=== PATIENT | female | born 1975 | race Caucasian/White ===

== ENCOUNTER 2017-08-08 02:30 | Observation (INO) | payer OTHER ==
[2017-08-08 02:38] VITALS: BMI 24.0
[2017-08-08] MEDS ORDERED: ACETAMINOPHEN 1000 MG/100 ML VIAL (NON FORMULARY) IVPB ONE ×2 (03:33→14:08)
[2017-08-08] MEDS ORDERED: ACETAMINOPHEN INJECTION 100 ML IVPB ONE ×2 (03:38→14:33)
[2017-08-08 03:58] LABS: BASO % 0.8 % (0-2.0); EOS % 2.8 % (0-4.5); HEMATOCRIT 39.3 % (32.4-45.2); HEMOGLOBIN 12.9 GM/dL (10.7-15.3); LYMPH % 37.8 % (8-40); MCH 29.6 pg (25.7-33.7); MCHC 32.9 g/dl (32.0-36.0); MEAN PLT VOLUME 7.3 fl (7.5-11.1); MONO % 9.8 % (3.8-10.2); NEUT % 48.8 % (42.8-82.8); PLATELET COUNT 397 K/MM3 (134-434); RBC 4.36 M/mm3 (3.60-5.2); RDW 13.7 % (11.6-15.6); WHITE BLOOD COUNT 10.9 K/mm3 (4.0-10.0)
[2017-08-08 04:14] LABS: INR 0.97 (0.82-1.09)
[2017-08-08 04:17] LABS: ACTIVATED PTT 29.9 SECONDS (26.9-34.4)
--- NOTE | 2017-08-08 04:33 | PDOC ---
History of Present Illness - General Chief Complaint: Pain Stated Complaint: CHEST PAIN Time Seen by Provider: 08/08/17 03:25 History Source: Patient Exam Limitations: No Limitations - History of Present Illness Initial Comments: 08/08/17 04:28 42yo Female patient w/ PmHx: TIA, HTN, Anxiety, Depression presents to ED c/o Chest pain that began 4 days ago. Patient states symptoms worsen, so she was seen at [facility] but walked out because she felt they were not doing anything. LNMP: 04/2014. Patient denies any other the counter medication use. Presenting Symptoms: Chest Pain Timing/Duration: reports: constant. denies: getting worse, changing over time, intermittent, resolved prior to arrival, gone now, other Severity/Quality: reports: moderate, pressure. denies: mild, severe, aching, burning, dull, ingestion, sharp, stabbing, tearing, tightness, other Location: reports: other (Below left breast.) Chest Pain Radiation: reports: no radiation Activities at Onset: reports: none Past History - Travel Traveled outside of the country in the last 30 days: No Close contact w/someone who was outside of country & ill: No - Past Medical History Allergies/Adverse Reactions: Allergies Allergy/AdvReac Type Severity Reaction Status Date / Time iodine Allergy Mild ithcy Verified 08/08/17 13:04 Iodinated Contrast- Oral and Allergy Verified 08/08/17 13:32 IV Dye Home Medications: Ambulatory Orders Gabapentin 100 mg PO TID 09/16/15 Quetiapine Fumarate [Seroquel -] 100 mg PO BID 09/16/15 Alprazolam 2 mg PO TID 08/08/17 Aspirin [ASA -] 81 mg PO DAILY 08/08/17 Hydrochlorothiazide [Hctz -] 12.5 mg PO DAILY 08/08/17 Hydroxyzine Pamoate [Vistaril -] 50 mg PO HS 08/08/17 Simvastatin 20 mg PO DAILY 08/08/17 Nicotine Patch [Nicoderm Patch -] 1 patch TD DAILY #30 patch 08/10/17 CVA: Yes (tia 4 yrs ago) COPD: No HTN: Yes Hypercholesterolemia: Yes Psychiatric Problems: Yes (depression, anxiety) - Surgical History Cardiac Surgery: Yes Cholecystectomy: Yes - Immunization History Immunization Up to Date: Yes - Suicide/Smoking/Psychosocial Hx Smoking History: Current every day smoker Number of Cigarettes Smoked Daily: 10 Information on smoking cessation initiated: No 'Breaking Loose' booklet given: 09/16/15 Hx Alcohol Use: No Drug/Substance Use Hx: No Substance Use Type: None Cardiac Specific PMH - Complaint Specific PMHX Abdominal Aortic Aneurysm: No Angina: No Cardiac Arrhythmia: No Cardiac Stent: No GERD: No Myocardial Infarction: No Pacemaker: No Pulmonary Embolus: No Valvular Heart Disease: No Peripheral Vascular Disease: No Review of Systems - Review of Systems Able to Perform ROS?: Yes Is the patient limited Syriac proficient: No Constitutional: No: Chills, Fever Respiratory: No: Cough, Shortness of Breath, Wheezing Cardiac (ROS): Yes: Chest Pain. No: Palpitations, Syncope, Chest Tightness ABD/GI: No: Constipated, Diarrhea, Nausea, Poor Appetite, Poor Fluid Intake, Vomiting : No: Dysuria, Hematuria Musculoskeletal: No: Back Pain Integumentary: No: Bruising, Erythema, Rash Neurological: No: Seizure, Ataxia, Dizziness All Other Systems: Reviewed and Negative *Physical Exam - Vital Signs Last Vital Signs Temp Pulse Resp BP Pulse Ox 97.7 F 79 18 117/73 100 08/10/17 14:00 08/10/17 14:00 08/10/17 14:00 08/10/17 14:00 08/10/17 06:00 - Physical Exam General Appearance: Yes: Nourished, Appropriately Dressed, Mild Distress. No: Apparent Distress, Moderate Distress, Severe Distress HEENT: positive: EOMI, NILESH, Normal ENT Inspection, Normal Voice, Symmetrical, TMs Normal, Pharynx Normal. negative: Pharyngeal Erythema, Tonsillar Exudate, Tonsillar Erythema, Nasal Congestion, Rhinorrhea, Sinus Tenderness, TM Bulging, TM Dull, TM Erythema Neck: positive: Trachea midline, Supple. negative: Rigid, Stridor, Lymphadenopathy (R), Lymphadenopathy (L) Respiratory/Chest: positive: Chest Tender (Reproducible on palpation), Lungs Clear, Normal Breath Sounds. negative: Respiratory Distress, Accessory Muscle Use, Labored Respiration, Rapid RR, Crackles, Rhonchi, Stridor, Wheezing Cardiovascular: positive: Regular Rhythm, Regular Rate Musculoskeletal: positive: Normal Inspection. negative: CVA Tenderness, Decreased Range of Motion, Vertebral Tenderness Extremity: positive: Normal Capillary Refill, Normal Inspection, Normal Range of Motion. negative: Pedal Edema, Swelling, Calf Tenderness, Erythema, Inflammation Integumentary: positive: Normal Color, Dry, Warm Neurologic: positive: plastic boat buffer II-XII NML intact, Fully Oriented, Alert, Normal Mood/ Affect, Normal Response, Motor Strength 02/05 ED Treatment Course - LABORATORY CBC & Chemistry Diagram: 08/10/17 10:53 08/09/17 07:45 - ADDITIONAL ORDERS Additional order review: 08/08/17 03:50 RBC 4.36 D MCV 90.0 MCHC 32.9 RDW 13.7 MPV 7.3 L Neutrophils % 48.8 D Lymphocytes % 37.8 D Monocytes % 9.8 Eosinophils % 2.8 Basophils % 0.8 - RADIOLOGY Radiology Studies Ordered: Category Date Time Status HEAD CT WITHOUT CONTRAST [CT] Stat CT Scan 08/08/17 03:33 Completed CHEST PA & LAT [RAD] Stat Radiology 08/08/17 03:33 Completed - Medications Given in the ED: ED Medications Discontinued Medications Generic Name Dose Route Start Last Admin Trade Name Campbellq PRN Reason Stop Dose Admin Acetaminophen 1,000 mg 08/08/17 03:33 08/08/17 03:54 Ofirmev Injection - IVPB 08/08/17 03:34 1,000 mg ONCE ONE Administration Acetaminophen 1,000 mg 08/08/17 14:08 08/08/17 14:35 Ofirmev Injection - IVPB 08/08/17 14:09 1,000 mg ONCE ONE Administration Acetaminophen 650 mg 08/08/17 15:49 08/10/17 10:51 Tylenol - PO 650 mg Q6H PRN Administration FEVER OR PAIN Al Hydroxide/Mg Hydroxide 30 ml 08/09/17 03:50 08/09/17 05:42 Mylanta Oral Suspension - PO 08/09/17 03:51 Not Given ONCE ONE Alprazolam 0.25 mg 08/08/17 12:17 08/08/17 12:43 Xanax - PO 08/08/17 12:18 0.25 mg ONCE ONE Administration Alprazolam 2 mg 08/08/17 15:45 08/10/17 13:50 Xanax - PO 2 mg TID ANGI Administration Aspirin 325 mg 08/08/17 12:48 08/08/17 13:42 Ecotrin - PO 08/08/17 12:49 325 mg ONCE ONE Administration Aspirin 81 mg 08/08/17 15:45 08/10/17 10:52 Asa - PO 81 mg DAILY ANGI Administration Atorvastatin Calcium 20 mg 08/08/17 22:00 08/09/17 21:26 Lipitor - PO 20 mg HS ANGI Administration Diphenhydramine HCl 25 mg 08/08/17 11:39 08/08/17 11:54 Benadryl Injection - IVPUSH 08/08/17 11:40 25 mg ONCE ONE Administration Enoxaparin Sodium 40 mg 08/08/17 15:00 08/08/17 15:18 Lovenox - SQ 40 mg DAILY ANGI Administration Gabapentin 100 mg 08/08/17 22:00 08/10/17 13:50 Neurontin - PO 100 mg TID ANGI Administration Hydrochlorothiazide 12.5 mg 08/08/17 15:45 08/08/17 15:59 Hctz - PO 12.5 mg DAILY ANGI Administration Hydrochlorothiazide 12.5 mg 08/10/17 10:00 08/10/17 10:52 Hctz - PO 12.5 mg DAILY ANGI Administration Hydroxyzine Pamoate 50 mg 08/08/17 22:00 08/08/17 22:11 Vistaril - PO 50 mg HS ANGI Administration Hydroxyzine Pamoate 50 mg 08/09/17 22:00 08/09/17 22:04 Vistaril - PO 50 mg HS ANGI Administration Sodium Chloride 1,000 mls @ 1,000 mls/hr 08/08/17 10:20 08/08/17 10:43 Normal Saline - IV 08/08/17 11:19 1,000 mls/hr ASDIR STA Administration Dipyridamole 33 mg/ Dextrose 33 mls @ 495 mls/hr 08/09/17 10:30 08/09/17 14: 00 IVPB 08/09/17 10:33 495 mls/hr ONCE ONE Administration Ketorolac Tromethamine 30 mg 08/08/17 09:54 08/08/17 10:38 Toradol Injection - IVPUSH 08/08/17 09:55 Not Given ONCE ONE Methylprednisolone Sodium Succinate 125 mg 08/08/17 11:39 08/08/17 11:55 Solu-Medrol - IVPUSH 08/08/17 11:40 125 mg ONCE ONE Administration Metoprolol Tartrate 12.5 mg 08/08/17 15:45 08/09/17 15:00 Lopressor - PO 12.5 mg DAILY ANGI Administration Morphine Sulfate 4 mg 08/08/17 10:20 08/08/17 10:43 Morphine Injection - IVPUSH 08/08/17 10:21 4 mg ONCE ONE Administration Nicotine 14 mg 08/09/17 12:00 08/10/17 10:52 Nicoderm Patch - TD 14 mg DAILY ANGI Administration Pantoprazole Sodium 40 mg 08/08/17 15:00 08/08/17 15:18 Protonix - PO 40 mg DAILY ANGI Administration Quetiapine Fumarate 100 mg 08/08/17 22:00 08/10/17 10:53 Seroquel - PO 100 mg BID ANGI Administration *DC/Admit/Observation/Transfer Diagnosis at time of Disposition: Atypical chest pain - Discharge Dispostion Disposition: HOME Condition at time of disposition: Stable Admit: No - Prescriptions - Referrals - Patient Instructions - Post Discharge Activity
[2017-08-08 05:35] LABS: INR 0.97 (0.82-1.09)
[2017-08-08 05:38] LABS: ACTIVATED PTT 32.9 SECONDS (26.9-34.4)
[2017-08-08 05:56] LABS: ALBUMIN 3.4 g/dl (3.4-5.0); ANION GAP 9 (8-16); BILIRUBIN,TOTAL 0.3 mg/dL (0.2-1.0); BLOOD UREA NITROGEN 27 mg/dL (7-18); CALCIUM 7.9 mg/dL (8.5-10.1); CHLORIDE 103 mmol/L (98-107); CO2 25 mmol/L (21-32); CREATININE 1.2 mg/dL (0.55-1.02); GLUCOSE,RANDOM 84 mg/dL (74-106); POTASSIUM 3.3 mmol/L (3.5-5.1); SGOT/AST 9 U/L (15-37); SGPT/ALT 18 U/L (12-78); SODIUM 137 mmol/L (136-145); TOT PROT 6.5 g/dl (6.4-8.2)
[2017-08-08 05:59] LABS: ALK PHOS 59 U/L (45-117)
--- NOTE | 2017-08-08 07:28 | PDOC ---
*Physical Exam - Vital Signs Last Vital Signs Temp Pulse Resp BP Pulse Ox 98 F 74 18 97/65 100 08/08/17 02:32 08/08/17 02:32 08/08/17 02:32 08/08/17 02:32 08/08/17 02:32 - Physical Exam General Appearance: Yes: Nourished, Appropriately Dressed, Moderate Distress ( states that pain is 10/10, clutching chest on hospital bed) Neck: positive: Trachea midline, Normal Thyroid, Supple. negative: Tender, Rigid, Lymphadenopathy (R), Lymphadenopathy (L) Respiratory/Chest: positive: Chest Tender (tender to both light and deep palpation), Lungs Clear, Normal Breath Sounds. negative: Respiratory Distress, Accessory Muscle Use, Rhonchi, Stridor, Wheezing Cardiovascular: positive: Regular Rhythm, Regular Rate, S1, S2 (present). negative: JVD, Murmur Integumentary: positive: Normal Color, Dry, Warm Neurologic: positive: radiologic technician II-XII NML intact, Fully Oriented, Alert, Normal Mood/ Affect, Motor Strength 5/5, Other (anxious). negative: Normal Response ED Treatment Course - LABORATORY CBC & Chemistry Diagram: 08/08/17 03:50 08/08/17 04:40 - ADDITIONAL ORDERS Additional order review: Laboratory Results 08/08/17 08/08/17 08/08/17 04:40 04:40 03:50 PT with INR 11.00 INR 0.97 PTT (Actin FS) 32.9 Sodium 137 Cancelled Potassium 3.3 L Cancelled Chloride 103 Cancelled Carbon Dioxide 25 Cancelled Anion Gap 9 Cancelled BUN 27 H D Cancelled Creatinine 1.2 H D Cancelled Creat Clearance w eGFR 48.80 Cancelled Random Glucose 84 D Cancelled Calcium 7.9 L Cancelled Total Bilirubin 0.3 D Cancelled AST 9 L D Cancelled ALT 18 D Cancelled Alkaline Phosphatase 59 D Cancelled Creatine Kinase 67 Cancelled Troponin I < 0.02 Cancelled Total Protein 6.5 Cancelled Albumin 3.4 D Cancelled 08/08/17 03:50 PT with INR 11.00 INR 0.97 PTT (Actin FS) 29.9 Sodium Potassium Chloride Carbon Dioxide Anion Gap BUN Creatinine Creat Clearance w eGFR Random Glucose Calcium Total Bilirubin AST ALT Alkaline Phosphatase Creatine Kinase Troponin I Total Protein Albumin 08/08/17 03:50 RBC 4.36 D MCV 90.0 MCHC 32.9 RDW 13.7 MPV 7.3 L Neutrophils % 48.8 D Lymphocytes % 37.8 D Monocytes % 9.8 Eosinophils % 2.8 Basophils % 0.8 - Medications Given in the ED: ED Medications Discontinued Medications Generic Name Dose Route Start Last Admin Trade Name Fabiola PRN Reason Stop Dose Admin Acetaminophen 1,000 mg 08/08/17 03:33 08/08/17 03:54 Ofirmev Injection - IVPB 08/08/17 03:34 1,000 mg ONCE ONE Administration Medical Decision Making - Medical Decision Making 08/08/17 09:21 Second troponin is negative. 08/08/17 10:41 Pt. x-rays are negative for fracture of ribs, acute pulmonary pathology. upon re -evaluation, pain is out of proportion to exam. Concerned for aortic aneurysm or dissection. Will order CTA chest and abdomen at this time. BUN/Cr slightly elevated at 23/1.2. Will medicate for pain, and give a liter of fluids prior to scanning. 08/08/17 11:[address] scan. Pt. told tech that she has had itching to contrast dye before. Will pre-medicate with benadryl and solumedrol. 08/08/17 13:35 CTA shows no aneurysm or dissection. Pt. still in severe pain even with medication. Will make obs for further ACS workup. Case discussed with Brionna Paez NP who accepts the pt. 08/08/17 14:51 Repeat EKG: Sinus rhythm, 60bpm, prolonged QT/QTc: 490/490. No axis deviation, no acute ST-T wave changes *DC/Admit/Observation/Transfer Diagnosis at time of Disposition: Atypical chest pain - Discharge Dispostion Condition at time of disposition: Stable Admit: Yes - Referrals - Patient Instructions
[2017-08-08 08:17] LABS: URINE APPEARANCE SLCLOUDY; URINE BILIRUBIN NEGATIVE (NEGATIVE); URINE BLOOD NEGATIVE (NEGATIVE); URINE COLOR YELLOW; URINE GLUCOSE (UA) NEGATIVE (NEGATIVE); URINE KETONE NEGATIVE (NEGATIVE); URINE NITRITE NEGATIVE (NEGATIVE); URINE PROTEIN NEGATIVE (NEGATIVE)
[2017-08-08] MEDS ORDERED: KETOROLAC TROMETHAMINE 30 MG/1 ML VIAL IVPUSH ONE (09:54)
[2017-08-08] MEDS ORDERED: SODIUM CHLORIDE 1,000 ML IV STA (10:20)
[2017-08-08] MEDS ORDERED: morphine CARPU-JECT 4 MG/1 ML DISP.SYRIN IVPUSH ONE (10:20)
[2017-08-08] MEDS ORDERED: morphine SULFATE 4 MG/ML VIAL ONE (10:39)
[2017-08-08] MEDS ORDERED: methylPREDNISolone NA SUCC 125 MG/2 ML VIAL IVPUSH ONE (11:39)
[2017-08-08] MEDS ORDERED: methylPREDNISolone NA SUCC 125 MG/2 ML VIAL ONE (11:49)
[2017-08-08] MEDS ORDERED: ALPRAZolam 0.25 MG TABLET PO ONE (12:17)
[2017-08-08] MEDS ORDERED: ASPIRIN 325 MG ENTERIC COATED TABLET (FP) PO ONE (12:48)
[2017-08-08] MEDS ORDERED: ASPIRIN 325 MG ENTERIC COATED TABLET (FP) ONE (13:35)
[2017-08-08] MEDS ORDERED: PANTOPRAZOLE 40 MG TABLET (FP) PO SCH (15:00)
[2017-08-08] MEDS ORDERED: ENOXAPARIN NA (PORCINE) 40 MG/0.4 ML DISP.SYRIN SQ SCH (15:00)
--- NOTE | 2017-08-08 15:04 | PN ---
Physical Exam: SUBJECTIVE: Patient seen and examined OBJECTIVE: Vital Signs Period Temp Pulse Resp BP Sys/Guerra Pulse Ox Last 24 Hr 97.8 F-98.1 F 70-78 18-18 97-106/55-74 98-100 GENERAL: The patient is awake, alert, and fully oriented, in no acute distress. HEAD: Normal with no signs of trauma. EYES: PERRL, extraocular movements intact, sclera anicteric, conjunctiva clear. No ptosis. ENT: Ears normal, nares patent, oropharynx clear without exudates, moist mucous membranes. NECK: Trachea midline, full range of motion, supple. LUNGS: Breath sounds equal, clear to auscultation bilaterally, no wheezes, no crackles, no accessory muscle use. HEART: Regular rate and rhythm, S1, S2 without murmur, rub or gallop. ABDOMEN: Soft, nontender, nondistended, normoactive bowel sounds, no guarding, no rebound, no hepatosplenomegaly, no masses. EXTREMITIES: 2+ pulses, warm, well-perfused, no edema. NEUROLOGICAL: Cranial nerves II through XII grossly intact. Normal speech, gait not observed. PSYCH: Normal mood, normal affect. SKIN: Warm, dry, normal turgor, no rashes or lesions noted Laboratory Results - last 24 hr 08/08/17 08/08/17 08/08/17 03:50 03:50 03:50 WBC 10.9 H RBC 4.36 D Hgb 12.9 D Hct 39.3 D MCV 90.0 MCH 29.6 MCHC 32.9 RDW 13.7 Plt Count 397 MPV 7.3 L Neutrophils % 48.8 D Lymphocytes % 37.8 D Monocytes % 9.8 Eosinophils % 2.8 Basophils % 0.8 PT with INR 11.00 INR 0.97 PTT (Actin FS) 29.9 Sodium Cancelled Potassium Cancelled Chloride Cancelled Carbon Dioxide Cancelled Anion Gap Cancelled BUN Cancelled Creatinine Cancelled Creat Clearance w eGFR Cancelled Random Glucose Cancelled Calcium Cancelled Total Bilirubin Cancelled AST Cancelled ALT Cancelled Alkaline Phosphatase Cancelled Creatine Kinase Cancelled Troponin I Cancelled Total Protein Cancelled Albumin Cancelled Urine Color Urine Appearance Urine pH Ur Specific [place] Urine Protein Urine Glucose (UA) Urine Ketones Urine Blood Urine Nitrite Urine Bilirubin Urine Urobilinogen 08/08/17 08/08/17 08/08/17 04:40 04:40 07:50 WBC RBC Hgb Hct MCV MCH MCHC RDW Plt Count MPV Neutrophils % Lymphocytes % Monocytes % Eosinophils % Basophils % PT with INR 11.00 INR 0.97 PTT (Actin FS) 32.9 Sodium 137 Potassium 3.3 L Chloride 103 Carbon Dioxide 25 Anion Gap 9 BUN 27 H D Creatinine 1.2 H D Creat Clearance w eGFR 48.80 Random Glucose 84 D Calcium 7.9 L Total Bilirubin 0.3 D AST 9 L D ALT 18 D Alkaline Phosphatase 59 D Creatine Kinase 67 Troponin I < 0.02 Total Protein 6.5 Albumin 3.4 D Urine Color Yellow Urine Appearance Slcloudy Urine pH 5.0 Ur Specific [place] 1.027 Urine Protein Negative Urine Glucose (UA) Negative Urine Ketones Negative Urine Blood Negative Urine Nitrite Negative Urine Bilirubin Negative Urine Urobilinogen 2.0 H 08/08/17 07:55 WBC RBC Hgb Hct MCV MCH MCHC RDW Plt Count MPV Neutrophils % Lymphocytes % Monocytes % Eosinophils % Basophils % PT with INR INR PTT (Actin FS) Sodium Potassium Chloride Carbon Dioxide Anion Gap BUN Creatinine Creat Clearance w eGFR Random Glucose Calcium Total Bilirubin AST ALT Alkaline Phosphatase Creatine Kinase 77 Troponin I < 0.02 Total Protein Albumin Urine Color Urine Appearance Urine pH Ur Specific [place] Urine Protein Urine Glucose (UA) Urine Ketones Urine Blood Urine Nitrite Urine Bilirubin Urine Urobilinogen ASSESSMENT/PLAN:
--- NOTE | 2017-08-08 15:31 | HP ---
CHIEF COMPLAINT: Mid-sternal chest pressure PCP: [facility] Psych: Dr. Rachel Sheppard at [facility] HISTORY OF PRESENT ILLNESS: 42 year-old female with a PMH significant for HTN, HLD, h/o TIA (2013), anxiety and depression. She presented to the ED early this monring with a complaint of mid-sternal chest pain from 4 to 7 days duration but worse in the past 24 hours. It is pressure-type pain that has been and remains constant. Patient also complains of pain under her left breast which is sharp, "like a needle" and which is also constant. She also has pain in her left shoulder, left arm, and left leg. She complains of "heaviness" in the left leg as well. ER course was notable for: (1) Troponins neg x 2 Recent Travel: No PAST MEDICAL HISTORY: Hypertension Hyperlipidemia TIA (2013) Anxiety Depression PAST SURGICAL HISTORY: Cholecystectomy Social History: unemployed Smoking: current everyday Alcohol: no Drugs: marijuana Family History: Allergies iodine Allergy (Mild, Verified 08/08/17 13:04) ithcy Iodinated Contrast- Oral and IV Dye Allergy (Verified 08/08/17 13:32) Home Medications: Meds reconciled with patient who produced prescription vials Medication Instructions Recorded Gabapentin 300 mg PO TID 09/16/15 Quetiapine Fumarate [Seroquel -] 25 mg PO BID 09/16/15 Alprazolam 2 mg PO TID 08/08/17 Aspirin [ASA -] 81 mg PO DAILY 08/08/17 Hydrochlorothiazide [Hctz -] 12.5 mg PO DAILY 08/08/17 Hydroxyzine Pamoate [Vistaril -] 50 mg PO HS 08/08/17 Simvastatin 20 mg PO DAILY 08/08/17 REVIEW OF SYSTEMS CONSTITUTIONAL: Absent: fever, chills, diaphoresis, generalized weakness, malaise, loss of appetite, weight change HEENT: Absent: rhinorrhea, nasal congestion, throat pain, throat swelling, difficulty swallowing, mouth swelling, ear pain, eye pain, visual changes CARDIOVASCULAR: Present: midsternal and left chest pain Absent: syncope, palpitations, irregular heart rate, lightheadedness, peripheral edema RESPIRATORY: Absent: cough, shortness of breath, dyspnea with exertion, orthopnea, wheezing, stridor, hemoptysis GASTROINTESTINAL: Absent: abdominal pain, abdominal distension, nausea, vomiting, diarrhea, constipation, melena, hematochezia GENITOURINARY: Absent: dysuria, frequency, urgency, hesitancy, hematuria, flank pain, genital pain MUSCULOSKELETAL: Absent: myalgia, arthralgia, joint swelling, back pain, neck pain SKIN: Absent: rash, itching, pallor HEMATOLOGIC/IMMUNOLOGIC: Absent: easy bleeding, easy bruising, lymphadenopathy, frequent infections ENDOCRINE: Absent: unexplained weight gain, unexplained weight loss, heat intolerance, cold intolerance NEUROLOGIC: Absent: headache, focal weakness or paresthesias, dizziness, unsteady gait, seizure, mental status changes, bladder or bowel incontinence PSYCHIATRIC: Present: anxiety Absent: depression, suicidal or homicidal ideation, hallucinations. PHYSICAL EXAMINATION Vital Signs - 24 hr 08/08/17 08/08/17 08/08/17 02:32 07:55 12:39 Temperature 98 F 98.1 F 97.8 F Pulse Rate 74 Pulse Rate [ 70 78 Apical] Respiratory 18 18 18 Rate Blood Pressure 97/65 Blood Pressure 106/74 105/55 [Left Arm] O2 Sat by Pulse 100 98 100 Oximetry (%) GENERAL: Awake, alert, and fully oriented. Moaning without cessation during exam. HEAD: Normal with no signs of trauma. EYES: Pupils equal, round and reactive to light, extraocular movements intact, sclera anicteric, conjunctiva clear. No ptosis. EARS, NOSE, THROAT: Ears normal, nares patent, oropharynx clear without exudates. Moist mucous membranes. NECK: Normal range of motion, supple without lymphadenopathy, JVD, or masses. LUNGS: Breath sounds equal, clear to auscultation bilaterally. No wheezes, and no crackles. No accessory muscle use. HEART: Regular rate and rhythm, normal S1 and S2 without murmur, rub or gallop. ABDOMEN: Soft, nontender, not distended, normoactive bowel sounds, no guarding, no rebound, no masses. No hepatomegaly or splenomegaly. MUSCULOSKELETAL: Normal range of motion at all joints. No bony deformities or tenderness. No CVA tenderness. UPPER EXTREMITIES: 2+ pulses, warm, well-perfused. No cyanosis. No clubbing. No peripheral edema. LOWER EXTREMITIES: 2+ pulses, warm, well-perfused. No calf tenderness. No peripheral edema. NEUROLOGICAL: Cranial nerves II-XII intact. Normal speech. Gait not observed. PSYCHIATRIC: Anxious. Laboratory Results - last 24 hr 08/08/17 08/08/17 08/08/17 03:50 03:50 03:50 WBC 10.9 H RBC 4.36 D Hgb 12.9 D Hct 39.3 D MCV 90.0 MCH 29.6 MCHC 32.9 RDW 13.7 Plt Count 397 MPV 7.3 L Neutrophils % 48.8 D Lymphocytes % 37.8 D Monocytes % 9.8 Eosinophils % 2.8 Basophils % 0.8 PT with INR 11.00 INR 0.97 PTT (Actin FS) 29.9 Sodium Cancelled Potassium Cancelled Chloride Cancelled Carbon Dioxide Cancelled Anion Gap Cancelled BUN Cancelled Creatinine Cancelled Creat Clearance w eGFR Cancelled Random Glucose Cancelled Calcium Cancelled Total Bilirubin Cancelled AST Cancelled ALT Cancelled Alkaline Phosphatase Cancelled Creatine Kinase Cancelled Troponin I Cancelled Total Protein Cancelled Albumin Cancelled Urine Color Urine Appearance Urine pH Ur Specific [place] Urine Protein Urine Glucose (UA) Urine Ketones Urine Blood Urine Nitrite Urine Bilirubin Urine Urobilinogen 08/08/17 08/08/17 08/08/17 04:40 04:40 07:50 WBC RBC Hgb Hct MCV MCH MCHC RDW Plt Count MPV Neutrophils % Lymphocytes % Monocytes % Eosinophils % Basophils % PT with INR 11.00 INR 0.97 PTT (Actin FS) 32.9 Sodium 137 Potassium 3.3 L Chloride 103 Carbon Dioxide 25 Anion Gap 9 BUN 27 H D Creatinine 1.2 H D Creat Clearance w eGFR 48.80 Random Glucose 84 D Calcium 7.9 L Total Bilirubin 0.3 D AST 9 L D ALT 18 D Alkaline Phosphatase 59 D Creatine Kinase 67 Troponin I < 0.02 Total Protein 6.5 Albumin 3.4 D Urine Color Yellow Urine Appearance Slcloudy Urine pH 5.0 Ur Specific [place] 1.027 Urine Protein Negative Urine Glucose (UA) Negative Urine Ketones Negative Urine Blood Negative Urine Nitrite Negative Urine Bilirubin Negative Urine Urobilinogen 2.0 H 08/08/17 07:55 WBC RBC Hgb Hct MCV MCH MCHC RDW Plt Count MPV Neutrophils % Lymphocytes % Monocytes % Eosinophils % Basophils % PT with INR INR PTT (Actin FS) Sodium Potassium Chloride Carbon Dioxide Anion Gap BUN Creatinine Creat Clearance w eGFR Random Glucose Calcium Total Bilirubin AST ALT Alkaline Phosphatase Creatine Kinase 77 Troponin I < 0.02 Total Protein Albumin Urine Color Urine Appearance Urine pH Ur Specific [place] Urine Protein Urine Glucose (UA) Urine Ketones Urine Blood Urine Nitrite Urine Bilirubin Urine Urobilinogen Imaging 08/08 CXR: no acute pathology 08/08 Left ribs xray: no acute pathology 08/08 CT chest, abd, pelvis: centrilobular emphysema mild to moderate; nonspecific sclerotic focus within T5 vertebra; ASSESSMENT/PLAN 42 year-old female with a PMH significant for HTN, HLD, h/o TIA (2013), anxiety and depression. Placed on observation for chest pain. Atypical chest pain --troponins neg x 2, third pending; ECG not suggestive of acute ischemic event; CXR unremarkable; echo ordered; cardiology consult requested --continue ASA, statin; start low dose beta-ambika as BP is on the low side --start protonix --NPO after midnight in event cardiology wants to stress --Tylenol PRN for pain Centrilobular emphysema --not on medication --asymptomatic at this time; needs outpatient followup h/o TIA --complaining of pain and heaviness in LLE --CT head negative --continue ASA --neuro consult requested Hypertension --BP on low side, monitor after starting low-dose metoprolol --continue HCTZ but hold if BP drops Hyperlipidemia --continue statin Anxiety and depression --continue gabapentin, quetiapine, hydroxyzine, alprazolam F/E/N Fluids: PO intake adequate Electrolytes: replete as indicated Nutrition: low sodium diet DVT prophylaxis: lovenox, oob, ambulation Dispo: requires observation. Full code. Visit type - Emergency Visit Emergency Visit: Yes Care time: The patient presented to the Emergency Department on the above date and was hospitalized for further evaluation of their emergent condition. - New Patient This patient is new to me today: Yes Date on this admission: 08/08/17 - Critical Care Critical Care patient: No
[2017-08-08] MEDS ORDERED: HYDROCHLOROTHIAZIDE 12.5 MG CAPSULE (FP) PO SCH (15:45)
[2017-08-08] MEDS ORDERED: PATIENT'S OWN MEDICATION (NON-FORMULARY) (Simvastatin [Simvastatin] 20 MG) PO SCH (15:45)
[2017-08-08] MEDS ORDERED: HYDROCHLOROTHIAZIDE 25 MG TABLET (FP) ONE (15:52)
[2017-08-08] MEDS ORDERED: ALPRAZolam 2 MG TABLET ONE (15:52)
[2017-08-08] MEDS ORDERED: ASPIRIN COATED 81 MG TABLET.EC ONE (15:52)
[2017-08-08] MEDS ORDERED: METOPROLOL TARTRATE 25 MG TABLET (FP) ONE (15:53)
[2017-08-08] MEDS: METOPROLOL TARTRATE 50 MG TABLET (FP) PO SCH (15:59)
[2017-08-08] MEDS: ALPRAZolam 2 MG TABLET PO SCH ×2 (16:00→22:08)
[2017-08-08] MEDS: ASPIRIN 81 MG CHEWABLE TABLETS PO SCH (16:00)
--- NOTE | 2017-08-08 17:12 | CON.NEURO ---
Consult - History of Present Illness History of Present Illness: admitted for chest pain and left arm pain , also complain of face numbness, left leg heaviness HPI 42 year old female history of htn, hyperlipidemia and tia ( 2014 with right sided symptoms), she also suffers from anxiety, bipolar . She is on multiple medication. She has been feeling left arm is very very heavy and feel chest pressure . She also been feeling left leg is heavy. Though she is able to walk. Patient is on statin and aspirin at home. She also feel tingling and numbness on face, bialterally. She denies any dysphagia dysarthria or diplopia or any paralysis . - Past Medical History Hepatobiliary: Yes: Cholelithiasis ...LMP: 08/01/17 Psych: Yes: Anxiety, Depression - Alcohol/Substance Use Hx Alcohol Use: No - Smoking History Smoking history: Current every day smoker Aproximately how many cigarettes per day: 10 Home Medications - Allergies Allergies/Adverse Reactions: Allergies Allergy/AdvReac Type Severity Reaction Status Date / Time iodine Allergy Mild ithcy Verified 08/08/17 13:04 Iodinated Contrast- Oral and Allergy Verified 08/08/17 13:32 IV Dye - Home Medications Home Medications: Ambulatory Orders Gabapentin 100 mg PO TID 09/16/15 Quetiapine Fumarate [Seroquel -] 100 mg PO BID 09/16/15 Alprazolam 2 mg PO TID 08/08/17 Aspirin [ASA -] 81 mg PO DAILY 08/08/17 Hydrochlorothiazide [Hctz -] 12.5 mg PO DAILY 08/08/17 Hydroxyzine Pamoate [Vistaril -] 50 mg PO HS 08/08/17 Simvastatin 20 mg PO DAILY 08/08/17 Family Disease History - Family Disease History Family Disease History: Other: Grandparent (mat gdma with gallstones), Mother ( gallstones) Physical Exam-Neuro Vital Signs: Vital Signs Temperature 97.8 F 08/08/17 12:39 Pulse Rate 76 08/08/17 16:10 Respiratory Rate 20 08/08/17 16:10 Blood Pressure 109/64 08/08/17 16:10 O2 Sat by Pulse Oximetry (%) 97 08/08/17 16:10 Labs: INR, PTT INR 0.97 (0.82-1.09) 08/08/17 04:40 Imaging - Results Cat Scan: Report Reviewed, Image Reviewed Assessment/Plan cc admitted for chest pain and left arm pain , also complain of face numbness, left leg heaviness HPI 42 year old female history of htn, hyperlipidemia and tia ( 2014 with right sided symptoms), she also suffers from anxiety, bipolar . She is on multiple medication. She has been feeling left arm is very very heavy and feel chest pressure . She also been feeling left leg is heavy. Though she is able to walk. Patient is on statin and aspirin at home. She also feel tingling and numbness on face, bialterally. She denies any dysphagia dysarthria or diplopia or any paralysis . PAST MEDICAL HISTORY: as above PAST SURGICAL HISTORY: Cholecystectomy Social History: unemployed, smokes cigarette and marijuana, denies alcohol use = Allergies iodine Allergy (Mild, Verified 08/08/17 13:04) ithcy Iodinated Contrast- Oral and IV Dye Allergy (Verified 08/08/17 13:32) Home Medications: Meds reconciled with patient who produced prescription vials Medication Instructions Recorded Gabapentin 300 mg PO TID 09/16/15 Quetiapine Fumarate [Seroquel -] 25 mg PO BID 09/16/15 Alprazolam 2 mg PO TID 08/08/17 Aspirin [ASA -] 81 mg PO DAILY 08/08/17 Hydrochlorothiazide [Hctz -] 12.5 mg PO DAILY 08/08/17 Hydroxyzine Pamoate [Vistaril -] 50 mg PO HS 08/08/17 Simvastatin 20 mg PO DAILY 08/08/17 REVIEW OF SYSTEMS reviewed in chart Neurological Examination Alert follow command, oriented x 3 CN all intact, eomi, no face asymmetry, pupils is reactive no motor weakness identified, she is able to walk and have difficulty doing squat and walking on toes or heel reflex are symmetry sensory is normal ct head reviewed Assessment - she has subjective symptoms of bilateral face, left arm and leg heaviness, no objective weakness identified.given her risk factor I would recommend do mri of brain, once stroke confirmed would do furhter work up , other culp no change Plan- pt , and Mri of brain - continue current apsirin and statin - would continue to follow with primary Thank you so much Michael Arteaga MD
[2017-08-08 18:11] LABS: LIPASE 171 U/L (73-393); N-TERMINAL BNP 67.79 pg/ml (5-125)
--- NOTE | 2017-08-08 18:26 | FALL ---
Fall Exam - Event Witnessed fall: No Location of Fall: Bathroom Fall from: While ambulating - Pre-Fall Fall Risk: High Risk Mental Status: Alert, Oriented, Cooperative Current Medications: Current Medications Generic Name Dose Route Start Last Admin Trade Name Freq PRN Reason Stop Dose Admin Acetaminophen 650 mg 08/08/17 15:49 Tylenol - PO Q6H PRN FEVER OR PAIN Alprazolam 2 mg 08/08/17 15:45 08/08/17 16:00 Xanax - PO 2 mg TID ANGI Administration Aspirin 81 mg 08/08/17 15:45 08/08/17 16:00 Asa - PO 81 mg DAILY ANGI Administration Atorvastatin Calcium 20 mg 08/08/17 22:00 Lipitor - PO HS ANGI Enoxaparin Sodium 40 mg 08/08/17 15:00 08/08/17 15:18 Lovenox - SQ 40 mg DAILY ANGI Administration Gabapentin 100 mg 08/08/17 22:00 Neurontin - PO TID ANGI Hydrochlorothiazide 12.5 mg 08/08/17 15:45 08/08/17 15:59 Hctz - PO 12.5 mg DAILY ANGI Administration Hydroxyzine Pamoate 50 mg 08/08/17 22:00 Vistaril - PO HS ANGI Metoprolol Tartrate 12.5 mg 08/08/17 15:45 08/08/17 15:59 Lopressor - PO 12.5 mg DAILY ANGI Administration Pantoprazole Sodium 40 mg 08/08/17 15:00 08/08/17 15:18 Protonix - PO 40 mg DAILY ANGI Administration Quetiapine Fumarate 100 mg 08/08/17 22:00 Seroquel - PO BID ANGI - Post-Fall Patient Outcome: Pain Only Exam Findings: A&O x3. CN II-XII intact. motor strength 5/5 in b/l upper and lower extremities. sensation intact bilaterally Treatment: None (CT head no contrast) Vital Signs: Vital Signs Temperature 97.8 F 08/08/17 12:39 Pulse Rate 76 08/08/17 16:10 Respiratory Rate 20 08/08/17 16:10 Blood Pressure 109/64 08/08/17 16:10 O2 Sat by Pulse Oximetry (%) 97 08/08/17 16:10 Identify factors for HIGH RISK for Head Injury: None of the above
[2017-08-08 20:12] LABS: URINE LEUK ESTERASE Negative (NEGATIVE)
[2017-08-08] MEDS ORDERED: QUEtiapine FUMARATE 50 MG TABLET ONE (21:45)
[2017-08-08] MEDS ORDERED: PT OWN MED DRAWER 7, Y5N ONE (21:46)
[2017-08-08] MEDS ORDERED: hydrOXYzine PAMOATE 50 MG CAPSULE (FP) PO SCH (22:00)
[2017-08-08] MEDS: ATORVASTATIN CA 20 MG TABLET (FP) PO SCH (22:08)
[2017-08-08] MEDS: GABAPENTIN 100 MG CAPSULE (FP) PO SCH (22:08)
[2017-08-08] MEDS: QUEtiapine FUMARATE 100 MG TABLET (FP) PO SCH (22:08)
[2017-08-09 01:26] LABS: COCAINE, UR NEGATIVE ng/ml (CUTOFF=300); METHADONE, UR NEGATIVE ng/ml (CUTOFF=300); URINE AMPHETAMINES NEGATIVE ng/ml (CUTOFF=500); URINE BARBITURATES NEGATIVE ng/ml (CUTOFF=200)
[2017-08-09 01:27] LABS: URINE BENZODIAZEPINES POSITIVE ng/ml (CUTOFF=200)
[2017-08-09 01:28] LABS: OPIATES, URI POSITIVE ng/ml (CUTOFF=300); PHENCYCLIDINE,URINE POSITIVE ng/ml (CUTOFF=25)
[2017-08-09] MEDS: ACETAMINOPHEN 325 MG TABLET (FP) PO PRN ×2 (02:51→21:29)
[2017-08-09] MEDS ORDERED: MAG HYDROX/AL HYDROX/SIMETH 30 ML UNIT-DOSE CUP PO ONE (03:50)
[2017-08-09] MEDS: ALPRAZolam 2 MG TABLET PO SCH ×3 (06:18→21:26)
[2017-08-09] MEDS: GABAPENTIN 100 MG CAPSULE (FP) PO SCH ×3 (06:18→21:26)
[2017-08-09 08:15] LABS: BASO % 1.2 % (0-2.0); EOS % 0.9 % (0-4.5); HEMATOCRIT 37.4 % (32.4-45.2); HEMOGLOBIN 12.2 GM/dL (10.7-15.3); LYMPH % 20.3 % (8-40); MCHC 32.6 g/dl (32.0-36.0); MEAN PLT VOLUME 7.2 fl (7.5-11.1); MONO % 8.2 % (3.8-10.2); NEUT % 69.4 % (42.8-82.8); PLATELET COUNT 381 K/MM3 (134-434); RDW 13.5 % (11.6-15.6); WHITE BLOOD COUNT 16.8 K/mm3 (4.0-10.0)
[2017-08-09 08:37] LABS: ALBUMIN 3.3 g/dl (3.4-5.0); ALK PHOS 64 U/L (45-117); ANION GAP 7 (8-16); BILIRUBIN,TOTAL 0.3 mg/dL (0.2-1.0); BLOOD UREA NITROGEN 19 mg/dL (7-18); CALCIUM 8.3 mg/dL (8.5-10.1); CHLORIDE 108 mmol/L (98-107); CO2 26 mmol/L (21-32); CREATININE 0.8 mg/dL (0.55-1.02); GLUCOSE,RANDOM 109 mg/dL (74-106); MAGNESIUM 2.2 mg/dL (1.8-2.4); PHOSPHOROUS 2.9 mg/dL (2.5-4.9); POTASSIUM 3.5 mmol/L (3.5-5.1); SGOT/AST 15 U/L (15-37); SGPT/ALT 22 U/L (12-78); SODIUM 141 mmol/L (136-145); TOT PROT 6.6 g/dl (6.4-8.2)
[2017-08-09] MEDS ORDERED: DEXTROSE 5% IVPB ONE (10:30)
[2017-08-09] MEDS ORDERED: WATER IVPB ONE (10:30)
[2017-08-09] MEDS ORDERED: DIPYRIDAMOLE STRESS TEST IVPB ONE (10:30)
--- NOTE | 2017-08-09 11:31 | PN ---
Physical Exam: SUBJECTIVE: Patient seen and examined. She reports sub left breast pain continues, however not as bad, additionally she has subjective weakness to LUE and feels her L anterior monte and LLE are weak and tingling. Events: - Fall last night, HCT negative OBJECTIVE: Vital Signs Period Temp Pulse Resp BP Sys/Guerra Pulse Ox Last 24 Hr 97.2 F-98.5 F 54-78 18-20 91-109/42-64 97-100 PE Neuro: alert, awake, cn 2-12intact, + 4/5 motor LUE Pulm: crackles noted, course bs CV: s1 s2 rrr no mrg +reproducible chest tenderness Abd: s nt nd +bs Ext: tenderness to palpation and squeezing of b/l lower ext, L knee scab Laboratory Results - last 24 hr 08/08/17 08/08/17 08/09/17 15:06 17:15 07:45 WBC 16.8 H D RBC 4.20 Hgb 12.2 Hct 37.4 MCV 89.0 MCH 29.0 MCHC 32.6 RDW 13.5 Plt Count 381 MPV 7.2 L Neutrophils % 69.4 D Lymphocytes % 20.3 D Monocytes % 8.2 Eosinophils % 0.9 Basophils % 1.2 Sodium Potassium Chloride Carbon Dioxide Anion Gap BUN Creatinine Creat Clearance w eGFR Random Glucose Calcium Phosphorus Magnesium Total Bilirubin AST ALT Alkaline Phosphatase Troponin I < 0.02 B-Natriuretic Peptide 67.79 Total Protein Albumin Lipase 171 Opiates Screen Positive Methadone Screen Negative Barbiturate Screen Negative Phencyclidine Screen Positive Ur Amphetamines Screen Negative MDMA (Ecstasy) Screen Negative Benzodiazepines Screen Positive Cocaine Screen Negative U Marijuana (THC) Screen Positive 08/09/17 07:45 WBC RBC Hgb Hct MCV MCH MCHC RDW Plt Count MPV Neutrophils % Lymphocytes % Monocytes % Eosinophils % Basophils % Sodium 141 Potassium 3.5 Chloride 108 H Carbon Dioxide 26 Anion Gap 7 L BUN 19 H D Creatinine 0.8 D Creat Clearance w eGFR > 60 Random Glucose 109 H D Calcium 8.3 L Phosphorus 2.9 Magnesium 2.2 Total Bilirubin 0.3 AST 15 D ALT 22 D Alkaline Phosphatase 64 Troponin I B-Natriuretic Peptide Total Protein 6.6 Albumin 3.3 L Lipase Opiates Screen Methadone Screen Barbiturate Screen Phencyclidine Screen Ur Amphetamines Screen MDMA (Ecstasy) Screen Benzodiazepines Screen Cocaine Screen U Marijuana (THC) Screen Active Medications Generic Name Dose Route Start Last Admin Trade Name Fabiola PRN Reason Stop Dose Admin Acetaminophen 650 mg 08/08/17 15:49 08/09/17 02:51 Tylenol - PO 650 mg Q6H PRN Administration FEVER OR PAIN Alprazolam 2 mg 08/08/17 15:45 08/09/17 06:18 Xanax - PO 2 mg TID ANGI Administration Aspirin 81 mg 08/08/17 15:45 08/08/17 16:00 Asa - PO 81 mg DAILY ANGI Administration Atorvastatin Calcium 20 mg 08/08/17 22:00 08/08/17 22:08 Lipitor - PO 20 mg HS ANGI Administration Gabapentin 100 mg 08/08/17 22:00 08/09/17 06:18 Neurontin - PO 100 mg TID ANGI Administration Hydroxyzine Pamoate 50 mg 08/08/17 22:00 08/08/17 22:11 Vistaril - PO 50 mg HS ANGI Administration Metoprolol Tartrate 12.5 mg 08/08/17 15:45 08/08/17 15:59 Lopressor - PO 12.5 mg DAILY ANGI Administration Quetiapine Fumarate 100 mg 08/08/17 22:00 08/08/17 22:08 Seroquel - PO 100 mg BID ANGI Administration Imaging 08/08 CXR: no acute pathology 08/08 Left ribs xray: no acute pathology 08/08 CT chest, abd, pelvis: centrilobular emphysema mild to moderate; nonspecific sclerotic focus within T5 vertebra; Assessment: 42 year old female with a PMH significant for HTN, HLD, h/o TIA ( 2013), anxiety and depression. Placed on observation for chest pain. Plan: 1. Atypical chest pain - r/o [place] serial trops negative - Discussed with cardiology, will order presantine stress test - ECHO ordered - Continue low dose bb - Stop PPI - Stop HCTZ - Continue ASA 2. h/o TIA - lower ext pain and tingling continue - MRI brain ordered - Reports she has had increased falls over the last couple weeks - Neuro following 3. Centrilobular emphysema, hx of smoking 10/day - Active smoker - Start nicotine patch - Not on medication - Asymptomatic at this time; needs outpatient followup 4. Hypertension - Stop HCTZ - Start low dose bb 5. Hyperlipidemia - Continue statin 6. Anxiety and depression - Continue gabapentin, quetiapine, hydroxyzine, alprazolam 7. DVT: - Stop lovenox, start heparin sq Visit type - Emergency Visit Emergency Visit: Yes ED Registration Date: 08/08/17 Care time: The patient presented to the Emergency Department on the above date and was hospitalized for further evaluation of their emergent condition. - New Patient This patient is new to me today: Yes Date on this admission: 08/09/17 - Critical Care Critical Care patient: No
[2017-08-09] MEDS ORDERED: QUEtiapine FUMARATE 50 MG TABLET ONE ×2 (14:51→20:59)
[2017-08-09] MEDS: NICOTINE 14 MG/24 HOURS TOPICAL PATCH TD SCH (14:59)
[2017-08-09] MEDS: QUEtiapine FUMARATE 100 MG TABLET (FP) PO SCH ×2 (15:00→21:26)
[2017-08-09] MEDS: ASPIRIN 81 MG CHEWABLE TABLETS PO SCH (15:00)
[2017-08-09] MEDS: METOPROLOL TARTRATE 50 MG TABLET (FP) PO SCH (15:00)
--- NOTE | 2017-08-09 18:15 | CON.CARD ---
Consult Consult Specialty:: Cardiology Referred by:: Ms. Maria Elena NP Reason for Consultation:: Chest pain - History of Present Illness Chief Complaint: Chest pain History of Present Illness: 42 year-old woman with a PMHx of HTN, HLD, TIA (2013), anxiety and depression admitted 08/08/2017 with chest pain. The patient has been experiencing constant left sided chest pain for 7 days prior to this admission. Her chest pain has been persistent, waxing and waning but worse one day prior to this admission. It is pressure-type pain with occasional sharp sensation. She also complains of pain under her left breast which is sharp, "like a needle" and which is also constant. She also complains of left shoulder, left arm, and left leg pain and heaviness sensationl. She has persistent pain after admission. RI was ruled out. No acute ECG changes. Persantine nuclear stress test 08/09/2017 revealed no evidence stress induced ischemia with apical thinning artifact. Patient was seen by Neurology. Brain MRI recommended. - History Source History Provided By: Patient Limitations to Obtaining History: No Limitations - Past Medical History Hepatobiliary: Yes: Cholelithiasis ...LMP: 08/01/17 Psych: Yes: Anxiety, Depression - Alcohol/Substance Use Hx Alcohol Use: No - Smoking History Smoking history: Current every day smoker Aproximately how many cigarettes per day: 10 Home Medications - Allergies Allergies/Adverse Reactions: Allergies Allergy/AdvReac Type Severity Reaction Status Date / Time iodine Allergy Mild ithcy Verified 08/08/17 13:04 Iodinated Contrast- Oral and Allergy Verified 08/08/17 13:32 IV Dye - Home Medications Home Medications: Ambulatory Orders Gabapentin 100 mg PO TID 09/16/15 Quetiapine Fumarate [Seroquel -] 100 mg PO BID 09/16/15 Alprazolam 2 mg PO TID 08/08/17 Aspirin [ASA -] 81 mg PO DAILY 08/08/17 Hydrochlorothiazide [Hctz -] 12.5 mg PO DAILY 08/08/17 Hydroxyzine Pamoate [Vistaril -] 50 mg PO HS 08/08/17 Simvastatin 20 mg PO DAILY 08/08/17 Family Disease History - Family Disease History Family Disease History: Other: Grandparent (mat gdma with gallstones), Mother ( gallstones) Review of Systems - Review of Systems Constitutional: reports: No Symptoms Eyes: reports: No Symptoms HENT: reports: No Symptoms Neck: reports: No Symptoms Cardiovascular: reports: Chest Pain Respiratory: reports: No Symptoms Gastrointestinal: reports: No Symptoms Genitourinary: reports: No Symptoms Musculoskeletal: reports: Extremity Pain Integumentary: reports: No Symptoms Neurological: reports: Weakness Endocrine: reports: No Symptoms Hematology/Lymphatic: reports: No Symptoms Psychiatric: reports: Depression Vital Signs: Vital Signs Temperature 98.0 F 08/09/17 16:10 Pulse Rate 60 08/09/17 16:10 Respiratory Rate 18 08/09/17 16:10 Blood Pressure 110/60 08/09/17 16:10 O2 Sat by Pulse Oximetry (%) 100 08/09/17 06:00 Constitutional: Yes: Well Nourished, No Distress, Calm Eyes: Yes: WNL, Conjunctiva Clear, EOM Intact HENT: Yes: WNL, Atraumatic, Normocephalic Neck: Yes: WNL, Supple, Trachea Midline Respiratory: Yes: Regular, CTA Bilaterally Gastrointestinal: Yes: WNL, Normal Bowel Sounds, Soft Cardiovascular: Yes: WNL, Regular Rate and Rhythm JVD: No Carotid Bruit: No PMI: Non-Displaced Heart Sounds: Yes: S1, S2 Musculoskeletal: Yes: Muscle Pain, Muscle Weakness Extremities: Yes: WNL Edema: No Peripheral Pulses WNL: Yes Integumentary: Yes: WNL Neurological: Yes: Alert, Oriented - Other Data Labs, Other Data: CBC, BMP 08/09/17 07:45 08/09/17 07:45 INR, PTT INR 0.97 (0.82-1.09) 08/08/17 04:40 Troponin, BNP 08/08/17 17:15 Troponin I < 0.02 B-Natriuretic Peptide 67.79 Troponin, BNP 08/08/17 17:15 Troponin I < 0.02 B-Natriuretic Peptide 67.79 Assessment/Plan 42 year-old woman with a PMHx of HTN, HLD, TIA (2013), anxiety and depression admitted 08/08/2017 with chest pain. She has persistent pain after admission. RI was ruled out. No acute ECG changes. Persantine nuclear stress test 08/09/2017 revealed no evidence stress induced ischemia with apical thinning artifact. Patient was seen by Neurology. Brain MRI recommended. 1) Chest pain: Atypical with risk factors of CAD. Persantine nuclear stress test 08/09/2017 revealed no evidence stress induced ischemia with apical thinning artifact. No further cardiac test recommended during this admission. Continue aspirin and simvastatin. 2) HTN: BP is well controlled. Continue HCTZ 12.5 mg daily. Please call us for reconsult as needed.
[2017-08-09] MEDS: ATORVASTATIN CA 20 MG TABLET (FP) PO SCH (21:26)
[2017-08-09] MEDS ORDERED: hydrOXYzine PAMOATE 25 MG CAPSULE (FP) PO SCH (22:00)
[2017-08-10] MEDS: ALPRAZolam 2 MG TABLET PO SCH ×2 (06:12→13:50)
[2017-08-10] MEDS: GABAPENTIN 100 MG CAPSULE (FP) PO SCH ×2 (06:12→13:50)
--- NOTE | 2017-08-10 07:30 | EKG ---
Test Reason : Blood Pressure : / mmHG Vent. Rate : 060 BPM Atrial Rate : 060 BPM P-R Int : 136 ms QRS Dur : 082 ms QT Int : 472 ms P-R-T Axes : 048 026 026 degrees QTc Int : 472 ms NORMAL SINUS RHYTHM NORMAL ECG WHEN COMPARED WITH ECG OF 08-AUG-2017 13:07, NO SIGNIFICANT CHANGE WAS FOUND Confirmed by AYE BARNHART MD ([id number]) on 08/10/2017 7:29:42 AM Referred By: Confirmed By:AYE BARNHART MD
--- NOTE | 2017-08-10 07:40 | EKG ---
Test Reason : Blood Pressure : / mmHG Vent. Rate : 060 BPM Atrial Rate : 060 BPM P-R Int : 140 ms QRS Dur : 066 ms QT Int : 490 ms P-R-T Axes : 057 049 034 degrees QTc Int : 490 ms NORMAL SINUS RHYTHM LOW VOLTAGE QRS PROLONGED QT ABNORMAL ECG WHEN COMPARED WITH ECG OF 08-AUG-2017 05:55, NO SIGNIFICANT CHANGE WAS FOUND Confirmed by AYE BARNHART MD ([id number]) on 08/10/2017 7:39:53 AM Referred By: Confirmed By:AYE BARNHART MD
[2017-08-10] MEDS ORDERED: QUEtiapine FUMARATE 50 MG TABLET ONE (09:52)
[2017-08-10 09:55] VITALS: TEMP 97.7
[2017-08-10] MEDS ORDERED: HYDROCHLOROTHIAZIDE 12.5 MG CAPSULE (FP) PO SCH (10:00)
[2017-08-10] MEDS: ACETAMINOPHEN 325 MG TABLET (FP) PO PRN (10:51)
[2017-08-10] MEDS: NICOTINE 14 MG/24 HOURS TOPICAL PATCH TD SCH (10:52)
[2017-08-10] MEDS: ASPIRIN 81 MG CHEWABLE TABLETS PO SCH (10:52)
[2017-08-10] MEDS: QUEtiapine FUMARATE 100 MG TABLET (FP) PO SCH (10:53)
[2017-08-10 11:02] LABS: BASO % 0.9 % (0-2.0); EOS % 2.5 % (0-4.5); HEMATOCRIT 39.2 % (32.4-45.2); HEMOGLOBIN 12.9 GM/dL (10.7-15.3); LYMPH % 35.7 % (8-40); MCH 29.6 pg (25.7-33.7); MCHC 32.8 g/dl (32.0-36.0); MEAN CELL VOLUME 90.2 fl (80-96); MEAN PLT VOLUME 6.9 fl (7.5-11.1); MONO % 7.9 % (3.8-10.2); PLATELET COUNT 419 K/MM3 (134-434); RBC 4.35 M/mm3 (3.60-5.2); RDW 13.9 % (11.6-15.6); WHITE BLOOD COUNT 10.6 K/mm3 (4.0-10.0)
[2017-08-10] MEDS ORDERED: PT OWN MED DRAWER 7, Y5N ONE (11:44)
--- NOTE | 2017-08-10 13:12 | PN ---
Progress Note (short form) - Note Progress Note: cc admitted for chest pain and left arm pain , also complain of face numbness, left leg heaviness HPI 42 year old female history of htn, hyperlipidemia and tia ( 2014 with right sided symptoms), she also suffers from anxiety, bipolar . She is on multiple medication. She has been feeling left arm is very very heavy and feel chest pressure . She also been feeling left leg is heavy. Though she is able to walk. Patient is on statin and aspirin at home. She also feel tingling and numbness on face, bialterally. She denies any dysphagia dysarthria or diplopia or any paralysis . her mri of brain came back as negative Neurological Examination Alert follow command, oriented x 3 CN all intact, eomi, no face asymmetry, pupils is reactive no motor weakness identified, she is able to walk and have difficulty doing squat and walking on toes or heel reflex are symmetry sensory is normal mri of brain is urremarkable Assessment - she has subjective symptoms of bilateral face, left arm and leg heaviness, no objective weakness identified. mri of brain is normal. She can be discharged from neurological point of view. no furher work up needed to be done Plan- she can follow up outpatient Thank you so much Michael Arteaga md
--- NOTE | 2017-08-10 13:27 | DS ---
Physical Exam: SUBJECTIVE: Patient seen and examined. She has come chest pain, however tylenol improves it. Able to ambulate with PT OBJECTIVE: Vital Signs Period Temp Pulse Resp BP Sys/Guerra Pulse Ox Last 24 Hr 97.5 F-98.0 F 58-86 16-18 95-111/55-69 100-100 PE Neuro: alert, awake, cn 2-12intact, + 4/5 motor LUE Pulm: crackles noted, course bs CV: s1 s2 rrr no mrg +reproducible chest tenderness Abd: s nt nd +bs Ext: tenderness to palpation, no le edema Laboratory Results - last 24 hr 08/10/17 10:53 WBC 10.6 H D RBC 4.35 Hgb 12.9 Hct 39.2 MCV 90.2 MCH 29.6 MCHC 32.8 RDW 13.9 Plt Count 419 MPV 6.9 L Neutrophils % 53.0 D Lymphocytes % 35.7 D Monocytes % 7.9 Eosinophils % 2.5 D Basophils % 0.9 HOSPITAL COURSE: Date of Admission:08/08/17 Date of Discharge: 08/10/17 Minutes to complete discharge: 37 Discharge Summary Reason For Visit: ATYPICAL CHEST PAIN Current Active Problems Atypical chest pain (Acute) Hospital Course: Initial Hospital Course: Briefly, this 42 year old female with a PMH significant for HTN, HLD, h/o TIA ( 2013), anxiety and depression presented with mid-sternal chest pain from 4 to 7 days duration but worse in the past 24 hours, a pressure-type pain that has been and remains constant. However, sharp under her left breast which is sharp, which was also constant. She also has pain in her left shoulder, left arm, and left leg. She complains of "heaviness" in the left leg as well. Subsequent Hospital Course/Progress Note/Discharge Summary by a/p: Assessment: 42 year old female with a PMH significant for HTN, HLD, h/o TIA ( 2013), anxiety and depression. Placed on observation for chest pain. Plan: 1. Atypical chest pain - NV was ruled out - No acute ECG changes - Persantine nuclear stress test 08/09/2017 revealed no evidence stress induced ischemia with apical thinning artifact. - Continue ASA - BB stopped 2. h/o TIA - Brain MRI negative, subjective symptoms of b/l face legs and left arm heaviness, however motor in tact - Can follow up in outpt for further work up per neuro, referral enclosed 3. Centrilobular emphysema, hx of smoking 10/day - Active smoker - Home with nicotine patch rx 4. Hypertension - Resume home HCTZ 5. Hyperlipidemia - Continue statin 6. Anxiety and depression - Continue gabapentin, quetiapine, hydroxyzine, alprazolam Dispo: - Home with above meds and neuro follow up and rolling walker - Pt aware and agrees to above plan Condition: Stable - Instructions Diet, Activity, Other Instructions: Please return to the ED for any new, persistent, or worsening symptoms. Follow up with your PCP in 1 week Referral for neurologist enclosed for further testing for lower ext tingling Resume home medication as directed on home medication list Take Tylenol as needed for pain Referrals: Michael Arteaga MD [Staff Physician] - 2 Weeks (Follow up for furter work up in office for lower ext tingling ) Disposition: HOME - Home Medications Comprehensive Discharge Medication List: Ambulatory Orders Gabapentin 100 mg PO TID 09/16/15 Quetiapine Fumarate [Seroquel -] 100 mg PO BID 09/16/15 Alprazolam 2 mg PO TID 08/08/17 Aspirin [ASA -] 81 mg PO DAILY 08/08/17 Hydrochlorothiazide [Hctz -] 12.5 mg PO DAILY 08/08/17 Hydroxyzine Pamoate [Vistaril -] 50 mg PO HS 08/08/17 Simvastatin 20 mg PO DAILY 08/08/17 Nicotine Patch [Nicoderm Patch -] 1 patch TD DAILY #30 patch 08/10/17 This patient is new to me today: No Emergency Visit: Yes ED Registration Date: 08/08/17 Care time: The patient presented to the Emergency Department on the above date and was hospitalized for further evaluation of their emergent condition. Critical Care patient: No - Discharge Referral Referred to [facility] No
[2017-08-10 14:23] VITALS: BP 117/73; PULSE 79
--- NOTE | 2017-08-11 14:13 | EKG ---
Test Reason : Blood Pressure : / mmHG Vent. Rate : 059 BPM Atrial Rate : 059 BPM P-R Int : 142 ms QRS Dur : 084 ms QT Int : 484 ms P-R-T Axes : 056 062 048 degrees QTc Int : 479 ms SINUS BRADYCARDIA OTHERWISE NORMAL ECG WHEN COMPARED WITH ECG OF 18-JUL-2015 11:15, NO SIGNIFICANT CHANGE WAS FOUND Confirmed by JOSH GREGORIO MD ([id number]) on 08/11/2017 2:13:12 PM Referred By: Confirmed By:JOSH GREGORIO MD
== END 2017-08-10 14:09 | disposition home or self-care (01) ==
LOC: JER 02:30 → JERBED 11:05 → J5S 16:39
PROVIDERS: ADMIT Internal Medicine; ATTEND Nurse Practitioner Acute Care
PROC: 3E033NZ Introduction of Analgesics, Hypnotics, Sedatives into Peripheral Vein, Percutaneous Approach (ICD-10-PCS; principal; 2017-08-08)
PROC: 3E033GC Introduction of Other Therapeutic Substance into Peripheral Vein, Percutaneous Approach (ICD-10-PCS; 2017-08-08)
PROC: 3E0337Z Introduction of Electrolytic and Water Balance Substance into Peripheral Vein, Percutaneous Approach (ICD-10-PCS; 2017-08-08)
PROC: 3E013GC Introduction of Other Therapeutic Substance into Subcutaneous Tissue, Percutaneous Approach (ICD-10-PCS; 2017-08-08)
DX: R07.89 Other chest pain (principal); I10 Essential (primary) hypertension; F41.9 Anxiety disorder, unspecified; F32.9 Major depressive disorder, single episode, unspecified; F17.210 Nicotine dependence, cigarettes, uncomplicated; E78.5 Hyperlipidemia, unspecified; J43.2 Centrilobular emphysema; Z86.73 Personal history of transient ischemic attack (TIA), and cerebral infarction without residual deficits; Z79.82 Long term (current) use of aspirin; Z91.048 Other nonmedicinal substance allergy status; Z90.49 Acquired absence of other specified parts of digestive tract
CPT/HCPCS: 36415; 70450-TC; 70551-TC; 71020-TC; 71101-TC; 71275-TC; 74175-TC; 78452-TC; 80053; 80307; 81003; 82550; 83690; 83735; 83880; 84100; 84484; 84703; 85025; 85610; 85730; 93005; 93010; 93017; 93306-TC; 96361; 96372; 96374; 96375; 96376; 97116-GP; 97161-GP; 99285-25; A9502; G0378

== ENCOUNTER 2017-11-15 18:51 | Emergency (ER) | payer OTHER ==
[2017-11-15] MEDS ORDERED: ALBUTEROL SO4 2.5/IPRATROPIUM 0.5 INH SOL 3 ML VIAL.NEB. NEB ONE (19:07)
[2017-11-15 19:59] VITALS: BP 111/76; PULSE 88; TEMP 98.8; BMI 25.3
--- NOTE | 2017-11-15 20:03 | PDOC ---
History of Present Illness <Boone Kholer - Last Filed: 11/16/17 00:19> - General History Source: Patient Exam Limitations: No Limitations - History of Present Illness Initial Comments: 11/16/17 02:02 The patient is a 42 year old female with history of hypertension, hyperlipidemia , anxiety/depression, cigarette smoking, who presents to the ED complaining of months of generalized weakness and diffuse myalgias with lightheadedness and unsteadyness. Today, she began to experience worsening of her lightheadedness with some shortness of breath, which she states is consistent with previous anxiety attacks. She does report recent stressors in her life and states she feels very anxious on ED evaluation. She states she felt lightheadedness and fell this afternoon. She reports she was caught by her her broke her fall and hit the front of her forehead. Unsure whether she fully lost consciousness. The patient states she does experience chronic unsteadiness and falls that have been made worse in the past few days. She has been evaluated by a neurologist as an outpatient for the same symptoms. She denies fever. She denies chest pain. She denies cough, wheezing, or hemoptysis. She denies headache, blurred vision, or sensory changes, focal weakness. She denies nausea , vomiting, or diarrhea. She denies any urinary complaints. <Pauline Fontanez - Last Filed: 11/16/17 02:03> - General Chief Complaint: Syncope/Near Syncope Stated Complaint: Syncope/Near Syncope Time Seen by Provider: 11/15/17 19:43 Past History - Past Medical History CVA: Yes (tia 4 yrs ago) COPD: No HTN: Yes Hypercholesterolemia: Yes Psychiatric Problems: Yes (depression, anxiety) - Surgical History Cardiac Surgery: Yes Cholecystectomy: Yes - Immunization History Immunization Up to Date: Yes - Suicide/Smoking/Psychosocial Hx Smoking History: Current every day smoker Number of Cigarettes Smoked Daily: 10 Information on smoking cessation initiated: No 'Breaking Loose' booklet given: 09/16/15 Hx Alcohol Use: No Drug/Substance Use Hx: No Substance Use Type: None <Boone Kohler - Last Filed: 11/16/17 00:19> <Pauline Fontanez - Last Filed: 11/16/17 02:03> - Past Medical History Allergies/Adverse Reactions: Allergies Allergy/AdvReac Type Severity Reaction Status Date / Time iodine Allergy Mild ithcy Verified 08/08/17 13:04 Iodinated Contrast- Oral and Allergy Verified 08/08/17 13:32 IV Dye Home Medications: Ambulatory Orders Gabapentin 300 mg PO TID 09/16/15 Quetiapine Fumarate [Seroquel -] 100 mg PO BID 09/16/15 Alprazolam 2 mg PO TID 08/08/17 Aspirin [ASA -] 81 mg PO DAILY 08/08/17 Simvastatin 20 mg PO DAILY 08/08/17 hydrOXYzine PAMOATE [Vistaril -] 50 mg PO HS 08/08/17 Review of Systems - Review of Systems Able to Perform ROS?: Yes Comments:: 11/16/17 02:02 GENERAL/CONSTITUTIONAL: +Generalized weakness. No fever. HEAD, EYES, EARS, NOSE AND THROAT: No change in vision. No ear pain or discharge. No sore throat. GASTROINTESTINAL: No nausea, vomiting, diarrhea or constipation. GENITOURINARY: No dysuria, frequency, or change in urination. CARDIOVASCULAR: +Lightheadness. +Chest tightness, shortness of breath. No chest pain. RESPIRATORY: No cough, wheezing, or hemoptysis. MUSCULOSKELETAL: +Diffuse myalgias. +Chronic neck pain. No back pain. SKIN: No rash NEUROLOGIC: +"Unsteadiness". ?LOC. No headache or change in strength/sensation. ENDOCRINE: No increased thirst. No abnormal weight change. HEMATOLOGIC/LYMPHATIC: No anemia, easy bleeding, or history of blood clots. ALLERGIC/IMMUNOLOGIC: No hives or skin allergy. PSYCH: +Feelings of anxiety. <Pauline Fontanez - Last Filed: 11/16/17 02:03> *Physical Exam - Vital Signs Last Vital Signs Temp Pulse Resp BP Pulse Ox 98.8 F 88 28 H 111/76 100 11/15/17 19:25 11/15/17 19:13 11/15/17 19:13 11/15/17 19:13 11/15/17 19:13 <Boone Kohler - Last Filed: 11/16/17 00:19> - Vital Signs Last Vital Signs Temp Pulse Resp BP Pulse Ox 98.8 F 88 28 H 111/76 100 11/15/17 19:25 11/15/17 19:13 11/15/17 19:13 11/15/17 19:13 11/15/17 19:13 - Physical Exam Comments: 11/16/17 02:02 GENERAL: Awake, alert, and fully oriented, in no acute distress, appears mildly anxious HEAD: +Superficial abrasion to the superior aspect of the middle of the forehead. EYES: PERRLA, EOMI, sclera anicteric, conjunctiva clear ENT: Auricles normal inspection, hearing grossly normal, nares patent, oropharynx clear without exudates. Moist mucosa NECK: Normal ROM, supple, no lymphadenopathy, JVD, or masses LUNGS: Breath sounds equal, clear to auscultation bilaterally. No wheezes, and no crackles HEART: Regular rate and rhythm, normal S1 and S2, no murmurs, rubs or gallops ABDOMEN: Soft, nontender, normoactive bowel sounds. No guarding, no rebound. No masses EXTREMITIES: Normal range of motion, no edema. No clubbing or cyanosis. No cords, erythema, or tenderness BACK: No midline spinal tenderness in cervical/thoracic/lumbar region NEUROLOGICAL: Normal speech, cranial nerves intact, negative pronator drift, 5/ 5 strength in all 4 extremities, normal sensation to light touch in all 4 extremities, normal cerebellar exam, normal gait, normal reflexes and tone SKIN: Warm, Dry, normal turgor. +Lesion as noted in HEAD. Otherwise no rashes or lesions noted. <Pauline Fontanez - Last Filed: 11/16/17 02:03> ED Treatment Course - LABORATORY CBC & Chemistry Diagram: 11/15/17 20:45 11/15/17 20:45 <Boone Kohler - Last Filed: 11/16/17 00:19> - LABORATORY CBC & Chemistry Diagram: 11/15/17 20:45 11/15/17 20:45 - ADDITIONAL ORDERS Additional order review: Laboratory Results 11/15/17 11/15/17 20:55 20:45 Sodium 140 Potassium 4.6 Chloride 108 H Carbon Dioxide 27 Anion Gap 5 L BUN 10 Creatinine 0.9 Creat Clearance w eGFR > 60 Random Glucose 95 Calcium 8.1 L Magnesium 2.1 Total Bilirubin 0.2 D AST 12 L ALT 19 Alkaline Phosphatase 67 Troponin I < 0.02 Total Protein 7.7 Albumin 3.9 TSH 1.24 Urine Color Straw Urine Appearance Clear Urine pH 6.0 Ur Specific [place] 1.008 Urine Protein Negative Urine Glucose (UA) Negative Urine Ketones Negative Urine Blood Negative Urine Nitrite Negative Urine Bilirubin Negative Urine Urobilinogen Negative Ur Leukocyte Esterase Negative Urine HCG, Qual Negative 11/15/17 20:45 RBC 4.46 MCV 90.2 MCHC 32.0 RDW 14.3 MPV 7.7 D Neutrophils % 54.9 Lymphocytes % 28.7 Monocytes % 13.4 H Eosinophils % 2.0 Basophils % 1.0 - Medications Given in the ED: ED Medications Discontinued Medications Generic Name Dose Route Start Last Admin Trade Name Fabiola PRN Reason Stop Dose Admin Lorazepam 0.5 mg 11/15/17 20:26 11/15/17 20:58 Ativan Injection - IVPUSH 11/15/17 20:27 0.5 mg ONCE ONE Administration Sodium Chloride 1,000 ml 11/15/17 20:26 11/15/17 20:58 Normal Saline - IV 11/15/17 20:27 1,000 ml ONCE ONE Administration <Pauline Fontanez - Last Filed: 11/16/17 02:03> Medical Decision Making - Medical Decision Making 11/15/17 20:43 42-year-old female with a history of anxiety, HL, COPD, depression presents to emergency department with multiple complaints including body aches, generalized weakness, lightheadedness and unsteadiness for months. Vitals are unremarkable. Exam with some bruising underneath the left eye and on the forehead due to falls but otherwise unremarkable. Pt states she is unsteady however is able to gain her balance and ambulate with a steady gait to the bathroom. She reports many months of the symptoms and is currently being evaluated by her neurologist for them. She reports it bothers her the most today is her anxiety due to her stressful situation with her son which prompted her to come in. Will obtain a CTH to eval for any neurologic cause for her unsteadness, and get labs/UA. Pt on xanax at home ,requesting something for anxiety now, will prescribe 0.5mg ativan and reassess. 11/16/17 00:19 Labs, CTH, UA negative. Pt feels much better requests DC home. Ambulating in ED with a steady gait. REcommended she follow up with her neurologist and psychiatrist within 1-2 days. I discussed the physical exam findings, ancillary test results and final diagnoses with the patient. I answered all of the patient's questions. The patient was satisfied with the care received and felt comfortable with the discharge plan and treatment plan. The patient will call their primary care physician within 24 hours to arrange follow-up and will return to the Emergency Department with any new, persistent or worsening symptoms. <Boone Kohler - Last Filed: 11/16/17 00:19> *DC/Admit/Observation/Transfer - Discharge Dispostion Admit: No - Attestations Physician Attestion: 11/16/17 00:22 I, Dr. Boone Kohler MD, attest that this document has been prepared under my direction and personally reviewed by me in its entirety. I further attest, that it accurately reflects all work, treatment, procedures and medical decision -making performed by me. <Boone Kohler - Last Filed: 11/16/17 00:19> - Attestations Scribe Attestion: 11/16/17 02:03 Documentation prepared by Pauline Fontanez, acting as medical center representative for Boone Kohler MD. <Pauline Fontanez - Last Filed: 11/16/17 02:03> Diagnosis at time of Disposition: Anxiety - Discharge Dispostion Disposition: HOME Condition at time of disposition: Stable - Referrals Referrals: Shala Stein [Primary Care Provider] - - Patient Instructions Printed Discharge Instructions: DI for Syncope in Adults (Fainting) Additional Instructions: Follow-up with your primary doctor, psychiatrist, and neurologist within 1-2 days. Take all of your medications as prescribed. Return to the emergency department if you have any new, worsening or concerning symptoms. - Post Discharge Activity
[2017-11-15] MEDS ORDERED: SODIUM CHLORIDE 0.9% 500 ML INFUS.BAG IV ONE (20:26)
[2017-11-15] MEDS ORDERED: LORazepam 2 MG/ML SDV VIAL ONE (20:54)
[2017-11-15 20:58] LABS: HEMATOCRIT 40.3 % (32.4-45.2); HEMOGLOBIN 12.9 GM/dL (10.7-15.3); LYMPH % 28.7 % (8-40); MCH 28.9 pg (25.7-33.7); MEAN CELL VOLUME 90.2 fl (80-96); MEAN PLT VOLUME 7.7 fl (7.5-11.1); MONO % 13.4 % (3.8-10.2); NEUT % 54.9 % (42.8-82.8); PLATELET COUNT 354 K/MM3 (134-434); RBC 4.46 M/mm3 (3.60-5.2); RDW 14.3 % (11.6-15.6); WHITE BLOOD COUNT 12.7 K/mm3 (4.0-10.0)
[2017-11-15 21:03] LABS: URINE APPEARANCE CLEAR; URINE BILIRUBIN NEGATIVE (NEGATIVE); URINE BLOOD NEGATIVE (NEGATIVE); URINE COLOR STRAW; URINE GLUCOSE (UA) NEGATIVE (NEGATIVE); URINE KETONE NEGATIVE (NEGATIVE); URINE LEUK ESTERASE NEGATIVE (NEGATIVE); URINE NITRITE NEGATIVE (NEGATIVE); URINE PROTEIN NEGATIVE (NEGATIVE); URINE UROBILINOGEN NEGATIVE mg/dL (0.2-1.0)
[2017-11-15 21:04] LABS: HCG,QUALITATIVE URINE NEGATIVE
[2017-11-15 21:14] LABS: ALBUMIN 3.9 g/dl (3.4-5.0); ANION GAP 5 (8-16); BLOOD UREA NITROGEN 10 mg/dL (7-18); CALCIUM 8.1 mg/dL (8.5-10.1); CHLORIDE 108 mmol/L (98-107); CO2 27 mmol/L (21-32); GLUCOSE,RANDOM 95 mg/dL (74-106); MAGNESIUM 2.1 mg/dL (1.8-2.4); POTASSIUM 4.6 mmol/L (3.5-5.1); SODIUM 140 mmol/L (136-145)
[2017-11-15 21:18] LABS: BILIRUBIN,TOTAL 0.2 mg/dL (0.2-1.0); CREATININE 0.9 mg/dL (0.55-1.02); SGOT/AST 12 U/L (15-37); SGPT/ALT 19 U/L (12-78); TOT PROT 7.7 g/dl (6.4-8.2)
[2017-11-15 21:19] LABS: ALK PHOS 67 U/L (45-117)
--- NOTE | 2017-11-16 16:44 | EKG ---
Test Reason : Blood Pressure : / mmHG Vent. Rate : 088 BPM Atrial Rate : 088 BPM P-R Int : 136 ms QRS Dur : 068 ms QT Int : 394 ms P-R-T Axes : 048 015 025 degrees QTc Int : 476 ms POOR DATA QUALITY, INTERPRETATION MAY BE ADVERSELY AFFECTED NORMAL SINUS RHYTHM NORMAL ECG WHEN COMPARED WITH ECG OF 09-AUG-2017 13:39, NO SIGNIFICANT CHANGE WAS FOUND Confirmed by MD Magno, Tyrone ([id number]) on 11/16/2017 4:44:29 PM Referred By: Confirmed By:Tyrone Kiran MD
--- NOTE | 2017-11-18 07:30 | PDOC ---
Patient Follow-up (Call Back) - Post ED Follow - Up Chief Complaint: Syncope/Near Syncope Condition at time of discharge: Stable Disposition at time of original discharge: HOME Reason for Call Back: Abnwl. Microbiology (UC with over >100,000 cfu. UA was negative. Will need abx treatement. Waiting on sensitivity.)
--- NOTE | 2017-11-19 13:15 | PDOC ---
Patient Follow-up (Call Back) - Post ED Follow - Up Condition at time of discharge: Stable Disposition at time of original discharge: HOME Reason for Call Back: Abnwl. Microbiology (Pt. called back after receiving message for positive UTI. Placed pt on Keflex at this time. Pt knows to potato picker the medication and states she will start it today.)
== END 2017-11-16 00:30 | disposition home or self-care (01) ==
LOC: JER 18:51
PROC: 3E033NZ Introduction of Analgesics, Hypnotics, Sedatives into Peripheral Vein, Percutaneous Approach (ICD-10-PCS; principal; 2017-11-15)
DX: F41.9 Anxiety disorder, unspecified (principal); F32.9 Major depressive disorder, single episode, unspecified; I10 Essential (primary) hypertension; E78.00 Pure hypercholesterolemia, unspecified; F17.210 Nicotine dependence, cigarettes, uncomplicated
CPT/HCPCS: 36415; 70450-TC; 71045-TC-FY; 80053; 81003; 83735; 84443; 84484; 84703; 85025; 87086; 87186; 93005; 93010; 96374; 99282-25

== ENCOUNTER 2018-02-01 09:26 | Day surgery (SDC) | payer OTHER ==
[2018-01-31 11:38] VITALS: BMI 27.3
[~2018-02-01 09:26] MED LIST: BETAMET ACET/BETAMET NA PH 30 MG/5 ML VIAL IJ ONE; BUPIVACAINE HCL/PF 0.25% (2.5MG/ML) 10 ML VIAL IJ ONE; IOHEXOL 180 MG/1 ML ML IJ ONE; LIDOCAINE HCL 1%, 10 MG/ML (50 mL VIAL) IJ ONE
[2018-02-01] MEDS ORDERED: LIDOCAINE HCL 1%, 10 MG/ML (20ML VIAL) ONE (09:29)
[2018-02-01] MEDS ORDERED: BUPIVACAINE HCL/PF 0.25% (2.5MG/ML) 10 ML VIAL ONE (09:29)
[2018-02-01] MEDS ORDERED: BETAMET ACET/BETAMET NA PH 30 MG/5 ML VIAL ONE (09:29)
[2018-02-01 10:21] VITALS: BP 121/52; PULSE 106; TEMP 98
[2018-02-01 11:28] LABS: METHADONE, UR NEGATIVE ng/ml (CUTOFF=300); OPIATES, URI NEGATIVE ng/ml (CUTOFF=300); PHENCYCLIDINE,URINE NEGATIVE ng/ml (CUTOFF=25); URINE AMPHETAMINES NEGATIVE ng/ml (CUTOFF=500); URINE BARBITURATES NEGATIVE ng/ml (CUTOFF=200)
[2018-02-01 11:29] LABS: COCAINE, UR POSITIVE ng/ml (CUTOFF=300); URINE BENZODIAZEPINES POSITIVE ng/ml (CUTOFF=200)
== END 2018-02-01 13:00 | disposition home or self-care (01) ==
LOC: JASU-SURG 09:26
PROVIDERS: ATTEND Physical Medicine & Rehabilitation
PROC: 3E0S3BZ Introduction of Anesthetic Agent into Epidural Space, Percutaneous Approach (ICD-10-PCS; principal; 2018-02-01)
DX: Z53.8 Procedure and treatment not carried out for other reasons (principal)
CPT/HCPCS: 80307; 84703

== ENCOUNTER 2018-02-01 11:59 | Inpatient (IN) | payer OTHER ==
--- NOTE | 2018-02-01 12:10 | PDOC ---
History of Present Illness - General History Source: Patient, Family Exam Limitations: No Limitations - History of Present Illness Initial Comments: 02/01/18 12:35 The patient is a 42 year old female, with a significant PMH of hypertension, hyperlipidemia, anxiety, depression, cigarette smoking, who presents to the emergency department with 1 month of intermittent generalized left sided weakness and a few days of chest pain. The patient states she has weakness and tingling in the left arm, left leg and left side of face which occurs 3-4x a day. As per the patients chest pain, she states the chest pain feels like a sharp pain under her left breast and states the pain is typical of her previous episodes of chest pain. The patient states she noted blood tinged sputum this morning and reports an intermittent cough. The patient states she went for an epidural this morning sent by Dr. Arteaga secondary to chronic neck and back pain but was unable to receive the epidural secondary to her symptoms. The patient denies shortness of breath, headache and dizziness. Denies fever, chills, nausea, vomit, diarrhea and constipation. Denies dysuria, frequency, urgency and hematuria. <Arjun Lee - Last Filed: 02/01/18 16:34> <Cathy Ponce - Last Filed: 02/01/18 16:58> - General Chief Complaint: Chest Pain Stated Complaint: CHEST PAIN Time Seen by Provider: 02/01/18 12:10 Past History <Arjun Lee - Last Filed: 02/01/18 16:34> - Past Medical History Anemia: No Asthma: Yes (1year ago) Cancer: No (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) Cardiac Disorders: Yes (ID jul 2017) CVA: Yes ("couple strokes"-weakness left side) COPD: No (emphysema) CHF: No Dementia: No Diabetes: No GI Disorders: Yes (reflux) Disorders: No HTN: Yes Hypercholesterolemia: Yes Liver Disease: No Psychiatric Problems: Yes (depression, anxiety) Seizures: No Thyroid Disease: No - Surgical History Cardiac Surgery: Yes Cholecystectomy: Yes - Immunization History Immunization Up to Date: Yes - Suicide/Smoking/Psychosocial Hx Smoking History: Current every day smoker Have you smoked in the past 12 months: Yes Number of Cigarettes Smoked Daily: 20 'Breaking Loose' booklet given: 02/01/18 Hx Alcohol Use: No Drug/Substance Use Hx: No Substance Use Type: None Hx Substance Use Treatment: No <Cathy Ponce - Last Filed: 02/01/18 16:58> - Past Medical History Allergies/Adverse Reactions: Allergies Allergy/AdvReac Type Severity Reaction Status Date / Time No Known Allergies Allergy Verified 02/01/18 14:35 Home Medications: Ambulatory Orders Albuterol Sulfate Inhaler - [Ventolin Hfa Inhaler -] 1 - 2 inh PO Q4H 02/01/18 Alprazolam [Xanax] 2 mg PO DAILY 02/01/18 Aspirin 81 mg PO DAILY 02/01/18 Celecoxib [Celebrex -] 200 mg PO DAILY 02/01/18 Cyclobenzaprine HCl 10 mg PO DAILY 02/01/18 Gabapentin [Neurontin] 600 mg PO ASDIR 02/01/18 Hydroxyzine HCl 50 mg PO DAILY 02/01/18 Nicotine Patch [Nicoderm Patch -] 1 patch TD DAILY 02/01/18 Nortriptyline HCl [Pamelor -] 25 mg PO DAILY 02/01/18 Omeprazole 40 mg PO DAILY 02/01/18 Oxycodone HCl/Acetaminophen [Oxycodone-Acetaminophen 5-325] 1 each PO ASDIR 10/21 Quetiapine Fumarate [Seroquel] 100 mg PO DAILY 02/01/18 Simvastatin [Zocor -] 20 mg PO HS 02/01/18 Review of Systems - Review of Systems Comments:: 02/01/18 12:35 GENERAL/CONSTITUTIONAL: +Left sided weakness. No fever or chills. HEAD, EYES, EARS, NOSE AND THROAT: No change in vision. No ear pain or discharge. No sore throat. CARDIOVASCULAR: +Chest pain. No shortness of breath. RESPIRATORY: +Intermittent cough. No wheezing. GASTROINTESTINAL: No nausea, vomiting, diarrhea or constipation. GENITOURINARY: No dysuria, frequency, or change in urination. MUSCULOSKELETAL: +Chronic neck and back pain. No joint or muscle swelling or pain. SKIN: No rash NEUROLOGIC: +Tingling left arm, left leg and left side of face. No headache, vertigo, loss of consciousness. ENDOCRINE: No increased thirst. No abnormal weight change. HEMATOLOGIC/LYMPHATIC: No anemia, easy bleeding, or history of blood clots. ALLERGIC/IMMUNOLOGIC: No hives or skin allergy. <Lee,Arjun - Last Filed: 02/01/18 16:34> *Physical Exam - Vital Signs Last Vital Signs Temp Pulse Resp BP Pulse Ox 100 F H 111 H 18 122/61 100 02/01/18 12:00 02/01/18 12:00 02/01/18 12:00 02/01/18 12:00 02/01/18 12:00 - Physical Exam Comments: 02/01/18 13:11 GENERAL: +Mild respiratory distress. Awake, alert, and fully oriented. HEAD: No signs of trauma EYES: PERRLA, EOMI, sclera anicteric, conjunctiva clear ENT: Auricles normal inspection, hearing grossly normal, nares patent, oropharynx clear without exudates. Moist mucosa NECK: Normal ROM, supple, no lymphadenopathy, JVD, or masses LUNGS: +Tachypnea. +Lungs have wheezes in bases bilaterally. HEART: +Tachycardia, normal S1 and S2. ABDOMEN: Soft, nontender. No guarding, no rebound. EXTREMITIES: Normal range of motion, no edema. No clubbing or cyanosis. No cords, erythema, or tenderness NEUROLOGICAL: Cranial nerves II through XII intact. Normal speech, normal gait. 5/5 strength in bilateral upper and lower extremities. SKIN: Warm, Dry, normal turgor, no rashes or lesions noted. <Arjun Lee - Last Filed: 02/01/18 16:34> ED Treatment Course - LABORATORY CBC & Chemistry Diagram: 02/01/18 13:00 02/01/18 13:00 - RADIOLOGY Radiograph Interpretation: 02/01/18 14:02 EXAM#: TYPE/EXAM: RESULT: [id number] RAD/CHEST X-RAY PORTABLE* AP portable chest: Shortness of breath Imaging reveals oxygen mask and chin artifact by the right apex, prominent mediastinum, weak inspiration with some crowding but no sign of an acute process. Reported By: Rufus Beavers MD 02/01/18 16:34 EXAM#: TYPE/EXAM: RESULT: [id number] CT/CHEST CTA HISTORY PROVIDED: Rule out PE. TECHNIQUE: Sequential axial images were obtained from the thoracic inlet through the domes of the diaphragm following the administration of intravenous contrast material. CTA pulmonary embolism protocol was utilized, including coronal and oblique coronal MIP images. There is adequate opacification of the central pulmonary vasculature with no filling defects suspicious for pulmonary embolism. Evaluation of the lung lizarraga demonstrates small areas of patchy opacification within the right upper and lower lobes, as well as the left upper lobe. These areas are suspicious for acute infiltrate, as they were not identified on a prior study of 08/08/2017. No pulmonary masses or pleural effusions are present. Mild atelectatic changes are seen at the right lung base. No mediastinal masses, fluid collections or lymphadenopathy were identified. The heart is not enlarged. Evaluation of the upper abdomen demonstrates no acute abnormalities. The gallbladder has been removed. Evaluation of the bony structures of the chest demonstrates no acute abnormalities. There are sclerotic changes within the T5 vertebral body of uncertain etiology. If clinically indicated, a follow-up MRI of the thoracic spine may be warranted. IMPRESSION: 1. No evidence of pulmonary embolism. 2. Small areas of patchy opacification within both lungs suspicious for acute pneumonia. Clinical correlation and follow-up is recommended. 3. Sclerotic changes of T5. MRI follow-up recommended. Please see above discussion. Reported By: Bora Booker MD 02/01/18 16:35 EXAM#: TYPE/EXAM: RESULT: [id number] CT/HEAD CT WITHOUT CONTRAST Change in mental status CT scan of the brain without intravenous contrast. Compared to prior examination dated 11/15/2014 There is mild volume loss and ventricular dilatation, which is nonspecific and unchanged since the prior examination. No mass lesion, gross acute infarct or intracranial hemorrhage are identified. There is no shift of the midline structures The calvarium is intact. Visualized paranasal sinuses and mastoid air cells are well aerated. IMPRESSION: No significant interval change or gross acute intracranial pathology is identified. Correlate clinically to determine further evaluation and follow-up. Reported By: Consuelo Hernandez MD <Arjun Lee - Last Filed: 02/01/18 16:34> - LABORATORY CBC & Chemistry Diagram: 02/01/18 13:00 02/01/18 13:00 <Cathy Ponce - Last Filed: 02/01/18 16:58> Medical Decision Making - Medical Decision Making 02/01/18 15:34 Pt presents to the ED complaining of chest pain and shortness of breath. is concerned because the patient has been increasingly short of breath over the last 24 hours. also reports three days of worsening confusion and headache for one week. Initial exam suspicious for pneumonia. Patient was tachypneic and tachycardic with wheezing in both lungs. Initial CXR read as negative for PNA, so patient was evaluated for PE. Ct PE is negative for PE but shows multiple patchy infiltrates consistent with pneumonia. PAtient will be treated with broad spectrum antibiotics and admitted 02/01/18 16:11 02/01/18 16:15 <Cathy Ponce - Last Filed: 02/01/18 16:58> *DC/Admit/Observation/Transfer - Attestations Scribe Attestion: 02/01/18 12:36 Documentation prepared by Arjun Lee, acting as medical insurance claims specialist for Cathy Ponce MD. <Arjun Lee - Last Filed: 02/01/18 16:34> - Discharge Dispostion Admit: Yes <Cathy Ponce - Last Filed: 02/01/18 16:58> Diagnosis at time of Disposition: Pneumonia Qualifiers: Pneumonia type: due to unspecified organism Laterality: bilateral Lung location : unspecified part of lung Qualified Code(s): J18.9 - Pneumonia, unspecified organism - Discharge Dispostion Condition at time of disposition: Good
[2018-02-01 12:28] VITALS: BMI 27.3
[2018-02-01] MEDS ORDERED: ACETAMINOPHEN 1000 MG/100 ML VIAL (NON FORMULARY) IVPB ONE (12:35)
[2018-02-01] MEDS ORDERED: ALBUTEROL SO4 2.5/IPRATROPIUM 0.5 INH SOL 3 ML VIAL.NEB. NEB ONE (13:09)
[2018-02-01] MEDS ORDERED: ACETAMINOPHEN INJECTION 100 ML IVPB ONE (13:10)
[2018-02-01 13:18] LABS: BASO % 0.3 % (0-2.0); EOS % 0.1 % (0-4.5); HEMATOCRIT 36.4 % (32.4-45.2); LYMPH % 5.4 % (8-40); MEAN CELL VOLUME 87.9 fl (80-96); MEAN PLT VOLUME 7.1 fl (7.5-11.1); MONO % 9.7 % (3.8-10.2); NEUT % 84.5 % (42.8-82.8); PLATELET COUNT 326 K/MM3 (134-434); RBC 4.14 M/mm3 (3.60-5.2); RDW 15.2 % (11.6-15.6); WHITE BLOOD COUNT 19.7 K/mm3 (4.0-10.0)
[2018-02-01] MEDS: ALBUTEROL SO4 2.5/IPRATROPIUM 0.5 INH SOL 3 ML VIAL.NEB. NEB SCH ×2 (13:19→13:43)
[2018-02-01 13:46] LABS: ALBUMIN 3.4 g/dl (3.4-5.0); ANION GAP 9 (8-16); BILIRUBIN,TOTAL 0.4 mg/dL (0.2-1.0); BLOOD UREA NITROGEN 9 mg/dL (7-18); CALCIUM 8.5 mg/dL (8.5-10.1); CHLORIDE 106 mmol/L (98-107); CO2 27 mmol/L (21-32); CREATININE 0.9 mg/dL (0.55-1.02); GLUCOSE,RANDOM 105 mg/dL (74-106); POTASSIUM 4.3 mmol/L (3.5-5.1); SGOT/AST 14 U/L (15-37); SGPT/ALT 55 U/L (12-78); SODIUM 142 mmol/L (136-145); TOT PROT 7.1 g/dl (6.4-8.2)
[2018-02-01 13:48] LABS: ALK PHOS 93 U/L (45-117)
[2018-02-01 14:07] LABS: HCG,QUALITATIVE URINE NEGATIVE
[2018-02-01] MEDS ORDERED: methylPREDNISolone NA SUCC 125 MG/2 ML VIAL IVPUSH ONE (14:34)
[2018-02-01] MEDS ORDERED: VANCOMYCIN 1,000 MG in DEXTROSE 5%-WATER - 250 ML IVPB ONE (14:34)
[2018-02-01] MEDS ORDERED: PIPERACILLIN/TAZOB 3.375 GM 3.375 GM in DEXTROSE 5%-WATER - 50 ML IVPB ONE (14:34)
[2018-02-01] MEDS ORDERED: methylPREDNISolone NA SUCC 125 MG/2 ML VIAL ONE (14:36)
[2018-02-01] MEDS ORDERED: PIPERACILLIN/TAZOB 3.375 GM 3.375 GM/50 ML BAG IVPB ONE (14:37)
[2018-02-01] MEDS ORDERED: VANCOMYCIN 1 GRAM (PRE-DOCKED) 1,000 MG/250 ML BAG IVPB ONE ×2 (14:37→16:00)
--- NOTE | 2018-02-01 14:56 | EKG ---
Test Reason : Blood Pressure : / mmHG Vent. Rate : 111 BPM Atrial Rate : 111 BPM P-R Int : 114 ms QRS Dur : 070 ms QT Int : 328 ms P-R-T Axes : 004 025 031 degrees QTc Int : 446 ms SINUS TACHYCARDIA BORDERLINE ECG WHEN COMPARED WITH ECG OF 15-NOV-2017 19:03, NO SIGNIFICANT CHANGE WAS FOUND Confirmed by Pio Brownlee ([id number]) on 02/01/2018 2:56:16 PM Referred By: Confirmed By:Pio Brownlee
[2018-02-01 15:08] VITALS: TEMP 97.6
[2018-02-01 15:38] LABS: URINE APPEARANCE CLEAR; URINE BILIRUBIN NEGATIVE (<2.0 mg/dL); URINE COLOR LTYELLOW; URINE GLUCOSE (UA) NEGATIVE (NEGATIVE); URINE KETONE NEGATIVE (NEGATIVE); URINE LEUK ESTERASE NEGATIVE (NEGATIVE); URINE NITRITE NEGATIVE (NEGATIVE); URINE PROTEIN NEGATIVE (NEGATIVE); URINE UROBILINOGEN NEGATIVE mg/dL (0.2-1.0)
--- NOTE | 2018-02-01 17:01 | HP ---
CHIEF COMPLAINT: Chest pain and cough HISTORY OF PRESENT ILLNESS: On 02/01/18, patient presented to the ED complaining of intermittent left sided weakness and paresthesias x 1 month with 3-4 occurrences per day. She also complained of sharp chest pain under her left breast x 2-3 days, typical of previous episodes. Patient reported intermittent cough and one episode of blood- tinged sputum that morning. ED course Patient was febrile to 101.6, p 111, WBC 19.7, and CTA showed bilateral pneumonia. Several hours into the ED stay, the patient complained of acute neck pain, worse than baseline, a headache, and light sensitivity. She was also was observed to have periods of confusion. Utox was positive for benzos (takes prescription Xanax), cocaine, and marijuana. LP was attempted several times but unsuccessful. Patient was started on decadron and antibiotics. Recent Travel: No PAST MEDICAL HISTORY: Hypertension Hyperlipidemia TIA Anxiety/depression Polysubstance abuse Cervical degenerative disc disease PAST SURGICAL HISTORY: Cholecystectomy ([facility], 09/2015) Social History: Smoking: current every day Alcohol: denies Drugs: 02/01 U tox: +benzos, +cocaine, +marijuana; 02/02 U tox: +benzos, (-) cocaine ; +marijuana Family History: Allergies No Known Allergies Allergy (Verified 02/02/18 12:44) HOME MEDICATIONS: Home Medications Medication Instructions Recorded Albuterol Sulfate Inhaler - 1 - 2 inh PO Q4H 02/01/18 [Ventolin Hfa Inhaler -] Alprazolam [Xanax] 2 mg PO DAILY 02/01/18 Aspirin 81 mg PO DAILY 02/01/18 Celecoxib [Celebrex -] 200 mg PO DAILY 02/01/18 Cyclobenzaprine HCl 10 mg PO DAILY 02/01/18 Gabapentin [Neurontin] 600 mg PO ASDIR 02/01/18 Hydroxyzine HCl 50 mg PO DAILY 02/01/18 Nicotine Patch [Nicoderm Patch -] 1 patch TD DAILY 02/01/18 Nortriptyline HCl [Pamelor -] 25 mg PO DAILY 02/01/18 Omeprazole 40 mg PO DAILY 02/01/18 Oxycodone HCl/Acetaminophen 1 each PO ASDIR 02/01/18 [Oxycodone-Acetaminophen 5-325] Quetiapine Fumarate [Seroquel] 100 mg PO DAILY 02/01/18 Simvastatin [Zocor -] 20 mg PO HS 02/01/18 REVIEW OF SYSTEMS: unable to obtain, patient does not answer questions PHYSICAL EXAMINATION Vital Signs - 24 hr 02/01/18 02/01/18 02/01/18 12:00 12:37 15:08 Temperature 100 F H 101.6 F H 97.6 F Pulse Rate 111 H Pulse Rate [ 116 H Left] Respiratory 18 22 Rate Blood Pressure 122/61 Blood Pressure 113/56 [Arm] O2 Sat by Pulse 100 95 Oximetry (%) GENERAL: Somnolent, opens eyes to loud voice, minimal response to noxious stimuli, not following commands HEAD: Normal with no signs of trauma. EYES: Pupils equal, round and reactive to light LUNGS: Diffuse wheezing HEART: Regular rate and rhythm, normal S1 and S2 ABDOMEN: Soft, nontender, not distended, normoactive bowel sounds, no guarding, no rebound UPPER EXTREMITIES: 2+ pulses, warm, well-perfused. No cyanosis. No clubbing. No peripheral edema. LOWER EXTREMITIES: 2+ pulses, warm, well-perfused. No calf tenderness. No peripheral edema. Laboratory Results - last 24 hr 02/01/18 02/01/18 02/01/18 12:35 13:00 13:00 WBC 19.7 H D RBC 4.14 Hgb 12.0 Hct 36.4 MCV 87.9 MCH 29.0 MCHC 33.0 RDW 15.2 Plt Count 326 MPV 7.1 L Neutrophils % 84.5 H D Lymphocytes % 5.4 L D Monocytes % 9.7 Eosinophils % 0.1 D Basophils % 0.3 D-Dimer 863 H Sodium Potassium Chloride Carbon Dioxide Anion Gap BUN Creatinine Creat Clearance w eGFR Random Glucose Lactic Acid Calcium Total Bilirubin AST ALT Alkaline Phosphatase Creatine Kinase Troponin I Total Protein Albumin Urine Color Ltyellow Urine Appearance Clear Urine pH 8.0 D Ur Specific [place] 1.017 Urine Protein Negative Urine Glucose (UA) Negative Urine Ketones Negative Urine Blood Negative Urine Nitrite Negative Urine Bilirubin Negative Urine Urobilinogen Negative Ur Leukocyte Esterase Negative Urine HCG, Qual Negative 02/01/18 02/01/18 13:00 13:00 WBC RBC Hgb Hct MCV MCH MCHC RDW Plt Count MPV Neutrophils % Lymphocytes % Monocytes % Eosinophils % Basophils % D-Dimer Sodium 142 Potassium 4.3 Chloride 106 Carbon Dioxide 27 Anion Gap 9 BUN 9 Creatinine 0.9 Creat Clearance w eGFR > 60 Random Glucose 105 Lactic Acid 1.3 Calcium 8.5 Total Bilirubin 0.4 D AST 14 L ALT 55 Alkaline Phosphatase 93 Creatine Kinase 65 Troponin I < 0.02 Total Protein 7.1 Albumin 3.4 Urine Color Urine Appearance Urine pH Ur Specific [place] Urine Protein Urine Glucose (UA) Urine Ketones Urine Blood Urine Nitrite Urine Bilirubin Urine Urobilinogen Ur Leukocyte Esterase Urine HCG, Qual ASSESSMENT/PLAN: Visit type - Emergency Visit Emergency Visit: Yes ED Registration Date: 02/01/18 Care time: The patient presented to the Emergency Department on the above date and was hospitalized for further evaluation of their emergent condition. - New Patient This patient is new to me today: Yes Date on this admission: 02/14/18 - Critical Care Critical Care patient: No Hospitalist Screening - Colonoscopy Questionnaire Colonoscopy Questionnaire: Colonoscopy Questionnaire - Patient: 50 - 75 years old and never had a screening colonoscopy: Unknown History of colon or rectal polyps, or CA: Unknown History of IBD, Crohn's disease or UC: Unknown History of abdominal radiation therapy as a child: Unknown - Relative: 1 with colon or rectal CA, or polyps at age 60 or younger: Unknown Colon or rectal CA diagnosed at age 45 or younger: Unknown Multiple relatives with colon or rectal CA: Unknown - Outcome: Screening Result: Negative Screen
[2018-02-01] MEDS ORDERED: ATORVASTATIN CA 40 MG TABLET (FP) PO ONE (17:06)
[2018-02-01] MEDS ORDERED: SODIUM CHLORIDE 0.9% 1000 ML INFUS.BAG IV ONE (17:07)
[2018-02-01] MEDS ORDERED: ACETAMINOPHEN 325 MG TABLET (FP) PO PRN (17:07)
[2018-02-01] MEDS ORDERED: NICOTINE 14 MG/24 HOURS TOPICAL PATCH TD SCH (17:15)
[2018-02-01 17:20] LABS: VENOUS PC02 40.8 mmHg (38-52); VENOUS PH 7.41 (7.32-7.42)
[2018-02-01 17:21] LABS: VENOUS PO2 45.3 mmHg (28-48)
[2018-02-01] MEDS ORDERED: ALBUTEROL SO4 2.5/IPRATROPIUM 0.5 INH SOL 3 ML VIAL.NEB. NEB SCH ×2 (17:30→18:00)
[2018-02-01] MEDS ORDERED: LIDOCAINE HCL 2% (20ML MULTI-DOSE VIAL) NR ONE (18:15)
[2018-02-01] MEDS ORDERED: morphine SULFATE 4 MG/ML VIAL ONE (18:22)
[2018-02-01] MEDS ORDERED: DEXAMETHASONE SOD PHOSPHATE 10 MG/1 ML VIAL IVPB SCH (19:00)
[2018-02-01] MEDS ORDERED: DEXAMETHASONE SOD PHOSPHATE 10 MG/1 ML VIAL IVPUSH SCH (19:01)
[2018-02-01] MEDS ORDERED: DEXTROSE 5% IVPB SCH (19:15)
[2018-02-01] MEDS ORDERED: ACYCLOVIR IVPB SCH (19:15)
[2018-02-01] MEDS ORDERED: WATER IVPB SCH (19:15)
[2018-02-01] MEDS ORDERED: SODIUM CHLORIDE 1,000 ML IV SCH (19:15)
[2018-02-01] MEDS ORDERED: ATORVASTATIN CA 40 MG TABLET (FP) ONE (19:19)
[2018-02-01] MEDS ORDERED: ALPRAZolam 2 MG TABLET ONE (19:24)
[2018-02-01] MEDS ORDERED: ALPRAZolam 2 MG TABLET PO ONE (19:24)
[2018-02-01 20:25] VITALS: BP 115/75; PULSE 92
[2018-02-01] MEDS ORDERED: GABAPENTIN 100 MG CAPSULE (FP) PO SCH (22:00)
[2018-02-01] MEDS ORDERED: CEFTRIAXONE 2 GM in DEXTROSE 5%-WATER 100 ML IVPB SCH (22:00)
[2018-02-01] MEDS ORDERED: CEFTRIAXONE 2 GM in DEXTROSE 5%-WATER - 100 ML IVPB SCH (23:00)
[2018-02-02] MEDS ORDERED: QUEtiapine FUMARATE 100 MG TABLET (FP) PO SCH (10:00)
[2018-02-02] MEDS ORDERED: PANTOPRAZOLE 40 MG TABLET (FP) PO SCH (10:00)
[2018-02-02] MEDS ORDERED: NORTRIPTYLINE HCL 25 MG CAPSULE PO SCH (10:00)
[2018-02-02] MEDS ORDERED: ENOXAPARIN NA (PORCINE) 40 MG/0.4 ML DISP.SYRIN SQ SCH (10:00)
[2018-02-02] MEDS ORDERED: CYCLOBENZAPRINE HCL 10 MG TABLET (FP) PO SCH (10:00)
[2018-02-02] MEDS ORDERED: ALPRAZolam 2 MG TABLET PO SCH (10:00)
[2018-02-02] MEDS ORDERED: hydrOXYzine HCL 25 MG TABLET (FP) PO SCH (10:00)
[2018-02-02] MEDS ORDERED: CELECOXIB 200 MG CAPSULE PO SCH (10:00)
[2018-02-02] MEDS ORDERED: ASPIRIN 81 MG CHEWABLE TABLETS PO SCH (10:00)
--- NOTE | 2018-02-14 13:34 | DS ---
Physical Exam: HOSPITAL COURSE: Date of Admission:02/01/18 Date of AMA: 02/01/18 42 year-old female with a PMH significant for HTN, HLD, TIA, anxiety/depression , cervical DDD, and polysubstance abuse. On 02/01/18, patient presented to the ED complaining of intermittent left sided weakness and paresthesias x 1 month with 3-4 occurrences per day. She also complained of sharp chest pain under her left breast x 2-3 days, typical of previous episodes. Patient reported intermittent cough and one episode of blood- tinged sputum that morning. Patient was febrile to 101.6, p 111, WBC 19.7, and CTA showed bilateral pneumonia. Several hours into the ED stay, the patient complained of acute neck pain, worse than baseline, a headache, and light sensitivity. She was also was observed to have periods of confusion. Utox was positive for benzos (takes prescription Xanax), cocaine, and marijuana. LP was attempted several times but unsuccessful. Patient was started on decadron and antibiotics. Later in the evening, while still in ED awaiting bed assignment, patient became violent and security was called. She signed out AMA. She entered a bathroom in the hospital and locked herself inside. Security obtained entry and found patient on the floor unconscious. A rapid response was called. Patient regained consciousness after about a minute, BP 70/30. Patient was agitated and slurring her speech. She refused physical exam and CT imaging. The patient's reportedly threatened to harm any staff that tried to prevent he and the patient from leaving. Patient left the building. Minutes to complete discharge: 35 Discharge Summary Reason For Visit: PNEUMONIA Condition: Unchanged/Unknown - Instructions Disposition: HOME - Home Medications Comprehensive Discharge Medication List: Ambulatory Orders Albuterol Sulfate Inhaler - [Ventolin HFA Inhaler -] 1 - 2 inh PO Q4H 02/01/18 Alprazolam [Xanax] 2 mg PO DAILY 02/01/18 Aspirin 81 mg PO DAILY 02/01/18 Cyclobenzaprine HCl 10 mg PO DAILY 02/01/18 Gabapentin [Neurontin] 600 mg PO ASDIR 02/01/18 Hydroxyzine HCl 50 mg PO DAILY 02/01/18 Nortriptyline HCl [Pamelor -] 25 mg PO DAILY 02/01/18 Omeprazole 40 mg PO DAILY 02/01/18 Quetiapine Fumarate [Seroquel] 100 mg PO DAILY 02/01/18 Simvastatin [Zocor -] 20 mg PO HS 02/01/18 Amoxicillin/Potassium Clav [Augmentin 875-125 Tablet] 1 each PO BID #20 tablet 02/03/18 This patient is new to me today: Yes Date on this admission: 02/14/18 Emergency Visit: Yes ED Registration Date: 02/01/18 Care time: The patient presented to the Emergency Department on the above date and was hospitalized for further evaluation of their emergent condition. Critical Care patient: No - Discharge Referral Referred to [facility] Med P.C.: No
== END 2018-02-01 22:00 | disposition home or self-care (01) | DRG 139 ==
LOC: JER 11:59 → JERBED 16:58 → J8W 21:23
PROVIDERS: ADMIT Internal Medicine; ATTEND Nurse Practitioner Acute Care
DX: J18.9 Pneumonia, unspecified organism (principal); R07.9 Chest pain, unspecified; R53.1 Weakness; I10 Essential (primary) hypertension; E78.5 Hyperlipidemia, unspecified; F41.8 Other specified anxiety disorders; F17.210 Nicotine dependence, cigarettes, uncomplicated; I69.354 Hemiplegia and hemiparesis following cerebral infarction affecting left non-dominant side
CPT/HCPCS: 36415; 70450-TC; 71045-TC-FY; 71275-TC; 80053; 81003; 82550; 82803; 83605; 84484; 84703; 85025; 85379; 86140; 87040; 87086; 87804; 93005; 93010; 99285-25; J0131; J7030; J7620

== ENCOUNTER 2018-02-02 12:39 | Inpatient (IN) | payer OTHER ==
[2018-02-02 12:48] VITALS: BMI 27.3
--- NOTE | 2018-02-02 13:31 | PDOC ---
History of Present Illness - General Chief Complaint: Shortness of Breath Stated Complaint: RESPIRATORY PROBLEMS Time Seen by Provider: 02/02/18 13:17 - History of Present Illness Initial Comments: 02/02/18 13:40 The patient is a 42 year old female with a history of Asthma, CAD, [place], CVA, Anxiety who presents for evaluation of shortness of breath. The patient was recently seen 1 day ago in the ED and was admitted for treatment of a pneumonia. The patient also had an unsuccessful lumbar puncture due to reported confusion and slurred speech. The patient left AMA overnight and represents to the ED for continued symptoms agreeing to be re-admitted for further treatment. The patient reports a history of 1 month of generalized weakness and worsening confusion with worsening SOB, chest pain, and cough prompting her presentation to the ED 1 day ago. The patient had a complete work up 1 day ago including a negative ct head, clear chest plain film, and a CTA for evaluation of PE which did not demonstrate a PE, but did demonstrate bilateral patchy infiltrates consistent with a pneumonia. The patient's reports that the patient fell after leaving AMA last night in the bathroom with head trauma and LOC. The patient otherwise denies nausea, vomiting, abdominal pain, or changes with urination or bowel movements. Past History - Past Medical History Allergies/Adverse Reactions: Allergies Allergy/AdvReac Type Severity Reaction Status Date / Time No Known Allergies Allergy Verified 02/02/18 12:44 Home Medications: Ambulatory Orders Albuterol Sulfate Inhaler - [Ventolin Hfa Inhaler -] 1 - 2 inh PO Q4H 02/01/18 Alprazolam [Xanax] 2 mg PO DAILY 02/01/18 Aspirin 81 mg PO DAILY 02/01/18 Celecoxib [Celebrex -] 200 mg PO DAILY 02/01/18 Cyclobenzaprine HCl 10 mg PO DAILY 02/01/18 Gabapentin [Neurontin] 600 mg PO ASDIR 02/01/18 Hydroxyzine HCl 50 mg PO DAILY 02/01/18 Nicotine Patch [Nicoderm Patch -] 1 patch TD DAILY 02/01/18 Nortriptyline HCl [Pamelor -] 25 mg PO DAILY 02/01/18 Omeprazole 40 mg PO DAILY 02/01/18 Oxycodone HCl/Acetaminophen [Oxycodone-Acetaminophen 5-325] 1 each PO ASDIR 10/21 Quetiapine Fumarate [Seroquel] 100 mg PO DAILY 02/01/18 Simvastatin [Zocor -] 20 mg PO HS 02/01/18 Anemia: No Asthma: Yes (1year ago) Cancer: No (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) Cardiac Disorders: Yes (DE jul 2017) CVA: Yes ("couple strokes"-weakness left side) COPD: No (emphysema) CHF: No Dementia: No Diabetes: No GI Disorders: Yes (reflux) Disorders: No HTN: Yes Hypercholesterolemia: Yes Liver Disease: No Psychiatric Problems: Yes (depression, anxiety) Seizures: No Thyroid Disease: No - Surgical History Cardiac Surgery: Yes Cholecystectomy: Yes - Immunization History Immunization Up to Date: Yes - Suicide/Smoking/Psychosocial Hx Smoking History: Current every day smoker Have you smoked in the past 12 months: Yes Number of Cigarettes Smoked Daily: 20 Information on smoking cessation initiated: Yes 'Breaking Loose' booklet given: 02/02/18 Hx Alcohol Use: Yes Drug/Substance Use Hx: No Substance Use Type: None Hx Substance Use Treatment: No Review of Systems - Review of Systems Comments:: 02/02/18 13:57 Constitutional: Generalized Weakness. No fevers, chills, fatigue, HEENT: No Rhinorrhea, nasal congestion, visual changes Cardiovascular: Chest pain. No syncope, palpitations, lightheadedness Respiratory: SOB, Cough. No Hemoptysis, Gastrointestinal: No Abdominal pain, Nausea, Vomiting, Constipation, Diarrhea, Melena Genitourinary: No Dysuria, Frequency, Urgency, Hesitancy, Hematuria, Flank pain Musculoskeletal: No Myalgia, arthralgia Skin: No rashes, itching, bruising, pallor Neurologic: No Headache, Dizziness, Numbness, Weakness, or Tingling Psychiatric: Confusion. No Hallucinations. No SI or HI *Physical Exam - Vital Signs Last Vital Signs Temp Pulse Resp BP Pulse Ox 97.6 F 86 18 115/75 100 02/02/18 12:44 02/02/18 12:44 02/02/18 12:44 02/02/18 12:44 02/02/18 13:28 - Physical Exam Comments: 02/02/18 13:58 General Appearance: Nourished. No Apparent Distress HEENT: EOMI, NILESH. No Pharyngeal Erythema, Tonsillar Exudate, Tonsillar Erythema Neck: No Cervical Lymphadenopathy Respiratory/Chest: Lungs Clear, Normal Breath Sounds. No Crackles, Rales, Rhonchi, Wheezing Cardiovascular: Regular Rhythm, Regular Rate. No Murmur, Gallops, Rubs Gastrointestinal/Abdominal: Normal Bowel Sounds, Soft. No Guarding, Rebound, Tenderness Musculoskeletal: No CVA Tenderness Extremity: Normal Capillary Refill Integumentary: Normal Color, Dry, Warm Neurologic: rn building II-XII NML intact, Fully Oriented, Lethargic Normal Mood/Affect , Slow to Respond Heart Score/ECG Review #1 ECG reviewed & interpreted by me at: 14:17 General ECG Interpretation: Sinus Rhythm, Normal Rate, Normal Intervals, No acute ischemic changes ED Treatment Course - LABORATORY CBC & Chemistry Diagram: 02/02/18 13:40 02/02/18 14:37 Medical Decision Making - Medical Decision Making 02/02/18 13:59 The patient is a 42 year old female with a history of Asthma, CAD, DE, CVA, Anxiety who presents for evaluation of shortness of breath. Given the patient' s complete work up 1 day ago, it is likely the patient's symptoms are due to pneumonia and we have discussed the need for admission for further management. The patient reports that she is willing to be admitted and will stay for further management in the hospital. We will obtain a cbc, cmp, troponin, bnp, lactate, head ct, ekg and cultures to evaluate further. We will treat the patient with Vanc and Zosyn here in the ED. We will continue to monitor and reassess. 02/02/18 15:52 CBC demonstrates an elevated wbc to 31. CMP, troponin, bnp, lactate are unremarkable. We discussed the case with the hospitalist team who accepted the patient for admission. We will continue to monitor and reassess while here in the ED. 02/02/18 16:57 The patient has become more legthargic on exam minimally responsive. She continues to protect and maintain her airway with good air movement on auscultation. We discussed the case with Dr. Napoles who agrees that the patient could benefit from ICU level of care and has accepted the patient to the ICU. *DC/Admit/Observation/Transfer Diagnosis at time of Disposition: Pneumonia Qualifiers: Pneumonia type: due to unspecified organism Laterality: unspecified laterality Lung location: unspecified part of lung Qualified Code(s): J18.9 - Pneumonia, unspecified organism Altered mental status Qualifiers: Altered mental status type: unspecified Qualified Code(s): R41.82 - Altered mental status, unspecified - Discharge Dispostion Condition at time of disposition: Stable Admit: Yes - Referrals - Patient Instructions - Post Discharge Activity
[2018-02-02 13:55] LABS: HEMATOCRIT 37.5 % (32.4-45.2); HEMOGLOBIN 12.2 GM/dL (10.7-15.3); MCH 28.8 pg (25.7-33.7); MCHC 32.6 g/dl (32.0-36.0); MEAN CELL VOLUME 88.4 fl (80-96); MEAN PLT VOLUME 7.6 fl (7.5-11.1); PLATELET COUNT 398 K/MM3 (134-434); RBC 4.24 M/mm3 (3.60-5.2); RDW 15.4 % (11.6-15.6)
[2018-02-02 14:02] LABS: WHITE BLOOD COUNT 31.1 K/mm3 (4.0-10.0)
[2018-02-02] MEDS ORDERED: CEFTRIAXONE 2 GM-D5W BAG 2 GM/50 ML BAG IVPB ONE (14:02)
[2018-02-02] MEDS ORDERED: PIPERACILLIN/TAZOB 4.5 GM 4.5 GM in DEXTROSE 5%-WATER 100 ML IVPB ONE (14:05)
[2018-02-02] MEDS ORDERED: VANCOMYCIN 1,000 MG in DEXTROSE 5%-WATER - 250 ML IVPB ONE (14:05)
--- NOTE | 2018-02-02 14:08 | PDOC ---
Attending Attestation - HPI HPI: 02/02/18 14:19 The patient is a 38 year old female, with a significant past medical history of , who presents to the emergency department with AMS s/p leaving the hospital AMA with diagnosis of pneumonia. As per the significant other at bedside, when the patient left last night she fell and hit her head in the bathroom. He continues to report that when the nursing staff suggested the patient be reevaluated in the ED after her fall, the patient refused and went home. She denies chest pain, shortness of breath, headache and dizziness. She denies fever, chills, nausea, vomit, diarrhea and constipation. She denies dysuria, frequency, urgency and hematuria. Allergies: NKDA - Physicial Exam PE: 02/02/18 14:19 Constitutional: (+) Altered. Confused. In mild to moderate distress. Head: Normocephalic. Atraumatic Eyes: PERRL. EOMI. Conjunctivae are not pale. ENT: Mucous membranes are moist and intact. Posterior pharynx without exudates or erythema. Uvula midline. Neck: Supple. Full ROM. No lymphadenopathy. Cardiovascular: Regular rate. Regular rhythm. S1, S2 regular. Distal pulses are 2+ and symmetric. Pulmonary/Chest: (+) lung sounds diminished bilaterally. Clear to auscultation bilaterally No wheezing, rales or rhonchi. Abdominal: Soft and non-distended. There is no tenderness. No rebound, guarding or rigidity. No organomegaly. No palpable masses. Good bowel sounds. Back: No CVA tenderness. Musculoskeletal: No edema. No cyanosis. No clubbing. Full range of motion in all extremities. No calf tenderness. Radial/pedal pulses are intact and 2+ bilaterally Skin: Skin is warm and dry. No petechiae. No purpura. Neurological: (+) Altered. Slow to respond. No answering questions appropriately. Nonfocal. Cranial nerves II-XII are grossly intact. Strength is grossly symmetric. No sensory deficits. - Medical Decision Making 02/02/18 14:21 Documentation prepared by Clare Charles, acting as medical numerical control operator for Char Gasca DO <Clare Charles - Last Filed: 02/02/18 14:19> - Resident Resident Name: Anil Medrano - ED Attending Attestation I have performed the following: I have examined & evaluated the patient, The case was reviewed & discussed with the resident, I agree w/resident's findings & plan, Exceptions are as noted - Medical Decision Making 02/02/18 14:08 I, Dr. Char Gasca, DO, attest that this document has been prepared under my direction and personally reviewed by me in its entirety. I further attest, that it accurately reflects all work, treatment, procedures and medical decision -making performed by me. 02/02/18 14:37 a/p: 42yo female who signed out AMA last night after being admitted for PNA presents for eval of sob and altered ms -pt with bibasilar infiltrates on ct yesterday -now altered -per , pt fell in the bathroom after signing out AMA -will obtain labs, head ct, ekg, cultures -will start broad spectrum abx -will need admission 02/02/18 15:52 pt received decadron yesterday prior to LP for concern for meningitis -will give decadron again abx ordered head ct shows small foci of air most likely from LP yesterday unable to obtain LP yesterday, discussed with Erma Paez ([facility]) who will consult neuro for LP cultures sent abx ordered pt agrees to stay for admission Erma Paez accepts pt to service <Char Gasca - Last Filed: 02/02/18 15:54> Heart Score/ECG Review - ECG Intrepretation Comment:: 02/02/18 14:39 sinus at 87, nl axis, nl interval, no acute st/t wave findings <Char Gasca - Last Filed: 02/02/18 15:54>
[2018-02-02] MEDS ORDERED: SODIUM CHLORIDE 1,000 ML IV STA ×2 (14:15→14:23)
[2018-02-02] MEDS ORDERED: VANCOMYCIN 1 GRAM (PRE-DOCKED) 1,000 MG/250 ML BAG IVPB ONE (14:25)
[2018-02-02] MEDS ORDERED: PIPERACILLIN/TAZOB 4.5 GM 4.5 GM/100 ML BAG IVPB ONE ×2 (14:25→14:54)
[2018-02-02 15:20] LABS: ALBUMIN 3.1 g/dl (3.4-5.0); ANION GAP 5 (8-16); BLOOD UREA NITROGEN 12 mg/dL (7-18); CALCIUM 8.5 mg/dL (8.5-10.1); CHLORIDE 112 mmol/L (98-107); CO2 27 mmol/L (21-32); CREATININE 0.8 mg/dL (0.55-1.02); GLUCOSE,RANDOM 183 mg/dL (74-106); POTASSIUM 4.3 mmol/L (3.5-5.1); SGOT/AST 14 U/L (15-37); SGPT/ALT 42 U/L (12-78); SODIUM 144 mmol/L (136-145)
[2018-02-02 15:24] LABS: ALK PHOS 86 U/L (45-117); BILIRUBIN,TOTAL 0.2 mg/dL (0.2-1.0); N-TERMINAL BNP 389.68 pg/ml (5-125); TOT PROT 6.7 g/dl (6.4-8.2)
[2018-02-02 15:42] LABS: ARTERIAL BLOOD GAS pH 7.41 (7.35-7.45); CARBOXYHEMOGLOBIN 3.7 gm% (0.5-2.0)
[2018-02-02 15:43] LABS: ALLENS TEST POSITIVE; ARTERIAL BLD GAS O2 SATURATION 94.5 % (90-98.9); ARTERIAL BLOOD GAS BASE EXCESS 1.1 meq/l (-2-2); ARTERIAL BLOOD GAS PCO2 40.9 mmHg (35-45); ARTERIAL BLOOD GAS PO2 69.9 mmHg (80-100)
[2018-02-02] MEDS ORDERED: DEXAMETHASONE SOD PHOSPHATE 10 MG/1 ML VIAL IVPUSH ONE (15:44)
[2018-02-02] MEDS ORDERED: DEXAMETHASONE SOD PHOSPHATE 10 MG/1 ML VIAL ONE (15:51)
--- NOTE | 2018-02-02 17:22 | HP ---
CHIEF COMPLAINT: Chest pain and cough HISTORY OF PRESENT ILLNESS: 42 year-old female with a PMH significant for HTN, HLD, TIA, anxiety/depression , cervical DDD, and polysubstance abuse. Patient presents to the ED today for the second time in 24 hours having signed out AMA yesterday. On 02/01/18, patient presented to the ED complaining of intermittent left sided weakness and paresthesias x 1 month with 3-4 occurrences per day. She also complained of sharp chest pain under her left breast x 2-3 days, typical of previous episodes. Patient reported intermittent cough and one episode of blood- tinged sputum that morning. Patient was febrile to 101.6, p 111, WBC 19.7, and CTA showed bilateral pneumonia. Several hours into the ED stay, the patient complained of acute neck pain, worse than baseline, a headache, and light sensitivity. She was also was observed to have periods of confusion. Utox was positive for benzos (takes prescription Xanax), cocaine, and marijuana. LP was attempted several times but unsuccessful. Patient was started on decadron and antibiotics. Last night, while still in ED awaiting bed assignment, patient became violent and security was called. She signed out AMA. She entered a bathroom in the hospital and locked herself inside. Security obtained entry and found patient on the floor unconscious. A rapid response was called. Patient regained consciousness after about a minute, BP 70/30. Patient was agitated and slurring her speech. She refused physical exam and CT imaging. The patient's reportedly threatened to harm any staff that tried to prevent he and the patient from leaving. Patient left the building. On 02/02/18, patient represented to the ED complaining of shortness of breath as well as the same problems she recounted on 02/01/18. Recent Travel: No PAST MEDICAL HISTORY: Hypertension Hyperlipidemia TIA Anxiety/depression Polysubstance abuse Cervical degenerative disc disease PAST SURGICAL HISTORY: Cholecystectomy ([facility], 09/2015) Social History: Smoking: current every day Alcohol: denies Drugs: 02/01 U tox: +benzos, +cocaine, +marijuana; 02/02 U tox: +benzos, (-) cocaine ; +marijuana Family History: Allergies No Known Allergies Allergy (Verified 02/02/18 12:44) HOME MEDICATIONS: Home Medications Medication Instructions Recorded Albuterol Sulfate Inhaler - 1 - 2 inh PO Q4H 02/01/18 [Ventolin Hfa Inhaler -] Alprazolam [Xanax] 2 mg PO DAILY 02/01/18 Aspirin 81 mg PO DAILY 02/01/18 Celecoxib [Celebrex -] 200 mg PO DAILY 02/01/18 Cyclobenzaprine HCl 10 mg PO DAILY 02/01/18 Gabapentin [Neurontin] 600 mg PO ASDIR 02/01/18 Hydroxyzine HCl 50 mg PO DAILY 02/01/18 Nicotine Patch [Nicoderm Patch -] 1 patch TD DAILY 02/01/18 Nortriptyline HCl [Pamelor -] 25 mg PO DAILY 02/01/18 Omeprazole 40 mg PO DAILY 02/01/18 Oxycodone HCl/Acetaminophen 1 each PO ASDIR 02/01/18 [Oxycodone-Acetaminophen 5-325] Quetiapine Fumarate [Seroquel] 100 mg PO DAILY 02/01/18 Simvastatin [Zocor -] 20 mg PO HS 02/01/18 REVIEW OF SYSTEMS: unable to obtain, patient minimally responsive, does not answer questions PHYSICAL EXAMINATION Vital Signs - 24 hr 02/02/18 02/02/18 02/02/18 12:44 13:28 16:54 Temperature 97.6 F 98.3 F Pulse Rate 86 Pulse Rate [ 90 Left Radial] Respiratory 18 20 Rate Blood Pressure 115/75 Blood Pressure 160/80 [Left Arm] O2 Sat by Pulse 96 100 98 Oximetry (%) GENERAL: Somnolent, opens eyes to loud voice, minimal response to noxious stimuli, not following commands HEAD: Normal with no signs of trauma. EYES: Pupils equal, round and reactive to light LUNGS: Diffuse wheezing HEART: Regular rate and rhythm, normal S1 and S2 ABDOMEN: Soft, nontender, not distended, normoactive bowel sounds, no guarding, no rebound UPPER EXTREMITIES: 2+ pulses, warm, well-perfused. No cyanosis. No clubbing. No peripheral edema. LOWER EXTREMITIES: 2+ pulses, warm, well-perfused. No calf tenderness. No peripheral edema. Laboratory Results - last 24 hr 02/02/18 02/02/18 02/02/18 13:40 13:40 13:40 WBC 31.1 H* D RBC 4.24 Hgb 12.2 Hct 37.5 MCV 88.4 MCH 28.8 MCHC 32.6 RDW 15.4 Plt Count 398 D MPV 7.6 Total Counted 100 Neutrophils % No Result Required. Neutrophils % (Manual) 83.0 H Band Neutrophils % 2.0 Lymphocytes % No Result Required. Lymphocytes % (Manual) 6.0 L Monocytes % (Manual) 9 Puncture Site ABG pH ABG pCO2 at Pt Temp ABG pO2 at Pt Temp ABG HCO3 ABG O2 Sat (Measured) ABG O2 Content ABG Base Excess Kavon Test Carboxyhemoglobin Methemoglobin Oxygen Flow Rate Sodium Cancelled Potassium Cancelled Chloride Cancelled Carbon Dioxide Cancelled Anion Gap Cancelled BUN Cancelled Creatinine Cancelled Creat Clearance w eGFR Cancelled Random Glucose Cancelled Lactic Acid Calcium Cancelled Total Bilirubin Cancelled AST Cancelled ALT Cancelled Alkaline Phosphatase Cancelled Creatine Kinase Cancelled Troponin I Cancelled B-Natriuretic Peptide Cancelled Total Protein Cancelled Albumin Cancelled 02/02/18 02/02/18 02/02/18 14:12 14:37 15:35 WBC RBC Hgb Hct MCV MCH MCHC RDW Plt Count MPV Total Counted Neutrophils % Neutrophils % (Manual) Band Neutrophils % Lymphocytes % Lymphocytes % (Manual) Monocytes % (Manual) Puncture Site Right radial ABG pH 7.41 ABG pCO2 at Pt Temp 40.9 ABG pO2 at Pt Temp 69.9 L ABG HCO3 25.3 ABG O2 Sat (Measured) 94.5 ABG O2 Content 13.4 L ABG Base Excess 1.1 Kavon Test Positive Carboxyhemoglobin Methemoglobin Oxygen Flow Rate Room air Sodium 144 Potassium 4.3 Chloride 112 H Carbon Dioxide 27 Anion Gap 5 L BUN 12 Creatinine 0.8 Creat Clearance w eGFR > 60 Random Glucose 183 H Lactic Acid 1.7 Calcium 8.5 Total Bilirubin 0.2 D AST 14 L ALT 42 Alkaline Phosphatase 86 Creatine Kinase 81 Troponin I < 0.02 B-Natriuretic Peptide 389.68 H Total Protein 6.7 Albumin 3.1 L 02/02/18 15:35 WBC RBC Hgb Hct MCV MCH MCHC RDW Plt Count MPV Total Counted Neutrophils % Neutrophils % (Manual) Band Neutrophils % Lymphocytes % Lymphocytes % (Manual) Monocytes % (Manual) Puncture Site ABG pH ABG pCO2 at Pt Temp ABG pO2 at Pt Temp ABG HCO3 ABG O2 Sat (Measured) ABG O2 Content ABG Base Excess Kavon Test Carboxyhemoglobin 3.7 H Methemoglobin 1.4 Oxygen Flow Rate Sodium Potassium Chloride Carbon Dioxide Anion Gap BUN Creatinine Creat Clearance w eGFR Random Glucose Lactic Acid Calcium Total Bilirubin AST ALT Alkaline Phosphatase Creatine Kinase Troponin I B-Natriuretic Peptide Total Protein Albumin Imaging 02/02 CT head: since 02/01 interval air pockets in the right infratemporal fossa; no gross fracture 02/01 CTA: patchy opacifications RUL, RLL, JUDIE suspicious for acute pneumonia; negative for PE ASSESSMENT/PLAN: 42 year-old female with a PMH significant for HTN, HLD, TIA, anxiety/depression , and polysubstance abuse. Admitted for bilateral pneumonia and possible meningitis. Bilateral pneumonia Centrilobular emphysema --vanc and meropenem --duonebs --decadron --pulmonary following r/o Meningitis --decadron, vanc, meropenem, acyclovir --vanc trough tomorrow morning 8:00am before fourth dose --IV fluids Possible head trauma s/p fall --02/02 CT head: since 02/01 interval air pockets in the right infratemporal fossa; no gross fracture --MRI pending --neuro to follow Hypertension --BP stable --not on home meds Hyperlipidemia --continue statin Cervical DDD --continue gabapentin Anxiety and depression --hold quetiapine, hydroxyzine for now --continue xanax at home dose Polysubstance abuse --02/01 U tox: +benzos, +cocaine, +marijuana; 02/02 U tox: +benzos, (-) cocaine; +marijuana --continue home dose xanax --avoid beta blockers F/E/N Fluids: NS @ 125mL/hr Electrolytes: replete as indicated Nutrition: low sodium diet DVT prophylaxis: lovenox, oob, ambulation Dispo: requires ICU level care. Visit type - Emergency Visit Emergency Visit: Yes ED Registration Date: 02/02/18 Care time: The patient presented to the Emergency Department on the above date and was hospitalized for further evaluation of their emergent condition. - New Patient This patient is new to me today: Yes Date on this admission: 02/02/18 - Critical Care Critical Care patient: Yes Total Critical Care Time (in minutes): 120 Critical Care Statement: The care of this patient involved high complexity decision making to prevent further life threatening deterioration of the patient 's condition and/or to evaluate & treat vital organ system(s) failure or risk of failure. Hospitalist Screening - Colonoscopy Questionnaire Colonoscopy Questionnaire: Colonoscopy Questionnaire - Patient: 50 - 75 years old and never had a screening colonoscopy: Unknown History of colon or rectal polyps, or CA: Unknown History of IBD, Crohn's disease or UC: Unknown History of abdominal radiation therapy as a child: Unknown - Relative: 1 with colon or rectal CA, or polyps at age 60 or younger: Unknown Colon or rectal CA diagnosed at age 45 or younger: Unknown Multiple relatives with colon or rectal CA: Unknown - Outcome: Screening Result: Negative Screen
[2018-02-02] MEDS ORDERED: ATORVASTATIN CA 80 MG TABLET (FP) PO ONE (17:29)
[2018-02-02] MEDS ORDERED: metoPROLOL SUCCINATE 25 MG TAB.SR.24H (FP) PO SCH (17:30)
[2018-02-02 17:39] LABS: URINE APPEARANCE CLOUDY; URINE BILIRUBIN NEGATIVE (<2.0 mg/dL); URINE COLOR RED; URINE GLUCOSE (UA) NEGATIVE (NEGATIVE); URINE KETONE NEGATIVE (NEGATIVE); URINE LEUK ESTERASE NEGATIVE (NEGATIVE); URINE NITRITE NEGATIVE (NEGATIVE); URINE PROTEIN NEGATIVE (NEGATIVE); URINE UROBILINOGEN NEGATIVE mg/dL (0.2-1.0)
[2018-02-02 17:48] LABS: COCAINE, UR NEGATIVE ng/ml (CUTOFF=300); METHADONE, UR NEGATIVE ng/ml (CUTOFF=300); OPIATES, URI NEGATIVE ng/ml (CUTOFF=300); PHENCYCLIDINE,URINE NEGATIVE ng/ml (CUTOFF=25); URINE AMPHETAMINES NEGATIVE ng/ml (CUTOFF=500); URINE BARBITURATES NEGATIVE ng/ml (CUTOFF=200)
[2018-02-02 17:52] LABS: URINE BENZODIAZEPINES POSITIVE ng/ml (CUTOFF=200)
[2018-02-02] MEDS ORDERED: PNEUMOC 13-VAL CONJ-DIP CRM/PF 0.5 ML DISP.SYRIN IM ONE (17:52)
[2018-02-02] MEDS ORDERED: PNEUMOCOCCAL 23 VACCINE 0.5 ML VIAL IM ONE (18:15)
--- NOTE | 2018-02-02 19:52 | EKG ---
Test Reason : Blood Pressure : / mmHG Vent. Rate : 087 BPM Atrial Rate : 087 BPM P-R Int : 126 ms QRS Dur : 082 ms QT Int : 384 ms P-R-T Axes : 057 022 037 degrees QTc Int : 462 ms NORMAL SINUS RHYTHM NORMAL ECG WHEN COMPARED WITH ECG OF 01-FEB-2018 12:27, NO SIGNIFICANT CHANGE WAS FOUND Confirmed by GINGER TRAORE MD ([id number]) on 02/02/2018 7:51:55 PM Referred By: Confirmed By:GINGER TRAORE MD
[2018-02-02] MEDS ORDERED: SODIUM CHLORIDE 1,000 ML IV SCH (20:45)
[2018-02-02] MEDS ORDERED: MEROPENEM 1 GM in DEXTROSE 5%-WATER 100 ML IVPB SCH (21:00)
[2018-02-02] MEDS ORDERED: VANCOMYCIN 750 MG in DEXTROSE 5%-WATER - 150 ML IVPB SCH (21:00)
--- NOTE | 2018-02-02 21:01 | CONSULT ---
Consult Consult Specialty:: Pulm/CCM Reason for Consultation:: AMS and leukocytosis c/f meningitis - History of Present Illness Chief Complaint: Headache History of Present Illness: 42 roger with PMHx of HTN, HLD, TIA, anxiety/depression, cervical DDD, chronic back pain and polysubstance abuse (marijuana , ? cocaine) who initially presented on 02/01 with c/o intermittent left sided weakness and LE numbness x 1 month and left chest pain and blood tinged cough. In the ED she was febrile and tachycadic with WBC 19.7. CTA s/f bilateral opacities c/f pneumonia. In the ED she c/o headache , neck apin and had periods of confusion. D/T c/f meningitis LP was attempted but unsuccessful. She also had a syncopal episode. UTox + benzos (has Rx Xanax), and marijuana. Pt signed out AMA. Pt returned to ED today with c/o LARA, SOB. In the ED t 97.6F, HR 86, RR 18, BP 115/75, O2 sat 96% on room air. Labs notable for WBC 31.1, neuts 83% 2% bands, lactate 1.7. Neurology consulted. Plan for transfer to ICU for further management with plan for MRI to r/o meningitis. Started on empiric meningitis coverage with ceftriaxone, vanco and acyclovir. In ICU rec'd A+O x3 c/o headache, T98.4F, BP 106/75, HR 80. MRI done. Read by Dr Abel shows no e/o meningitis. - History Source History Provided By: Patient, Medical Record - Past Medical History Hepatobiliary: Yes: Cholelithiasis ...LMP: 01/24/18 Psych: Yes: Anxiety, Depression Musculoskeletal: Yes: Chronic low back pain - Alcohol/Substance Use Hx Alcohol Use: Yes - Smoking History Smoking history: Current every day smoker Have you smoked in the past 12 months: Yes Aproximately how many cigarettes per day: 20 - Social History Usual Living Arrangement: With Spouse Home Medications - Allergies Allergies/Adverse Reactions: Allergies Allergy/AdvReac Type Severity Reaction Status Date / Time No Known Allergies Allergy Verified 02/02/18 12:44 - Home Medications Home Medications: Ambulatory Orders Albuterol Sulfate Inhaler - [Ventolin Hfa Inhaler -] 1 - 2 inh PO Q4H 02/01/18 Alprazolam [Xanax] 2 mg PO DAILY 02/01/18 Aspirin 81 mg PO DAILY 02/01/18 Celecoxib [Celebrex -] 200 mg PO DAILY 02/01/18 Cyclobenzaprine HCl 10 mg PO DAILY 02/01/18 Gabapentin [Neurontin] 600 mg PO ASDIR 02/01/18 Hydroxyzine HCl 50 mg PO DAILY 02/01/18 Nicotine Patch [Nicoderm Patch -] 1 patch TD DAILY 02/01/18 Nortriptyline HCl [Pamelor -] 25 mg PO DAILY 02/01/18 Omeprazole 40 mg PO DAILY 02/01/18 Oxycodone HCl/Acetaminophen [Oxycodone-Acetaminophen 5-325] 1 each PO ASDIR 10/21 Quetiapine Fumarate [Seroquel] 100 mg PO DAILY 02/01/18 Simvastatin [Zocor -] 20 mg PO HS 02/01/18 Family Disease History - Family Disease History Family Disease History: Other: Grandparent (mat gdma with gallstones), Mother ( gallstones) Review of Systems - Review of Systems Constitutional: reports: No Symptoms Eyes: reports: No Symptoms HENT: reports: No Symptoms Neck: reports: Tenderness Cardiovascular: reports: Shortness of Breath Respiratory: reports: No Symptoms Gastrointestinal: reports: No Symptoms Genitourinary: reports: No Symptoms Musculoskeletal: reports: Back Pain Neurological: reports: Change in LOC, Confusion, Headache Endocrine: reports: No Symptoms Psychiatric: reports: Anxiety Physical Exam Vital Signs: Vital Signs Temperature 97.7 F 02/02/18 18:03 Pulse Rate 79 02/02/18 18:03 Respiratory Rate 17 02/02/18 18:03 Blood Pressure 109/68 02/02/18 18:03 O2 Sat by Pulse Oximetry (%) 98 02/02/18 16:54 Intake & Output 01/31/18 02/01/18 02/02/18 02/03/18 23:59 23:59 23:59 23:59 Intake Total 825 Output Total 700 Balance 125 Weight 63.503 kg Constitutional: Yes: Well Nourished, No Distress Eyes: Yes: WNL, Conjunctiva Clear HENT: Yes: Atraumatic, Normocephalic Neck: Yes: Supple, Trachea Midline Cardiovascular: Yes: Regular Rate and Rhythm, S1, S2 Respiratory: Yes: Regular, CTA Bilaterally, On Nasal O2 Gastrointestinal: Yes: Normal Bowel Sounds, Soft Musculoskeletal: Yes: Back Pain Extremities: Yes: WNL Edema: No Peripheral Pulses WNL: Yes Integumentary: Yes: WNL Neurological: Yes: Alert, Oriented ...Motor Strength: WNL Psychiatric: Yes: Alert, Oriented Labs: CBC, BMP 02/02/18 13:40 02/02/18 14:37 CBC,CMP WBC 31.1 K/mm3 (4.0-10.0) H* D 02/02/18 13:40 RBC 4.24 M/mm3 (3.60-5.2) 02/02/18 13:40 Hgb 12.2 GM/dL (10.7-15.3) 02/02/18 13:40 Hct 37.5 % (32.4-45.2) 02/02/18 13:40 MCV 88.4 fl (80-96) 02/02/18 13:40 MCH 28.8 pg (25.7-33.7) 02/02/18 13:40 MCHC 32.6 g/dl (32.0-36.0) 02/02/18 13:40 RDW 15.4 % (11.6-15.6) 02/02/18 13:40 Plt Count 398 K/MM3 (134-434) D 02/02/18 13:40 MPV 7.6 fl (7.5-11.1) 02/02/18 13:40 Total Counted 100 02/02/18 13:40 Neutrophils % No Result Required. 02/02/18 13:40 Neutrophils % (Manual) 83.0 % (42.8-82.8) H 02/02/18 13:40 Band Neutrophils % 2.0 % 02/02/18 13:40 Lymphocytes % No Result Required. 02/02/18 13:40 Lymphocytes % (Manual) 6.0 % (8-40) L 02/02/18 13:40 Monocytes % (Manual) 9 % (3.8-10.2) 02/02/18 13:40 Sodium 144 mmol/L (136-145) 02/02/18 14:37 Potassium 4.3 mmol/L (3.5-5.1) 02/02/18 14:37 Chloride 112 mmol/L (98-107) H 02/02/18 14:37 Carbon Dioxide 27 mmol/L (21-32) 02/02/18 14:37 Anion Gap 5 (8-16) L 02/02/18 14:37 BUN 12 mg/dL (7-18) 02/02/18 14:37 Creatinine 0.8 mg/dL (0.55-1.02) 02/02/18 14:37 Creat Clearance w eGFR > 60 (>60) 02/02/18 14:37 Random Glucose 183 mg/dL (74-106) H 02/02/18 14:37 Lactic Acid 1.7 mmol/L (0.0-2.0) 02/02/18 14:12 Calcium 8.5 mg/dL (8.5-10.1) 02/02/18 14:37 Total Bilirubin 0.2 mg/dL (0.2-1.0) D 02/02/18 14:37 AST 14 U/L (15-37) L 02/02/18 14:37 ALT 42 U/L (12-78) 02/02/18 14:37 Alkaline Phosphatase 86 U/L (45-117) 02/02/18 14:37 Creatine Kinase 81 IU/L (26-192) 02/02/18 14:37 Troponin I < 0.02 ng/ml (0.00-0.05) 02/02/18 14:37 B-Natriuretic Peptide 389.68 pg/ml (5-125) H 02/02/18 14:37 Total Protein 6.7 g/dl (6.4-8.2) 02/02/18 14:37 Albumin 3.1 g/dl (3.4-5.0) L 02/02/18 14:37 Current Medications Acetaminophen (Tylenol Oral Solution -) 650 mg PO Q6H PRN PRN Reason: PAIN LEVEL 1 - 3 Last Admin: 02/02/18 21:19 Dose: 650 mg Albuterol/Ipratropium (Duoneb -) 1 amp NEB Q4H [facility] Last Admin: 02/02/18 21:37 Dose: 1 amp Alprazolam (Xanax -) 2 mg PO DAILY [facility] Aspirin (Asa -) 81 mg PO DAILY [facility] Atorvastatin Calcium (Lipitor -) 10 mg PO HS [facility] Last Admin: 02/02/18 21:19 Dose: 10 mg Dexamethasone Sodium Phosphate (Decadron Injection -) 10 mg IVPUSH Q6H-IV [facility] Stop: 02/06/18 09:01 Gabapentin (Neurontin -) 200 mg PO TID [facility] Last Admin: 02/02/18 22:59 Dose: 200 mg Acyclovir 630 mg/ Dextrose 112.6 mls @ 112.6 mls/hr IVPB Q8H-IV ANGI Last Admin: 02/02/18 22:55 Dose: 112.6 mls/hr Sodium Chloride (Normal Saline -) 1,000 mls @ 125 mls/hr IV ASDIR [facility] Last Admin: 02/02/18 21:15 Dose: 125 mls/hr Vancomycin HCl 750 mg/ (Dextrose) 150 mls @ 150 mls/hr IVPB Q6H [facility]GI PRN Reason: Protocol Vancomycin HCl 750 mg/ (Dextrose) 250 mls @ 250 mls/hr IVPB ONCE ONE Stop: 02/03/18 02:59 Meropenem 1 gm/ Dextrose 100 mls @ 200 mls/hr IVPB Q8H-IV ANGI Meropenem 1 gm/ Dextrose 100 mls @ 200 mls/hr IVPB Q8H-IV [facility]GI Stop: 02/03/18 10:29 Last Admin: 02/02/18 22:56 Dose: 200 mls/hr Nicotine (Nicoderm Patch -) 14 mg TD DAILY [facility] Last Admin: 02/02/18 22:55 Dose: 14 mg Nortriptyline HCl (Pamelor -) 25 mg PO DAILY [facility] Pantoprazole Sodium (Protonix -) 40 mg PO DAILY [facility] Imaging - Results Chest X-ray: Report Reviewed MRI: Pending Problem List - Problems (1) Polysubstance (excluding opioids) dependence Code(s): F19.20 - OTHER PSYCHOACTIVE SUBSTANCE DEPENDENCE, UNCOMPLICATED (2) Altered mental status Code(s): R41.82 - ALTERED MENTAL STATUS, UNSPECIFIED Qualifiers: Altered mental status type: unspecified Qualified Code(s): R41.82 - Altered mental status, unspecified (3) Pneumonia Code(s): J18.9 - PNEUMONIA, UNSPECIFIED ORGANISM Qualifiers: Pneumonia type: due to unspecified organism Laterality: unspecified laterality Lung location: unspecified part of lung Qualified Code(s): J18.9 - Pneumonia, unspecified organism (4) Anxiety Code(s): F41.9 - ANXIETY DISORDER, UNSPECIFIED (5) Atypical chest pain Code(s): R07.89 - OTHER CHEST PAIN Assessment/Plan 42 roger with PMHx of HTN, HLD, TIA, anxiety/depression, smoker, cervical DDD, chronic back pain and polysubstance abuse (marijuana , ? cocaine) who is transferred to ICU for management of possible meningitis +/- HAP vs aspiration pneumonitis. Hx of E-coli UTI last in . UA negative so far Plan: -ID consult -f/u cultures -Send sputum for culture when able -Continue Yen and vanco for HAP coverage -Consider d/c acyclovir as no e/o meningitis -Trend WBC and lactate -NC O2 for O2 sat>92% -Incentive spirometer, pulmonary toilet -Monitor UOP and electrolytes -Cont Xanax for anxiety -Pain management -Nicotine patch -Advance diet as manjeet -DVT prophylaxis Jessa Jalloh, DERRELL CC time 35mins
[2018-02-02] MEDS ORDERED: ACETAMINOPHEN 650 MG/20.3 ML ORAL SOLUTION (CUPS) PO PRN (21:04)
[2018-02-02] MEDS ORDERED: ENOXAPARIN NA (PORCINE) 40 MG/0.4 ML DISP.SYRIN SQ ONE (21:15)
[2018-02-02] MEDS: ALBUTEROL SO4 2.5/IPRATROPIUM 0.5 INH SOL 3 ML VIAL.NEB. NEB SCH (21:37)
[2018-02-02] MEDS ORDERED: ATORVASTATIN CA 10 MG TABLET (FP) PO SCH (22:00)
[2018-02-02] MEDS: NICOTINE 14 MG/24 HOURS TOPICAL PATCH TD SCH (22:55)
[2018-02-02] MEDS: ACYCLOVIR IVPB SCH (22:55)
[2018-02-02] MEDS: WATER IVPB SCH (22:55)
[2018-02-02] MEDS: DEXTROSE 5% IVPB SCH (22:55)
[2018-02-02] MEDS: MEROPENEM 1 GM in DEXTROSE 5%-WATER 100 ML IVPB SCH (22:56)
[2018-02-02] MEDS ORDERED: PT OWN MED DRAWER 7, Y5N ONE (22:58)
[2018-02-02] MEDS: GABAPENTIN 100 MG CAPSULE (FP) PO SCH (22:59)
--- NOTE | 2018-02-02 23:06 | CON.NEURO ---
Consult - History of Present Illness History of Present Illness: 42 year-old female with a PMH significant for HTN, HLD, TIA, anxiety/depression , cervical DDD, and polysubstance abuse (marijuana , ? cocaine). Patient presents to the ED today for the second time in 24 hours having signed out AMA yesterday. On 02/01/18, patient presented to the ED complaining of intermittent left sided weakness and paresthesias x 1 month with 3-4 occurrences per day. She also complained of sharp chest pain under her left breast x 2-3 days, typical of previous episodes. Patient reported intermittent cough and one episode of blood- tinged sputum that morning. Patient was febrile to 101.6, p 111, WBC 19.7, and CTA showed bilateral pneumonia. Several hours into the ED stay, the patient complained of acute neck pain, worse than baseline, a headache, and light sensitivity. She was also was observed to have periods of confusion. Utox was positive for benzos (takes prescription Xanax), cocaine, and marijuana. LP was attempted several times but unsuccessful. Patient was started on decadron and antibiotics. Last night, while still in ED awaiting bed assignment, patient became violent and security was called. She signed out AMA. She entered a bathroom in the hospital and locked herself inside. Security obtained entry and found patient on the floor unconscious. A rapid response was called. Patient regained consciousness after about a minute, BP 70/30. Patient was agitated and slurring her speech. She refused physical exam and CT imaging. The patient's reportedly threatened to harm any staff that tried to prevent he and the patient from leaving. Patient left the building. On 02/02/18, patient represented to the ED complaining of shortness of breath as well as the same problems she recounted on 02/01/18. today she is able to recount hx of the day prior, stt\ates LARA, SOB, residual left sided leg pain. LP attempted-unable. CT HD IMPRESSION: Mild volume loss and ventricular dilatation again seen which is nonspecific. No gross acute intracranial pathology is identified. Interval air pockets in the right infratemporal fossa, which are of uncertain origin. No gross adjacent skull base fracture or fracture of the included right maxillary antrum is identified. Correlate clinically to determine further evaluation. MRI prelim to my eye WNL - History Source History Provided By: Medical Record - Past Medical History Hepatobiliary: Yes: Cholelithiasis ...LMP: 01/24/18 Psych: Yes: Anxiety, Depression Musculoskeletal: Yes: Chronic low back pain - Alcohol/Substance Use Hx Alcohol Use: Yes - Smoking History Smoking history: Current every day smoker Have you smoked in the past 12 months: Yes Aproximately how many cigarettes per day: 20 - Social History Usual Living Arrangement: With Spouse Home Medications - Allergies Allergies/Adverse Reactions: Allergies Allergy/AdvReac Type Severity Reaction Status Date / Time No Known Allergies Allergy Verified 02/02/18 12:44 - Home Medications Home Medications: Ambulatory Orders Albuterol Sulfate Inhaler - [Ventolin Hfa Inhaler -] 1 - 2 inh PO Q4H 02/01/18 Alprazolam [Xanax] 2 mg PO DAILY 02/01/18 Aspirin 81 mg PO DAILY 02/01/18 Celecoxib [Celebrex -] 200 mg PO DAILY 02/01/18 Cyclobenzaprine HCl 10 mg PO DAILY 02/01/18 Gabapentin [Neurontin] 600 mg PO ASDIR 02/01/18 Hydroxyzine HCl 50 mg PO DAILY 02/01/18 Nicotine Patch [Nicoderm Patch -] 1 patch TD DAILY 02/01/18 Nortriptyline HCl [Pamelor -] 25 mg PO DAILY 02/01/18 Omeprazole 40 mg PO DAILY 02/01/18 Oxycodone HCl/Acetaminophen [Oxycodone-Acetaminophen 5-325] 1 each PO ASDIR 10/21 Quetiapine Fumarate [Seroquel] 100 mg PO DAILY 02/01/18 Simvastatin [Zocor -] 20 mg PO HS 02/01/18 Family Disease History - Family Disease History Family Disease History: Other: Grandparent (mat gdma with gallstones), Mother ( gallstones) Physical Exam-Neuro Vital Signs: Vital Signs Temperature 97.7 F 02/02/18 18:03 Pulse Rate 79 02/02/18 18:03 Respiratory Rate 17 02/02/18 18:03 Blood Pressure 109/68 02/02/18 18:03 O2 Sat by Pulse Oximetry (%) 98 02/02/18 16:54 Constitutional: Yes: Anxious Labs: CBC, BMP 02/02/18 13:40 02/02/18 14:37 - Neuro Exam Level Of Consciousness: Yes: Alert (awake, alert and conversive , oriented to place, , yr 2007-- follows simple request, no nuchal rigidity, motor UE 5 /5, LE --pain limited LLE, plantars down ) Imaging - Results Cat Scan: Report Reviewed, Image Reviewed MRI: Image Reviewed Problem List - Problems (1) Altered mental status Code(s): R41.82 - ALTERED MENTAL STATUS, UNSPECIFIED Qualifiers: Altered mental status type: unspecified Qualified Code(s): R41.82 - Altered mental status, unspecified (2) Pneumonia Code(s): J18.9 - PNEUMONIA, UNSPECIFIED ORGANISM Qualifiers: Pneumonia type: due to unspecified organism Laterality: unspecified laterality Lung location: unspecified part of lung Qualified Code(s): J18.9 - Pneumonia, unspecified organism (3) Anxiety Code(s): F41.9 - ANXIETY DISORDER, UNSPECIFIED (4) Atypical chest pain Code(s): R07.89 - OTHER CHEST PAIN Assessment/Plan 42 year-old female with a PMH significant for HTN, HLD, TIA, anxiety/depression , cervical DDD, and polysubstance abuse (marijuana , ? cocaine). Patient presents to the ED today for the second time in 24 hours having signed out AMA yesterday for SOB and Lara, found to have BL PNA, +tox. MRI PRELIm looked WNL, await official no clear evidence of meningitis , does not need LP at this juncture, known source of infection, on ABX and MS improving PSYCH consult (hx of seroquel and xanax) [facility]
[2018-02-03] MEDS: ALBUTEROL SO4 2.5/IPRATROPIUM 0.5 INH SOL 3 ML VIAL.NEB. NEB SCH ×5 (00:30→18:35)
[2018-02-03] MEDS ORDERED: ALPRAZolam 2 MG TABLET PO ONE (00:37)
[2018-02-03] MEDS ORDERED: VANCOMYCIN 750 MG in DEXTROSE 5%-WATER - 250 ML IVPB ONE (02:00)
[2018-02-03] MEDS: MEROPENEM 1 GM in DEXTROSE 5%-WATER 100 ML IVPB SCH (02:35)
[2018-02-03] MEDS: ACYCLOVIR IVPB SCH (02:36)
[2018-02-03] MEDS: WATER IVPB SCH (02:36)
[2018-02-03] MEDS: DEXTROSE 5% IVPB SCH (02:36)
[2018-02-03] MEDS ORDERED: CEFTRIAXONE 1 GM in DEXTROSE 5%-WATER - 50 ML IVPB SCH (03:00)
[2018-02-03] MEDS: DEXAMETHASONE SOD PHOSPHATE 10 MG/1 ML VIAL IVPUSH SCH ×2 (03:38→09:40)
[2018-02-03] MEDS: GABAPENTIN 100 MG CAPSULE (FP) PO SCH (06:20)
[2018-02-03 06:55] VITALS: PULSE 82
--- NOTE | 2018-02-03 07:52 | PN ---
Progress Note (short form) - Note Progress Note: ID Full note dictated Currently lethargic but arousable for brief moments at a time. WEre it not for the WBC count of 30K I wuld have said this is altered mental status secondary to drug overdose. Violet found loose in her bed this am. She does not look acutely ill from the ID perpective Has no fever signs of meningitis or PNA. I do not know if she injected drugs. Selected Entries 02/03/18 06:00 Temperature 98.3 F Pulse Rate 82 Respiratory 17 Rate Blood Pressure 121/81 Microbiology Laboratory Tests 02/02/18 02/02/18 02/03/18 13:40 14:33 06:05 WBC 31.1 H* D Hgb 12.2 Hct 37.5 Plt Count 398 D Monocytes % (Manual) 9 Benzodiazepines Screen Positive U Marijuana (THC) Screen Positive HIV 1&2 Antibody Screen Pending HIV P24 Antigen Pending Assessment Polysubstance abuse Altered mental status secondary above Pneumonia diagnosis ?? [place] [address] white blood cells but she could have aspirated Certainly this is not HAP she was here 6 months ago. Doubt [employer] infection I agree with neurology no need to isolate or LP Plan Pending cultures Vanco and Unasyn CRP Bravo Patel MD Problem List - Problems (1) Elevated WBC count Code(s): D72.829 - ELEVATED WHITE BLOOD CELL COUNT, UNSPECIFIED (2) Altered mental status Code(s): R41.82 - ALTERED MENTAL STATUS, UNSPECIFIED Qualifiers: Altered mental status type: unspecified Qualified Code(s): R41.82 - Altered mental status, unspecified (3) Polysubstance (excluding opioids) dependence Code(s): F19.20 - OTHER PSYCHOACTIVE SUBSTANCE DEPENDENCE, UNCOMPLICATED
[2018-02-03] MEDS ORDERED: AMPICILLIN NA/SULBACTAM NA 1.5 GM in SODIUM CHLORIDE 100 ML IVPB SCH ×2 (09:00→15:00)
[2018-02-03] MEDS ORDERED: SODIUM CHLORIDE 100 ML IVPB ONE (09:05)
[2018-02-03] MEDS ORDERED: AMPICILLIN NA/SULBACTAM NA 1.5 GM VIAL ONE (09:05)
[2018-02-03] MEDS ORDERED: PT OWN MED DRAWER 7, Y5N ONE (09:49)
[2018-02-03] MEDS: NICOTINE 14 MG/24 HOURS TOPICAL PATCH TD SCH (09:50)
[2018-02-03] MEDS ORDERED: AZITHROMYCIN IVPB 500 MG in DEXTROSE 5%-WATER - 250 ML IVPB SCH (10:00)
[2018-02-03] MEDS ORDERED: ALPRAZolam 2 MG TABLET PO SCH (10:00)
[2018-02-03] MEDS ORDERED: PANTOPRAZOLE 40 MG TABLET (FP) PO SCH (10:00)
[2018-02-03] MEDS ORDERED: ASPIRIN 81 MG CHEWABLE TABLETS PO SCH (10:00)
[2018-02-03] MEDS ORDERED: NORTRIPTYLINE HCL 25 MG CAPSULE PO SCH (10:00)
[2018-02-03 10:02] VITALS: BP 106/66
--- NOTE | 2018-02-03 10:51 | CONS ---
DATE OF CONSULTATION: DATE OF DICTATION: 02/03/2018 This is a 45-year-old white female with a history of polysubstance abuse, who was admitted to the ICU for altered mental status and rule out pneumonia. She has a history of hypertension, hyperlipidemia, reportedly TIA, anxiety/depression disorder, cervical degenerative joint disease, chronic back pain, and polysubstance abuse. She had presented to the hospital on February 01 complaining of left-sided pain and lower extremity numbness. She stated that this had been present for about a month, and according to the notes, she also complained of chest pain and blood-tinged sputum. In the emergency room she apparently had a fever of 101.6. Cultures of blood were obtained which thus far are no growth, and a urine culture showed less than 10,000 organisms. In the emergency room, she was noted to have headaches, neck pain, and periods of confusion. A lumbar puncture was attempted but was not successful. Reportedly, she had a syncopal episode, and her urine toxicology was positive for Xanax and marijuana. She ended up signing out against medical advice, only to return to the emergency room yesterday complaining of headache and shortness of breath. In the ER she was afebrile. Her blood pressure was 115/75, respirations 18, heart rate 86, O2 saturation 96 on room air. Her white count was noted to be 31,000 with 83% polys and 2 bands. The lactate was 107. She had brain imaging including CAT scan and MRI which failed to show any evidence of an acute intraabdominal process, infection, or mass. No evidence of meningitis was seen by MRI. Because of the white count, she was treated with multiple antibiotics here, including by her nurse practitioner. These included meropenem, Zosyn, vancomycin, and ceftriaxone. Currently, the patient is lethargic. She is, however, arousable and appears to have good strength grossly in all her extremities. Again, she has been seen by Neurology, who found no focal neurological deficits on her examination. She remains afebrile. A CAT scan of the chest was obtained which showed no evidence of PE and some small patchy opacification possibly suspicious for acute pneumonia. PHYSICAL EXAMINATION: General: On physical examination she was lethargic but arousable, but only for brief seconds before going back to sleep. Vital Signs: The temperature was 98.3, pulse 82, blood pressure 110/76, respiration 16. Neck: Supple. Lungs: Clear to auscultation. Heart: S1, S2. Regular rhythm without audible murmur. Abdomen: Soft. Normoactive bowel sounds. No organomegaly. Extremities: No clubbing, cyanosis, or edema. Neurologic: Grossly nonfocal. LABORATORY: The white count was 31.0, hemoglobin 12.2, hematocrit 37.5, platelets of 398, 83% polys, 6 lymphs, 2 bands, 9 monocytes. Chemistry is within normal limit including liver function enzymes. Urine screening negative for leukocyte esterase. HIV testing pending. Toxicology positive for opiates, benzodiazepine, and marijuana. Her chest x-ray was reviewed and shows no evidence of acute infiltrate seen. ASSESSMENT: A 42-year-old female with polysubstance abuse, presents with altered mental status most likely on the basis of drug use. Note that a Xanax pill by itself was found under her covers this morning, suggesting that she may be taking additional drugs beyond those that she came in with. With regard to the white count elevation, she may have aspirated; however, I would note that the extent of her infiltrates does not necessarily coincide with a white count of 31,000. Looking back on previous CBCs, she has had intermittent elevations of her white count both in 2017 and 2014. This raises the possibility of an underlying myeloproliferative disorder, or at the very least a baseline high white count. Human immunodeficiency virus testing is pending. I do not think she has meningitis or other central nervous system infection that would require specific treatment and will discontinue contact isolation. I will treat her now for possible community-acquired pneumonia including aspiration with a combination of Unasyn and azithromycin pending blood and urine cultures and Legionella urinary antigen. SAM HENSON M.D. [id number]
--- NOTE | 2018-02-03 11:27 | PN ---
Physical Exam: SUBJECTIVE: Patient seen and examined in ICU. During initial exam this morning, patient was not arousable. Patient did respond to sternal rub, but was never verbal. Patient displayed muscle tone in all four extremities. On further examination, loose pill was found in patient's bed by her feet. Confirmed that pill was 2mg xanax with pharmacy. Security was called, and 15-20 xanax pills were found in patient's bags that were close to her bed overnight. Patient's belongings were confiscated, placed on 1:1, consult to psych placed. Patient was protecting their airway with good vital signs and respiratory drive. After 2 hours, patient was fully alert and oriented. OBJECTIVE: Vital Signs Period Temp Pulse Resp BP Sys/Guerra Pulse Ox Last 24 Hr 97.2 F-98.4 F 79-98 14-20 106-161/66-142 96-100 GENERAL: The patient is awake, alert, and fully oriented, in no acute distress. HEAD: Normal with no signs of trauma. EYES: PERRL, extraocular movements intact, sclera anicteric, conjunctiva clear. NECK: Trachea midline, full range of motion, supple. LUNGS: Breath sounds equal, clear to auscultation bilaterally, no accessory muscle use. HEART: Regular rate and rhythm, S1, S2 without murmur, rub or gallop. ABDOMEN: Soft, nontender, nondistended, normoactive bowel sounds EXTREMITIES: 2+ pulses, warm, well-perfused, no edema. NEUROLOGICAL: Cranial nerves II through XII grossly intact. Normal speech, gait not observed. PSYCH: Denies SI/HI Laboratory Results - last 24 hr 02/02/18 02/02/18 02/02/18 13:40 13:40 13:40 WBC 31.1 H* D RBC 4.24 Hgb 12.2 Hct 37.5 MCV 88.4 MCH 28.8 MCHC 32.6 RDW 15.4 Plt Count 398 D MPV 7.6 Total Counted 100 Neutrophils % No Result Required. Neutrophils % (Manual) 83.0 H Band Neutrophils % 2.0 Lymphocytes % No Result Required. Lymphocytes % (Manual) 6.0 L Monocytes % (Manual) 9 Puncture Site ABG pH ABG pCO2 at Pt Temp ABG pO2 at Pt Temp ABG HCO3 ABG O2 Sat (Measured) ABG O2 Content ABG Base Excess [place] Test Carboxyhemoglobin Methemoglobin Oxygen Flow Rate Sodium Cancelled Potassium Cancelled Chloride Cancelled Carbon Dioxide Cancelled Anion Gap Cancelled BUN Cancelled Creatinine Cancelled Creat Clearance w eGFR Cancelled Random Glucose Cancelled Lactic Acid Calcium Cancelled Total Bilirubin Cancelled AST Cancelled ALT Cancelled Alkaline Phosphatase Cancelled Creatine Kinase Cancelled Troponin I Cancelled C-Reactive Protein B-Natriuretic Peptide Cancelled Total Protein Cancelled Albumin Cancelled Urine Color Urine Appearance Urine pH Ur Specific [place] Urine Protein Urine Glucose (UA) Urine Ketones Urine Blood Urine Nitrite Urine Bilirubin Urine Urobilinogen Ur Leukocyte Esterase Vancomycin Pre-Dose Opiates Screen Methadone Screen Barbiturate Screen Phencyclidine Screen Ur Amphetamines Screen MDMA (Ecstasy) Screen Benzodiazepines Screen Cocaine Screen U Marijuana (THC) Screen HIV 1&2 Antibody Screen HIV P24 Antigen 02/02/18 02/02/18 02/02/18 14:12 14:33 14:33 WBC RBC Hgb Hct MCV MCH MCHC RDW Plt Count MPV Total Counted Neutrophils % Neutrophils % (Manual) Band Neutrophils % Lymphocytes % Lymphocytes % (Manual) Monocytes % (Manual) Puncture Site ABG pH ABG pCO2 at Pt Temp ABG pO2 at Pt Temp ABG HCO3 ABG O2 Sat (Measured) ABG O2 Content ABG Base Excess [place] Test Carboxyhemoglobin Methemoglobin Oxygen Flow Rate Sodium Potassium Chloride Carbon Dioxide Anion Gap BUN Creatinine Creat Clearance w eGFR Random Glucose Lactic Acid 1.7 Calcium Total Bilirubin AST ALT Alkaline Phosphatase Creatine Kinase Troponin I C-Reactive Protein B-Natriuretic Peptide Total Protein Albumin Urine Color Red Urine Appearance Cloudy Urine pH 5.0 D Ur Specific [place] 1.009 Urine Protein Negative Urine Glucose (UA) Negative Urine Ketones Negative Urine Blood Negative Urine Nitrite Negative Urine Bilirubin Negative Urine Urobilinogen Negative Ur Leukocyte Esterase Negative Vancomycin Pre-Dose Opiates Screen Negative Methadone Screen Negative Barbiturate Screen Negative Phencyclidine Screen Negative Ur Amphetamines Screen Negative MDMA (Ecstasy) Screen Negative Benzodiazepines Screen Positive Cocaine Screen Negative U Marijuana (THC) Screen Positive HIV 1&2 Antibody Screen HIV P24 Antigen 02/02/18 02/02/18 02/02/18 14:37 15:35 15:35 WBC RBC Hgb Hct MCV MCH MCHC RDW Plt Count MPV Total Counted Neutrophils % Neutrophils % (Manual) Band Neutrophils % Lymphocytes % Lymphocytes % (Manual) Monocytes % (Manual) Puncture Site Right radial ABG pH 7.41 ABG pCO2 at Pt Temp 40.9 ABG pO2 at Pt Temp 69.9 L ABG HCO3 25.3 ABG O2 Sat (Measured) 94.5 ABG O2 Content 13.4 L ABG Base Excess 1.1 [place] Test Positive Carboxyhemoglobin 3.7 H Methemoglobin 1.4 Oxygen Flow Rate Room air Sodium 144 Potassium 4.3 Chloride 112 H Carbon Dioxide 27 Anion Gap 5 L BUN 12 Creatinine 0.8 Creat Clearance w eGFR > 60 Random Glucose 183 H Lactic Acid Calcium 8.5 Total Bilirubin 0.2 D AST 14 L ALT 42 Alkaline Phosphatase 86 Creatine Kinase 81 Troponin I < 0.02 C-Reactive Protein B-Natriuretic Peptide 389.68 H Total Protein 6.7 Albumin 3.1 L Urine Color Urine Appearance Urine pH Ur Specific [place] Urine Protein Urine Glucose (UA) Urine Ketones Urine Blood Urine Nitrite Urine Bilirubin Urine Urobilinogen Ur Leukocyte Esterase Vancomycin Pre-Dose Opiates Screen Methadone Screen Barbiturate Screen Phencyclidine Screen Ur Amphetamines Screen MDMA (Ecstasy) Screen Benzodiazepines Screen Cocaine Screen U Marijuana (THC) Screen HIV 1&2 Antibody Screen HIV P24 Antigen 02/03/18 02/03/18 02/03/18 06:05 06:05 07:45 WBC RBC Hgb Hct MCV MCH MCHC RDW Plt Count MPV Total Counted Neutrophils % Neutrophils % (Manual) Band Neutrophils % Lymphocytes % Lymphocytes % (Manual) Monocytes % (Manual) Puncture Site ABG pH ABG pCO2 at Pt Temp ABG pO2 at Pt Temp ABG HCO3 ABG O2 Sat (Measured) ABG O2 Content ABG Base Excess [place] Test Carboxyhemoglobin Methemoglobin Oxygen Flow Rate Sodium Potassium Chloride Carbon Dioxide Anion Gap BUN Creatinine Creat Clearance w eGFR Random Glucose Lactic Acid Calcium Total Bilirubin AST ALT Alkaline Phosphatase Creatine Kinase Troponin I C-Reactive Protein 3.4 H B-Natriuretic Peptide Total Protein Albumin Urine Color Urine Appearance Urine pH Ur Specific [place] Urine Protein Urine Glucose (UA) Urine Ketones Urine Blood Urine Nitrite Urine Bilirubin Urine Urobilinogen Ur Leukocyte Esterase Vancomycin Pre-Dose 21.206 H* Opiates Screen Methadone Screen Barbiturate Screen Phencyclidine Screen Ur Amphetamines Screen MDMA (Ecstasy) Screen Benzodiazepines Screen Cocaine Screen U Marijuana (THC) Screen HIV 1&2 Antibody Screen Negative HIV P24 Antigen Negative Active Medications Generic Name Dose Route Start Last Admin Trade Name Freq PRN Reason Stop Dose Admin Acetaminophen 650 mg 02/02/18 21:04 02/02/18 21:19 Tylenol Oral Solution - PO 650 mg Q6H PRN Administration PAIN LEVEL 1 - 3 Albuterol/Ipratropium 1 amp 02/02/18 20:00 02/03/18 08:20 Duoneb - NEB 1 amp Q4H ANGI Administration Alprazolam 2 mg 02/03/18 10:00 02/03/18 10:24 Xanax - PO 2 mg DAILY ANGI Administration Aspirin 81 mg 02/03/18 10:00 02/03/18 09:50 Asa - PO 81 mg DAILY ANGI Administration Atorvastatin Calcium 10 mg 02/02/18 22:00 02/02/18 21:19 Lipitor - PO 10 mg HS ANGI Administration Dexamethasone Sodium Phosphate 10 mg 02/03/18 03:00 02/03/18 09:40 Decadron Injection - IVPUSH 02/06/18 09:01 10 mg Q6H-IV ANGI Administration Gabapentin 200 mg 02/02/18 22:00 02/03/18 06:20 Neurontin - PO 200 mg TID ANGI Administration Sodium Chloride 1,000 mls @ 125 mls/hr 02/02/18 20:45 02/02/18 21:15 Normal Saline - IV 125 mls/hr ASDIR ANGI Administration Vancomycin HCl 1 gm in 200 mls @ 133.333 mls/hr 02/03/18 14:00 Vancomycin 1 Gm Premix - IVPB BID@0200,1400 ANGI Ampicillin Sodium/Sulbactam 100 mls @ 200 mls/hr 02/03/18 09:00 02/03/18 09: 43 Sodium 1.5 gm/ Sodium Chloride IVPB 200 mls/hr Q6H-IV ANGI Administration Azithromycin 500 mg/ Dextrose 250 mls @ 250 mls/hr 02/03/18 10:00 02/03/18 09 :40 IVPB 250 mls/hr DAILY ANGI Administration Nicotine 14 mg 02/02/18 19:00 02/03/18 09:50 Nicoderm Patch - TD 14 mg DAILY ANGI Administration Nortriptyline HCl 25 mg 02/03/18 10:00 02/03/18 09:51 Pamelor - PO 25 mg DAILY ANGI Administration Pantoprazole Sodium 40 mg 02/03/18 10:00 02/03/18 09:50 Protonix - PO 40 mg DAILY ANGI Administration ASSESSMENT/PLAN: Patient is a 42F with history of COPD, CAD, NE, CVA, Anxiety and polysubstance abuse here today with pneumonia. ID #Pneumonia - Bilateral infiltrates most consistent with atypical infection - Differential also includes CAP, aspiration - ABx changed to unasyn, azithromycin and vancomycin per ID - Vanc held due to elevated level today per ID - Will d/c vanc if blood cultures negative Psych/Neuro #AMS - Initial concern for meningitis and encephalitis due to patient's declining mental status - Patient has had normal mental status since access to home xanax has been controlled - Patient is now agitated - Psych consulted #Xanax overdose - Believe patient is intentionally overdosing on medication - Believe patient is mostly abusing medication for effect, not to commit suicide , but can not rule out SI. - Holding patient due to risk to self - Giving xanax PRN for agitation due to risk of withdrawal. #Pain - Tylenol PRN - Gabapentin #Nicotine dependence - Nicotine patch Cardiovascular #HLD - Atorvastatin PPx - Protonix Visit type - Emergency Visit Emergency Visit: Yes ED Registration Date: 02/02/18 Care time: The patient presented to the Emergency Department on the above date and was hospitalized for further evaluation of their emergent condition. - New Patient This patient is new to me today: Yes Date on this admission: 02/03/18 - Critical Care Critical Care patient: Yes Total Critical Care Time (in minutes): 75 Critical Care Statement: The care of this patient involved high complexity decision making to prevent further life threatening deterioration of the patient 's condition and/or to evaluate & treat vital organ system(s) failure or risk of failure.
[2018-02-03] MEDS ORDERED: ACETAMINOPHEN 650 MG/20.3 ML ORAL SOLUTION (CUPS) PO PRN (11:36)
[2018-02-03] MEDS ORDERED: SODIUM CHLORIDE 1,000 ML IV SCH (11:36)
[2018-02-03 11:40] VITALS: TEMP 98
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
[2018-02-03] MEDS ORDERED: ALPRAZolam 0.25 MG TABLET PO ONE (13:15)
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
--- NOTE | 2018-02-03 13:41 | PN ---
"Physical Exam: SUBJECTIVE: Patient seen and examined OBJECTIVE: Vital Signs Period Temp Pulse Resp BP Sys/Guerra Pulse Ox Last 24 Hr 97.2 F-98.4 F 79-98 14-20 106-161/66-142 98-99 GENERAL: The patient is awake, alert, and fully oriented, in no acute distress. HEAD: Normal with no signs of trauma. EYES: PERRL, extraocular movements intact, sclera anicteric, conjunctiva clear. No ptosis. ENT: Ears normal, nares patent, oropharynx clear without exudates, moist mucous membranes. NECK: Trachea midline, full range of motion, supple. LUNGS: Breath sounds equal, clear to auscultation bilaterally, no wheezes, no crackles, no accessory muscle use. HEART: Regular rate and rhythm, S1, S2 without murmur, rub or gallop. ABDOMEN: Soft, nontender, nondistended, normoactive bowel sounds, no guarding, no rebound, no hepatosplenomegaly, no masses. EXTREMITIES: 2+ pulses, warm, well-perfused, no edema. NEUROLOGICAL: Cranial nerves II through XII grossly intact. Normal speech, gait not observed. PSYCH: Normal mood, normal affect. SKIN: Warm, dry, normal turgor, no rashes or lesions noted Laboratory Results - last 24 hr 02/02/18 02/02/18 02/02/18 13:40 13:40 13:40 WBC 31.1 H* D RBC 4.24 Hgb 12.2 Hct 37.5 MCV 88.4 MCH 28.8 MCHC 32.6 RDW 15.4 Plt Count 398 D MPV 7.6 Total Counted 100 Neutrophils % No Result Required. Neutrophils % (Manual) 83.0 H Band Neutrophils % 2.0 Lymphocytes % No Result Required. Lymphocytes % (Manual) 6.0 L Monocytes % (Manual) 9 Puncture Site ABG pH ABG pCO2 at Pt Temp ABG pO2 at Pt Temp ABG HCO3 ABG O2 Sat (Measured) ABG O2 Content ABG Base Excess Kavon Test Carboxyhemoglobin Methemoglobin Oxygen Flow Rate Sodium Cancelled Potassium Cancelled Chloride Cancelled Carbon Dioxide Cancelled Anion Gap Cancelled BUN Cancelled Creatinine Cancelled Creat Clearance w eGFR Cancelled Random Glucose Cancelled Lactic Acid Calcium Cancelled Total Bilirubin Cancelled AST Cancelled ALT Cancelled Alkaline Phosphatase Cancelled Creatine Kinase Cancelled Troponin I Cancelled C-Reactive Protein B-Natriuretic Peptide Cancelled Total Protein Cancelled Albumin Cancelled Urine Color Urine Appearance Urine pH Ur Specific [place] Urine Protein Urine Glucose (UA) Urine Ketones Urine Blood Urine Nitrite Urine Bilirubin Urine Urobilinogen Ur Leukocyte Esterase Vancomycin Pre-Dose Opiates Screen Methadone Screen Barbiturate Screen Phencyclidine Screen Ur Amphetamines Screen MDMA (Ecstasy) Screen Benzodiazepines Screen Cocaine Screen U Marijuana (THC) Screen HIV 1&2 Antibody Screen HIV P24 Antigen 02/02/18 02/02/18 02/02/18 14:12 14:33 14:33 WBC RBC Hgb Hct MCV MCH MCHC RDW Plt Count MPV Total Counted Neutrophils % Neutrophils % (Manual) Band Neutrophils % Lymphocytes % Lymphocytes % (Manual) Monocytes % (Manual) Puncture Site ABG pH ABG pCO2 at Pt Temp ABG pO2 at Pt Temp ABG HCO3 ABG O2 Sat (Measured) ABG O2 Content ABG Base Excess Kavon Test Carboxyhemoglobin Methemoglobin Oxygen Flow Rate Sodium Potassium Chloride Carbon Dioxide Anion Gap BUN Creatinine Creat Clearance w eGFR Random Glucose Lactic Acid 1.7 Calcium Total Bilirubin AST ALT Alkaline Phosphatase Creatine Kinase Troponin I C-Reactive Protein B-Natriuretic Peptide Total Protein Albumin Urine Color Red Urine Appearance Cloudy Urine pH 5.0 D Ur Specific [place] 1.009 Urine Protein Negative Urine Glucose (UA) Negative Urine Ketones Negative Urine Blood Negative Urine Nitrite Negative Urine Bilirubin Negative Urine Urobilinogen Negative Ur Leukocyte Esterase Negative Vancomycin Pre-Dose Opiates Screen Negative Methadone Screen Negative Barbiturate Screen Negative Phencyclidine Screen Negative Ur Amphetamines Screen Negative MDMA (Ecstasy) Screen Negative Benzodiazepines Screen Positive Cocaine Screen Negative U Marijuana (THC) Screen Positive HIV 1&2 Antibody Screen HIV P24 Antigen 02/02/18 02/02/18 02/02/18 14:37 15:35 15:35 WBC RBC Hgb Hct MCV MCH MCHC RDW Plt Count MPV Total Counted Neutrophils % Neutrophils % (Manual) Band Neutrophils % Lymphocytes % Lymphocytes % (Manual) Monocytes % (Manual) Puncture Site Right radial ABG pH 7.41 ABG pCO2 at Pt Temp 40.9 ABG pO2 at Pt Temp 69.9 L ABG HCO3 25.3 ABG O2 Sat (Measured) 94.5 ABG O2 Content 13.4 L ABG Base Excess 1.1 Kavon Test Positive Carboxyhemoglobin 3.7 H Methemoglobin 1.4 Oxygen Flow Rate Room air Sodium 144 Potassium 4.3 Chloride 112 H Carbon Dioxide 27 Anion Gap 5 L BUN 12 Creatinine 0.8 Creat Clearance w eGFR > 60 Random Glucose 183 H Lactic Acid Calcium 8.5 Total Bilirubin 0.2 D AST 14 L ALT 42 Alkaline Phosphatase 86 Creatine Kinase 81 Troponin I < 0.02 C-Reactive Protein B-Natriuretic Peptide 389.68 H Total Protein 6.7 Albumin 3.1 L Urine Color Urine Appearance Urine pH Ur Specific [place] Urine Protein Urine Glucose (UA) Urine Ketones Urine Blood Urine Nitrite Urine Bilirubin Urine Urobilinogen Ur Leukocyte Esterase Vancomycin Pre-Dose Opiates Screen Methadone Screen Barbiturate Screen Phencyclidine Screen Ur Amphetamines Screen MDMA (Ecstasy) Screen Benzodiazepines Screen Cocaine Screen U Marijuana (THC) Screen HIV 1&2 Antibody Screen HIV P24 Antigen 02/03/18 02/03/18 02/03/18 06:05 06:05 07:45 WBC RBC Hgb Hct MCV MCH MCHC RDW Plt Count MPV Total Counted Neutrophils % Neutrophils % (Manual) Band Neutrophils % Lymphocytes % Lymphocytes % (Manual) Monocytes % (Manual) Puncture Site ABG pH ABG pCO2 at Pt Temp ABG pO2 at Pt Temp ABG HCO3 ABG O2 Sat (Measured) ABG O2 Content ABG Base Excess Kavon Test Carboxyhemoglobin Methemoglobin Oxygen Flow Rate Sodium Potassium Chloride Carbon Dioxide Anion Gap BUN Creatinine Creat Clearance w eGFR Random Glucose Lactic Acid Calcium Total Bilirubin AST ALT Alkaline Phosphatase Creatine Kinase Troponin I C-Reactive Protein 3.4 H B-Natriuretic Peptide Total Protein Albumin Urine Color Urine Appearance Urine pH Ur Specific [place] Urine Protein Urine Glucose (UA) Urine Ketones Urine Blood Urine Nitrite Urine Bilirubin Urine Urobilinogen Ur Leukocyte Esterase Vancomycin Pre-Dose 21.206 H* Opiates Screen Methadone Screen Barbiturate Screen Phencyclidine Screen Ur Amphetamines Screen MDMA (Ecstasy) Screen Benzodiazepines Screen Cocaine Screen U Marijuana (THC) Screen HIV 1&2 Antibody Screen Negative HIV P24 Antigen Negative Active Medications Generic Name Dose Route Start Last Admin Trade Name Freq PRN Reason Stop Dose Admin Acetaminophen 650 mg 02/03/18 11:36 Tylenol Oral Solution - PO Q6H PRN PAIN LEVEL 1 - 3 Albuterol/Ipratropium 1 amp 02/03/18 14:00 Duoneb - NEB Q4HWA ANGI Alprazolam 2 mg 02/04/18 10:00 Xanax - PO DAILY ANGI Aspirin 81 mg 02/04/18 10:00 Asa - PO DAILY [facility]GI Atorvastatin Calcium 10 mg 02/03/18 22:00 Lipitor - PO HS ANGI Dexamethasone Sodium Phosphate 10 mg 02/03/18 15:00 Decadron Injection - IVPUSH 02/06/18 09:01 Q6H-IV ANGI Gabapentin 200 mg 02/03/18 14:00 02/03/18 13:02 Neurontin - PO 200 mg TID ANGI Administration Ampicillin Sodium/Sulbactam 100 mls @ 200 mls/hr 02/03/18 15:00 Sodium 1.5 gm/ Sodium Chloride IVPB Q6H-IV ANGI Azithromycin 500 mg/ Dextrose 250 mls @ 250 mls/hr 02/04/18 10:00 IVPB DAILY ANGI Sodium Chloride 1,000 mls @ 125 mls/hr 02/03/18 11:36 02/03/18 13:04 Normal Saline - IV Not Given ASDIR ANGI Nicotine 14 mg 02/04/18 10:00 Nicoderm Patch - TD DAILY ANGI Nortriptyline HCl 25 mg 02/04/18 10:00 Pamelor - PO DAILY ANGI Pantoprazole Sodium 40 mg 02/04/18 10:00 Protonix - PO DAILY ANGI ASSESSMENT/PLAN: This report was requested by: Jessa Paez | Reference #: [id number] Others' Prescriptions Patient Name: Karmen Barajas Date: 1975 Address: [address] [place] [address] Sex: Female Rx Written Rx Dispensed Drug Quantity Days Supply Prescriber Name 01/31/2018 01/31/2018 alprazolam 2 mg tablet 90 30 Shane Sheppard MD 01/26/2018 01/26/2018 oxycodone-acetaminophen 5-325 mg tablet 20 7 Denny Campos MD 01/25/2018 01/25/2018 alprazolam 2 mg tablet 21 7 Shane Sheppard MD 12/23/2017 12/24/2017 alprazolam 2 mg tablet 90 30 Shane Sheppard MD 11/24/2017 11/25/2017 alprazolam 2 mg tablet 90 30 Shane Sheppard MD 10/26/2017 10/26/2017 alprazolam 2 mg tablet 90 30 SheppardShane MD 09/22/2017 09/24/2017 alprazolam 2 mg tablet 90 30 SheppardShane MD 08/25/2017 08/27/2017 alprazolam 2 mg tablet 90 30 SheppardShane MD 07/28/2017 07/28/2017 alprazolam 2 mg tablet 90 30 SheppardShane MD 06/30/2017 07/04/2017 alprazolam 2 mg tablet 90 30 SheppardShane MD 05/19/2017 06/04/2017 alprazolam 2 mg tablet 60 30 Karmen Andrews 05/05/2017 05/05/2017 alprazolam 2 mg tablet 60 30 SheppardShane MD 04/21/2017 04/21/2017 alprazolam 2 mg tablet 30 10 SheppardShane MD 04/12/2017 04/12/2017 alprazolam 2 mg tablet 30 10 SheppardShane MD 03/15/2017 03/15/2017 clonazepam 2 mg tablet 60 30 SheppardShane MD 02/15/2017 02/15/2017 clonazepam 2 mg tablet 60 30 SheppardShane MD Patient Name: Karmen Andrews Date: 1975 Address: [address] [place] [address] Sex: Female Rx Written Rx Dispensed Drug Quantity Days Supply Prescriber Name 03/06/2017 03/11/2017 oxycodone-acetaminophen 10-325 mg tab 60 15 Meron Lugo Patient Name: Karmen Andrews Date: 1975 Address: [address] [place] [address] Sex: Female Rx Written Rx Dispensed Drug Quantity Days Supply Prescriber Name 02/09/2017 02/09/2017 oxycodone-acetaminophen 10-325 mg tab 120 30 Obie Culp MD"
[2018-02-03] MEDS ORDERED: GABAPENTIN 100 MG CAPSULE (FP) PO SCH (14:00)
[2018-02-03] MEDS ORDERED: VANCOMYCIN 1 GM PREMIX - 1 GM/200 ML BAG IVPB SCH ×2 (14:00)
[2018-02-03] MEDS ORDERED: AMOX TR/POT CLAV 875MG/125MG TABLETS (FP) PO STA (14:19)
[2018-02-03] MEDS ORDERED: DEXAMETHASONE SOD PHOSPHATE 10 MG/1 ML VIAL IVPUSH SCH (15:00)
[2018-02-03] MEDS ORDERED: AMOX TR/POT CLAV 875MG/125MG TABLETS (FP) PO ONE (17:30)
--- NOTE | 2018-02-03 17:38 | PN ---
Mental Health Exam - Mental Status Exam Alert and Oriented to: Time, Place, Person Cognitive Function: Grossly Intact Patient Appearance: Well Groomed Mood: Anxious, Apprehensive, Expansive, Irritable Affect: Labile Patient Behavior: Talkative, Asleep (INITIALLY SLEEPING WHEN I ENTER ROOM. ) Speech Pattern: Clear, Excessive, Tangential (AFTER SOME TIME TALKING CLEARLY TALKING, SHE STARTED TO STAMMER IN HER VOICE.) Voice Loudness: Mildly Soft/Quiet Thought Process: Circumstantial Thought Disorder: Not Present Hallucinations: None Suicidal Ideation: None, Denies ("I HAVE TOO MUCH TO LIVE FOR, MY CHILDREN AND JEREMY". ), No Plan Homicidal Ideation: None, Denies, No Plan Insight/Judgement: Poor (MADE AWARE THAT SHE HAS A SEVERE ILNESS, NEEDING MEDICAL CARE. ) Sleep: Fair Appetite: Fair (FLUIDS AND WATER BY HER BEDSIDE. ) Muscle strength/Tone: Mild Hypertonicity Gait/Station: Deferred Additional Comments: iNTERVIEWED IN 408, CIRRENTLY ON CONSTANT OBSERVATION, REQUEST SIGN OUT AMA.
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
--- NOTE | 2018-02-03 19:07 | DS ---
Physical Exam: SUBJECTIVE: Patient seen and examined. present. OBJECTIVE: Vital Signs Period Temp Pulse Resp BP Sys/Guerra Pulse Ox Last 24 Hr 97.2 F-98.4 F 80-98 16-19 106-126/66-85 98-99 PHYSICAL EXAM GENERAL: The patient is awake, alert, and fully oriented, in no acute distress. HEAD: Normal with no signs of trauma. EYES: PERRL, extraocular movements intact, sclera anicteric, conjunctiva clear. ENT: Ears normal, nares patent, oropharynx clear without exudates, moist mucous membranes. NECK: Trachea midline, full range of motion, supple. LUNGS: Breath sounds equal, clear to auscultation bilaterally, no wheezes, no crackles, no accessory muscle use. HEART: Regular rate and rhythm, S1, S2 without murmur, rub or gallop. ABDOMEN: Soft, nontender, nondistended, normoactive bowel sounds, no guarding, no rebound, no hepatosplenomegaly, no masses. EXTREMITIES: 2+ pulses, warm, well-perfused, no edema. NEUROLOGICAL: Cranial nerves II through XII grossly intact. Normal speech, gait not observed. PSYCH: Normal mood, normal affect. SKIN: Warm, dry, normal turgor, no rashes or lesions noted. LABS Laboratory Results - last 24 hr 02/03/18 02/03/18 02/03/18 06:05 06:05 07:45 C-Reactive Protein 3.4 H Vancomycin Pre-Dose 21.206 H* HIV 1&2 Antibody Screen Negative HIV P24 Antigen Negative HOSPITAL COURSE: Date of Admission: 02/02/18 Date of Discharge: 02/03/18 Pre hospital course 42 year-old female with a PMH significant for HTN, HLD, TIA, anxiety/depression , cervical DDD, and polysubstance abuse. Patient presented to the ED on 02/02 for the second time in 24 hours having signed out AMA on 02/01/18. On 02/01/18, patient presented to the ED complaining of intermittent left sided weakness and paresthesias x 1 month with 3-4 occurrences per day. She also complained of sharp chest pain under her left breast x 2-3 days, typical of previous episodes. Patient reported intermittent cough and one episode of blood- tinged sputum that morning. Patient was febrile to 101.6, p 111, WBC 19.7, and CTA showed bilateral pneumonia. Several hours into the ED stay, the patient complained of acute neck pain, worse than baseline, a headache, and light sensitivity. She was also was observed to have periods of confusion. Utox was positive for benzos (takes prescription Xanax), cocaine, and marijuana. LP was attempted several times but unsuccessful. Patient was started on decadron and antibiotics. Last night, while still in ED awaiting bed assignment, patient became violent and security was called. She signed out AMA. She entered a bathroom in the hospital and locked herself inside. Security obtained entry and found patient on the floor unconscious. A rapid response was called. Patient regained consciousness after about a minute, BP 70/30. Patient was agitated and slurring her speech. She refused physical exam and CT imaging. The patient's reportedly threatened to harm any staff that tried to prevent he and the patient from leaving. Patient left the building. On 02/02/18, patient represented to the ED complaining of shortness of breath as well as the same problems she recounted on 02/01/18. Subsequent hospital course by problem list 42 year-old female with a PMH significant for HTN, HLD, TIA, anxiety/depression , and polysubstance abuse. Admitted for bilateral pneumonia and possible meningitis. Bilateral pneumonia Centrilobular emphysema --02/01 CTA: patchy opacifications RUL, RLL, JUDIE suspicious for acute pneumonia ; negative for PE --defervesced 02/02 and remained afebrile --treated with vanc and meropenem, duonebs --discharged on augmentin for 10 more days of treatment r/o Meningitis --initially treated with decadron, vanc, meropenem, acyclovir --several attempts at LP unsuccessful --seen and evaluated by neuro, MRI wnl, no clear evidence of meningitis, does not need LP, known source of infection (pneumonia) and improved on antibiotics Possible head trauma s/p fall in hospital bathroom on 02/01 --02/02 CT head: since 02/01 interval air pockets in the right infratemporal fossa; no gross fracture --seen and evaluated by neuro, no further intervention Hypertension --BP stable --not on home meds Hyperlipidemia --continued statin Cervical DDD --continued gabapentin Bippolar disorder --seen and evaluated by psych, not a danger to herself of others, competent to make decisions on her own behalf --discussed case with patient's private psychiatrist, Dr. Rachel Sheppard; made aware of presence of cocaine in utox Polysubstance abuse --5/ U tox: +benzos, +cocaine, +marijuana; 5/2 U tox: +benzos, (-) cocaine; +marijuana --continued home dose xanax --avoid beta blockers Minutes to complete discharge: 35 Discharge Summary Reason For Visit: AMS,PNEUMONIA Current Active Problems Altered mental status (Acute) Bipolar 1 disorder, manic, mild (Acute) Elevated WBC count (Acute) Pneumonia (Acute) Polysubstance (excluding opioids) dependence (Acute) Condition: Stable - Instructions Diet, Activity, Other Instructions: A prescription has been sent to your pharmacy for augmentin which is an antibiotic. Take this medication as directed and be sure to finish all the medication. You should follow up with your primary care provider and with your psychiatrist within 1-2 weeks of your discharge. Referrals: Rachel Sheppard MD [Non Staff, Medical] - Shala Stein [Non Staff, Medical] - Disposition: HOME - Home Medications Comprehensive Discharge Medication List: Ambulatory Orders Albuterol Sulfate Inhaler - [Ventolin HFA Inhaler -] 1 - 2 inh PO Q4H 02/01/18 Alprazolam [Xanax] 2 mg PO DAILY 02/01/18 Aspirin 81 mg PO DAILY 02/01/18 Cyclobenzaprine HCl 10 mg PO DAILY 02/01/18 Gabapentin [Neurontin] 600 mg PO ASDIR 02/01/18 Hydroxyzine HCl 50 mg PO DAILY 02/01/18 Nortriptyline HCl [Pamelor -] 25 mg PO DAILY 02/01/18 Omeprazole 40 mg PO DAILY 02/01/18 Quetiapine Fumarate [Seroquel] 100 mg PO DAILY 02/01/18 Simvastatin [Zocor -] 20 mg PO HS 02/01/18 Amoxicillin/Potassium Clav [Augmentin 875-125 Tablet] 1 each PO BID #20 tablet 02/03/18 This patient is new to me today: No Emergency Visit: Yes ED Registration Date: 02/02/18 Care time: The patient presented to the Emergency Department on the above date and was hospitalized for further evaluation of their emergent condition. Critical Care patient: No - Discharge Referral Referred to [facility] Med P.C.: No
[2018-02-03] MEDS ORDERED: ATORVASTATIN CA 10 MG TABLET (FP) PO SCH (22:00)
[2018-02-04] MEDS ORDERED: NICOTINE 14 MG/24 HOURS TOPICAL PATCH TD SCH (10:00)
[2018-02-04] MEDS ORDERED: ASPIRIN 81 MG CHEWABLE TABLETS PO SCH (10:00)
[2018-02-04] MEDS ORDERED: NORTRIPTYLINE HCL 25 MG CAPSULE PO SCH (10:00)
[2018-02-04] MEDS ORDERED: ALPRAZolam 2 MG TABLET PO SCH (10:00)
[2018-02-04] MEDS ORDERED: PANTOPRAZOLE 40 MG TABLET (FP) PO SCH (10:00)
[2018-02-04] MEDS ORDERED: AZITHROMYCIN IVPB 500 MG in DEXTROSE 5%-WATER - 250 ML IVPB SCH (10:00)
== END 2018-02-03 20:06 | disposition home or self-care (01) | DRG 139 ==
LOC: JER 12:39 → JERBED 15:51 → JICU 17:42 → J4S 02-03 13:25
PROVIDERS: ADMIT Internal Medicine; ATTEND Nurse Practitioner Acute Care
DX: J18.9 Pneumonia, unspecified organism (principal); R41.82 Altered mental status, unspecified; I25.10 Atherosclerotic heart disease of native coronary artery without angina pectoris; I25.2 Old myocardial infarction; F41.8 Other specified anxiety disorders; K21.9 Gastro-esophageal reflux disease without esophagitis; E78.00 Pure hypercholesterolemia, unspecified; F17.210 Nicotine dependence, cigarettes, uncomplicated; M50.30 Other cervical disc degeneration, unspecified cervical region; F19.10 Other psychoactive substance abuse, uncomplicated; I10 Essential (primary) hypertension; M54.5 Low back pain; R07.89 Other chest pain; D72.829 Elevated white blood cell count, unspecified; F14.20 Cocaine dependence, uncomplicated; F31.89 Other bipolar disorder; T42.4X1A Poisoning by benzodiazepines, accidental (unintentional), initial encounter; Y92.098 Other place in other non-institutional residence as the place of occurrence of the external cause; F12.10 Cannabis abuse, uncomplicated; R45.1 Restlessness and agitation; Z86.73 Personal history of transient ischemic attack (TIA), and cerebral infarction without residual deficits
CPT/HCPCS: 36415; 36600; 70450-TC; 70553-TC; 80053; 80307; 81003; 82375; 82550; 82803; 83050; 83605; 83880; 84484; 85025; 86140; 87040; 87086; 87389; 87899; 93005; 93010; 94640; 99285-25; G0480; J1100; J7030; J7620

== ENCOUNTER 2018-02-15 11:22 | Day surgery (SDC) | payer OTHER ==
[2018-02-15 12:25] VITALS: BP 94/59; PULSE 91; TEMP 97.7; BMI 28.3
[2018-02-15] MEDS ORDERED: BUPIVACAINE HCL/PF 0.25% (2.5MG/ML) 10 ML VIAL ONE (12:36)
[2018-02-15] MEDS ORDERED: LIDOCAINE HCL 1%, 10 MG/ML (20ML VIAL) ONE (12:36)
[2018-02-15] MEDS ORDERED: LIDOCAINE HCL 2% (20ML MULTI-DOSE VIAL) NR ONE (12:36)
[2018-02-15] MEDS ORDERED: BETAMET ACET/BETAMET NA PH 30 MG/5 ML VIAL ONE (12:36)
== END 2018-02-15 14:05 | disposition home or self-care (01) ==
LOC: JASU-SURG 11:22 → JOR 11:22 → JASU-SURG 14:05
PROVIDERS: ATTEND Physical Medicine & Rehabilitation
PROC: 3E023BZ Introduction of Anesthetic Agent into Muscle, Percutaneous Approach (ICD-10-PCS; principal; 2018-02-15)
DX: Z53.8 Procedure and treatment not carried out for other reasons (principal)
CPT/HCPCS: 84703

== ENCOUNTER 2018-06-10 09:40 | Emergency (ER) | payer OTHER ==
[2018-06-10 09:50] VITALS: BP 117/88; PULSE 84; TEMP 99.3; BMI 30.2
[2018-06-10] MEDS ORDERED: predniSONE 20 MG TABLET (UD) PO ONE (10:07)
[2018-06-10] MEDS ORDERED: KETOROLAC TROMETHAMINE 60 MG/2 ML VIAL IM ONE (10:07)
[2018-06-10] MEDS ORDERED: ALBUTEROL SO4 2.5/IPRATROPIUM 0.5 INH SOL 3 ML VIAL.NEB. NEB ONE (10:26)
[2018-06-10] MEDS ORDERED: predniSONE 20 MG TABLET (UD) ONE (10:26)
[2018-06-10] MEDS ORDERED: KETOROLAC TROMETHAMINE 60 MG/2 ML VIAL ONE (10:26)
--- NOTE | 2018-06-10 10:28 | PDOC ---
History of Present Illness - General Chief Complaint: Sore Throat Stated Complaint: SORE THROAT Time Seen by Provider: 06/10/18 09:59 History Source: Patient - History of Present Illness Timing/Duration: reports: other Associated Symptoms: reports: cough, fever/chills, muscle aches, shortness of breath, sore throat. denies: earache, nasal congestion, nasal drainage Past History - Past Medical History Allergies/Adverse Reactions: Allergies Allergy/AdvReac Type Severity Reaction Status Date / Time No Known Allergies Allergy Verified 02/15/18 12:27 Home Medications: Ambulatory Orders Albuterol Sulfate Inhaler - [Ventolin HFA Inhaler -] 1 - 2 inh PO Q4H 02/01/18 Alprazolam [Xanax] 2 mg PO DAILY 02/01/18 Aspirin 81 mg PO DAILY 02/01/18 Cyclobenzaprine HCl 10 mg PO DAILY 02/01/18 Gabapentin [Neurontin] 600 mg PO ASDIR 02/01/18 Hydroxyzine HCl 50 mg PO DAILY 02/01/18 Nortriptyline HCl [Pamelor -] 25 mg PO DAILY 02/01/18 Omeprazole 40 mg PO DAILY 02/01/18 Quetiapine Fumarate [Seroquel] 100 mg PO DAILY 02/01/18 Simvastatin [Zocor -] 20 mg PO HS 02/01/18 Amoxicillin/Potassium Clav [Augmentin 875-125 Tablet] 1 each PO BID #20 tablet 02/03/18 Celecoxib 200 mg PO DAILY 02/15/18 Fluconazole 100 mg PO DAILY 02/15/18 Nicotine Patch [Nicoderm Patch -] 1 patch TD DAILY 02/15/18 Quetiapine Fumarate [Seroquel] 100 tab PO HS 02/15/18 Acetaminophen [Tylenol -] 1,000 mg PO Q6H #30 tablet 06/10/18 Prednisone [Deltasone] 20 mg PO DAILY #8 tablet 06/10/18 Anemia: Yes Asthma: Yes (1year ago) Cancer: No (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) Cardiac Disorders: Yes (MD jul 2017) CVA: Yes ("couple strokes"-weakness left side) COPD: Yes (emphysema) CHF: No Dementia: No Diabetes: No GI Disorders: Yes (reflux) Disorders: No HTN: Yes Hypercholesterolemia: Yes Liver Disease: No (stone imbedded in liver?) Psychiatric Problems: Yes (depression, anxiety) Seizures: No Thyroid Disease: No - Surgical History Abdominal Surgery: No Appendectomy: No Cardiac Surgery: No Cholecystectomy: Yes Lung Surgery: No Neurologic Surgery: No Orthopedic Surgery: No - Immunization History Immunization Up to Date: Yes - Suicide/Smoking/Psychosocial Hx Smoking History: Current every day smoker Have you smoked in the past 12 months: Yes Number of Cigarettes Smoked Daily: 20 Information on smoking cessation initiated: No 'Breaking Loose' booklet given: 02/02/18 Hx Alcohol Use: No Drug/Substance Use Hx: No Substance Use Type: Marijuana, Tranquilizers Hx Substance Use Treatment: No Respiratory Specific PMHX - Complaint Specific PMHX Angina: No Pulmonary Embolus: No Review of Systems - Review of Systems Constitutional: Yes: Fever Respiratory: Yes: Cough, Shortness of Breath Cardiac (ROS): No: Chest Pain ABD/GI: No: Diarrhea, Nausea, Vomiting *Physical Exam - Vital Signs Last Vital Signs Temp Pulse Resp BP Pulse Ox 99.3 F 84 16 117/88 99 06/10/18 09:47 06/10/18 09:47 06/10/18 09:47 06/10/18 09:47 06/10/18 09:47 - Physical Exam General Appearance: Yes: Appropriately Dressed. No: Apparent Distress HEENT: positive: Normal Voice, TMs Normal, Tonsillar Exudate (w/ b/l swelling, no uvular deviation). negative: Scleral Icterus (R), Scleral Icterus (L) Neck: positive: Supple. negative: Lymphadenopathy (R), Lymphadenopathy (L) Respiratory/Chest: positive: Wheezing Cardiovascular: positive: Regular Rate, S1, S2 Integumentary: positive: Dry, Warm Neurologic: positive: Fully Oriented, Alert, Normal Mood/Affect ED Treatment Course - RADIOLOGY Radiology Studies Ordered: Category Date Time Status CHEST PA & LAT [RAD] Stat Radiology 06/10/18 10:07 Ordered Medical Decision Making - Medical Decision Making 06/10/18 10:23 43 yo F, smoker, asthma, "pre COPD", uses alb pump as needed at home, TIA, here w/ body aches w/ sore throat, dry cough, sob, fever and malaise. No wheezing, CP , diarrhea, n/v. Seen in UC 3 days ago and had neg strep and flu but started on amoxicillin per pt. Here because sxs persists, continues to c/o sore throat and sob. Has not been using her alb pump for unclear reasons See exam M/l asthma flare 2/2 viral syndrome Neg strep and flu at 3 days ago On amoxicilin Stable and in NAD w/ diffuse wheezing and b/l tonsillar enlargement w/ exudates , no e/o BEE BREEDER -nebs -pred -pain control -CXR r/o PNA -anticipate discharge 06/10/18 10:27 06/10/18 11:37 X-ray read as negative. Patient reports feeling better after nebs. Chest clear on reassessment and able to ambulate without shortness of breath. Stable for discharge with pred taper. Patient to complete antibiotics for presumed strep and to take motrin or tylenol as needed for pain. To follow-up with her PMD next week *DC/Admit/Observation/Transfer Diagnosis at time of Disposition: Viral syndrome Asthma Qualifiers: Asthma severity: mild Asthma persistence: unspecified Asthma complication type : unspecified Qualified Code(s): J45.998 - Other asthma - Discharge Dispostion Disposition: HOME Condition at time of disposition: Improved - Prescriptions Prescriptions: Acetaminophen [Tylenol -] 1,000 mg PO Q6H #30 tablet Prednisone [Deltasone] 20 mg PO DAILY #8 tablet - Referrals Referrals: Faustina Beltran [Primary Care Provider] - - Patient Instructions Printed Discharge Instructions: Asthma -- Adult, DI for Viral Syndrome, How to Quit Smoking Additional Instructions: Take medications as prescribed and follow-up with your PMD next week. If symptoms worsen in the interim, return to ER - Post Discharge Activity
[2018-06-10] MEDS: ALBUTEROL SO4 2.5/IPRATROPIUM 0.5 INH SOL 3 ML VIAL.NEB. NEB SCH ×4 (10:34→11:54)
[2018-06-10] MEDS ORDERED: ACETAMINOPHEN 325 MG TABLET (FP) PO ONE (11:46)
== END 2018-06-10 11:54 | disposition home or self-care (01) ==
LOC: JERFT 09:40
PROC: 3E0233Z Introduction of Anti-inflammatory into Muscle, Percutaneous Approach (ICD-10-PCS; principal; 2018-06-10)
DX: J45.909 Unspecified asthma, uncomplicated (principal); B34.9 Viral infection, unspecified; J44.9 Chronic obstructive pulmonary disease, unspecified; I25.2 Old myocardial infarction; I10 Essential (primary) hypertension; K21.9 Gastro-esophageal reflux disease without esophagitis; F41.8 Other specified anxiety disorders; F17.210 Nicotine dependence, cigarettes, uncomplicated; I69.854 Hemiplegia and hemiparesis following other cerebrovascular disease affecting left non-dominant side
CPT/HCPCS: 71046-TC-FY; 84703; 99281-25; J7620

== ENCOUNTER 2020-07-07 23:17 | Inpatient (IN) | payer OTHER ==
[2020-07-07] MEDS ORDERED: CEPHALEXIN MONOHYDRATE 500 MG CAPSULE (UD) PO ONE (23:25)
[2020-07-08 00:27] VITALS: BMI 38.9
--- OUTSIDE RECORDS SUMMARY | 2020-07-08 00:34 | XMS ---
:1975 [facility] Providers Name Role Phone Ringstad, Faustina Unavailable Unavailable Ringstad, Faustina Unavailable Unavailable Ringstad, Faustina Unavailable Unavailable Ringstad, Faustina Unavailable Unavailable Ringstad, Faustina Unavailable Unavailable Ringstad, Faustina Unavailable Unavailable Ringstad, Faustina Unavailable Unavailable Ringstad, Faustina Unavailable Unavailable Ringstad, Faustina Unavailable Unavailable Ringstad, Faustina Unavailable Unavailable Ringstad, Faustina Unavailable Unavailable Rian Camara MD Unavailable Rian Caamra MD Unavailable Rian Camara MD Unavailable Rian Camara MD Unavailable Rian Camara MD Unavailable Rian Camara MD Unavailable Rian Camara MD Unavailable Ringstad, Faustina Unavailable Unavailable Ringstad, Faustina Unavailable Unavailable Ringstad, Faustina Unavailable Unavailable Ringstad, Faustina Unavailable Unavailable Ringstad, Faustina Unavailable Unavailable Ringstad, Faustina Unavailable Unavailable Ringstad, Faustina Unavailable Unavailable Ringstad, Faustina Unavailable Unavailable Ringstad, Faustina Unavailable Unavailable Ringstad, Faustina Unavailable Unavailable Ringstad, Faustina Unavailable Unavailable Lakhi, Fehmida Unavailable [phone] Lakhi, Fehmida Unavailable [phone] Lakhi, Fehmida Unavailable + JEREMY WOODIG A, KIRT Unavailable Unavailable Coloka-Kump, Rodika DO Unavailable Unavailable Coloka-Kump, Rodika DO Unavailable Unavailable Coloka-Kump, Rodika DO Unavailable Unavailable Coloka-Kump, Rodika DO Unavailable Unavailable Coloka-Kump, Rodika DO Unavailable Unavailable Coloka-Kump, Rodika DO Unavailable Unavailable Coloka-Kump, Rodika DO Unavailable Unavailable Coloka-Kump, Rodika DO Unavailable Unavailable Coloka-Kump, Rodika DO Unavailable Unavailable Coloka-Kump, Rodika DO Unavailable Unavailable Coloka-Kump, Rodika DO Unavailable Unavailable Coloka-Kump, Rodika DO Unavailable Unavailable Coloka-Kump, Rodika DO Unavailable Unavailable Coloka-Kump, Rodika DO Unavailable Unavailable Coloka-Kump, Rodika DO Unavailable Unavailable Coloka-Kump, Rodika DO Unavailable Unavailable Coloka-Kump, Rodika DO Unavailable Unavailable Aszalos, Meagan Raegan Unavailable Unavailable Aszalos, Raegan Unavailable Unavailable Aszalos, Raegan Unavailable Unavailable Aszalos, Raegan Unavailable Unavailable Aszalos, Raegan Unavailable Unavailable Aszalos, Raegan Unavailable Unavailable Aszalos, Raegan Unavailable Unavailable Aszalos, Raegan Unavailable Unavailable Aszalos, Raegan Unavailable Unavailable SHEPPARD RACHEL-ARIANNE R Unavailable Unavailable Carina Pompa MD Unavailable Unavailable Carina Pompa MD Unavailable Unavailable Carina Pompa MD Unavailable Unavailable Carina Pompa MD Unavailable Unavailable Carina Pompa MD Unavailable Unavailable Carina Pompa MD Unavailable Unavailable Carina Pompa MD Unavailable Unavailable Carina Pompa MD Unavailable Unavailable Carina Pompa MD Unavailable Unavailable Carina Pompa MD Unavailable Unavailable Carina Pompa MD Unavailable Unavailable Carina Pompa MD Unavailable Unavailable Carina Pompa MD Unavailable Unavailable Carina Pompa MD Unavailable Unavailable Carina Pompa MD Unavailable Unavailable Veselinovic Unavailable [phone] Veselinovic Unavailable [phone] Arzola-Irving FISH HATCHERY SUPERVISOR-R Unavailable Unavailable Sheppard Unavailable [phone] Sheppard Unavailable [phone] Stein Unavailable Unavailable Stein Unavailable Unavailable Stein Unavailable Unavailable Stein Unavailable Unavailable Stein Unavailable Unavailable Stein Unavailable Unavailable Stein Unavailable Unavailable Stein Unavailable Unavailable Stein Unavailable Unavailable Stein Unavailable Unavailable Bradshaw, C Unavailable Unavailable Bradshaw, C Unavailable Unavailable Bradshaw, C Unavailable Unavailable Bradshaw, C Unavailable Unavailable Bradshaw, C Unavailable Unavailable Bradshaw, C Unavailable Unavailable Bradshaw, C Unavailable Unavailable Bradshaw, C Unavailable Unavailable Bradshaw, C Unavailable Unavailable Too Unavailable [phone] GAURAVELINDELIO MAHONEY Unavailable Unavailable Jeremy CHIEF MEDICAL DIRECTOR, CHIEF MEDICAL DIRECTOR Unavailable [phone] Jeremy CHIEF MEDICAL DIRECTOR, CHIEF MEDICAL DIRECTOR Unavailable [phone] Unavailable Unavailable Unavailable Unavailable Barraza Unavailable [phone] Barraza Unavailable [phone] Barraza Unavailable [phone] Alicia-Marie Unavailable [phone] Alicia-Marie Unavailable [phone] MD Feroz, MPH Unavailable Unavailable MD Feroz, MPH Unavailable Unavailable MD Feroz, MPH Unavailable Unavailable MD Feroz, MPH Unavailable Unavailable MD Feroz, MPH Unavailable Unavailable Ekechukwu Unavailable [phone] Ekechukwu Unavailable [phone] Ubayawardena Unavailable Unavailable Ubayawardena Unavailable Unavailable Ubayawardena Unavailable Unavailable Ubayawardena Unavailable Unavailable Ubayawardena Unavailable Unavailable Arreola Unavailable [phone] Arreola Unavailable [phone] Russell Unavailable [phone] Russell Unavailable [phone] CHRISTOPHER LINDER Unavailable Unavailable Re-disclosure Warning The records that you are about to access may contain information from federally- assisted alcohol or drug abuse programs. If such information is present, then the following federally mandated warning applies: This information has been disclosed to you from records protected by federal confidentiality rules (42 CFR part 2). The federal rules prohibit you from making any further disclosure of this information unless further disclosure is expressly permitted by the written consent of the person to whom it pertains or as otherwise permitted by 42 CFR part 2. A general authorization for the release of medical or other information is NOT sufficient for this purpose. The Federal rules restrict any use of the information to criminally investigate or prosecute any alcohol or drug abuse patient.The records that you are about to access may contain highly sensitive health information, the redisclosure of which is protected by Article 27-F of the [facility] Public Health law. If you continue you may haveaccess to information: Regarding HIV / AIDS; Provided by facilities licensed or operated by the [facility] Office of Mental Health; or Provided by the [facility] Office for People With Developmental Disabilities. If such information is present, then the following [facility] mandated warning applies: This information has been disclosed to you from confidential records which are protected by state law. State law prohibits you from making any further disclosure of this information without the specific written consent of the person to whom it pertains, or as otherwise permitted by law. Any unauthorized further disclosure in violation of state law may result in a fine or half-way sentence or both. A general authorization for the release of medical or other information is NOT sufficient authorization for further disclosure. Allergies and Adverse Reactions Type Description Substance Reaction Status Data Source(s ) Propensity to Propensity to Propensity to NEXTG EN ([facility] adverse reactions adverse reactions adverse reactions [facility] Medical (disorder) (disorder) (disorder) Center) No Known Allergies No Known Allergies No Known eCW1 ([facility] Allergies [facility]) Family History Family Member Family Member Family Member Date of Description Data Source(s) Name Gender Status Status Unknown Female Problem 10/08/2016 NEXTGEN ([facility] (finding) 12:00:00 AM Angela Medic al EST Center) Encounters Encounter Providers Location Date Indications Data Source(s) Attender: Kayla Family 06/24/20 MALINI Redman MD, [facility] 20 ([facility] 03:43:00 Angela PM EDT - Medical 06/24/20 Center) 20 03:43:00 PM EDT OutpatientOFFICE/OUTPAT Attender: CHIEF MEDICAL DIRECTOR Mental [facility] ([facility] 10:07:00 Angela AM EDT - Medical 06/19/20 [place]) 20 10:07:00 AM EDT Attender: Mental 06/18/20 [facility] ([facility] 01:28:00 Angela FISH HATCHERY SUPERVISOR-R PM EDT - Medical 06/18/20 [place]) 20 01:28:00 PM EDT Individual Attender: Allan Mental 06/14/20 NEXTGEN Psychotherapy (30 Min) [facility] 20 ( [facility] 04:50:00 Angela PM EDT - Medical 06/14/20 [place]) 20 04:50:00 PM EDT Individual Attender: Allan Mental 05/31/20 NEXTGEN Psychotherapy (30 Min) [facility] 20 ( [facility] 04:56:00 Angela PM EDT - Medical 05/31/20 [place]) 20 04:56:00 PM EDT Attender: Madelyn Family 05/31/20 [facility] 20 ([facility] 09:46:00 Angela AM EDT - Medical 05/31/20 [place]) 20 09:46:00 AM EDT OutpatientOFFICE/OUTPAT Attender: CHIEF MEDICAL DIRECTOR Mental 05/22/20 NEXTGEN IENT VISIT, EST [facility] ([facility] 02:03:00 Angela PM EDT - Medical 05/22/20 [place]) 20 02:03:00 PM EDT Individual Attender: Allan Mental 05/17/20 NEXTGEN Psychotherapy (30 Min) [facility] 20 ( [facility] 02:46:00 Angela PM EDT - Medical 05/17/20 [place]) 20 02:46:00 PM EDT Attender: CHIEF MEDICAL DIRECTOR Mental 05/08/20 [facility] ([facility] 11:11:00 Angela AM EDT - Medical 05/08/20 [place]) 20 11:11:00 AM EDT Attender: Meagan Family 05/08/20 NEXTGEN Aszalos [facility] 20 ([facility] 10:41:00 Angela AM EDT - Medical 05/08/20 [place]) 20 10:41:00 AM EDT Individual Attender: Allan Mental 05/03/20 NEXTGEN Psychotherapy (30 Min) [facility] 20 ( [facility] 05:03:00 Angela PM EDT - Medical 07/31/[address] [place] [address]) 20 05:03:00 PM EDT Attender: Allan Mental 04/24/20 [facility] 20 ([facility] 02:01:00 Angela PM EDT - Medical 04/24/20 [place]) 20 02:01:00 PM EDT Individual Attender: Allan Mental 04/16/20 NEXTGEN Psychotherapy (30 Min) [facility] 20 ( [facility] 02:44:00 Angela PM EDT - Medical 04/16/20 [place]) 20 02:44:00 PM EDT Outpatient 04/16/20 [place] [id number] Medical 10:05:00 Center AM EDT Outpatient Attender: Shala Finn 04/16/20 [facility] VelezAdmitter: 20 Medical Shala 09:59:00 [place] VelezReferrer: AM EDT Shala Stein PHONE E/M BY PHYS 5-10 Attender: Kayla Family 04/16/20 NEXTGEN DEIDRA Redman MD, [facility] 20 ([facility] 09:59:00 Angela AM EDT - Medical 04/16/20 [place]) 20 09:59:00 AM EDT Outpatient 04/16/20 [place] [id number] Medical 09:48:00 Center AM EDT Outpatient 04/16/[address] 12:00:00 Center AM EDT Attender: Meagan Family 04/11/20 [facility] ([facility] 09:55:00 Angela AM EDT - Medical 04/11/20 [place]) 20 09:55:00 AM EDT OutpatientOFFICE/OUTPAT Attender: CHIEF MEDICAL DIRECTOR Mental 04/10/20 [facility] [address] [facility] [facility] 10:28:00 Angela AM EDT - Medical 04/10/20 [place]) 20 10:28:00 AM EDT Individual Attender: [facility] Mental 03/28/20 NEXTGEN Psychotherapy (30 Min) [facility] 20 ( [facility] 01:49:00 Angela PM EDT - Medical 03/28/20 [place]) 20 01:49:00 PM EDT Attender: Allan Mental 03/14/20 [facility] 20 ([facility] 01:54:00 Angela PM EDT - Medical 03/14/20 [place]) 20 01:54:00 PM EDT OutpatientOFFICE/OUTPAT Attender: CHIEF MEDICAL DIRECTOR Mental 03/13/20 NEXTGEN IENT VISIT, EST Kirt Wren NP [facility] 20 ([facility] 11:45:00 Angela AM EDT - Medical 03/13/20 [place]) 20 11:45:00 AM EDT Individual Attender: Allan Mental 03/06/20 NEXTGEN Psychotherapy (30 Min) [facility] 20 ( [facility] 02:39:00 Angela PM EDT - Medical 03/06/20 [place]) 20 02:39:00 PM EDT Individual Attender: Allan Mental 02/21/20 NEXTGEN Psychotherapy (30 Min) [facility] 20 ( [facility] 09:55:00 Angela AM EDT - Medical 02/21/20 [place]) 20 09:55:00 AM EDT Individual Attender: Allan Mental 02/16/20 NEXTGEN Psychotherapy (30 Min) [facility] 20 ( [facility] 10:57:00 Angela AM EDT - Medical 02/16/20 [place]) 20 10:57:00 AM EDT Attender: Family 02/16/20 NEXTGEN Faustina Beltran [facility] 20 ([facility] 09:16:00 Angela AM EDT - Medical 02/16/20 [place]) 20 09:16:00 AM EDT Attender: Susi Mental 02/14/[address] [facility] ([facility] 01:39:00 Angela PM EDT - Medical 02/14/20 [place]) 20 01:39:00 PM EDT OutpatientOFFICE/OUTPAT Attender: CHIEF MEDICAL DIRECTOR Mental 02/14/20 NEXTGEN IENT VISIT, PEPE Wren [facility] 20 ([facility] NPAttender: [facility] 10:09:00 Angela [place] Too AM EDT - Medical 02/14/20 [place]) 20 10:09:00 AM EDT Attender: Kayla Family 02/12/20 MALINI Redman MD, [facility] 20 ([facility] 02:29:00 Angela PM EDT - Medical 02/12/20 [place]) 20 02:29:00 PM EDT Individual Attender: Allan Mental 02/09/20 NEXTGEN Psychotherapy (30 Min) [facility] 20 ( [facility] 01:11:00 Angela PM EDT - Medical 02/09/20 [place]) 20 01:11:00 PM EDT Individual Attender: Allan Mental 01/31/20 NEXTGEN Psychotherapy (30 Min) [facility] 20 ( [facility] 11:26:00 Angela AM EDT - Medical 01/31/20 [place]) 20 11:26:00 AM EDT Attender: Allan Mental 01/23/20 NEXTGEN [facility] 20 ([facility] 12:46:00 Angela PM EDT - Medical 01/23/20 [place]) 20 12:46:00 PM EDT Attender: Susi Mental 01/18/20 [facility] 11:02:00 Angela AM EDT - Medical 01/18/20 [place]) 20 11:02:00 AM EDT Attender: Mental 01/17/20 [facility] 20 ([facility] 05:27:00 Angela PM EDT - Medical 01/17/20 [place]) 20 05:27:00 PM EDT Attender: Kayla Family 01/17/20 MALINI Redman MD, [facility] 20 ([facility] 02:41:00 Angela PM EDT - Medical 01/17/20 [place]) 20 02:41:00 PM EDT Individual Attender: Allan Mental 01/17/20 NEXTGEN Psychotherapy (30 Min) [facility] 20 ( [facility] 11:28:00 Angela AM EDT - Medical 01/17/20 [place]) 20 11:28:00 AM EDT Individual Attender: Allan Mental 01/05/20 NEXTGEN Psychotherapy (30 Min) [facility] 20 ( [facility] 10:37:00 Angela AM EDT - Medical 01/05/20 [place]) 20 10:37:00 AM EDT Attender: Madelyn Family 01/01/20 NEXTGEN Bradshaw [facility] 20 ([facility] 12:33:00 Angela PM EDT - Medical 01/01/20 [place]) 20 12:33:00 PM EDT Individual Attender: Allan Mental 12/21/19 NEXTGEN Psychotherapy (30 Min) [facility] 20 ( [facility] 10:59:00 Angela AM EDT - Medical 12/21/19 [place]) 20 10:59:00 AM EDT Attender: Susi Mental 12/21/[address] [facility] ([facility] 09:55:00 Angela AM EDT - Medical 12/21/19 [place]) 20 09:55:00 AM EDT OutpatientOFFICE/OUTPAT Attender: CHIEF MEDICAL DIRECTOR Mental 12/20/19 NEXTGEN IENT VISIT, PEPE Tianin [facility] 20 ([facility] NPAttender: [facility] 03:06:00 Angela [place] Too PM EDT - Medical 12/20/19 [place]) 20 03:06:00 PM EDT Attender: Kayla 12/18/19 MALINI Redman MD, MPH [facility] 20 ([facility] 01:11:00 Angela PM EDT - Medical 12/18/19 [place]) 20 01:11:00 PM EDT Outpatient Attender: Shala Finn 11/23/19 [facility] VelezAdmitter: Medical Shala 05:06:00 [place] VelezReferrer: PM EST Shala Stein OutpatientOFFICE/OUTPAT Attender: Kayla Cardenas 11/23/19 [facility] PEPE Redman MD, MPH [facility] 20 ([facility] 05:06:00 Angela PM EST - Medical 11/23/19 [place]) 20 05:06:00 PM EST Outpatient 11/23/19 [place] [address] Medical 12:41:00 Center PM EST Outpatient 11/23/19 [place] [address] Medical 12:00:00 Center AM EST Attender: Kayla Cardenas 11/22/19 MALINI Redman MD, MPH [facility] 20 ([facility] 03:06:00 Angela PM EST - Medical 11/22/19 [place]) 20 03:06:00 PM EST Attender: Kayla Cardenas 11/21/19 MALINI Redman MD, MPH [facility] 20 ([facility] 03:04:00 Angela PM EST - Medical 11/21/19 [place]) 20 03:04:00 PM EST Outpatient 11/16/19 [place] [address] Medical 03:03:00 Center PM EST Outpatient 11/16/19 [place] [address] Medical 12:00:00 Center AM EST Attender: Meagan Cardenas 11/15/19 [facility] ([facility] 01:20:00 Angela PM EST - Medical 11/15/19 [place]) 20 01:20:00 PM EST Attender: Family 11/15/19 MALINI Adamstad [facility] 20 ([facility] 12:22:00 Angela PM EST - Medical 11/15/19 [place]) 20 12:22:00 PM EST Attender: Kayla Family 11/15/19 MALINI Redman MD, MPH [facility] 20 ([facility] 09:11:00 Angela AM EST - Medical 11/15/19 [place]) 20 09:11:00 AM EST Attender: Allan Mental 11/13/19 [facility] 09:46:00 Angela AM EST - Medical 11/13/19 [place]) 20 09:46:00 AM EST Attender: Susi Mental 11/11/19 [facility] ([facility] 10:17:00 Angela AM EST - Medical 11/11/19 [place]) 20 10:17:00 AM EST Attender: CHIEF MEDICAL DIRECTOR Mental 11/10/19 [facility] ([facility] NPAttender: [facility] 03:40:00 Angela Ana Rosa Gage EST - Medical 11/10/19 [place]) 20 03:40:00 PM EST Attender: Kayla Family 11/07/19 MALINI Redman MD, MPH [facility] 20 ([facility] 06:45:00 Angela PM EST - Medical 11/07/19 [place]) 20 06:45:00 PM EST Individual Attender: Allan Mental 11/06/19 [facility] [place] (45 Min) [place] [address] ( [facility] 03:52:00 Angela PM EST - Medical 11/06/19 [place]) 20 03:52:00 PM EST Outpatient 11/03/19 [place] [address] Medical 03:44:00 Center PM EST Outpatient Attender: JERONIMO Finn 11/03/19 [facility] Jeronimo DECKER Medical MARTINAdmitter: 12:21:00 [place] JERONIMO DECKER PM EST MARTINReferrer: JERONIMO LINDER Attender: Allan 11/03/19 [facility] Ana Rosa Too 20 ([facility] 12:21:00 Angela PM EST - Medical 11/03/19 [place]) 20 12:21:00 PM EST Outpatient 11/03/19 [place] [address] Medical 12:00:00 Center AM EST [address] 11/03/19 eCW1 ([address] [facility] 12[facility] AM EST Practice PC) [address] 11/03/19 eCW1 ([facility] [address] [facility] 12:00:00 Medical AM EST Practice PC) Attender: Susi Mental 10/27/19 [facility] ([facility] 02:50:00 Angela PM EST - Medical 10/27/19 [place]) 20 02:50:00 PM EST OutpatientOFFICE/OUTPAT Attender: CHIEF MEDICAL DIRECTOR Mental 10/27/19 NEXTGEN IENT VISIT, EST [facility] 20 ([facility] NPAttender: [facility] 10:50:00 [facility] - Medical 10/27/19 [place]) 20 10:50:00 AM EST Outpatient 10/26/19 [place] [address] Medical 01:08:00 Center PM EST Attender: Allan Mental 10/26/19 [place] [address] ([facility] 11:55:00 Angela AM EST - Medical 10/26/19 [place]) 20 11:55:00 AM EST Outpatient Attender: JERONIMO Finn 10/26/19 [facility] Jeronimo DECKER Medical MARTINAdmitter: 11:03:00 [place] JERONIMO DECKER AM [facility] MARTINReferrer: JERONIMO LINDER Attender: Allan 10/26/19 [place] [address] ([facility] 11:03:00 Angela AM EST - Medical 10/26/19 [place]) 20 11:03:00 AM EST Outpatient 10/26/19 [place] [address] Medical 12:00:00 [place] AM EST Individual Attender: [facility] 10/18/19 NEXTGEN Psychotherapy (45 Min) [facility] 20 ( [facility] 06:39:00 Angela PM EST - Medical 10/18/19 [place]) 20 06:39:00 PM EST Outpatient 10/18/19 [place] [address] Medical 02:01:00 [place] PM EST Outpatient Attender: H 10/18/19 [facility] Faustina 20 Medical RingstadAdmitter: 09:27:00 [place] Faustina AM EST RingstadReferrer: Faustina Beltran OutpatientOFFICE/OUTPAT Attender: Kayla Family 10/18/19 NEXTGEN IENT VISIT, PEPE Redman MD, MPH [facility] 20 ([facility] 09:27:00 Angela AM EST - Medical 10/18/19 [place]) 20 09:27:00 AM EST Outpatient 10/18/19 [place] [address] Medical 12:00:00 Center AM EST Outpatient Attender: KIRT Finn 10/14/19 [place] [address] Medical AAttender: SUSI 03:31:00 [facility] PM EST JELENAAdmitter: KIRT Fuller Attender: Susi Mental 10/14/19 [place] [address] ([facility] 03:31:00 Angela PM EST - Medical 10/14/19 [place]) 20 03:31:00 PM EST Attender: Susi Mental 10/13/19 [place] [address] ([facility] 04:35:00 Angela PM EST - Medical 10/13/19 [place]) 20 04:35:00 PM EST Outpatient Attender: KIRT Finn 10/13/19 [place] [address] Medical AAdmitter: KIRT 03:31:00 [facility] KIRT A PM EST Outpatient Attender: Shala Finn 10/13/19 [facility] VelezAdmitter: 20 Medical Shala 12:57:00 [place] VelezReferrer: PM EST Shala Stein OutpatientOFFICE/OUTPAT Attender: Kayla Family 10/13/19 NEXTGEN IENT VISIT, PEPE Redman MD, MPH [facility] 20 ([facility] 12:57:00 Angela PM EST - Medical 10/13/19 [place]) 20 12:57:00 PM EST Outpatient 10/13/19 [place] [address] Medical 12:22:00 Center PM EST OutpatientOFFICE/OUTPAT Attender: CHIEF MEDICAL DIRECTOR Mental 10/13/19 NEXTGEN IENT VISIT, EST Kirt Wren [place] [address] ([facility] NPAttender: [facility] 10:59:00 Angela Ana Rosa Gage AM EST - Medical 10/13/19 [place]) 20 10:59:00 AM EST Outpatient 10/13/19 [place] [address] Medical 12:00:00 Center AM EST Outpatient Attender: KIRT Finn 10/11/19 [place] [address] Medical AAdmitter: KIRT 03:31:00 [facility] PM EST Individual Attender: Allan Mental 10/11/19 NEXTGEN Psychotherapy (45 Min) [facility] 20 ( [facility] 10:47:00 Angela AM EST - Medical 10/11/19 [place]) 20 10:47:00 AM EST Attender: Allan Mental 09/18/20 NEXTGEN [facility] 19 ([facility] 01:27:00 Angela PM EST - Medical 09/18/20 [place]) 19 01:27:00 PM EST Attender: Allan Mental 08/23/20 [facility] 19 ([facility] 03:58:00 Angela PM EST - Medical 08/23/20 [place]) 19 03:58:00 PM EST Individual Attender: [facility] Mental 08/15/20 NEXTGEN Psychotherapy (45 Min) [facility] 19 ( [facility] 04:48:00 Angela PM EST - Medical 08/15/20 [place]) 19 04:48:00 PM EST OutpatientOFFICE/OUTPAT Attender: Mental 08/15/20 N EXTGEN IENT VISIT, EST [facility] 19 ([facility] 11:17:00 Angela AM EST - Medical 08/15/20 [place]) 19 11:17:00 AM EST Individual Attender: [facility] 08/08/20 NEXTGEN Psychotherapy (45 Min) [facility] 19 ( [facility] 11:47:00 Angela AM EST - Medical 08/08/20 [place]) 19 11:47:00 AM EST Attender: Allan Mental 08/08/20 [facility] 19 ([facility] 10:05:00 Angela AM EST - Medical 08/08/20 [place]) 19 10:05:00 AM EST Attender: Allan Mental 07/19/20 [facility] 19 ([facility] 01:03:00 Angela PM EDT - Medical 07/19/20 [place]) 19 01:03:00 PM EDT Attender: Madelyn Family 07/17/20 [facility] 19 ([facility] 11:10:00 Angela AM EDT - Medical 07/17/20 [place]) 19 11:10:00 AM EDT OutpatientOFFICE/OUTPAT Attender: Mental 07/12/20 N EXTGEN IENT VISIT, EST [facility] 19 ([facility] 11:06:00 Angela AM EDT - Medical 07/12/20 [place]) 19 11:06:00 AM EDT Attender: Madelyn Family 07/12/20 [facility] 19 ([facility] 10:30:00 Angela AM EDT - Medical 07/12/20 [place]) 19 10:30:00 AM EDT Outpatient 07/11/20 [place] [address] Medical 12:09:00 Center PM EDT Attender: Madelyn Family 07/11/20 [facility] 19 ([facility] 11:18:00 Angela AM EDT - Medical 07/11/20 [place]) 19 11:18:00 AM EDT Outpatient 07/11/20 [place] [address] Medical 12:00:00 Center AM EDT Attender: Mental 07/05/20 [facility] 19 ([facility] 02:14:00 Angela PM EDT - Medical 07/05/20 [place]) 19 02:14:00 PM EDT Attender: Allan Mental 06/27/20 [facility] 19 ([facility] 04:44:00 Angela PM EDT - Medical 06/27/20 [place]) 19 04:44:00 PM EDT Attender: Madelyn [facility] 06/27/20 [facility] 19 ([facility] 12:12:00 Angela PM EDT - Medical 06/27/20 [place]) 19 12:12:00 PM EDT Attender: Madelyn [facility] 06/26/20 [facility] 19 ([facility] 05:09:00 Angela PM EDT - Medical 06/26/20 [place]) 19 05:09:00 PM EDT Outpatient 06/23/20 [place] [address] Medical 02:07:00 Center PM EDT Attender: Madelyn 06/23/20 [place] [address] ([facility] 10:57:00 Angela AM EDT - Medical 06/23/20 [place]) 19 10:57:00 AM EDT Outpatient Attender: Shala Finn 06/23/20 Warriorminehoang SteinAdmitter: 19 Medical Shala Stein 09:14:00 Center AM EDT OutpatientWell Visit, Attender: Madelyn Family 06/23/20 [facility],40-64[facility] 19 ([facility] 09:14:00 Angela AM EDT - Medical 06/23/20 [place]) 19 09:14:00 AM EDT Outpatient 06/23/20 [place] [address] Medical 12:00:00 Center AM EDT - 09/15/20 18 12:00:00 AM EST Individual Attender: Allan Mental 06/19/20 NEXTGEN Psychotherapy (45 Min) [facility] 19 ( [facility] 05:57:00 Angela PM EDT - Medical 06/19/20 [place]) 19 05:57:00 PM EDT Outpatient 06/19/20 [place] [address] Medical 09:27:00 Center AM EDT Outpatient 06/19/20 [place] [address] Medical 12:00:00 Center AM EDT Attender: Allan Mental 06/14/20 NEXTGEN [facility] 19 ([facility] 05:55:00 Angela PM EDT - Medical 06/14/20 [place]) 19 05:55:00 PM EDT Attender: Mental 06/07/20 NEXTGEN [facility] 19 ([facility] 03:16:00 Angela PM EDT - Medical 06/07/20 [place]) 19 03:16:00 PM EDT Individual Attender: [facility] Mental 06/02/20 NEXTGEN Psychotherapy (45 Min) [place] [address] ( [facility] 03:22:00 Angela PM EDT - Medical 06/02/20 [place]) 19 03:22:00 PM EDT Individual Attender: [facility] Mental 05/26/20 NEXTGEN Psychotherapy (45 Min) [facility] 19 ( [facility] 05:04:00 Angela PM EDT - Medical 05/26/20 [place]) 19 05:04:00 PM EDT Outpatient 05/26/20 [place] [address] Medical 12:12:00 Center PM EDT Outpatient 05/26/20 [place] [address] Medical 12:00:00 Center AM EDT Individual Attender: Allan Mental 05/15/20 NEXTGEN Psychotherapy (45 Min) [facility] 19 ( [facility] 05:42:00 Angela PM EDT - Medical 05/15/20 [place]) 19 05:42:00 PM EDT Individual Attender: [facility] Mental 05/08/20 NEXTGEN Psychotherapy (45 Min) [facility] 19 ( [facility] 05:40:00 Angela PM EDT - Medical 05/08/20 [place]) 19 05:40:00 PM EDT OutpatientOFFICE/OUTPAT Attender: Mental 05/08/20 N EXTGEN IENT VISIT, [facility] 19 ([facility] 01:47:00 Angela PM EDT - Medical 05/08/20 [place]) 19 01:47:00 PM EDT Individual Attender: [facility] 05/02/20 NEXTGEN Psychotherapy (45 Min) [facility] 19 ( [facility] 04:51:00 Angela PM EDT - Medical 05/02/20 [place]) 19 04:51:00 PM EDT Attender: [facility] 04/18/20 [facility] 19 ([facility] 01:34:00 Angela PM EDT - Medical 04/18/20 [place]) 19 01:34:00 PM EDT OutpatientOFFICE/OUTPAT Attender: Mental 04/10/20 N EXTGEN IENT VISIT, [facility] 19 ([facility] 01:42:00 Angela PM EDT - Medical 04/10/20 [place]) 19 01:42:00 PM EDT Individual Attender: [facility] 03/31/20 NEXTGEN Psychotherapy (45 Min) [facility] 19 ( [facility] 05:12:00 Angela PM EDT - Medical 03/31/20 [place]) 19 05:12:00 PM EDT Attender: Family 03/11/20 MALINI Beltran [facility] 19 ([facility] 09:49:00 Angela AM EDT - Medical 03/11/20 [place]) 19 09:49:00 AM EDT Outpatient 03/10/20 [place] [address] Medical 02:08:00 Center PM EDT Outpatient 03/10/20 [facility] 19 Medical 12:00:00 Center AM EDT Outpatient 03/09/20 [facility] 19 Medical 12:15:00 Center PM EDT Outpatient 03/09/20 [facility] 19 Medical 12:00:00 Center AM EDT Outpatient 03/06/20 [facility] 19 Medical 02:10:00 Center PM EDT Outpatient 03/06/20 [place] [address] Medical 12:00:00 Center AM EDT Attender: Devorah Cardenas 02/10/20 MALINI Pompa MD [facility] 19 ([facility] 09:27:00 Angela AM EDT - Medical 02/10/20 Center) 19 09:27:00 AM EDT Attender: Family 01/04/20 [facility] Karmen [facility] 19 ([facility] 12:10:00 Angela PM EDT - Medical 01/04/20 [place]) 19 12:10:00 PM EDT Attender: Mental 12/28/19 [facility] 19 ([facility] 03:31:00 Angela PM EDT - Medical 12/28/19 [place]) 19 03:31:00 PM EDT Individual Attender: [facility] 12/15/19 NEXTGEN Psychotherapy (45 Min) [facility] 19 ( [facility] 06:14:00 Angela PM EDT - Medical 12/15/19 [place]) 19 06:14:00 PM EDT OutpatientOFFICE/OUTPAT Attender: Mental 12/15/19 N EXTGEN IENT VISIT, EST [facility] 19 ([facility] 03:34:00 Angela PM EDT - Medical 12/15/19 [place]) 19 03:34:00 PM EDT Individual Attender: [facility] 11/30/19 NEXTGEN Psychotherapy (45 Min) [facility] 19 ( [facility] 05:47:00 Angela PM EST - Medical 11/30/19 [place]) 19 05:47:00 PM EST OutpatientOFFICE/OUTPAT Attender: Mental 11/30/19 N EXTGEN IENT VISIT, EST [facility] 19 ([facility] 01:44:00 Angela PM EST - Medical 11/30/19 [place]) 19 01:44:00 PM EST Individual Attender: [facility] 11/02/19 NEXTGEN Psychotherapy (45 Min) [facility] 19 ( [facility] 04:03:00 Angela PM EST - Medical 11/02/19 [place]) 19 04:03:00 PM EST OutpatientOFFICE/OUTPAT Attender: Mental 11/02/19 N EXTGEN IENT VISIT, EST [facility] 19 ([facility] 12:39:00 Angela PM EST - Medical 11/02/19 [place]) 19 12:39:00 PM EST Attender: Family 10/25/19 [facility] 19 ([facility] 10:08:00 Angela AM EST - Medical 10/25/19 [place]) 19 10:08:00 AM EST Individual Attender: Allan Mental 10/20/19 NEXTGEN Psychotherapy (45 Min) [facility] 19 ( [facility] 05:14:00 Angela PM EST - Medical 10/20/19 [place]) 19 05:14:00 PM EST Attender: Madelyn Family 10/18/19 [facility] 19 ([facility] 02:12:00 Angela PM EST - Medical 10/18/19 [place]) 19 02:12:00 PM EST Attender: Family 10/12/19 [facility] 19 ([facility] 02:02:00 Angela PM EST - Medical 10/12/19 [place]) 19 02:02:00 PM EST Individual Attender: [facility] Mental 10/05/19 [facility] Psych[facility] (45 Min) [facility] 19 ( [facility] 04:04:00 Angela PM EST - Medical 10/05/19 [place]) 19 04:04:00 PM EST Outpatient Attender: H 10/05/19 [facility] RACHEL-ARIANNE [address] [place] [address] SHEPPARD 10:05:00 [place] RACHELARIANNE AM EST RAdmitter: CLAUDETTE SOTOYL-ARIANNE R Attender: 10/05/19 [facility] Rachel-Arianne 19 ([facility] 10:05:00 Angela AM EST - Medical 10/05/19 [place]) 19 10:05:00 AM EST OutpatientOFFICE/OUTPAT Attender: [facility] 09/22/20 N EXTGEN IENT VISIT, EST [facility] 18 ([facility] 03:20:00 Angela PM EST - Medical 09/22/20 [place]) 18 03:20:00 PM EST [address] 08/19/20 [email or web address] [facility] 12[facility] AM EST Practice [facility]) 08/18/20 [facility] 18 ([facility] 01:13:00 Angela PM EST - Medical 08/18/20 [place]) 18 01:13:00 PM EST [address] 08/18/20 [email or web address] ([address] [facility] 18 [facility] 12:00:00 Medical AM EST Practice PC) Attender: Meagan Family 08/12/20 [facility] ([facility] 03:06:00 Angela PM EST - Medical 08/12/20 [place]) 18 03:06:00 PM EST Attender: Family 08/11/20 [facility] 18 ([facility] 03:27:00 Angela PM EST - Medical 08/11/20 [place]) 18 03:27:00 PM EST Attender: Family 08/05/20 [facility] 18 ([facility] 03:40:00 Angela PM EDT - Medical 08/05/20 [place]) 18 03:40:00 PM EDT Attender: Family 04/18/20 [facility] Faustina [place] [address] ([facility] 11:47:00 Angela AM EDT - Medical 04/18/20 [place]) 18 11:47:00 AM EDT Outpatient Attender: Shala Finn 12/31/19 [facility] VelezAdmitter: 18 Medical Shala 02:55:00 Center VelezReferrer: PM EDT Shala Stein OutpatientOFFICE/OUTPAT [facility]: [facility] NEXTGEN IENT VISIT, [facility] 18 ([facility] 02:55:00 Angela PM EDT - Medical 12/31/19 [place]) 18 02:55:00 PM EDT Attender: Resika Family 11/16/19 [facility] ([facility] 10:08:00 Angela AM EST - Medical 11/16/19 [place]) 18 10:08:00 AM EST Attender: 10/20/19 [facility] Rachel-Arianne 18 ([facility] 10:05:00 Angela AM EST - Medical 10/20/19 [place]) 18 10:05:00 AM EST Attender: Rodika Family 10/05/19 [facility] 18 ([facility] 04:33:00 Angela PM EST - Medical 10/05/19 [place]) 18 04:33:00 PM EST OutpatientOFFICE/OUTPAT Attender: Juaniida [facility] 09/13/20 NEXTGEN IENT VISIT, [facility] 17 ([facility] 10:02:00 Angela AM EST - Medical 09/13/20 [place]) 17 10:02:00 AM EST OutpatientOFFICE/OUTPAT Attender: Stephanie Family 09/08/20 NEXTGEN IENT VISIT, [facility] 17 ([facility] 02:11:00 Angela PM EST - Medical 09/08/20 [place]) 17 02:11:00 PM EST OutpatientOFFICE/OUTPAT Attender: Rian Family 07/29/20 NEXTGEN IENT VISIT, [facility] Jax [facility] 17 ([facility] 06:23:00 Angela PM EDT - Medical 07/29/20 [place]) 17 06:23:00 PM EDT Attender: Rodika Family 04/26/20 [place] [address] ([facility] 10:13:00 Angela AM EDT - Medical 04/26/20 [place]) 17 10:13:00 AM EDT Attender: Mekhiika [facility] 04/22/20 [place] [address] ([facility] 08:56:00 Angela AM EDT - Medical 04/22/20 [place]) 17 08:56:00 AM EDT Attender: Matthew [facility] 01/26/20 [place] [address] ([facility] 10:06:00 Angela AM EDT - Medical 01/26/20 [place]) 17 10:06:00 AM EDT Attender: Family 10/09/19 [facility] Faustina [place] [address] ([facility] 12:24:00 Angela PM EST - Medical 10/09/19 [place]) 17 12:24:00 PM EST OutpatientOFFICE/OUTPAT Attender: Socorro Family 10/08/19 NEXTGEN IENT VISIT, [place] [address] ([facility] 10:17:00 Angela AM EST - Medical 10/08/19 [place]) 17 10:17:00 AM EST OutpatientExpanded Attender: Allan [facility] 01/17/20 N EXTGEN History/exam - [place] [address] ([facility] 09:57:00 Owen hs AM EDT - Medical 01/17/20 [place]) 15 09:57:00 AM EDT Attender: Allan [facility] 12/12/19 [facility] 15 ([facility] 11:21:00 Angela AM EDT - Medical 12/12/19 [place]) 15 11:21:00 AM EDT Attender: Family 11/28/19 [facility] 15 ([facility] 10:17:00 Angela AM EST - Medical 11/28/19 [place]) 15 10:17:00 AM EST Attender: Allan Family 11/06/19 [facility] ([facility] 08:45:00 Angela AM EST - Medical 11/06/19 [place]) 15 08:45:00 AM EST Attender: [facility] 09:15:00 Angela AM EST - Medical 09/24/20 [place]) 14 09:15:00 AM EST OutpatientOFFICE/OUTPAT Attender: Allan Family 08/27/20 NEXTGEN IENT VISIT, [facility] 14 ([facility] 03:50:00 Angela PM EST - Medical 08/27/20 [place]) 14 03:50:00 PM EST OutpatientOFFICE/OUTPAT Attender: Allan Family 05/30/20 NEXTGEN IENT VISIT, [facility] 14 ([facility] 02:32:00 Angela PM EDT - Medical 05/30/20 [place]) 14 02:32:00 PM EDT Attender: Allan Family 03/29/20 [facility] 14 ([facility] 01:32:00 Angela PM EDT - Medical 03/29/20 [place]) 14 01:32:00 PM EDT OutpatientOFFICE/OUTPAT Attender: Allan Family 02/23/20 NEXTGEN IENT VISIT, EST [facility] 14 ([facility] 09:24:00 Angela AM EDT - Medical 02/23/20 [place]) 14 09:24:00 AM EDT OutpatientOFFICE/OUTPAT Attender: Allan Family 02/09/20 NEXTGEN IENT VISIT, EST [facility] 14 ([facility] 10:08:00 Angela AM EDT - Medical 02/09/20 [place]) 14 10:08:00 AM EDT OutpatientOFFICE/OUTPAT Attender: Allan Family 01/31/20 NEXTGEN IENT VISIT, EST [facility] 14 ([facility] 09:57:00 Angela AM EDT - Medical 01/31/20 Center) 14 09:57:00 AM EDT OutpatientOFFICE/OUTPAT Attender: Allan Cardenas 01/26/20 NEXTGEN IENT VISIT, [facility] 14 ([facility] 09:26:00 Angela AM EDT - Medical 01/26/20 Center) 14 09:26:00 AM EDT OutpatientOFFICE/OUTPAT Attender: Allan Cardenas 12/28/19 NEXTGEN IENT VISIT, [facility] 14 ([facility] 10:05:00 Angela AM EDT - Medical 12/28/19 Center) 14 10:05:00 AM EDT OutpatientOFFICE/OUTPAT Attender: Allan Cardenas 12/14/19 NEXTGEN IENT VISIT, [facility] 14 ([facility] 09:49:00 Angela AM EDT - Medical 12/14/19 [place]) 14 09:49:00 AM EDT Immunizations Vaccine Date Status Description Data Source(s) Tdap 11/23/2019 12:00:00 AM completed Tdap NEXTG EN ([facility]) Source: New Immunization Record New in 2012. IIV4 08/02/2018 11:01:00 completed Sa int Angela [facility] pneumococcal 08/02/2018 11:01:00 completed [facility] polysaccharide [facility] This CVX code has completed Influenza vaccine NEXTG EN ([facility] utility and [facility] edical should rarely be used. Cente r) Source: New Immunization Record No Known Immunizations completed [email or web address] ([facility]) Medications Medication Brand Start Product Dose Route Administrative Pharmacy St atus Indications Reaction Description Data Name Date Form Instructions Instructions Source(s) 24 HR buprop ORAL active take 1 NEXTGE N Bupropion ion 2020 {tabl tablet by (Jak nt Hydrochlori HCl XL 12:00: et} oral rout e Angela de 150 MG 150 mg 00 AM every Medica l Extended 24 hr EDT morning for [address]) Release tablet depression Oral Tablet , bupropion extend HCl XL 150 ed mg 24 hr releas tablet, e extended release Fluoxetine Prozac .00 ORAL active fluoxeti ne NEXTGEN 40 MG Oral 40 mg 2020 {caps 40 MG Oral ( [facility] Capsule capsul 12:00: ule} Capsule Owen hs [Prozac] e 00 AM [Prozac] Medica l Prozac 40 EDT [place]) mg capsule Mirtazapine Remero .00 ORAL active mirtaza pine NEXTGEN 15 MG Oral n 15 2019 {tabl 15 MG Oral (S aint Tablet mg 12:00: et} Tablet Angela [Remeron] tablet 00 AM [Remeron] Me dical Remeron 15 EDT [place]) mg tablet Prazosin 2 prazos ORAL complet take 1 NEXTGEN MG Oral in 2 2019 {caps ed capsule by (Deejay t Capsule mg 12:00: ule} oral route Jeronimo phs prazosin 2 capsul 00 AM every day M edical mg capsule e EDT for [place]) nightmares Medication administered onsite Prazosin 2 prazosin 2 06/19/2020 1 {capsule} ORAL completed take 1 NEXTGEN MG Oral mg capsule 12:00:00 AM caps ule by ([facility] Capsule EDT oral route Srini s prazosin 2 every Medical mg capsule bedtime for Ce nter) nightmares Medication administered onsite 24 HR Bupropion bupropion 06/19/2020 1 ORAL completed take 1 NEXTGEN Hydrochloride HCl XL 150 12:00:00 AM {tablet} tablet by ([facility] 150 MG Extended mg 24 hr EDT oral route Angela Release Oral tablet, every Med ical Tablet extended morning for Ce nter) bupropion HCl release depressi on XL 150 mg 24 hr tablet, extended release Medication administered onsite 24 HR Bupropion bupropion 06/19/2020 1 ORAL completed take 1 NEXTGEN Hydrochloride HCl XL 150 12:00:00 AM {tablet} tablet by ([facility] 150 MG Extended mg 24 hr EDT oral route Angela Release Oral tablet, every Med ical Tablet extended morning for Ce nter) bupropion HCl release depressi on XL 150 mg 24 hr tablet, extended release Medication administered onsite Fluoxetine Prozac 40 06/19/2020 1.00 ORAL completed fluoxetine NEXTGEN 40 MG Oral mg 12:00:00 AM {capsule} 40 MG Oral ([facility] Capsule capsule EDT Capsule Srini s [Prozac] [Prozac] Medical Prozac 40 mg [place]) capsule Medication administered onsite Prazosin 2 MG prazosin 2 06/19/2020 1 ORAL active take 1 NEXTGEN Oral Capsule mg capsule 12:00:00 AM {capsule} capsule by ([facility] prazosin 2 mg EDT oral route Angela capsule every Medical bedtime for [place]) nightmares Mirtazapine Remeron 15 06/19/2020 1.00 ORAL completed mirtazapine NEXTGEN 15 MG Oral mg tablet 12:00:00 AM {tablet} 15 MG Oral (Saint Tablet EDT Tablet Angela [Remeron] [Remeron] Medic al Remeron 15 mg [place] ) tablet Medication administered onsite 120 ACTUAT SYMBICORT 05/31/2020 active 1 20 ACTUAT NEXTGEN Budesonide 160/4.5MCG 12:00:00 AM b udesonide (Saint 0.16 (120 ORAL EDT 0.16 Angela MG/ACTUAT / INH) MG/ACTUAT / M edical formoterol formoterol [address]) fumarate fumarate 0.0045 0.0045 MG/ACTUAT MG/ACTUAT Metered Dose Metered Dose Inhaler Inhaler [Symbicort] [Symbicort] SYMBICORT 160/4.5MCG (120 ORAL INH) Fluoxetine 40 Prozac 40 mg 05/22/2020 1. ORAL completed fluoxetine NEXTGEN MG Oral capsule 12:00:00 AM 00 40 MG O ral ([facility] Capsule EDT {c Capsule Angela [Prozac] ap [Prozac] Medical Prozac 40 mg burger [place]) capsule le } Mirtazapine Remeron 15 05/22/2020 1. ORAL completed mirtazapine NEXTGEN 15 MG Oral mg tablet 12:00:00 AM 00 15 MG Oral (Saint Tablet EDT {t Tablet Angela [Remeron] ab [Remeron] Medic al Remeron 15 mg le [place] ) tablet t} Prazosin 1 MG prazosin 1 05/22/2020 1 ORAL completed take 1 NEXTGEN Oral Capsule mg capsule 12:00:00 AM {c capsule by ([facility] prazosin 1 mg EDT ap oral route Angela capsule burger every day Medical le [place]) } apixaban 5 MG ELIQUIS 5MG 05/08/2020 active apixaban 5 NEXTGEN Oral Tablet TABLETS 12:00:00 AM MG Oral (Saint [Eliquis] EDT Tablet Angela ELIQUIS 5MG [Eliquis] Med ical TABLETS Center) 24 HR metoprolol 04/16/2020 active TAKE 1 NEXTGEN metoprolol succinate ER 12:00:00 AM TABLET BY ([facility] succinate 25 25 mg EDT MOUTH EVERY Angela MG Extended tablet,exten DAY Medical Release Oral ded release Center) Tablet 24 hr metoprolol succinate ER 25 mg tablet,extend ed release 24 hr Lisinopril 5 lisinopril 5 04/16/2020 active TAKE 1 NEXTGEN MG Oral mg tablet 12:00:00 AM TABLE T BY (Saint Tablet EDT MOUTH EVERY Srini s lisinopril 5 DAY Medical mg tablet Center) 24 HR Nicoderm CQ 04/16/2020 1. TRANSDERMAL active 24 HR NEXTGEN Nicotine 14 mg/24 hr 12:00:00 AM 00 ni cotine (Saint 0.583 MG/HR daily EDT {p 0.583 MG/HR Angela Transdermal transdermal at [facility] Patch patch ch System Center) [Nicoderm } [Nicoderm C-Q] Nicoderm C-Q] CQ 14 mg/24 hr daily transdermal patch Nicotine 2 MG Nicorette 2 04/16/2020 1 ORAL active nicotine 2 NEXTGEN Oral Lozenge mg buccal 12:00:00 AM {t MG Oral (Saint [Nicorette] lozenge EDT ab Lozenge Yojana sephs Nicorette 2 le [Nicorette] M edical mg buccal t} Center) lozenge apixaban 5 MG Eliquis 5 mg 04/11/2020 completed apixaban 5 NEXTGEN Oral Tablet tablet 12:00:00 AM MG O ral (Saint [Eliquis] EDT Tablet Angela Eliquis 5 mg [Eliquis] Me dical tablet Center) Prazosin 1 MG prazosin 1 04/10/2020 1 ORAL completed take 1 NEXTGEN Oral Capsule mg capsule 12:00:00 AM {c capsule by ([facility] prazosin 1 mg EDT ap oral route Angela capsule burger every day Medical le [place]) } Mirtazapine Remeron 15 04/10/2020 1. ORAL completed mirtazapine NEXTGEN 15 MG Oral mg tablet 12:00:00 AM 00 15 MG Oral (Saint Tablet EDT {t Tablet Angela [Remeron] ab [Remeron] Medic al Remeron 15 mg le [place] ) tablet t} Fluoxetine 40 Prozac 40 mg 04/10/2020 1. ORAL completed fluoxetine NEXTGEN MG Oral capsule 12:00:00 AM 00 40 MG O ral ([facility] Capsule EDT {c Capsule Angela [Prozac] ap [Prozac] Medical Prozac 40 mg burger Center) capsule le } Fluoxetine 40 Prozac 40 mg 04/10/2020 1. ORAL completed Fluoxetine NEXTGEN MG Oral capsule 12:00:00 AM 00 40 MG O ral ([facility] Capsule EDT {c Capsule Angela [Prozac] ap [Prozac] Medical Prozac 40 mg burger [place]) capsule le } Medication administered onsite Fluoxetine 20 Prozac 20 03/13/2020 1.00 ORAL completed Fluoxetine NEXTGEN MG Oral mg 12:00:00 AM {capsule} 20 MG Oral ([facility] Capsule capsule EDT Capsule Srini s [Prozac] [Prozac] Medical Prozac 20 mg [place]) capsule Prazosin 1 MG prazosin 03/13/2020 1 ORAL completed take 1 NEXTGEN Oral Capsule 1 mg 12:00:00 AM {capsule} capsule by (Saint prazosin 1 mg capsule EDT oral rou te Angela capsule every day Medical [place]) Mirtazapine Remeron 03/13/2020 1.00 {tbl} ORAL completed Mirtazapine NEXTGEN 15 MG Oral 15 mg 12:00:00 AM 15 MG Oral (Saint Tablet tablet EDT Tablet Angela [Remeron] [Remeron] Medic al Remeron 15 mg [place] ) tablet Fluoxetine 10 Prozac 10 03/13/2020 1.00 ORAL completed Fluoxetine NEXTGEN MG Oral mg 12:00:00 AM {capsule} 10 MG Oral ([facility] Capsule capsule EDT Capsule Srini s [Prozac] [Prozac] Medical Prozac 10 mg [place]) capsule Lisinopril 5 LISINOPRI 02/16/2020 completed TAKE 1 NEXTGEN MG Oral L 5MG 12:00:00 AM TABLET BY ([facility] Tablet TABLETS EDT MOUTH EVERY Helio ephs LISINOPRIL DAY Medical 5MG TABLETS [place]) Fluoxetine 20 Prozac 20 02/14/2020 1.00 ORAL completed Fluoxetine NEXTGEN MG Oral mg 12:00:00 AM {capsule} 20 MG Oral ([facility] Capsule capsule EDT Capsule Srini s [Prozac] [Prozac] Medical Prozac 20 mg [place]) capsule Mirtazapine Remeron 02/14/2020 1.00 {tbl} ORAL completed Mirtazapine NEXTGEN 15 MG Oral 15 mg 12:00:00 AM 15 MG Oral ([facility] Tablet tablet EDT Tablet Angela [Remeron] [Remeron] Medic al Remeron 15 mg [place] ) tablet Prazosin 1 MG prazosin 02/14/2020 1 ORAL completed take 1 NEXTGEN Oral Capsule 1 mg 12:00:00 AM {capsule} capsule by ([facility] prazosin 1 mg capsule EDT oral rou te Angela capsule every day Medical [place]) Fluoxetine 10 Prozac 10 02/14/2020 1.00 ORAL completed Fluoxetine NEXTGEN MG Oral mg 12:00:00 AM {capsule} 10 MG Oral ([facility] Capsule capsule EDT Capsule Srini s [Prozac] [Prozac] Medical Prozac 10 mg [place]) capsule Prazosin 1 MG prazosin 01/18/2020 1 ORAL completed take 1 NEXTGEN Oral Capsule 1 mg 12:00:00 AM {capsule} capsule by ([facility] prazosin 1 mg capsule EDT oral rou te Angela capsule every day Medical [place]) Fluoxetine 20 Prozac 20 01/18/2020 1.00 ORAL completed Fluoxetine NEXTGEN MG Oral mg 12:00:00 AM {capsule} 20 MG Oral ([facility] Capsule capsule EDT Capsule Srini s [Prozac] [Prozac] Medical Prozac 20 mg [place]) capsule Mirtazapine Remeron 01/18/2020 1.00 {tbl} ORAL completed Mirtazapine NEXTGEN 15 MG Oral 15 mg 12:00:00 AM 15 MG Oral ([facility] Tablet tablet EDT Tablet Angela [Remeron] [Remeron] Medic al Remeron 15 mg [place] ) tablet apixaban 5 MG ELIQUIS 01/01/2020 completed apixaban 5 NEXTGEN Oral Tablet 5MG 12:00:00 AM MG Ora l ([facility] [Eliquis] TABLETS EDT Tablet Owen hs ELIQUIS 5MG [Eliquis] Med ical TABLETS [place]) Mirtazapine Remeron 12/21/2019 1.00 {tbl} ORAL completed Mirtazapine NEXTGEN 15 MG Oral 15 mg 12:00:00 AM 15 MG Oral ([facility] Tablet tablet EDT Tablet Angela [Remeron] [Remeron] Medic al Remeron 15 mg [place] ) tablet Fluoxetine 20 Prozac 20 12/21/2019 1.00 ORAL completed Fluoxetine NEXTGEN MG Oral mg 12:00:00 AM {capsule} 20 MG Oral ( Capsule capsule EDT Capsule Srini s [Prozac] [Prozac] Medical Prozac 20 mg [place]) capsule Prazosin 1 MG prazosin 12/21/2019 1 ORAL completed take 1 NEXTGEN Oral Capsule 1 mg 12:00:00 AM {capsule} capsule by ( prazosin 1 mg capsule EDT oral rou te Angela capsule every day Medical [place]) atorvastatin atorvasta 11/23/2019 1.00 ORAL active take 1 NEXTGEN 10 MG Oral tin 10 mg 12:00:00 AM {tablet} tablet by ( Tablet tablet EST oral route Owen hs atorvastatin every day Me dical 10 mg tablet [place]) 200 ACTUAT Ventolin 11/23/2019 active ND [id number] NEXTGEN Albuterol HFA 90 12:00:00 AM 200 AC TUAT ([facility] 0.09 mcg/actua EST albuterol Owen hs MG/ACTUAT tion 0.09 Medical Metered Dose aerosol MG/ACTUAT [place]) Inhaler inhaler Metered Dose [Ventolin] Inhaler Ventolin HFA [Ventolin] 90 mcg/actuation aerosol inhaler Prazosin 1 MG prazosin 11/23/2019 1 ORAL completed take 1 NEXTGEN Oral Capsule 1 mg 12:00:00 AM {capsule} capsule by ( prazosin 1 mg capsule EST oral rou te Angela capsule every day Medical Center) Aspirin 81 MG aspirin 11/23/2019 1.00 ORAL active chew 1 NEXTGEN Chewable 81 mg 12:00:00 AM {tablet} tabl et by ([facility] Tablet chewable EST oral route Helio ephs aspirin 81 mg tablet every day Medical chewable [place]) tablet Lisinopril 5 LISINOPRI 11/15/2019 completed TAKE 1 NEXTGEN MG Oral L 5MG 12:00:00 AM TABLET BY ([facility] Tablet TABLETS EST MOUTH EVERY Helio ephs LISINOPRIL DAY Medical 5MG TABLETS [place]) 24 HR METOPROLO 11/15/2019 completed SHARONA E 1 NEXTGEN metoprolol L ER 12:00:00 AM TABLET BY ([facility] succinate 25 SUCCINATE EST MOUTH E VERY Angela MG Extended 25MG TABS DAY Med ical Release Oral [place]) Tablet METOPROLOL ER SUCCINATE 25MG TABS 24 HR Metoprolo 11/03/2019 active 1 tabl et eCW1 metoprolol l 12:00:00 AM (S aint succinate 50 Succinate EST Yojana sephs MG Extended ER 50 MG Medi julio Release Oral Practic e Tablet ) Metoprolol Succinate ER 50 MG Clonazepam 1 Klonopin 10/27/2019 1 {tbl} ORAL completed Clonazepam 1 NEXTGEN MG Oral 1 mg 12:00:00 AM MG Oral (S aint Tablet tablet EST Tablet Angela [Klonopin] [Klonopin] Med ical Klonopin 1 mg [place] ) tablet Mirtazapine Remeron 10/27/2019 1.00 {tbl} ORAL completed Mirtazapine NEXTGEN 15 MG Oral 15 mg 12:00:00 AM 15 MG Oral ([facility] Tablet tablet EST Tablet Angela [Remeron] [Remeron] Medic al Remeron 15 mg [place] ) tablet 24 HR metoprolo 10/18/2019 1.00 {tbl} ORAL completed take 1 NEXTGEN metoprolol l 12:00:00 AM tablet by ([facility] succinate 25 succinate EST oral ro [place] Angela MG Extended ER 25 mg every day Medical Release Oral tablet,ex Ce nter) Tablet tended metoprolol release succinate ER 24 hr 25 mg tablet,extend ed release 24 hr Lisinopril 5 lisinopri 10/18/2019 1.00 {tbl} ORAL completed take 1 NEXTGEN MG Oral l 5 mg 12:00:00 AM tablet b y ([facility] Tablet tablet EST oral route Owen hs lisinopril 5 every day Me dical mg tablet [place]) Fluoxetine 20 Prozac 20 10/13/2019 1.00 ORAL completed Fluoxetine NEXTGEN MG Oral mg 12:00:00 AM {capsule} 20 MG Oral ([facility] Capsule capsule EST Capsule Srini s [Prozac] [Prozac] Medical Prozac 20 mg [place]) capsule pregabalin 75 Lyrica 75 10/13/2019 1 ORAL active pregabalin NEXTGEN MG Oral mg 12:00:00 AM {capsule} 75 MG Oral ([facility] Capsule capsule EST Capsule Srini s [Lyrica] [Lyrica] Medical Lyrica 75 mg [place]) capsule Clonazepam Klonopin 10/13/2019 1 {tbl} ORAL completed Clonazepam NEXTGEN 0.5 MG Oral 0.5 mg 12:00:00 AM 0.5 MG Oral ([facility] Tablet tablet EST Tablet Angela [Klonopin] [Klonopin] Med ical Klonopin 0.5 [place]) mg tablet Prazosin 1 MG prazosin 10/13/2019 1 ORAL completed take 1 NEXTGEN Oral Capsule 1 mg 12:00:00 AM {capsule} capsule by ([facility] prazosin 1 mg capsule EST oral rou te Angela capsule every day Medical Center) Sertraline 50 Zoloft 50 08/15/2019 1.00 {tbl} ORAL completed Sertraline NEXTGEN MG Oral mg tablet 12:00:00 AM 50 MG Oral ([facility] Tablet EST Tablet Angela [Zoloft] [Zoloft] Medical Zoloft 50 mg [place]) tablet quetiapine Seroquel 08/15/2019 1.00 {tbl} ORAL completed quetiapine NEXTGEN 100 MG Oral 100 mg 12:00:00 AM 100 MG Oral ([facility] Tablet tablet EST Tablet Angela [Seroquel] [Seroquel] Med ical Seroquel 100 [place]) mg tablet Hydroxyzine hydroxyzi 08/15/2019 completed take 1 NEXTGEN Hydrochloride ne HCl 50 12:00:00 AM tablet by ([facility] 50 MG Oral mg tablet EST oral at Angela Tablet night Medical hydroxyzine [place]) HCl 50 mg tablet aripiprazole Abilify 5 08/15/2019 1.00 {tbl} ORAL completed aripiprazole NEXTGEN 5 MG Oral mg tablet 12:00:00 AM 5 M G Oral ([facility] Tablet EST Tablet Angela [Abilify] [Abilify] Medic al Abilify 5 mg [place]) tablet Sertraline 50 Zoloft 50 07/12/2019 1.00 {tbl} ORAL completed Sertraline NEXTGEN MG Oral mg tablet 12:00:00 AM 50 MG Oral ([facility] Tablet EDT Tablet Angela [Zoloft] [Zoloft] Medical Zoloft 50 mg [place]) tablet aripiprazole Abilify 5 07/12/2019 1.00 {tbl} ORAL completed aripiprazole NEXTGEN 5 MG Oral mg tablet 12:00:00 AM 5 M G Oral ([facility] Tablet EDT Tablet Agnela [Abilify] [Abilify] Medic al Abilify 5 mg [place]) tablet Hydroxyzine hydroxyzi 07/12/2019 completed take 1 NEXTGEN Hydrochloride ne HCl 50 12:00:00 AM tablet by (Saint 50 MG Oral mg tablet EDT oral at [facility] hydroxyzine [place]) HCl 50 mg tablet quetiapine 50 Seroquel 07/12/2019 1.00 {tbl} ORAL completed quetiapine NEXTGEN MG Oral 50 mg 12:00:00 AM 50 MG Ora l ([facility] Tablet tablet EDT Tablet Angela [Seroquel] [Seroquel] Med ical Seroquel 50 [place]) mg tablet Sertraline 50 Zoloft 50 07/05/2019 1.00 {tbl} ORAL completed Sertraline NEXTGEN MG Oral mg tablet 12:00:00 AM 50 MG Oral ([facility] Tablet EDT Tablet Angela [Zoloft] [Zoloft] Medical Zoloft 50 mg [place]) tablet quetiapine 50 Seroquel 07/05/2019 1.00 {tbl} ORAL completed quetiapine NEXTGEN MG Oral 50 mg 12:00:00 AM 50 MG Ora l ([facility] Tablet tablet EDT Tablet Angela [Seroquel] [Seroquel] Med ical Seroquel 50 [place]) mg tablet Hydroxyzine hydroxyzi 07/05/2019 completed take 1 NEXTGEN Hydrochloride ne HCl 50 12:00:00 AM tablet by ([facility] 50 MG Oral mg tablet EDT oral at [facility] hydroxyzine [place]) HCl 50 mg tablet aripiprazole Abilify 5 07/05/2019 1.00 {tbl} ORAL completed aripiprazole NEXTGEN 5 MG Oral mg tablet 12:00:00 AM 5 M G Oral ([facility] Tablet EDT Tablet Angela [Abilify] [Abilify] Medic al Abilify 5 mg [place]) tablet 120 ACTUAT Symbicort 06/23/2019 2.00 RESPIR completed 120 ACTUAT NEXTGEN Budesonide 160 12:00:00 AM {puff} ATORY bude sonide (Saint 0.16 mcg-4.5 EDT (INHAL 0.16 Angela MG/ACTUAT / mcg/actua ATION) MG/ACT UAT / Medical formoterol tion HFA formoterol [place]) fumarate aerosol fumarate 0.0045 inhaler 0.0045 MG/ACTUAT MG/ACTUAT Metered Dose Metered Dose Inhaler Inhaler [Symbicort] [Symbicort] Symbicort 160 mcg-4.5 mcg/actuation HFA aerosol inhaler apixaban 5 MG Eliquis 5 06/23/2019 1.00 {tbl} ORAL completed apixaban 5 NEXTGEN Oral Tablet mg tablet 12:00:00 AM M G Oral ([facility] [Eliquis] EDT Tablet Angela Eliquis 5 mg [Eliquis] Me dical tablet [place]) Z79.01 Kapspargo 24 HR 06/23/2019 1.00 ORAL completed 24 HR NEXTGEN Sprinkle 25 mg metoprolol 12:00:00 AM {capsule} metoprolol ( capsule,extended succinate EDT suc cinate 25 Angela release 25 MG MG Extended Medi julio Extended Release Oral [facility]) Release Capsule Oral [Kapspargo] Capsule atorvastatin 10 atorvastati 06/23/2019 1.00 {tbl} ORAL compl eted take 1 NEXTGEN MG Oral Tablet n 10 mg 12:00:00 AM tablet by ( atorvastatin 10 tablet EDT oral ro [place] Angela mg tablet every day Medic al Center) 200 ACTUAT Ventolin 06/23/2019 completed [id number] NEXTGEN Albuterol 0.09 HFA 90 12:00:00 AM 2 00 ACTUAT (Saint MG/ACTUAT Metered mcg/actuati EDT Albuterol Angela Dose Inhaler on aerosol 0.09 M edical [Ventolin] inhaler MG/ACTUAT C enter) Ventolin HFA 90 Metered D ose mcg/actuation Inhaler aerosol inhaler [Ventolin ] Hydroxyzine hydroxyzine 06/07/2019 completed take 1 NEXTGEN Hydrochloride 50 HCl 50 mg 12:00:00 AM tablet by ([facility] MG Oral Tablet tablet EDT oral at Angela hydroxyzine HCl night Med ical 50 mg tablet Center) Sertraline 50 MG Zoloft 50 06/07/2019 1.00 {tbl} ORAL comple ijeoma Sertraline NEXTGEN Oral Tablet mg tablet 12:00:00 AM 5 0 MG Oral ([facility] [Zoloft] Zoloft EDT Tablet Yojana sephs 50 mg tablet [Zoloft] Med ical [place]) aripiprazole 5 MG Abilify 5 06/07/2019 1.00 {tbl} ORAL completed aripiprazole NEXTGEN Oral Tablet mg tablet 12:00:00 AM 5 MG Oral ([facility] [Abilify] Abilify EDT Tablet Angela 5 mg tablet [Abilify] Med ical [place]) quetiapine 50 MG Seroquel 50 06/07/2019 1.00 {tbl} ORAL completed quetiapine NEXTGEN Oral Tablet mg tablet 12:00:00 AM 5 0 MG Oral ([facility] [Seroquel] EDT Tablet Angela Seroquel 50 mg [Seroquel] Medical tablet [place]) Hydroxyzine hydroxyzine 05/08/2019 completed take 1 NEXTGEN Hydrochloride 50 HCl 50 mg 12:00:00 AM tablet by (Saint MG Oral Tablet tablet EDT oral at [facility] hydroxyzine HCl night Med ical 50 mg tablet Center) aripiprazole 5 MG Abilify 5 05/08/2019 1.00 {tbl} ORAL completed aripiprazole NEXTGEN Oral Tablet mg tablet 12:00:00 AM 5 MG Oral ([facility] [Abilify] Abilify EDT Tablet Angela 5 mg tablet [Abilify] Med ical [place]) Sertraline 50 MG Zoloft 50 05/08/2019 1.00 {tbl} ORAL comple ijeoma Sertraline NEXTGEN Oral Tablet mg tablet 12:00:00 AM 5 0 MG Oral (Saint [Zoloft] Zoloft EDT Tablet Yojana sephs 50 mg tablet [Zoloft] Med ical [place]) quetiapine 50 MG Seroquel 50 05/08/2019 1.00 {tbl} ORAL completed quetiapine NEXTGEN Oral Tablet mg tablet 12:00:00 AM 5 0 MG Oral ([facility] [Seroquel] EDT Tablet Angela Seroquel 50 mg [Seroquel] Medical tablet Center) Hydroxyzine hydroxyzine 04/10/2019 completed take 1 NEXTGEN Hydrochloride 50 HCl 50 mg 12:00:00 AM tablet by (Saint MG Oral Tablet tablet EDT oral at [facility] hydroxyzine HCl night Med ical 50 mg tablet Center) quetiapine 50 MG Seroquel 50 04/10/2019 1.00 {tbl} ORAL completed quetiapine NEXTGEN Oral Tablet mg tablet 12:00:00 AM 5 0 MG Oral ([facility] [Seroquel] EDT Tablet Angela Seroquel 50 mg [Seroquel] Medical tablet [place]) Sertraline 50 MG Zoloft 50 04/10/2019 1.00 {tbl} ORAL comple ijeoma Sertraline NEXTGEN Oral Tablet mg tablet 12:00:00 AM 5 0 MG Oral (Saint [Zoloft] Zoloft EDT Tablet Yojana sephs 50 mg tablet [Zoloft] Med ical [place]) Sertraline 50 MG Zoloft 50 12/14/2018 1.00 {tbl} ORAL comple ijeoma Sertraline NEXTGEN Oral Tablet mg tablet 12:00:00 AM 5 0 MG Oral ([facility] [Zoloft] Zoloft EDT Tablet Yojana sephs 50 [facility] Hydroxyzine hydroxyzine 12/14/2018 completed take 1 NEXTGEN Hydrochloride 50 HCl 50 mg 12:00:00 AM tablet by (Saint MG Oral Tablet tablet EDT oral at [facility] hydroxyzine HCl night Med ical 50 mg tablet Center) quetiapine 50 MG Seroquel 50 12/14/2018 1.00 {tbl} ORAL completed quetiapine NEXTGEN Oral Tablet mg tablet 12:00:00 AM 5 0 MG Oral ([facility] [Seroquel] EDT Tablet Angela [facility] Medical tablet [place]) quetiapine 50 MG Seroquel 50 11/30/2018 1.00 {tbl} ORAL completed quetiapine NEXTGEN Oral Tablet mg tablet 12:00:00 AM 5 0 MG Oral ([facility] [Seroquel] EST Tablet Angela [facility] Medical tablet [place]) Hydroxyzine hydroxyzine 11/30/2018 completed take 1 NEXTGEN Hydrochloride 50 HCl 50 mg 12:00:00 AM tablet by (Saint MG Oral Tablet tablet EST oral at [facility] hydroxyzine HCl night Med ical 50 mg tablet Center) Sertraline 50 MG Zoloft 50 11/30/2018 1.00 {tbl} ORAL comple ijeoma Sertraline NEXTGEN Oral Tablet mg tablet 12:00:00 AM 5 0 MG Oral (Saint [Zoloft] Zoloft EST Tablet Yojana sephs 50 mg tablet [Zoloft] Med ical [place]) aripiprazole 5 MG Abilify 5 11/30/2018 1.00 {tbl} ORAL completed aripiprazole NEXTGEN Oral Tablet mg tablet 12:00:00 AM 5 MG Oral (Saint [Abilify] Abilify EST Tablet Angela 5 mg tablet [Abilify] [facility]) quetiapine 100 MG Seroquel 11/30/2018 1.00 {tbl} ORAL comple ijeoma quetiapine NEXTGEN Oral Tablet 100 mg 12:00:00 AM 100 MG Oral (Saint [Seroquel] tablet EST Tablet Owen hs Seroquel 100 mg [Seroque ] Medical tablet [place]) Sertraline 50 MG Zoloft 50 11/02/2018 1.00 {tbl} ORAL comple ijeoma Sertraline NEXTGEN Oral Tablet mg tablet 12:00:00 AM 5 0 MG Oral ([facility] [Zoloft] Zoloft EST Tablet Yojana sephs 50 mg tablet [Zoloft] [facility]) quetiapine 100 MG Seroquel 11/02/2018 1.00 {tbl} ORAL comple ijeoma quetiapine NEXTGEN Oral Tablet 100 mg 12:00:00 AM 100 MG Oral (Saint [Seroquel] tablet EST Tablet Owen hs Seroquel 100 mg [Seroque ] Medical tablet [place]) Hydroxyzine hydroxyzine 11/02/2018 completed take 1 NEXTGEN Hydrochloride 50 HCl 50 mg 12:00:00 AM tablet by (Saint MG Oral Tablet tablet EST oral rou te 3 Angela hydroxyzine HCl times [facility] 50 mg tablet day Center) Kapspargo 24 HR 10/25/2018 1.00 ORAL completed 24 HR NEXTGEN Sprinkle 25 mg metoprolol 12:00:00 AM {capsule} metoprolol (Saint capsule,extended succinate EST suc cinate 25 Angela release 25 MG MG Extended Medi julio Extended Release Oral [facility]) Release Capsule Oral [Kapspargo] Capsule apixaban 5 MG Eliquis 5 10/25/2018 1.00 {tbl} ORAL completed apixaban 5 NEXTGEN Oral Tablet mg tablet 12:00:00 AM M G Oral ([facility] [Eliquis] Eliquis EST Tablet Angela 5 mg tablet [Eliquis] [facility] Z79.01 Lisinopril 2.5 lisinopril 2.5 10/25/2018 1.00 ORAL completed take 1 NEXTGEN MG Oral Tablet mg tablet 12:00:00 AM {tbl} tablet by ([facility] lisinopril 2.5 EST oral Owen hs mg tablet route Medical every day [place]) quetiapine 100 Seroquel 100 09/22/2018 1.00 ORAL completed quetiapin NEXTGEN MG Oral Tablet mg tablet 12:00:00 AM {tbl} e 100 MG (Saint [Seroquel] EST Oral Angela Seroquel 100 Tablet Medic al mg tablet [Seroquel Cente r) ] Hydroxyzine hydroxyzine 09/22/2018 1 ORAL completed take 1 NEXTGEN Hydrochloride HCl 50 mg 12:00:00 AM {tbl} tablet by ( 50 MG Oral tablet EST oral Angela Tablet route Medical hydroxyzine every Center) HCl 50 mg bedtime tablet as needed Escitalopram escitalopram 09/22/2018 1.00 ORAL completed take 1 NEXTGEN 20 MG Oral 20 mg tablet 12:00:00 AM {tbl} tablet by ( Tablet EST oral Angela escitalopram route Medica l 20 mg tablet every day Ce nter) Kapspargo 24 HR 09/22/2018 1.00 ORAL completed 24 HR NEXTGEN Sprinkle 25 mg metoprolol 12:00:00 AM {capsu metoprolo ([facility] capsule,extend succinate 25 EST le} l Angela ed release MG Extended succina te Medical Release Oral 25 MG [place] ) Capsule Extended Release Oral Capsule [Kapsparg o] atorvastatin atorvastatin 09/22/2018 1.00 ORAL completed take 1 NEXTGEN 10 MG Oral 10 mg tablet 12:00:00 AM {tbl} tablet by ([facility] Tablet EST oral Angela atorvastatin route Medica l 10 mg tablet every day Ce nter) Aspirin 81 MG aspirin 81 mg 09/22/2018 1.00 ORAL completed chew 1 NEXTGEN Chewable chewable 12:00:00 AM {tbl} tabl et by ([facility] Tablet aspirin tablet EST oral Helio ephs 81 mg chewable route Medi julio tablet every day Center) ZTlido 1.8 % Lidocaine 08/11/2018 1.00 TOPICAL completed Lidocaine NEXTGEN topical patch 0.018 MG/MG 12:00:00 AM patch 0.018 ( Medicated EST MG/MG Angela Patch Medicated Medical Patch [place]) [ZTlido] apixaban 5 MG Eliquis 5 mg 08/05/2018 1.00 ORAL completed apixaban NEXTGEN Oral Tablet tablet 12:00:00 AM {tbl} 5 M G Oral ( [Eliquis] EDT Tablet Angela Eliquis 5 mg [Eliquis] Pa dical tablet [place]) tramadol tramadol 50 mg 08/05/2018 1 ORAL completed take 1 NEXTGEN hydrochloride tablet 12:00:00 AM {tbl} t ablet by ([facility] 50 MG Oral EDT oral Angela Tablet route Medical tramadol 50 mg every 8 Ce nter) tablet hours as needed 120 ACTUAT Symbicort 160 08/05/2018 2.00 RESPIRA completed 120 NEXTGEN Budesonide mcg-4.5 12:00:00 AM {puff} TORY AC TUAT (Saint 0.16 MG/ACTUAT mcg/actuation EDT (INHALA Budesonid Angela / formoterol HFA aerosol TION) e 0. 16 Medical fumarate inhaler MG/ACTUAT [facility]) 0.0045 / MG/ACTUAT formotero Metered Dose l Inhaler fumarate [Symbicort] 0.0045 Symbicort 160 MG/ACTUAT mcg-4.5 Metered mcg/actuation Dose HFA aerosol Inhaler inhaler [Symbicor t] Famotidine 20 famotidine 20 08/05/2018 1 ORAL completed take 1 NEXTGEN MG Oral Tablet mg tablet 12:00:00 AM {tbl} tablet by ( famotidine 20 EDT oral Srini s mg tablet route Medical every day Center) Lisinopril 2.5 lisinopril 2.5 08/05/2018 1.00 ORAL completed take 1 NEXTGEN MG Oral Tablet mg tablet 12:00:00 AM {tbl} tablet by ( lisinopril 2.5 EDT oral Owen hs mg tablet route Medical every day Center) 24 HR venlafaxine ER 08/05/2018 1.00 ORAL completed take 1 NEXTGEN venlafaxine 37.5 mg 12:00:00 AM {capsu c apsule ([facility] 37.5 MG capsule,extend EDT le} by oral Angela Extended ed release 24 route M edical Release Oral hr every day Ce nter) Capsule with food venlafaxine ER 37.5 mg capsule,extend ed release 24 hr 24 HR Nicotine nicotine 21 04/18/2018 active APPLY 1 NEXTGEN 0.875 MG/HR mg/24 hr daily 12:00:00 AM PATCH BY ([facility] Transdermal transdermal EDT TRANSD ERM Angela Patch nicotine patch AL ROUTE Medical 21 mg/[address]) daily AND transdermal REMOVE AT patch BEDTIME 200 ACTUAT Ventolin HFA 12/30/2017 completed [id number] NEXTGEN Albuterol 0.09 90 12:00:00 AM 200 (Saint MG/ACTUAT mcg/actuation EDT ACTUAT Angela Metered Dose aerosol Albuterol Medical Inhaler inhaler 0.09 Center) [Ventolin] MG/ACTUAT Ventolin HFA Metered 90 Dose mcg/actuation Inhaler aerosol [Ventolin inhaler ] 24 HR Nicotine nicotine 12/30/2017 1.00 TRANSDE completed apply 1 NEXTGEN 0.875 MG/HR mg/24 hr daily 12:00:00 AM patch RMAL patch by ([facility] Transdermal transdermal EDT transd erm Angela Patch nicotine patch al route Medical 21 mg/[address]) daily and transdermal remove at patch bedtime Aspirin 81 MG aspirin 81 mg 11/16/2017 completed CHEW 1 NEXTGEN Chewable chewable 12:00:00 AM TABLE T BY ([facility] Tablet aspirin tablet EST ORAL Helio ephs 81 mg chewable ROUTE Medi julio tablet EVERY DAY [place]) Simvastatin 20 simvastatin 20 11/16/2017 completed TAKE 1 NEXTGEN MG Oral Tablet mg tablet 12:00:00 AM TABLET BY ([facility] simvastatin 20 EST ORAL Owen hs mg tablet ROUTE Medical EVERY DAY [place]) IN THE EVENING 200 ACTUAT Ventolin HFA 10/05/2017 completed 200 NEXTGEN Albuterol 0.09 90 12:00:00 AM ACT UAT (Saint MG/ACTUAT mcg/actuation EST [place] Angela Metered Dose aerosol 0.09 Medi julio Inhaler inhaler MG/ACTUAT Cent er) [Ventolin] Metered Ventolin HFA Dose 90 Inhaler mcg/actuation [Ventolin aerosol ] inhaler Sulfamethoxazo Bactrim DS 800 09/08/2017 1.00 ORAL completed Sulfameth NEXTGEN le 800 MG / mg-160 mg 12:00:00 AM {tbl} oxazole (Saint Trimethoprim tablet EST 800 MG / J osephs 160 MG Oral Trimethop Med ical Tablet rim 160 Center) [Bactrim] MG Oral Bactrim DS 800 Tablet mg-160 mg [Bactrim] tablet Phenazopyridin Pyridium 100 09/08/2017 1.00 ORAL completed Phenazopy NEXTGEN e mg tablet 12:00:00 AM {tbl} ridine ( hydrochloride EST hydrochlo J osephs 100 MG Oral ride 100 Medi julio Tablet MG Oral Center) [Pyridium] Tablet Pyridium 100 [Pyridium mg tablet ] Simvastatin 20 simvastatin 20 07/29/2017 1.00 ORAL completed take 1 NEXTGEN MG Oral Tablet mg tablet 12:00:00 AM {tbl} tablet by ( simvastatin 20 EDT oral Owen hs mg tablet route Medical every day Center) in the evening Hydrochlorothi hydrochlorothi 07/29/2017 completed TAKE 1 NEXTGEN azide 12.5 MG azide 12.5 mg 12:00:00 AM TABLET (Saint Oral Tablet tablet EDT (12.5MG) Yojana lizama hydrochlorothi BY ORAL Me dical azide 12.5 mg ROUTE Cente r) tablet EVERY DAY Aspirin 81 MG aspirin 81 mg 07/29/2017 1.00 ORAL completed chew 1 NEXTGEN Chewable chewable 12:00:00 AM {tbl} tabl et by ([facility] Tablet aspirin tablet EDT oral Helio ephs 81 mg chewable route Medi julio tablet every day Center) gabapentin 100 gabapentin 100 07/29/2017 1 ORAL completed take 1 NEXTGEN MG Oral mg capsule 12:00:00 AM {capsu ca psule ([facility] Capsule EDT le} by oral Angela gabapentin 100 route 3 Me dical mg capsule times Center) every day Simvastatin 20 simvastatin 20 04/26/2017 1.00 ORAL completed TAKE 1 NEXTGEN MG Oral Tablet mg tablet 12:00:00 AM {tbl} TABLET BY ( simvastatin 20 EDT ORAL Owen hs mg tablet ROUTE Medical EVERY DAY Center) IN THE EVENING Hydrochlorothi hydrochlorothi 04/22/2017 completed TAKE 1 NEXTGEN azide 12.5 MG azide 12.5 mg 12:00:00 AM TABLET ([facility] Oral Tablet tablet EDT (12.5MG) Yojana lizama hydrochlorothi BY ORAL Me dical azide 12.5 mg ROUTE Cente r) tablet EVERY DAY Hydrochlorothi hydrochlorothi 01/25/2017 completed TAKE 1 NEXTGEN azide 12.5 MG azide 12.5 mg 12:00:00 AM TABLET ([facility] Oral Tablet tablet EDT (12.5MG) Yojana lizama hydrochlorothi BY ORAL Me dical azide 12.5 mg ROUTE Cente r) tablet EVERY DAY Simvastatin 20 simvastatin 20 01/25/2017 1.00 ORAL completed TAKE 1 NEXTGEN MG Oral Tablet mg tablet 12:00:00 AM {tbl} TABLET BY ( simvastatin 20 EDT ORAL Owen hs mg tablet ROUTE Medical EVERY DAY Center) IN THE EVENING Hydrochlorothi hydrochlorothi 10/09/2016 completed take 1 NEXTGEN azide 12.5 MG azide 12.5 mg 12:00:00 AM tablet ([facility] Oral Tablet tablet EST (12.5MG) Yojana lizama hydrochlorothi by oral Me dical azide 12.5 mg route Cente r) tablet every day 200 ACTUAT Ventolin HFA 10/09/2016 completed 200 NEXTGEN Albuterol 0.09 90 12:00:00 AM ACT UAT (Saint MG/ACTUAT mcg/actuation EST [place] Angela Metered Dose aerosol 0.09 Medi julio Inhaler inhaler MG/ACTUAT Cent er) [Ventolin] Metered Ventolin HFA Dose 90 Inhaler mcg/actuation [Ventolin aerosol ] inhaler Simvastatin 20 simvastatin 20 10/09/2016 1.00 ORAL completed take 1 NEXTGEN MG Oral Tablet mg tablet 12:00:00 AM {tbl} tablet by ( simvastatin 20 EST oral Owen hs mg tablet route Medical every day Center) in the evening 200 ACTUAT Ventolin HFA 10/08/2016 completed 200 NEXTGEN Albuterol 0.09 90 12:00:00 AM ACT UAT (Saint MG/ACTUAT mcg/actuation EST [place] Angela Metered Dose aerosol 0.09 Medi julio Inhaler inhaler MG/ACTUAT Cent er) [Ventolin] Metered Ventolin HFA Dose 90 Inhaler mcg/actuation [Ventolin aerosol ] inhaler Simvastatin 20 simvastatin 20 10/08/2016 1.00 ORAL completed take 1 NEXTGEN MG Oral Tablet mg tablet 12:00:00 AM {tbl} tablet by ( simvastatin 20 EST oral Owen hs mg tablet route Medical every day Center) in the evening quetiapine 25 Seroquel 25 mg 01/16/2015 completed quetiapin NEXTGEN MG Oral Tablet tablet 12:00:00 AM e 25 MG (Saint [Seroquel] EDT Oral Angela Seroquel 25 mg Tablet Med ical tablet [[facility]eroquel Center) ] buspirone buspirone 15 01/16/2015 1 ORAL completed take 1 NEXTGEN hydrochloride mg tablet 12:00:00 AM {tbl} tablet ([facility] 15 MG Oral EDT (15MG) Angela Tablet by oral Medical buspirone 15 route 3 Cent er) mg tablet times every day Mirtazapine 30 Remeron 30 mg 01/16/2015 completed Mirtazapi NEXTGEN MG Oral Tablet tablet 12:00:00 AM n e 30 MG (Saint [Remeron] EDT Oral Angela Remeron 30 mg Tablet Medi julio tablet [Remeron] [place]) Aspirin 81 MG aspirin 81 mg 12/11/2014 1.00 ORAL completed chew 1 NEXTGEN Chewable chewable 12:00:00 AM {tbl} tabl et by ([facility] Tablet aspirin tablet EDT oral Helio ephs 81 mg chewable route Medi julio tablet every day Center) Simvastatin 20 simvastatin 20 12/11/2014 1.00 ORAL completed take 1 NEXTGEN MG Oral Tablet mg tablet 12:00:00 AM {tbl} tablet by ( simvastatin 20 EDT oral Owen hs mg tablet route Medical every day Center) in the evening quetiapine 25 Seroquel 25 mg 12/11/2014 completed quetiapin NEXTGEN MG Oral Tablet tablet 12:00:00 AM e 25 MG (Saint [Seroquel] EDT Oral Angela Seroquel 25 mg Tablet Med ical tablet [[facility]) ] Mirtazapine 30 Remeron 30 mg 12/11/2014 completed Mirtazapi NEXTGEN MG Oral Tablet tablet 12:00:00 AM n e 30 MG ([facility] [Remeron] EDT Oral Angela Remeron 30 mg Tablet Medi julio tablet [Remeron] [place]) buspirone buspirone 15 12/11/2014 1 ORAL completed take 1 NEXTGEN hydrochloride mg tablet 12:00:00 AM {tbl} tablet ([facility] 15 MG Oral EDT (15MG) Angela Tablet by oral Medical buspirone 15 route 3 Cent er) mg tablet times every day quetiapine 25 Seroquel 25 mg 11/28/2014 1 ORAL completed quetiapin NEXTGEN MG Oral Tablet tablet 12:00:00 AM {tbl} e 25 MG ([facility] [Seroquel] EST Oral Angela Seroquel 25 mg Tablet Med ical tablet [[facility]) ] Mirtazapine 30 Remeron 30 mg 11/06/2014 completed Mirtazapi NEXTGEN MG Oral Tablet tablet 12:00:00 AM n e 30 MG (Saint [Remeron] EST Oral Angela Remeron 30 mg Tablet Medi julio tablet [[facility]] [place]) buspirone buspirone 15 09/24/2014 1 ORAL completed take 1 NEXTGEN hydrochloride mg tablet 12:00:00 AM {tbl} tablet ([facility] 15 MG Oral EST (15MG) Angela Tablet by oral Medical buspirone 15 route 3 Cent er) mg tablet times every day Aspirin 81 MG aspirin 81 mg 08/27/2014 1.00 ORAL completed chew 1 NEXTGEN Chewable chewable 12:00:00 AM {tbl} tabl et by ([facility] Tablet aspirin tablet EST oral Helio ephs 81 mg chewable route Medi julio tablet every day [place]) Mirtazapine 30 Remeron 30 mg 08/27/2014 completed Mirtazapi NEXTGEN MG Oral Tablet tablet 12:00:00 AM n e 30 MG ([facility] [Remeron] EST Oral Angela Remeron 30 mg Tablet Medi julio tablet [[facility]] [place]) buspirone buspirone 15 08/27/2014 1 ORAL completed take 1 NEXTGEN hydrochloride mg tablet 12:00:00 AM {tbl} tablet ([facility] 15 MG Oral EST (15MG) Angela Tablet by oral Medical buspirone 15 route 3 Cent er) mg tablet times every day Hydrochlorothi hydrochlorothi 08/27/2014 completed take 1 NEXTGEN azide 12.5 MG azide 12.5 mg 12:00:00 AM tablet ([facility] Oral Tablet tablet EST (12.5MG) Yojana sephs hydrochlorothi by oral Me dical azide 12.5 mg route Cente r) tablet every day quetiapine 25 Seroquel 25 mg 08/27/2014 1 ORAL completed quetiapin NEXTGEN MG Oral Tablet tablet 12:00:00 AM {tbl} e 25 MG ([facility] [Seroquel] EST Oral Angela Seroquel 25 mg Tablet Med ical tablet [[facility]) ] simvastatin 20 Simvastatin 20 08/27/2014 1.00 ORAL completed take 1 NEXTGEN mg tablet MG Oral Tablet 12:00:00 AM {tbl} tablet by ([facility] EST oral Angela route Medical every day Center) in the evening Hydrochlorothi hydrochlorothi 05/30/2014 completed take 1 NEXTGEN azide 12.5 MG azide 12.5 mg 12:00:00 AM tablet ([facility] Oral Tablet tablet EDT (12.5MG) Yojana sephs hydrochlorothi by oral Me dical azide 12.5 mg route Cente r) tablet every day simvastatin 20 Simvastatin 20 05/30/2014 1.00 ORAL completed take 1 NEXTGEN mg tablet MG Oral Tablet 12:00:00 AM {tbl} [facility] Center) in the evening Aspirin 81 MG aspirin 81 mg 05/30/2014 1.00 ORAL completed chew 1 NEXTGEN Chewable chewable 12:00:00 AM {tbl} tabl et by ([facility] Tablet aspirin tablet EDT oral Helio ephs 81 mg chewable route Medi julio tablet every day Center) quetiapine 25 Seroquel 25 mg 03/29/2014 1 ORAL completed quetiapin NEXTGEN MG Oral Tablet tablet 12:00:00 AM {tbl} e 25 MG ([facility] [Seroquel] EDT Oral Angela Seroquel 25 mg Tablet Med ical tablet [Seroquel [place]) ] Mirtazapine 30 Remeron 30 mg 03/29/2014 1.00 ORAL completed Mirtazapi NEXTGEN MG Oral Tablet tablet 12:00:00 AM {tbl} ne 30 MG ([facility] [Remeron] EDT Oral Angela Remeron 30 mg Tablet Medi julio tablet [Remeron] [place]) buspirone buspirone 15 03/29/2014 1 ORAL completed take 1 NEXTGEN hydrochloride mg tablet 12:00:00 AM {tbl} tablet ([facility] 15 MG Oral EDT (15MG) Angela Tablet by oral Medical buspirone 15 route 3 Cent er) mg tablet times every day Oseltamivir 75 Tamiflu 75 mg 01/30/2014 1.00 ORAL completed Oseltamiv NEXTGEN MG Oral capsule 12:00:00 AM {capsu ir 75 MG (Saint Capsule EDT le} Oral Angela [Tamiflu] Capsule Medical Tamiflu 75 mg [Tamiflu] C enter) capsule buspirone buspirone 7.5 01/25/2014 1.00 ORAL completed take 1 NEXTGEN hydrochloride mg tablet 12:00:00 AM {tbl} tablet ([facility] 7.5 MG Oral EDT (7.5MG) Owen hs Tablet by oral Medical buspirone 7.[address] mg tablet times every day Fluoxetine 20 Prozac 20 MG active 1 capsule eCW1 MG Oral ([facility] Capsule Angela [Prozac] Medical Prozac [address] [facility]) Aspirin 81 MG Aspirin 81 MG active 1 tablet eCW1 Delayed (Saint Release Oral Angela Tablet Medical Practice ) pregabalin 75 Lyrica 75 MG active 1 capsule eCW1 MG Oral ([facility] Capsule Angela [Lyrica] Medical Lyrica [address] [facility]) Alprazolam 2 Xanax 2 mg 1.00 ORAL completed A lprazola NEXTGEN MG Oral Tablet tablet {tbl} m 2 MG (Saint [Xanax] Xanax Oral Srini s 2 mg tablet Tablet Medica l [Xanax] [place]) gabapentin 100 gabapentin 100 3.00 ORAL completed take 3 NEXTGEN mg capsule MG Oral {capsu capsule ( Saint Capsule le} (300MG) Angela by oral Medical route 3 [place]) times every day Lisinopril 5 Lisinopril 5 active 1 TABLET eCW1 MG Oral Tablet MG ONCE A ( Angela ORALLY 90 Medical DAYS [facility]) 24 HR metoprolol 1 completed Jak nt metoprolol succinate 25 J osephs succinate 25 mg Tablet Me dical MG Extended Extended Cent er Release Oral Release 24 hr, Tablet Ordered By: metoprolol [place] succinate 25 Cross, mg Tablet MDDirections: Extended 1 tablet oral Release 24 hr, daily Ordered By: Shabbir Saleem MDDirections: 1 tablet oral daily quetiapine 100 QUEtiapine 100 completed Saint MG Oral Tablet mg Tablet, Angela QUEtiapine 100 Ordered By: Medical mg TabletShabbir r Ordered By: Shabbir Saleem MDDirections: Stiven, 1 tablet twice MDDirections: a day and at 1 tablet twice bedtime oral 1 a day and at tablet twice a bedtime oral 1 day and at tablet twice a bedtime day and at bedtime 200 ACTUAT albuterol 2 completed [facility] 0.09 sulfate HFA Yojana sephs MG/ACTUAT (Proventil Medi julio Metered Dose HFA) 90 mcg Center Inhaler HFA Aerosol [Proventil] Inhaler, albuterol Ordered By: sulfate [place] (Proventil Cross, HFA) 90 mcg MDDirections: HFA Aerosol 2 puff oral Inhaler, every four Ordered By: hours PRN [place] SHORTNESS OF Cross, BREATH MDDirections: 2 puff oral every four hours PRN SHORTNESS OF BREATH apixaban 5 MG apixaban 1 completed El iquis Saint Oral Tablet (Eliquis) 5 mg Angela [Eliquis] Tablet, Medical apixaban Ordered By: Cent er (Eliquis) 5 mg [place] Tablet, Cross, Ordered By: MDDirections: [place] 1 tablet oral Cross, twice a day MDDirections: 1 tablet oral twice a day Escitalopram escitalopram 1 completed [facility] 20 MG Oral oxalate 20 mg Angela Tablet Tablet, Medical escitalopram Ordered By: [place] oxalate 20 mg [place] Tablet, Cross, Ordered By: MDDirections: [place] 1 tablet oral Cross, daily MDDirections: 1 tablet oral daily Lisinopril 2.5 lisinopril 2.5 1 completed [facility] MG Oral Tablet mg Tablet, Angela lisinopril 2.5 Ordered By: Medical mg Tablet, [place] Cente r Ordered By: Shabbir Saleem MDDirections: Cross, 1 tablet oral MDDirections: daily 1 tablet oral daily Aspirin 81 MG aspirin 81 mg 1 completed Chewable tablet,chewalfredo J osephs Tablet aspirin e, Ordered By: Medical 81 mg [place] Center tablet,chewalfredo Saleem, e, Ordered By: MDDirections: [place] 1 tablet oral Cross, daily MDDirections: 1 tablet oral daily 120 ACTUAT budesonide-for 1 completed Symbicort Budesonide moterol Srini s 0.16 MG/ACTUAT (Symbicort) Medical / formoterol 160 mcg-4.5 [place] fumarate mcg/Actuation 0.0045 HFA Aerosol MG/ACTUAT Inhaler, Metered Dose Ordered By: Inhaler [place] [Symbicort] Stiven budesonide-for MDDirections: moterol 1 puff by (Symbicort) inhalation 160 mcg-4.5 twice a day mcg/Actuation HFA Aerosol Inhaler, Ordered By: Shabbir Saleem, MDDirections: 1 puff by inhalation twice a day Hydroxyzine hydroxyzine 1 ORAL completed t bruno 1 NEXTGEN Hydrochloride HCl 50 mg {tbl} table t by ([facility] 50 MG Oral tablet oral [facility] Tablet route Medical hydroxyzine every Center) HCl 50 mg bedtime tablet as needed Hydroxyzine hydrOXYzine 1 completed [facility] Hydrochloride HCl 50 mg J osephs 50 MG Oral Tablet, Medica l Tablet Ordered By: [place] hydrOXYzine [place] HCl 50 mg Cross, Tablet, MDDirections: Ordered By: 1 tablet oral [place] three times a Cross, day PRN MDDirections: anxiety 1 tablet oral three times a day PRN anxiety venlafaxine drug or completed [facility] traMADol drug or completed [facility] famotidine drug or completed [facility] 200 ACTUAT Ventolin HFA active 2 pu ffs eCW1 Albuterol 0.09 108 (90 Base) a s needed (Saint MG/ACTUAT MCG/ACT [facility] Metered Dose Medical Inhaler Practice [Ventolin] ) Ventolin HFA 108 (90 Base) MCG/ACT seroquel drug or completed [facility] xanax drug or completed [facility] atorvastatin Atorvastatin active 1 tablet eCW1 10 MG Oral Calcium 10 MG ([facility] Atorvastatin Medical Calcium 10 MG Practi ce ) hydrocodone 10 HYDROCODONE/AC 1.00 ORAL completed take 1 NEXTGEN mg-acetaminoph ETAMINOPHEN {tbl} ta blet by ([facility] en 325 mg oral [facility] tablet route Medical every 4 - Center) 6 hours as needed for pain Clonazepam 0.5 Klonopin 0.5 active 1 tablet eCW1 MG Oral Tablet MG at (Deejay t [Klonopin] bedtime [facility] Klonopin 0.5 Medical [facility] Practice [facility]) Prazosin 1 MG Prazosin HCl 1 active 1 capsule eCW1 Oral Capsule MG at ([facility] Prazosin HCl 1 bedtime Yojana sephs MG Medical [facility]) 120 ACTUAT Symbicort active 2 puffs eCW1 Budesonide 160-4.5 (Saint 0.16 MG/ACTUAT MCG/ACT Yojana sephs / formoterol Medical fumarate Practice 0.0045 ) MG/ACTUAT Metered Dose Inhaler [Symbicort] Symbicort 160-4.5 MCG/ACT apixaban 5 MG Eliquis 5 MG active o ne eCW1 Oral Tablet tablet ([facility] [Eliquis] Angela Eliquis 5 MG Medical Practice ) Acetaminophen hydrocodone 10 1.00 ORAL completed take 1 NEXTGEN 325 MG / mg-acetaminoph {tbl} table t by ([facility] Hydrocodone en 325 mg oral Helio ephs Bitartrate 10 tablet route Med ical MG Oral Tablet every 4 - Center) hydrocodone 10 6 hours mg-acetaminoph as needed en 325 mg for pain tablet Insurance Providers Payer name Policy type Policy ID Covered Covered alliance party's Policy P gladis / Coverage alliance party ID relationship to Morales Inf ormation type morales CIG[employer] [id number] S [id number] HEALTHCARE O C I G N A H [id number] self [id number] M O C I G N A H O [id number] M O AFFINITY [id number] SP [id number] MEDICAID [id number] SP [id number] O CIGNA PSY HMO [id number] self [id number] CIGNA PSY HMO O [id number] 01 [id number] CIGNA [id number] HEALTHCARE O C I G N A H O [id number] 01 [id number] M O AFFINITY O [id number] 01 [id number] HEALTH PLAN Problems, Conditions, and Diagnoses Code Display Name Description Problem Type Effective Data Dates Source(s) I42.9 [id number] Cardiomyopathy, Problem 11/03/2019 eCW1 (Jak nt unspecified type 12:00:[address] 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 NEXTGEN stress disorder, stress disorder, 12:00:00 AM ( [facility] delayed onset delayed onset [facility]) I50.22 [id number] Chronic systolic Problem 08/18/2018 eCW1 (Sa int congestive heart 12:00:00 AM [facility] failure [facility]) [id number] Left ventricular Left ventricular Problem 08/11/2018 NE XTGEN cardiac cardiac 12:00:00 AM ([facility]) [id number] Tobacco dependence Tobacco dependence Problem 4 NEXTGEN syndrome syndrome 12:00:00 AM ([facility]) [id number] Benign essential Benign essential Problem 05/30/2014 NE XTGEN hypertension hypertension 12:00:00 AM ([facility]) [id number] Transient cerebral Transient cerebral Problem 4 NEXTGEN ischemia ischemia 12:00:00 AM ([facility]) 49017314 Depressive Depressive Problem 01/30/2014 NEXTGEN disorder disorder 12:00:00 AM ([facility]) [id number] Backache Backache Problem 12/13/2013 NEXTGEN 12:00:00 AM ([facility]) [id number] Bipolar disorder Bipolar disorder Problem NE XTGEN ([facility]) Z71.89 Other specified OTHER SPECIFIED Diagnosis 04/16/2020 Deejay Miller counseling COUNSELING 09:59:00 AM Medical EDT Center Z71.3 Dietary counseling DIETARY COUNSELING Diagnosis 0 [facility] Miller and surveillance AND SURVEILLANCE 09:59:00 AM edical EDT Center Z12.31 Encounter for ENCNTR SCREEN Diagnosis 04/16/2020 [facility] Yojana lizama screening MAMMOGRAM FOR 09:59:00 AM Medical mammogram for MALIGNANT NEOPLASM EDT [facility] malignant neoplasm OF BREAST of breast F17.210 Nicotine NICOTINE Diagnosis 04/16/2020 [facility] Miller dependence, DEPENDENCE, 09:59:00 AM Medical cigarettes, CIGARETTES, EDT Center uncomplicated UNCOMPLICATED I10 Essential ESSENTIAL Diagnosis 04/16/2020 [facility] Miller (primary) (PRIMARY) 09:59:00 AM Medical hypertension HYPERTENSION EDT Center Z86.711 Personal history PERSONAL HISTORY Diagnosis 04/16/2020 Sa brent Miller of pulmonary OF PULMONARY 09:59:00 AM Medical embolism EMBOLISM EDT Center Z23 Encounter for ENCOUNTER FOR Diagnosis 11/23/2019 [facility] Yojana lizama immunization IMMUNIZATION 05:06:00 PM Medical EST Center Z00.00 Encounter for ENCNTR FOR GENERAL Diagnosis 11/23/2019 Jak Miller general adult ADULT MEDICAL EXAM 05:06:00 PM Pa dical medical W/O ABNORMAL EST Center examination FINDINGS without abnormal findings I26.93 SINGLE SINGLE Diagnosis 11/03/2019 [facility] Milligans SUBSEGMENTAL SUBSEGMENTAL 12:21:00 PM Medical PULMON EMBLSM W/O PULMON EMBLSM W/O EST Center ACUTE COR ACUTE COR PULMONALE PULMONALE I42.9 Cardiomyopathy, CARDIOMYOPATHY, Diagnosis 11/03/2019 Deejay t Angela unspecified UNSPECIFIED 12:21:00 PM Medical EST Center F32.9 Major depressive MAJOR DEPRESSIVE Diagnosis 10/18/2019 Sa int Angela disorder, single DISORDER, SINGLE 09:27:00 AM M edical episode, EPISODE, EST Center unspecified UNSPECIFIED F41.1 Generalized GENERALIZED Diagnosis 10/14/2019 Parker s anxiety disorder ANXIETY DISORDER 03:31:00 PM M edical EST Center F31.32 Bipolar disorder, BIPOLAR DISORDER, Diagnosis 10/14/2019 Angela current episode CURRENT EPISODE 03:31:00 PM Med ical depressed, DEPRESSED, EST Center moderate MODERATE Z13.9 Encounter for ENCOUNTER FOR Diagnosis 06/23/2019 [facility] Yojana sephs screening, SCREENING, 09:14:00 AM Medical unspecified UNSPECIFIED EDT Center Z12.4 Encounter for ENCOUNTER FOR Diagnosis 06/23/2019 [facility] Yojana sephs screening for SCREENING FOR 09:14:00 AM Medical malignant neoplasm MALIGNANT NEOPLASM EDT Center of cervix OF CERVIX R10.2 Pelvic and PELVIC AND Diagnosis 06/23/2019 [facility] perineal pain PERINEAL PAIN 09:14:00 AM Medical EDT Center Diagnosis NEXTGEN ([facility]) Diagnosis NEXTGEN ([facility]) Diagnosis NEXTGEN ([facility]) Diagnosis NEXTGEN ([facility]) Diagnosis [facility] ([facility]) Diagnosis [facility] ([facility]) Diagnosis NEXTGEN ([facility]) Diagnosis [facility] ([facility]) Diagnosis [facility] ([facility]) Diagnosis [facility] ([facility]) Surgeries/Procedures Procedure Description Date Indications Data Source(s) OFFICE/OUTPATIENT VISIT, 06/19/2020 NEX TGEN ([facility] EST 12:00:00 AM EDT Angela [facility] julio - 06/19/2020 Center) 12:00:00 AM EDT Individual Psychotherapy 06/14/2020 NEX TGEN ([facility] (30 Min) 12:00:[address] [facility] - 06/14/2020 [place]) 12:00:00 AM EDT Individual Psychotherapy 05/31/2020 NEX TGEN ([facility] (30 Min) 12:00:00 AM EDT [facility] 05/31/2020 [place]) 12:00:00 AM EDT OFFICE/OUTPATIENT VISIT, 05/22/2020 NEX TGEN ([facility] EST 12:00:00 AM EDT [facility] 05/22/2020 [place]) 12:00:00 AM EDT Individual Psychotherapy 05/17/2020 NEX TGEN ([facility] (30 Min) 12:00:00 AM EDT [facility] 05/17/2020 [place]) 12:00:00 AM EDT Individual Psychotherapy 05/03/2020 NEX TGEN ([facility] (30 Min) 12:00:00 AM EDT [facility] 05/03/2020 [place]) 12:00:00 AM EDT PHONE E/M BY PHYS 5-10 MIN 04/16/2020 N EXTGEN ([facility] 12:00:00 AM EDT [facility] 04/16/2020 [place]) 12:00:00 AM EDT Individual Psychotherapy 04/16/2020 NEX TGEN ([facility] (30 Min) 12:00:00 AM EDT [facility] 04/16/2020 [place]) 12:00:00 AM EDT OFFICE/OUTPATIENT VISIT, 04/10/2020 NEX TGEN ([facility] EST 12:00:00 AM EDT [facility] 04/10/2020 [place]) 12:00:00 AM EDT Individual Psychotherapy 03/28/2020 NEX TGEN ([facility] (30 Min) 12:00:00 AM EDT [facility] 03/28/2020 [place]) 12:00:00 AM EDT Psychotherapy (30 Mins) W/ 03/13/2020 N EXTGEN ([facility] E&M 12:00:00 AM EDT [facility] 03/13/2020 [place]) 12:00:00 AM EDT OFFICE/OUTPATIENT VISIT, 03/13/2020 NEX TGEN ([facility] EST 12:00:00 AM EDT [facility] 03/13/2020 [place]) 12:00:00 AM EDT Individual Psychotherapy 03/06/2020 NEX TGEN ([facility] (30 Min) 12:00:[address] [facility] - 03/06/2020 [place]) 12:00:00 AM EDT Individual Psychotherapy 02/21/2020 NEX TGEN ([facility] (30 Min) 12:00:00 AM EDT [facility] 02/21/2020 [place]) 12:00:00 AM EDT Individual Psychotherapy 02/16/2020 NEX TGEN ([facility] (30 Min) 12:00:00 AM EDT [facility] 02/16/2020 [place]) 12:00:00 AM EDT Psychotherapy (30 Mins) W02/14/2020 N EXTGEN ([facility] E&M 12:00:00 AM EDT [facility] 02/14/2020 [place]) 12:00:00 AM EDT OFFICE/OUTPATIENT VISIT, 02/14/2020 NEX TGEN ([facility] EST 12:00:00 AM EDT [facility] 02/14/2020 [place]) 12:00:00 AM EDT Individual Psychotherapy 02/09/2020 NEX TGEN ([facility] (30 Min) 12:00:00 AM EDT [facility] 02/09/2020 [place]) 12:00:00 AM EDT Individual Psychotherapy 01/31/2020 NEX TGEN ([facility] (30 Min) 12:00:00 AM EDT [facility] 01/31/2020 [place]) 12:00:00 AM EDT Individual Psychotherapy 01/17/2020 NEX TGEN ([facility] (30 Min) 12:00:00 AM EDT [facility] 01/17/2020 [place]) 12:00:00 AM EDT Individual Psychotherapy 01/05/2020 NEX TGEN ([facility] (30 Min) 12:00:00 AM EDT [facility] 01/05/2020 [place]) 12:00:00 AM EDT Individual Psychotherapy 12/21/2019 NEX TGEN ([facility] (30 Min) 12:00:00 AM EDT [facility] 12/21/2019 [place]) 12:00:00 AM EDT Psychotherapy (30 Mins) W12/20/2019 N EXTGEN ([facility] E&M 12:00:00 AM EDT [facility] 12/20/2019 [place]) 12:00:00 AM EDT OFFICE/OUTPATIENT VISIT, 12/20/2019 NEX TGEN ([facility] EST 12:00:00 AM EDT [facility] 12/20/2019 [place]) 12:00:00 AM EDT TDAP VACCINE >7 IM 11/23/2019 NEXTGEN ( [facility] 12:00:00 AM [facility] - 11/23/2019 [place]) 12:00:00 AM EST Immunization 11/23/2019 NEXTGEN ([facility] Administration 12:00:00 AM EST [facility] dical - 11/23/2019 [place]) 12:00:00 AM EST OFFICE/OUTPATIENT VISIT, 11/23/2019 NEX TGEN ([facility] 12:00:00 AM [facility] - 11/23/2019 [place]) 12:00:00 AM EST Individual Psychotherapy 11/06/2019 NEX TGEN ([facility] (45 Min) 12:00:00 AM [facility] 11/06/2019 [place]) 12:00:00 AM EST ECG ROUTINE ECG W/LEAST 12 11/03/2019 e CW1 ([facility] I&R ONLY 12:00:00 AM EST Medical [facility]) OFFICE/OUTPATIENT VISIT, 10/27/2019 NEX TGEN ([facility] 12:00:00 AM [facility] - 10/27/2019 [place]) 12:00:00 AM EST OFFICE/OUTPATIENT VISIT, 10/18/2019 NEX TGEN ([facility] 12:00:00 AM [facility] 10/18/2019 [place]) 12:00:00 AM EST Individual Psychotherapy 10/18/2019 NEX TGEN ([facility] (45 Min) 12:00:00 AM [facility] 10/18/2019 [place]) 12:00:00 AM EST Psychotherapy (30 Mins) W/ 10/13/2019 N EXTGEN ([facility] E&M 12:00:00 AM [facility] 10/13/2019 [place]) 12:00:00 AM EST OFFICE/OUTPATIENT VISIT, 10/13/2019 NEX TGEN ([facility] 12:00:00 AM [facility] 10/13/2019 [place]) 12:00:00 AM EST OFFICE/OUTPATIENT VISIT, 10/13/2019 NEX TGEN ([facility] EST 12:00:00 AM [facility] 10/13/2019 [place]) 12:00:00 AM EST Individual Psychotherapy 10/11/2019 NEX TGEN ([facility] (45 Min) 12:00:00 AM [facility] 10/11/2019 [place]) 12:00:00 AM EST OFFICE/OUTPATIENT VISIT, 08/15/2019 NEX TGEN ([facility] EST 12:00:00 AM EST [facility] 08/15/2019 [place]) 12:00:00 AM EST Individual Psychotherapy 08/15/2019 NEX TGEN ([facility] (45 Min) 12:00:00 AM EST [facility] 08/15/2019 [place]) 12:00:00 AM EST Individual Psychotherapy 08/08/2019 NEX TGEN ([facility] (45 Min) 12:00:00 AM EST [facility] 08/08/2019 [place]) 12:00:00 AM EST OFFICE/OUTPATIENT VISIT, 07/12/2019 NEX TGEN ([facility] EST 12:00:00 AM EDT [facility] 07/12/2019 [place]) 12:00:00 AM EDT Well Visit, Est,40-64years 06/23/2019 N EXTGEN ([facility] 12:00:00 AM EDT [facility] 06/23/2019 [place]) 12:00:00 AM EDT SPECIMEN HANDLING 06/23/2019 NEXTGEN (S aint 12:00:00 AM EDT [facility] 06/23/2019 [place]) 12:00:00 AM EDT Individual Psychotherapy 06/19/2019 NEX TGEN ([facility] (45 Min) 12:00:00 AM EDT [facility] 06/19/2019 [place]) 12:00:00 AM EDT Individual Psychotherapy 06/02/2019 NEX TGEN ([facility] (45 Min) 12:00:00 AM EDT [facility] 06/02/2019 [place]) 12:00:00 AM EDT Individual Psychotherapy 05/26/2019 NEX TGEN ([facility] (45 Min) 12:00:00 AM EDT [facility] 05/26/2019 [place]) 12:00:00 AM EDT Individual Psychotherapy 05/15/2019 NEX TGEN ([facility] (45 Min) 12:00:00 AM EDT [facility] 05/15/2019 [place]) 12:00:00 AM EDT Psychotherapy (30 Mins) W/ 05/08/2019 N EXTGEN ([facility] E&M 12:00:00 AM EDT [facility] 05/08/2019 [place]) 12:00:00 AM EDT OFFICE/OUTPATIENT VISIT, 05/08/2019 NEX TGEN ([facility] EST 12:00:[address] [facility] - 05/08/2019 [place]) 12:00:00 AM EDT Individual Psychotherapy 05/08/2019 NEX TGEN ([facility] (45 Min) 12:00:00 AM EDT [facility] 05/08/2019 [place]) 12:00:00 AM EDT Individual Psychotherapy 05/02/2019 NEX TGEN ([facility] (45 Min) 12:00:[address] [facility] - 05/02/2019 [place]) 12:00:00 AM EDT OFFICE/OUTPATIENT VISIT, 04/10/2019 NEX TGEN ([facility] EST 12:00:[address] [facility] - 04/10/2019 [place]) 12:00:00 AM EDT Individual Psychotherapy 03/31/2019 NEX TGEN ([facility] (45 Min) 12:00:00 AM EDT [facility] 03/31/2019 [place]) 12:00:00 AM EDT OFFICE/OUTPATIENT VISIT, 12/14/2018 NEX TGEN ([facility] EST 12:00:00 AM EDT [facility] 12/14/2018 [place]) 12:00:00 AM EDT Individual Psychotherapy 12/14/2018 NEX TGEN ([facility] (45 Min) 12:00:00 AM EDT [facility] 12/14/2018 [place]) 12:00:00 AM EDT OFFICE/OUTPATIENT VISIT, 11/30/2018 NEX TGEN ([facility] EST 12:00:00 AM EST [facility] 11/30/2018 [place]) 12:00:00 AM EST Individual Psychotherapy 11/30/2018 NEX TGEN ([facility] (45 Min) 12:00:00 AM EST [facility] 11/30/2018 [place]) 12:00:00 AM EST Psychotherapy (30 Mins) W/ 11/02/2018 N EXTGEN ([facility] E&M 12:00:00 AM EST [facility] 11/02/2018 [place]) 12:00:00 AM EST OFFICE/OUTPATIENT VISIT, 11/02/2018 NEX TGEN ([facility] EST 12:00:00 AM EST [facility] 11/02/2018 [place]) 12:00:00 AM EST Individual Psychotherapy 11/02/2018 NEX TGEN ([facility] (45 Min) 12:00:00 AM EST [facility] 11/02/2018 Center) 12:00:00 AM EST Individual Psychotherapy 10/20/2018 NEX TGEN ([facility] (45 Min) 12:00:[address] [facility] - 10/20/2018 Center) 12:00:00 AM EST Individual Psychotherapy 10/05/2018 NEX TGEN ([facility] (45 Min) 12:00:[address] [facility] - 10/05/2018 Center) 12:00:00 AM EST OFFICE/OUTPATIENT VISIT, 09/22/2018 NEX TGEN ([facility] EST 12:00:[address] [facility] - 09/22/2018 Center) 12:00:00 AM EST OFFICE/OUTPATIENT VISIT, 12/30/2017 NEX TGEN ([facility] EST 12:00:[address] [facility] - 12/30/2017 Center) 12:00:00 AM EDT OFFICE/OUTPATIENT VISIT, 09/13/2017 NEX TGEN ([facility] EST 12:00:00 AM [facility] - 09/13/2017 Center) 12:00:00 AM EST OFFICE/OUTPATIENT VISIT, 09/08/2017 NEX TGEN ([facility] EST 12:00:[address] [facility] - 09/08/2017 Center) 12:00:00 AM EST OFFICE/OUTPATIENT VISIT, 07/29/2017 NEX TGEN ([facility] EST 12:00:[address] [facility] - 07/29/2017 Center) 12:00:00 AM EDT OFFICE/OUTPATIENT VISIT, 10/08/2016 NEX TGEN ([facility] EST 12:00:00 AM [facility] - 10/08/2016 Center) 12:00:00 AM EST Expanded History/exam - 01/16/2015 NEXT GEN ([facility] Low Complexity Decision 12:00:00 AM EDT [facility] - 01/16/2015 Center) 12:00:00 AM EDT OFFICE/OUTPATIENT VISIT, 08/27/2014 NEX TGEN ([facility] EST 12:00:[address] [facility] - 08/27/2014 Center) 12:00:00 AM EST OFFICE/OUTPATIENT VISIT, 05/30/2014 NEX TGEN ([facility] EST 12:00:[address] [facility] - 05/30/2014 Center) 12:00:00 AM EDT OFFICE/OUTPATIENT VISIT, 02/22/2014 NEX TGEN ([facility] EST 12:00:[address] [facility] - 02/22/2014 Center) 12:00:00 AM EDT OFFICE/OUTPATIENT VISIT, 02/08/2014 NEX TGEN ([facility] EST 12:00:[address] [facility] - 02/08/2014 Center) 12:00:00 AM EDT OFFICE/OUTPATIENT VISIT, 01/30/2014 NEX TGEN ([facility] EST 12:00:[address] [facility] - 01/30/2014 Center) 12:00:00 AM EDT OFFICE/OUTPATIENT VISIT, 01/25/2014 NEX TGEN ([facility] EST 12:00:[address] [facility] - 01/25/2014 Center) 12:00:00 AM EDT OFFICE/OUTPATIENT VISIT, 12/27/2013 NEX TGEN ([facility] EST 12:00:[address] [facility] - 12/27/2013 [place]) 12:00:00 AM EDT OFFICE/OUTPATIENT VISIT, 12/13/2013 NEX TGEN ([facility] EST 12:00:[address] [facility] - 12/13/2013 [place]) 12:00:00 AM EDT Results ID Date Data Source [id number] 06/23/2019 10:57:00 AM EDT [facility] 0 Name Value Range Interpretation Description Data Sup porting Code Source(s) Document(s ) UNK CLEAR <content [facility] styleCode="Sindhu Angela d">Urine Medical Clarity Center </content>SAUL R <content styleCode="Xiomara lics"> (CLEAR )</content> Color of Urine YELLOW <content [facility] styleCode="Sindhu Angela d">Color, Medical Urine Center </content>YELL OW <content styleCode="Xiomara lics"> (YELLOW )</content> Glucose NEGATIVE <content [facility] [Mass/volume] styleCode="Sindhu Angela in Urine by d">Urine Medical Test strip Glucose Center </content>NEGA TIVE MG/DL<content styleCode="Xiomara lics"> (NEGATIVE MG/DL)</conten t> UNK NEGATIVE <content [facility] styleCode="Sindhu Angela d">Urine Medical Bilirubin Center </content>NEGA TIVE <content styleCode="Xiomara lics"> (NEGATIVE )</content> pH of Urine by 4.5-8.0 <content [facility] Test strip styleCode="Sindhu Angela d">Urine pH Medical </content>6.5 Center <content styleCode="Xiomara lics"> (4.5-8.0 )</content> Hemoglobin NEGATIVE <content [facility] [Presence] in styleCode="Sindhu Angela Urine by Test d">Urine Blood Medical strip </content>NEGA Center TIVE <content styleCode="Xiomara lics"> (NEGATIVE )</content> Ketones NEGATIVE <content [facility] [Mass/volume] styleCode="Sindhu Angela in Urine by d">Urine Medical Test strip Ketone Center </content>NEGA TIVE MG/DL<content styleCode="Xiomara lics"> (NEGATIVE MG/DL)</conten t> Specific 1.015-1.02 Below low normal <content [facility] gravity of 5 styleCode="Sindhu Angela Urine by Test d">Urine Medical strip Specific Center [place] </content>1.01 0 L<content styleCode="Xiomara lics"> (1.015-1.025 )</content> Protein NEGATIVE <content [facility] [Mass/volume] styleCode="Sindhu Angela in Urine by d">Urine Medical Test strip Protein Center </content>NEGA TIVE MG/DL<content styleCode="Xiomara lics"> (NEGATIVE MG/DL)</conten t> Nitrite NEGATIVE <content [facility] [Presence] in styleCode="Sindhu Angela Urine by Test d">Urine Medical strip Nitrite Center </content>NEGA TIVE <content styleCode="Xiomara lics"> (NEGATIVE )</content> Urobilinogen 0.2-1.0 <content [facility] [Units/volume] styleCode="Sindhu Angela in Urine by d">Urine Medical Test strip Urobilinogen Center </content>0.2 MG/DL<content styleCode="Xiomara lics"> (0.2-1.0 MG/DL)</conten t> Leukocyte NEGATIVE <content [facility] esterase styleCode="Sindhu Angela [Presence] in d">Urine Medical Urine by Test Leukocyte Center strip </content>NEGA TIVE <content styleCode="Xiomara lics"> (NEGATIVE )</content> ID Date Data Source Liver 06/23/2019 10:57:00 AM EDT [facility] Profile.[id number] Name Value Range Interpretation Description Data Sup porting Code Source(s) Document(s ) Bilirubin.total 0.2-1.3 <content [facility] [Mass/volume] in styleCode="Bold"> Owen hs Serum or Plasma Bilirubin Total Medical </content>0.2 Center MG/DL<content styleCode="Italic s"> (0.2-1.3 MG/DL)</content> Alanine 7-30 <content [facility] aminotransferase styleCode="Bold"> [facility] [Enzymatic Alanine Medical activity/volume] Aminotransferase Center in Serum or Plasma (ALT) </content>12 IU/L<content styleCode="Italic s"> (7-30 IU/L)</content> Albumin 3.5-5.0 <content [facility] [Mass/volume] in styleCode="Bold"> [facility] Serum or Plasma Albumin Medical </content>4.3 Center G/DL<content styleCode="Italic s"> (3.5-5.0 G/DL)</content> Alkaline 38-126 <content [facility] phosphatase styleCode="Bold"> Angela [Enzymatic Alkaline Medical activity/volume] Phosphatase (ALP) Cente r in Serum or Plasma </content>81 IU/L<content styleCode="Italic s"> (38-126 IU/L)</content> Aspartate 14-36 <content [facility] aminotransferase styleCode="Bold"> [facility] [Enzymatic Aspartate Medical activity/volume] Aminotransferase Center in Serum or Plasma (AST) </content>18 IU/L<content styleCode="Italic s"> (14-36 IU/L)</content> ID Date Data Source [id number].[id number] 06/23/2019 10:57:00 AM EDT [facility] Name Value Range Interpretation Description Data Sup porting Code Source(s) Document(s ) Triglyceride < 150 Above high normal <content [facility] [Mass/volume] in styleCode="Sindhu Angela Serum or Plasma d">Triglycerid [facility] es Center </content>192 MG/DL H<content styleCode="Xiomara lics"> (< 150 MG/DL)</conten t> Cholesterol -<200 Above high normal <content [facility] [Mass/volume] in styleCode="Sindhu Angela Serum or Plasma d">Cholesterol Medical </content>219 Center MG/DL H<content styleCode="Xiomara lics"> (-<200 MG/DL)</conten t> UNK < 100 Above high normal <content [facility] styleCode="Sindhu Angela d">LDL-Cholest [facility] stevie Center </content>122 MG/DL H<content styleCode="Xiomara lics"> (< 100 MG/DL)</conten t> UNK > 60 Below low normal <content [facility] styleCode="Sindhu Angela d">HDL- Medical Cholesterol Center </content>59 MG/DL L<content styleCode="Xiomara lics"> (> 60 MG/DL)</conten t> ID Date Data Source [id number] 06/23/2019 10:57:00 AM EDT [facility] Name Value Range Interpretation Description Data Sup porting Code Source(s) Document(s ) Thyrotropin 0.465-4. <content [facility] [Units/volume] 68 styleCode="Sindhu Angela in Serum or d">Thyroid Medical Plasma by Stimulating Center Detection Hormone limit <= 0.05 </content>1.22 mIU/L MIU/L<content styleCode="Xiomara lics"> (0.465-4.68 MIU/L)</conten t> ID Date Data Source [id number] 06/23/2019 10:57:00 AM EDT [facility] 0400 Name Value Range Interpretation Description Data Sup porting Code Source(s) Document(s ) Leukocytes 4.4-11.0 Above high <content [facility] [#/volume] in normal styleCode="[facility] Blood by ">White Blood Medical Automated count Cell Count Center </content>11.40 KCUMM H<content styleCode="Ital ics"> (4.4-11.0 KCUMM)</content > Hemoglobin 12.3-16. <content [facility] [Mass/volume] in 0 styleCode="Bold Angela Blood ">Hemoglobin Medical </content>12.7 Center G/DL<content styleCode="Ital ics"> (12.3-16.0 G/DL)</content> Erythrocytes 4.0-5.1 <content [facility] [#/volume] in styleCode="Bold Angela Blood by ">Red Blood Medical Automated count Cell Count Center </content>4.69 MCUMM<content styleCode="Ital ics"> (4.0-5.1 MCUMM)</content > Erythrocyte mean 80.0-100 <content [facility] corpuscular .0 styleCode="Bold Angela volume [Entitic ">Mean Medical volume] by Corpuscular Center Automated count Volume </content>84.2 FL<content styleCode="Ital ics"> (80.0-100.0 FL)</content> Hematocrit 36.0-46. <content [facility] [Volume 0 styleCode="Bold Angela Fraction] of ">Hematocrit Medical Blood by </content>39.5 Center Automated count %<content styleCode="Ital ics"> (36.0-46.0 %)</content> Erythrocyte mean 26.0-34. <content [facility] corpuscular 0 styleCode="Bold Angela hemoglobin ">Mean Medical [Entitic mass] Corposcular Center by Automated Hemoglobin count </content>27.1 PG<content styleCode="Ital ics"> (26.0-34.0 PG)</content> Erythrocyte mean 32.0-37. <content [facility] corpuscular 0 styleCode="Bold Angela hemoglobin ">Mean Corpus. Medical concentration Hgb Center [Mass/volume] by Concentration Automated count (MCHC) </content>32.2 G/DL<content styleCode="Ital ics"> (32.0-37.0 G/DL)</content> Platelets 130-400 <content [facility] [#/volume] in styleCode="Bold Angela Blood by ">Platelet Medical Automated count Count Center </content>385 KCUMM<content styleCode="Ital ics"> (130-400 KCUMM)</content > Erythrocyte 11.5-14. Above high <content [facility] distribution 5 normal styleCode="Bold Angela width [Ratio] by ">Red Cell Medical Automated count Distribution Center Width </content>15.8 % H<content styleCode="Ital ics"> (11.5-14.5 %)</content> Neutrophils 36-66 <content [facility] [#/volume] in styleCode="Bold Angela Blood by ">Neutrophil Medical Automated count </content>55.5 Center %<content styleCode="Ital ics"> (36-66 %)</content> UNK 1.6-7.3 <content [facility] styleCode="Bold Angela ">Neutrophil Medical Count Center </content>6.33 KCUMM<content styleCode="Ital ics"> (1.6-7.3 KCUMM)</content > Platelet mean 8.0-11.0 <content [facility] volume [Entitic styleCode="Bold Angela volume] in Blood ">Mean Platelet Medical by Automated Volume Center count </content>9.7 FL<content styleCode="Ital ics"> (8.0-11.0 FL)</content> UNK 1.0-4.8 <content [facility] styleCode="Bold Angela ">Lymphocyte Medical Count Center </content>3.50 KCUMM<content styleCode="Ital ics"> (1.0-4.8 KCUMM)</content > Monocytes 3.0-10.0 <content [facility] [#/volume] in styleCode="Bold Angela Blood by ">Monocyte Medical Automated count </content>9.3 Center %<content styleCode="Ital ics"> (3.0-10.0 %)</content> Lymphocytes 24.0-44. <content [facility] [#/volume] in 0 styleCode="Bold Angela Blood by ">Lymphocyte Medical Automated count </content>30.7 Center %<content styleCode="Ital ics"> (24.0-44.0 %)</content> UNK 0.2-0.9 Above high <content [facility] normal styleCode="Bold Angela ">Monocyte Medical Count Center </content>1.06 KCUMM H<content styleCode="Ital ics"> (0.2-0.9 KCUMM)</content > Eosinophils 0-5.0 <content [facility] [#/volume] in styleCode="Bold Angela Blood by ">Eosinophil Medical Automated count </content>3.1 Center %<content styleCode="Ital ics"> (0-5.0 %)</content> UNK 0.0-0.6 <content [facility] styleCode="Bold Angela ">Eosinophil Medical Count Center </content>0.35 KCUMM<content styleCode="Ital ics"> (0.0-0.6 KCUMM)</content > Basophils 0.0-1.0 Above high <content [facility] [#/volume] in normal styleCode="Bold Angela Blood by ">Basophil Medical Automated count </content>1.1 % Center H<content styleCode="Ital ics"> (0.0-1.0 %)</content> UNK 0.0-0.3 <content [facility] styleCode="Bold Angela ">Basophil Medical Count Center </content>0.13 KCUMM<content styleCode="Ital ics"> (0.0-0.3 KCUMM)</content > UNK 0 <content [facility] styleCode="Bold Angela ">Nucleated Red Medical Blood Cell Center </content>0.0 /100<content styleCode="Ital ics"> (0 /100)</content> UNK 0.0 <content [facility] styleCode="Bold Angela ">Nucleated Red Medical Blood Cell Center Count </content>0.00 KCUMM<content styleCode="Ital ics"> (0.0 KCUMM)</content > UNK 0-0.1 <content [facility] styleCode="Bold Angela ">Immature Medical Granulocyte Center Count </content>0.03 KCUMM<content styleCode="Ital ics"> (0-0.1 KCUMM)</content > UNK < 1 <content [facility] styleCode="Bold Angela ">Immature Medical Granulocyte Center Ratio </content>0.3 %<content styleCode="Ital ics"> (< 1 %)</content> ID Date Data Source GFR(Creatinine).[id number] 06/23/2019 10:57:00 AM EDT [facility] 0-0400 Name Value Range Interpretation Code Description Data Mali rce(s) Supporting Document(s ) UNK > 60 <content [facility] styleCode="Bold"> Medical Cent er EGFR </content>96 GFR<content styleCode="Italic s"> (> 60 GFR)</content> ID Date Data Source [id number] 06/23/2019 10:57:00 AM EDT [facility] -0400 Name Value Range Interpretation Description Data Sup porting Code Source(s) Document(s ) UNK 2.3-3.5 <content [facility] styleCode="Bold Medical ">Globulin Center </content>3.5 G/DL<content styleCode="Ital ics"> (2.3-3.5 G/DL)</content> UNK 4.2-5.8 <content [facility] Mill[place]ans styleCode="Bold Medical ">Hemoglobin Center A1C </content>5.7 %<content styleCode="Ital ics"> (4.2-5.8 %)</content> Protein 6.3-8.2 <content [facility] [Mass/volum styleCode="Bold Medical e] in Serum ">Total Protein Center or Plasma </content>7.8 G/DL<content styleCode="Ital ics"> (6.3-8.2 G/DL)</content> UNK >= 1.0 <content [facility] styleCode="Bold Medical ">AG Ratio Center </content>1.2 <content styleCode="Ital ics"> (>= 1.0 )</content> ID Date Data Source [id number] 06/23/2019 10:57:00 AM EDT [facility] Name Value Range Interpretation Description Data Sup porting Code Source(s) Document(s ) Carbon dioxide, 22-30 <content [facility] total styleCode="Bold"> Angela [Moles/volume] in Carbon Dioxide Medical Serum or Plasma </content>27 Center MEQ/L<content styleCode="Italic s"> (22-30 MEQ/L)</content> Sodium 137-145 <content [facility] [Moles/volume] in styleCode="Bold"> Jeronimo banner Serum or Plasma Sodium Medical </content>141 Center MEQ/L<content styleCode="Italic s"> (137-145 MEQ/L)</content> Chloride 98-107 <content [facility] [Moles/volume] in styleCode="Bold"> Jeronimo banner Serum or Plasma Chloride Medical </content>105 Center MEQ/L<content styleCode="Italic s"> (98-107 MEQ/L)</content> Potassium 3.5-5.3 <content [facility] [Moles/volume] in styleCode="Bold"> Jeronimo banner Serum or Plasma Potassium Medical </content>4.6 Center MEQ/L<content styleCode="Italic s"> (3.5-5.3 MEQ/L)</content> Glucose 74-106 <content [facility] [Mass/volume] in styleCode="Bold"> [facility] hs Serum or Plasma Glucose Medical </content>87 Center MG/DL<content styleCode="Italic s"> (74-106 MG/DL)</content> UNK 7-17 <content [facility] styleCode="Bold"> Angela BUN </content>14 Medical MG/DL<content Center styleCode="Italic s"> (7-17 MG/DL)</content> Creatinine 0.5-1.3 <content [facility] [Mass/volume] in styleCode="Bold"> [facility] hs Serum or Plasma Creatinine Medical </content>0.7 Center MG/DL<content styleCode="Italic s"> (0.5-1.3 MG/DL)</content> Alanine 7-30 <content [facility] aminotransferase styleCode="Bold"> [facility] hs [Enzymatic Alanine Medical activity/volume] Aminotransferase Center in Serum or Plasma (ALT) </content>12 IU/L<content styleCode="Italic s"> (7-30 IU/L)</content> UNK > 60 <content Saint styleCode="Bold"> [facility] EGFR </content>96 Medical GFR<content Center styleCode="Italic s"> (> 60 GFR)</content> Calcium 8.4-10. <content [facility] [Mass/volume] in 2 styleCode="Bold"> [facility] hs Serum or Plasma Calcium Medical </content>9.5 Center MG/DL<content styleCode="Italic s"> (8.4-10.2 MG/DL)</content> Alkaline 38-126 <content [facility] phosphatase styleCode="Bold"> [facility] [Enzymatic Alkaline Medical activity/volume] Phosphatase (ALP) Cente r in Serum or Plasma </content>81 IU/L<content styleCode="Italic s"> (38-126 IU/L)</content> Aspartate 14-36 <content [facility] aminotransferase styleCode="Bold"> [facility] hs [Enzymatic Aspartate Medical activity/volume] Aminotransferase Center in Serum or Plasma (AST) </content>18 IU/L<content styleCode="Italic s"> (14-36 IU/L)</content> Bilirubin.total 0.2-1.3 <content [facility] [Mass/volume] in styleCode="Bold"> [facility] Serum or Plasma Bilirubin Total Medical </content>0.2 Center MG/DL<content styleCode="Italic s"> (0.2-1.3 MG/DL)</content> Albumin 3.5-5.0 <content [facility] [Mass/volume] in styleCode="Bold"> [facility] Serum or Plasma Albumin Medical </content>4.3 Center G/DL<content styleCode="Italic s"> (3.5-5.0 G/DL)</content> ID Date Data Source [id number] 06/23/2019 10:57:00 AM EDT NEXTG EN ([facility] [id number] Center) Name Value Range Interpretation Code Description Data Mali rce(s) Supporting Document(s ) 11.40 4.4-11.0 Above high normal WBC [facility]EXTGEN ([facility] nt [facility]) 39.5 % 36.0-46.0 HCT [facility]EXTGEN ([facility]) 12.7 G/DL 12.3-16.0 HGB [facility] ([facility]) 4.69 MCUMM 4.0-5.1 RBC [facility] ([facility]) 27.1 PG 26.0-34.0 MCH [facility] ([facility]) 32.2 G/DL 32.0-37.0 [facility]C [facility]) 84.2 FL 80.0-100.0 MCV [facility] ([facility]) 385 KCUMM 130-400 PLT [facility] ([facility]) 9.7 FL 8.0-11.0 MPV [facility] ([facility]) 15.8 % 11.5-14.5 Above high normal RDW [facility] ([facility]) 0.0 /100 0 NRBC% [facility] ([facility]) New parameters included in the report o f automated CBCNRBC(%/#) Is a direct count of Nucleated Red Blood cell, and will bereported with every CBC count. WBC will automatically be corrected withthe presence of NRBC. 30.7 % 24.0-44.0 LYMPHOCYTE % [facility] ([facility]) 55.5 % 36-66 NEUTROPHIL % [facility] ([facility]) 0.00 KCUMM 0.0 NRBC ABS# [facility]) 3.1 % 0-5.0 EOSINOPHIL % [facility] ([facility]) 9.3 % 3.0-10.0 MONOCYTE % [facility] ([facility]) 1.1 % 0.0-1.0 Above high normal BASOPHIL % [facility] ([facility]) 0.35 KCUMM 0.0-0.6 EOSINOPHIL ABS# [facility] ([facility]) 1.06 KCUMM 0.2-0.9 Above high normal MONOCYTE ABS# [facility]) 3.50 KCUMM 1.0-4.8 LYMPHOCYTE ABS# [facility] ([facility]) 6.33 KCUMM 1.6-7.3 NEUTROPHIL ABS# [facility] ([facility]) 0.3 % < 1 IG% [facility]) 0.03 KCUMM 0-0.1 IG ABS# [facility] ([facility]) New parameters included in the report o f automated CBC/DIFF.IG:(%/#) Immature Granulocytes ,includes the presence of (Metamyelocyte,Myelocyte,and Promyelocyte) 0.13 KCUMM 0.0-0.3 BASOPHIL ABS# [facility] ([facility]) ID Date Data Source [id number] 06/23/2019 10:57:00 AM EDT DAVID EN ([facility] [id number] [place]) Name Value Range Interpretation Code Description Data Supporting Source(s) Document(s ) 4.6 MEQ/L 3.5-5.3 POTASSIUM [facility]) 141 MEQ/L 137-145 SODIUM [facility]) 27 MEQ/L 22-30 CARBON DIOXIDE [facility]) 7.8 G/DL 6.3-8.2 TOTAL PROTEIN [facility]) 105 MEQ/L 98-107 CHLORIDE [facility]) 4.3 G/DL 3.5-5.0 ALBUMIN [facility]) 1.2 >= 1.0 AG RATIO [facility]) 3.5 G/DL 2.3-3.5 GLOBULIN [facility]) 81 IU/L 38-126 ALP [facility]) 12 IU/L 7-30 ALT [facility]) 18 IU/L 14-36 AST (GOT) [facility]) 96 GFR > 60 eGFR [facility]) Estimated GFR is calculated using the [place] dification of Diet in RenalDisease (MDRD) Study equation, and normalized to 1.73m2 body surfce area.The MDRD study equation should only be used in individuals age 18 orolder. It has not been validated f or the following: women,patients with serious comorbid conditions, or on certain medications, orpersons with extremes of body size, muscle mass, or nutritional status. 14 MG/DL 7-17 BUN [facility] ([facility]) 9.5 MG/DL 8.4-10.2 CALCIUM [facility] ([facility]) 87 MG/DL 74-106 GLUCOSE [facility] ([facility]) 0.7 MG/DL 0.5-1.3 CREATININE [facility] ([facility]) 0.2 MG/DL 0.2-1.3 BILI, TOTAL [facility] ([facility]) ID Date Data Source [id number] 06/23/2019 10:57:00 AM EDT NEXTG EN ([facility] [id number] [place]) Name Value Range Interpretation Code Description Data Mali rce(s) Supporting Document(s ) 192 MG/DL < 150 Above high normal TR[facility]CERIDES [facility]) 122 MG/DL < 100 Above high normal LDL- CALC [facility] ([facility]) 219 MG/DL <200 Above high normal [facility]LE[facility]) 59 MG/DL > 60 Below low normal HDL- CHOL [facility] ([facility]) ID Date Data Source [id number] 06/23/2019 10:57:00 AM EDT NEXTG EN ([facility] [id number] [place]) Name Value Range Interpretation Description Data Sup porting Code Source(s) Document(s ) CLEAR CLEAR U CLARITY [facility] ([facility]) YELLOW YELLOW U COLOR [facility] ([facility]) NEGATIVE NEGATIVE U GLUCOSE [facility] ([facility] [facility]) NEGATIVE NEGATIVE U BILIRUBIN [facility] ([facility]) NEGATIVE NEGATIVE U BLOOD [facility] ([facility]) 1.010 1.015-1.025 Below low normal U [facility]) NEGATIVE NEGATIVE U KETONE [facility] ([facility]) 6.5 4.5-8.0 U PH [facility] ([facility]) 0.2 MG/DL 0.2-1.0 U UROBILINOGEN [facility] ([facility]) NEGATIVE NEGATIVE U [facility]OTEIN [facility]) NEGATIVE NEGATIVE U [facility]ITRITE [facility]) NEGATIVE NEGATIVE U. LEUKOCYTE [facility] ([facility]) ID Date Data Source [id number] 06/23/2019 10:57:00 AM EDT NEXT[facility] EN ([facility] [id number] [place]) Name Value Range Interpretation Code Description Data Mali rce(s) Supporting Document(s ) NON-REACTI NON-REACTI HIV 1+2 AB [facility] ([facility]) This test was run using the Vitros 5600 immunodiagnostic System. Theresults of the Vitros Anti-HIV 1 + 2 assay, in conjunction with otherserological evidenceand clinical information, may be used as an a id in the diagnosis ofinfection with HIV -1 and/or HIV-2 in persons with signs or symptoms of,or at risk for,HIV infection. If the result is Reactive, the result is PRELIMINARY, aconfirmatory test will f ollow, and the Confirmatory Result MUST beconsidered in making a diagnosis related to HIV infection. ID Date Data Source [id number] 06/23/2019 10:57:00 AM EDT NEXTG EN ([facility] [id number] [place]) Name Value Range Interpretation Code Description Data Mali rce(s) Supporting Document(s ) 5.7 % 4.2-5.8 HB A1C [facility] ([facility]) For the purpose of screening for the pre sence of diabetes:< 5.8 % Consistent with the absence of diabetes5 .8 - 6.4 % Consistent with increased risk for diabetes(prediabetes)> or = 6.5 % Consistent with diabetesCurrently, no consensus exists for use of hemoglobin A 1cfor diagnosis of diabetes in children.According to [place] Diabetes Association (ADA) guidelines.Hemoglobin A1c <7.0% represents optimal control in non- diabetic patients. Different metrics may apply tospecific patient populations . Standards of medical Care inDiabetes (ADA).

ID Date Data Source [id number] 06/23/2019 10:57:00 AM EDT NEXTG EN ([facility] [id number] [place]) Name Value Range Interpretation Code Description Data Mali rce(s) Supporting Document(s ) 1.22 MIU/L 0.465-4.68 TSH [facility]) ID Date Data Source [id number] 06/23/2019 10:57:00 AM EDT NEXTG EN ([facility] [id number] [place]) Name Value Range Interpretation Code Description Data Mali rce(s) Supporting Document(s ) NEGATIVE NEGATIVE HCVAb [facility] ([facility]) ID Date Data Source [id number] 06/23/2019 10:57:00 AM EDT NEXTG EN ([facility] [id number] [place]) Name Value Range Interpretation Code Description Data Mali rce(s) Supporting Document(s ) 1:16 NON-REACTIV RPR [facility] ([facility]) The Macro-Megan RPR (Rapid Plasma Reagin) 18mm Poarch Card Test is anontreponemal testing procedure for the serologic detection of syphilis.Results successfully called to and READ BACK from CHIKIS Gandhi RN on06/23/2019 at 15:49 by DAVID FINK Technologist. ID Date Data Source [id number] 06/23/2019 10:57:00 AM EDT NEXTG EN ([facility] [id number] [place]) Name Value Range Interpretation Code Description Data Mali rce(s) Supporting Document(s ) 1:16 NON-REACTIV RPR [facility] ([facility]) The Macro-Megan RPR (Rapid Plasma Reagin) 18mm Poarch Card Test is anontreponemal testing procedure for the serologic detection of syphilis. ID Date Data Source [id number] 06/23/2019 10:57:00 AM EDT NEXTG EN ([facility] [id number] [place]) Name Value Range Interpretation Description Data Sup porting Code Source(s) Document(s ) Not Detected Not CHLAMYDIA NEXTGEN Detected URINE ([facility]) This test was performed using the APTIMA COMBO2(R) Assay(GEN-PROBE(R)).For additional information, please refer tohttp://[employer].Media.[employer]/faq/HBA188(This link is being provided for informational/educationalpurposes only) ID Date Data Source [id number] 06/23/2019 10:57:00 AM EDT NEXTG EN ([facility] [id number] [place]) Name Value Range Interpretation Description Data Sup porting Code Source(s) Document(s ) Not Detected Not N.GONORRHOEAE NEXTGEN Detected RNA, TMA ([facility]) This test was performed using the APTIMA COMBO2(R) Assay(GEN-PROBE(R)).For additional information, please refer toPhaseBio Pharmaceuticalstp://[employer].Media.[employer]/faq/XXN219(This link is being provided for informational/educationalpurposes only) ID Date Data Source [id number] 06/23/2019 09:40:00 AM EDT NEXTG EN ([facility] [id number] [place]) Name Value Range Interpretation Code Description Data Supporting Source(s) Document(s ) FINAL REPORT STATUS [facility] ([facility]) SEE NOTE ThinPrep [facility] INTERPRETATION ([facility]) Negative for intraepithelial lesion or m alignancy. SEE NOTE APPEALS MANAGER NEXTGEN ([facility]) CCS, CT(ASCP)CT screening location: [place], [place] [address]Explanatory Note:The Pap is a screening test for cervical cancer. It is not adiagnostic test and is subject to fals e negative and false positiveresults. It is most reliable when a satisfactory sample, regularlyobtained, is submitted with relevant clinical findings and history,and when the Pap result is evaluated claude ng with historic and currentclinical inf ormation. SEE NOTE STATEMENT OF ADEQUACY [facility]EXT[facility] ([facility]) Satisfactory for evaluation.Endocervical /transformation zone componentpresent.Age and/or menstrual status not provided ID Date Data Source [id number] 06/23/2019 09:40:00 AM EDT NEXTG EN ([facility] [id number] [place]) Name Value Range Interpretation Code Description Data Mali rce(s) Supporting Document(s ) FINAL REPORT STATUS [facility] ([facility]) SEE NOTE STATEMENT OF NEXTGEN ([facility]) Satisfactory for evaluation.Endocervical /transformation zone componentpresent.Age and/or menstrual status not provided SEE NOTE ThinPrep INTERPRETATION [facility] N ([facility]) Negative for intraepithelial lesion or m alignancy. SEE NOTE APPEALS MANAGER [facility]) CCS, CT(ASCP)CT screening location: [place], [place] [address]Explanatory Note:The Pap is a screening test for cervical cancer. It is not adiagnostic test and is subject to fals e negative and false positiveresults. It is most reliable when a satisfactory sample, regularlyobtained, is submitted with relevant clinical findings and history,and when the Pap result is evaluated claude ng with historic and currentclinical inf ormation. ID Date Data Source [id number] 10/05/2018 02:35:00 PM EST [facility] -0500 Name Value Range Interpretation Description Data Sup porting Code Source(s) Document(s ) Cannabinoids <content Saint [Presence] in styleCode="[facility] Urine by Screen d">Cannabinoid Medical method >50 ng/mL [facility] </content>NEGA TIVE NG/ML (Reference Range: not available)<br/ > ID Date Data Source [id number] 09/09/2018 07:16:00 AM EST [facility] Name Value Range Interpretation Description Data Sup porting Code Source(s) Document(s ) Triglyceride < 150 <content Saint [Mass/volume] in styleCode="[facility] Serum or Plasma d">Triglycerid Medical Center </content>74 MG/DL<content styleCode="Xiomara lics"> (< 150 MG/DL)</conten t> UNK > 60 Below low normal <content Saint styleCode="Sindhu Angela d">HDL- Medical Cholesterol Center </content>59 MG/DL L<content styleCode="Xiomara lics"> (> 60 MG/DL)</conten t> Cholesterol -<200 <content Saint [Mass/volume] in styleCode="Sindhu Angela Serum or Plasma d">Cholesterol Medical </content>140 Center MG/DL<content styleCode="Xiomara lics"> (-<200 MG/DL)</conten t> UNK < 100 <content Saint styleCode="Sindhu Angela d">LDL-Cholest Medical stevie Center </content>66 MG/DL<content styleCode="Xiomara lics"> (< 100 MG/DL)</conten t> ID Date Data Source [id number] 09/09/2018 07:16:00 AM EST [facility] -0500 Name Value Range Interpretation Code Description Data Mali rce(s) Supporting Document(s ) UNK 4.2-5.8 <content [facility] styleCode="Bold" Medical Cente r >Hemoglobin A1C </content>5.7 %<content styleCode="Itali cs"> (4.2-5.8 %)</content> ID Date Data Source LIPID 09/09/2018 07:16:00 AM [facility] Name Value Range Interpretation Description Data Sup porting Code Source(s) Document(s ) Triglyceride < 150 <content Saint [Mass/volume] in styleCode="Sindhu Angela Serum or Plasma d">Triglycerid Medical es Center </content>74 MG/DL<content styleCode="Xiomara lics"> (< 150 MG/DL)</conten t> Cholesterol -<200 <content Saint [Mass/volume] in styleCode="Sindhu Angela Serum or Plasma d">Cholesterol Medical </content>140 Center MG/DL<content styleCode="Xiomara lics"> (-<200 MG/DL)</conten t> UNK < 100 <content Saint styleCode="Sindhu Angela d">LDL-Cholest Medical stevie Center </content>66 MG/DL<content styleCode="Xiomara lics"> (< 100 MG/DL)</conten t> UNK > 60 Below low normal <content Saint styleCode="Sindhu Angela d">HDL- Medical Cholesterol Center </content>59 MG/DL L<content styleCode="Xiomara lics"> (> 60 MG/DL)</conten t> ID Date Data Source [facility][id number] 09/08/2018 07:47:00 AM [facility] -0500 Name Value Range Interpretation Description Data Sup porting Code Source(s) Document(s ) Creatine 30-135 <content Saint kinase styleCode="Bold Angela [Enzymatic ">CK Medical activity/vol </content>64 Center ume] in IU/L<content Serum or styleCode="Ital Plasma ics"> (30-135 IU/L)</content> Troponin 0-0.034 <content Saint I.cardiac styleCode="Bold Angela [Mass/volume ">Troponin I Medical ] in Serum </content>< Center or Plasma 0.012 NG/ML<content styleCode="Ital ics"> (0-0.034 NG/ML)</content > ID Date Data Source [facility] 09/08/2018 07:47:00 AM [facility] Name Value Range Interpretation Description Data Sup porting Code Source(s) Document(s ) Creatine 30-135 <content Saint kinase styleCode="Bold Angela [Enzymatic ">CK Medical activity/vol </content>64 Center ume] in IU/L<content Serum or styleCode="Ital Plasma ics"> (30-135 IU/L)</content> Troponin 0-0.034 <content Saint I.cardiac styleCode="Bold Angela [Mass/volume ">Troponin I Medical ] in Serum </content>< Center or Plasma 0.012 NG/ML<content styleCode="Ital ics"> (0-0.034 NG/ML)</content > ID Date Data Source [facility].[id number] 09/07/2018 07:35:00 AM [facility] -0500 Name Value Range Interpretation Description Data Sup porting Code Source(s) Document(s ) Troponin 0-0.034 <content Saint I.cardiac styleCode="Bold Angela [Mass/volume ">Troponin I Medical ] in Serum </content>< Center or Plasma 0.012 NG/ML<content styleCode="Ital ics"> (0-0.034 NG/ML)</content > ID Date Data Source Urinalysis.[id number] 09/02/2018 06:05:00 PM EST [facility] 0 Name Value Range Interpretation Description Data Sup porting Code Source(s) Document(s ) Color of Urine YELLOW <content Saint styleCode="Sindhu Angela d">Color, Medical Urine Center </content>YELL OW <content styleCode="Xiomara lics"> (YELLOW )</content> Glucose NEGATIVE <content Saint [Mass/volume] styleCode="Sindhu Angela in Urine by d">Urine Medical Test strip Glucose Center </content>NEGA TIVE MG/DL<content styleCode="Xiomara lics"> (NEGATIVE MG/DL)</conten t> UNK CLEAR <content Saint styleCode="Sindhu Angela d">Urine Medical Clarity Center </content>SAUL R <content styleCode="Xiomara lics"> (CLEAR )</content> Specific 1.015-1.02 <content Saint gravity of 5 styleCode="Sindhu Milligans Urine by Test d">Urine Medical strip Specific [place] </content>1.02 5 NM<content styleCode="Xiomara lics"> (1.015-1.025 NM)</content> Ketones NEGATIVE <content Saint [Mass/volume] styleCode="Sindhu Angela in Urine by d">Urine Medical Test strip Ketone Center </content>15 MG/DL<content styleCode="Xiomara lics"> (NEGATIVE MG/DL)</conten t> UNK NEGATIVE <content Saint styleCode="Sindhu Angela d">Urine Medical Bilirubin Center </content>SMAL L <content styleCode="Xiomara lics"> (NEGATIVE )</content> pH of Urine by 4.5-8.0 <content Saint Test strip styleCode="Sindhu Angela d">Urine pH Medical </content>6.0 Center NM<content styleCode="Xiomara lics"> (4.5-8.0 NM)</content> Hemoglobin NEGATIVE <content Saint [Presence] in styleCode="Sindhu Angela Urine by Test d">Urine Blood Medical strip </content>SMAL Center L <content styleCode="Xiomara lics"> (NEGATIVE )</content> Protein NEGATIVE <content Saint [Mass/volume] styleCode="Sindhu Angela in Urine by d">Urine Medical Test strip Protein Center </content>30 MG/DL<content styleCode="Xiomara lics"> (NEGATIVE MG/DL)</conten t> Urobilinogen 0.2-1.0 <content Saint [Units/volume] styleCode="Sindhu Angela in Urine by d">Urine Medical Test strip Urobilinogen Center </content>1.0 MG/DL<content styleCode="Xiomara lics"> (0.2-1.0 MG/DL)</conten t> Leukocyte NEGATIVE <content Saint esterase styleCode="Sindhu Angela [Presence] in d">Urine Medical Urine by Test Leukocyte Center strip </content>SMAL L <content styleCode="Xiomara lics"> (NEGATIVE )</content> Nitrite NEGATIVE <content Saint [Presence] in styleCode="Sindhu Milligans Urine by Test d">Urine Medical strip Nitrite Center </content>NEGA TIVE <content styleCode="Xiomara lics"> (NEGATIVE )</content> UNK 0-3 <content Saint styleCode="Sindhu Angela d">Urine Red Medical Blood Cell Center </content>3-5 HPF<content styleCode="Xiomara lics"> (0-3 HPF)</content> UNK 0-3 <content Saint styleCode="Sindhu Angela d">Urine White Medical Blood Cell Center </content>5 - 10 HPF<content styleCode="Xiomara lics"> (0-3 HPF)</content> UNK NEGATIVE <content Saint styleCode="Sindhu Angela d">Urine Medical Bacteria Center </content>MANY HPF<content styleCode="Xiomara lics"> (NEGATIVE HPF)</content> UNK <content Saint styleCode="Sindhu Miller d">[facility] Medical Cell Center </content>> 50 LPF (Reference Range: not available)<br/ > ID Date Data Source Microbiology.[id number] 09/02/2018 06:05:00 PM EST Jak [facility] 500 Name Value Range Interpretation Code Description Data Mali rce(s) Supporting Document(s ) UNK <item><content [facility] styleCode="Bold"> Medical nter lture Report </content>
<tab le><tbody><tr><td>S pecimen Number:</td><td>[id number]</td></tr><tr ><td>Sample Collection Date/Time: </td><td>09/02/2018 6:05 PM</td></tr><tr><td >Specimen Source:</td><td>URI NE</td></tr><tr><td >Urine Culture:</td><td>Co llection Plate Date: 09/02/2018 18:30 </td></tr><tr><td>C ulture Status:</td><td>Fin al </td></tr><tr><td>C ulture Report:</td><td>Cul ture in progress </td></tr><tr><td>O rganism 1:</td><td>STREPTOC OCCUS VIRIDANS </td></tr><tr><td>O rganism 2:</td><td>COAGULAS E NEGATIVE STAPHYLOCOCCUS </td></tr><tr><td>O rganism 3:</td><td>COAGULAS E NEGATIVE STAPHYLOCOCCUS </td></tr></tbody>< /table>
<table border="2"><tbody>< tr><td></td><td>1</ td><td>2</td><td>3< /td></tr><tr><td>Co mment</td><td></td> <td></td><td></td>< /tr><tr><td>Result Value</td><td>STREP TOCOCCUS VIRIDANS </td><td>COAGULASE NEGATIVE STAPHYLOCOCCUS </td><td>COAGULASE NEGATIVE STAPHYLOCOCCUS </td></tr><tr><td>R esult Status</td><td>Stephanie l Result</td><td>Stephanie l Result</td><td>Stephanie l Result</td></tr><tr ><td></td><td></td> <td></td><td></td>< /tr></tbody></table ></item> UNK <item><content [facility] Angela styleCode="Bold">Cu Medical Ce nter lture Status </content>
<tab le><tbody><tr><td>S pecimen Number:</td><td>[id number]</td></tr><tr ><td>Sample Collection Date/Time: </td><td>09/02/2018 6:05 PM</td></tr><tr><td >Specimen Source:</td><td>URI NE</td></tr><tr><td >Culture Status:</td><td>Fin al </td></tr><tr><td>C ulture Report:</td><td>Cul ture in progress </td></tr><tr><td>U rine Culture:</td><td>Co llection Plate Date: 09/02/2018 18:30 </td></tr><tr><td>O rganism 1:</td><td>STREPTOC OCCUS VIRIDANS </td></tr><tr><td>O rganism 2:</td><td>COAGULAS E NEGATIVE STAPHYLOCOCCUS </td></tr><tr><td>O rganism 3:</td><td>COAGULAS E NEGATIVE STAPHYLOCOCCUS </td></tr></tbody>< /table>
<table border="2"><tbody>< tr><td></td><td>1</ td><td>2</td><td>3< /td></tr><tr><td>Co mment</td><td></td> <td></td><td></td>< /tr><tr><td>Result Value</td><td>STREP TOCOCCUS VIRIDANS </td><td>COAGULASE NEGATIVE STAPHYLOCOCCUS </td><td>COAGULASE NEGATIVE STAPHYLOCOCCUS </td></tr><tr><td>R esult Status</td><td>Stephanie l Result</td><td>Stephanie l Result</td><td>Stephanie l Result</td></tr><tr ><td></td><td></td> <td></td><td></td>< /tr></tbody></table ></item> ID Date Data Source KELYMROUTVIDHYACCBRISA.[id number] 09/02/2018 06:05:00 PM [facility] -0500 Name Value Range Interpretation Description Data Sup porting Code Source(s) Document(s ) Cannabinoids <content Saint [Presence] in styleCode="[facility] Urine by Screen d">Cannabinoid Medical method >50 ng/mL s Center </content>PRES UMPTIVE POSITIVE NG/ML (Reference Range: not available)<br/ > ID Date Data Source Urinalysis 09/02/2018 06:05:00 PM [facility] Name Value Range Interpretation Description Data Sup porting Code Source(s) Document(s ) UNK CLEAR <content Saint styleCode="[facility] d">Urine Medical Clarity Center </content>SAUL R <content styleCode="Xiomara lics"> (CLEAR )</content> Glucose NEGATIVE <content Saint [Mass/volume] styleCode="Sindhu Angela in Urine by d">Urine Medical Test strip Glucose Center </content>NEGA TIVE MG/DL<content styleCode="Xiomara lics"> (NEGATIVE MG/DL)</conten t> Color of Urine YELLOW <content Saint styleCode="Sindhu Angela d">Color, Medical Urine Center </content>YELL OW <content styleCode="Xiomara lics"> (YELLOW )</content> Specific 1.015-1.02 <content Saint gravity of 5 styleCode="Sindhu Milligans Urine by Test d">Urine Medical strip Specific Center [place] </content>1.02 5 NM<content styleCode="Xiomara lics"> (1.015-1.025 NM)</content> Ketones NEGATIVE <content Saint [Mass/volume] styleCode="Sindhu Angela in Urine by d">Urine Medical Test strip Ketone Center </content>15 MG/DL<content styleCode="Xiomara lics"> (NEGATIVE MG/DL)</conten t> UNK NEGATIVE <content Saint styleCode="Sindhu Angela d">Urine Medical Bilirubin Center </content>SMAL L <content styleCode="Xiomara lics"> (NEGATIVE )</content> Hemoglobin NEGATIVE <content Saint [Presence] in styleCode="Sindhu Milligans Urine by Test d">Urine Blood Medical strip </content>SMAL Center L <content styleCode="Xiomara lics"> (NEGATIVE )</content> pH of Urine by 4.5-8.0 <content Saint Test strip styleCode="Sindhu Angela d">Urine pH Medical </content>6.0 Center NM<content styleCode="Xiomara lics"> (4.5-8.0 NM)</content> Urobilinogen 0.2-1.0 <content Saint [Units/volume] styleCode="Sindhu Angela in Urine by d">Urine Medical Test strip Urobilinogen Center </content>1.0 MG/DL<content styleCode="Xiomara lics"> (0.2-1.0 MG/DL)</conten t> Protein NEGATIVE <content Saint [Mass/volume] styleCode="Sindhu Miller in Urine by d">Urine Medical Test strip Protein Center </content>30 MG/DL<content styleCode="Xiomara lics"> (NEGATIVE MG/DL)</conten t> Nitrite NEGATIVE <content Saint [Presence] in styleCode="Sindhu Miller Urine by Test d">Urine Medical strip Nitrite Center </content>NEGA TIVE <content styleCode="Xiomara lics"> (NEGATIVE )</content> Leukocyte NEGATIVE <content Saint esterase styleCode="Sindhu Miller [Presence] in d">Urine Medical Urine by Test Leukocyte Center strip </content>SMAL L <content styleCode="Xiomara lics"> (NEGATIVE )</content> UNK 0-3 <content Saint styleCode="Sindhu Milligans d">Urine White Medical Blood Cell Center </content>5 - 10 HPF<content styleCode="Xiomara lics"> (0-3 HPF)</content> UNK 0-3 <content Saint styleCode="Sindhu Angela d">Urine Red Medical Blood Cell Center </content>3-5 HPF<content styleCode="Xiomara lics"> (0-3 HPF)</content> UNK <content Saint styleCode="Sindhu Angela d">Epithelial Medical Cell Center </content>> 50 LPF (Reference Range: not available)<br/ > UNK NEGATIVE <content Saint styleCode="Sindhu Milligans d">Urine Medical Bacteria Center </content>MANY HPF<content styleCode="Xiomara lics"> (NEGATIVE HPF)</content> ID Date Data Source CHMROUTINECCDA 09/02/2018 06:05:00 PM EST [facility] Name Value Range Interpretation Description Data Sup porting Code Source(s) Document(s ) Cannabinoids <content Saint [Presence] in styleCode="Sindhu Miller Urine by Screen d">Cannabinoid Medical method >50 s Center ng/mL </content>NEGA TIVE NG/ML (Reference Range: not available)<br/ > UNK 4.2-5.8 <content Saint styleCode="Sindhu Milligans d">Hemoglobin Medical A1C Center </content>5.7 %<content styleCode="Xiomara lics"> (4.2-5.8 %)</content> Cannabinoids <content Saint [Presence] in styleCode="Sindhu Miller Urine by Screen d">Cannabinoid Medical method >50 s Center ng/mL </content>PRES UMPTIVE POSITIVE NG/ML (Reference Range: not available)<br/ > ID Date Data Source Microbiology 09/02/2018 06:05:00 PM EST [facility] Name Value Range Interpretation Code Description Data Mali rce(s) Supporting Document(s ) UNK <item><content [facility] styleCode="Bold">Cu Medical Ce nter lture Report </content>
<tab le><tbody><tr><td>S pecimen Number:</td><td>[id number]</td></tr><tr ><td>Sample Collection Date/Time: </td><td>09/02/2018 6:05 PM</td></tr><tr><td >Specimen Source:</td><td>URI NE</td></tr><tr><td >Urine Culture:</td><td>Co llection Plate Date: 09/02/2018 18:30 </td></tr><tr><td>C ulture Status:</td><td>Fin al </td></tr><tr><td>C ulture Report:</td><td>Cul ture in progress </td></tr><tr><td>O rganism 1:</td><td>STREPTOC OCCUS VIRIDANS </td></tr><tr><td>O rganism 2:</td><td>COAGULAS E NEGATIVE STAPHYLOCOCCUS </td></tr><tr><td>O rganism 3:</td><td>COAGULAS E NEGATIVE STAPHYLOCOCCUS </td></tr></tbody>< /table>
<table border="2"><tbody>< tr><td></td><td>1</ td><td>2</td><td>3< /td></tr><tr><td>Co mment</td><td></td> <td></td><td></td>< /tr><tr><td>Result Value</td><td>STREP TOCOCCUS VIRIDANS </td><td>COAGULASE NEGATIVE STAPHYLOCOCCUS </td><td>COAGULASE NEGATIVE STAPHYLOCOCCUS </td></tr><tr><td>R esult Status</td><td>Stephanie l Result</td><td>Stephanie l Result</td><td>Stephanie l Result</td></tr><tr ><td></td><td></td> <td></td><td></td>< /tr></tbody></table ></item> UNK <item><content [facility] styleCode="Bold">Cu Medical Ce nter lture Status </content>
<tab le><tbody><tr><td>S pecimen Number:</td><td>[id number]</td></tr><tr ><td>Sample Collection Date/Time: </td><td>09/02/2018 6:05 PM</td></tr><tr><td >Specimen Source:</td><td>URI NE</td></tr><tr><td >Culture Status:</td><td>Fin al </td></tr><tr><td>C ulture Report:</td><td>Cul ture in progress </td></tr><tr><td>U rine Culture:</td><td>Co llection Plate Date: 09/02/2018 18:30 </td></tr><tr><td>O rganism 1:</td><td>STREPTOC OCCUS VIRIDANS </td></tr><tr><td>O rganism 2:</td><td>COAGULAS E NEGATIVE STAPHYLOCOCCUS </td></tr><tr><td>O rganism 3:</td><td>COAGULAS E NEGATIVE STAPHYLOCOCCUS </td></tr></tbody>< /table>
<table border="2"><tbody>< tr><td></td><td>1</ td><td>2</td><td>3< /td></tr><tr><td>Co mment</td><td></td> <td></td><td></td>< /tr><tr><td>Result Value</td><td>STREP TOCOCCUS VIRIDANS </td><td>COAGULASE NEGATIVE STAPHYLOCOCCUS </td><td>COAGULASE NEGATIVE STAPHYLOCOCCUS </td></tr><tr><td>R esult Status</td><td>Stephanie l Result</td><td>Stephanie l Result</td><td>Stephanie l Result</td></tr><tr ><td></td><td></td> <td></td><td></td>< /tr></tbody></table ></item> ID Date Data Source Liver 09/02/2018 03:50:00 PM EST [facility] Profile.[id number] Name Value Range Interpretation Description Data Sup porting Code Source(s) Document(s ) Aspartate 14-36 <content [facility] aminotransferase styleCode="Bold"> Owen hs [Enzymatic Aspartate Medical activity/volume] Aminotransferase Center in Serum or Plasma (AST) </content>33 IU/L<content styleCode="Italic s"> (14-36 IU/L)</content> Alkaline 38-126 <content [facility] phosphatase styleCode="Bold"> Angela [Enzymatic Alkaline Medical activity/volume] Phosphatase (ALP) Cente r in Serum or Plasma </content>90 IU/L<content styleCode="Italic s"> (38-126 IU/L)</content> UNK 0.0-0.3 <content [facility] styleCode="Bold"> [facility] Bilirubin, Direct Medical </content>< 0.2 Center MG/DL<content styleCode="Italic s"> (0.0-0.3 MG/DL)</content> Alanine 7-30 Above high <content [facility] aminotransferase normal styleCode="Bold"> Owen hs [Enzymatic Alanine Medical activity/volume] Aminotransferase Center in Serum or Plasma (ALT) </content>40 IU/L H<content styleCode="Italic s"> (7-30 IU/L)</content> Bilirubin.total 0.2-1.3 <content [facility] [Mass/volume] in styleCode="Bold"> Owen hs Serum or Plasma Bilirubin Total Medical </content>1.0 Center MG/DL<content styleCode="Italic s"> (0.2-1.3 MG/DL)</content> Albumin 3.5-5.0 <content [facility] [Mass/volume] in styleCode="Bold"> Owen hs Serum or Plasma Albumin Medical </content>4.8 Center G/DL<content styleCode="Italic s"> (3.5-5.0 G/DL)</content> ID Date Data Source HematologyRou.[id number] 09/02/2018 03:50:00 PM PEPE [facility] 0500 Name Value Range Interpretation Description Data Sup porting Code Source(s) Document(s ) Leukocytes 4.4-11.0 <content Saint [#/volume] in styleCode="Bold [facility] Blood by ">White Blood Medical Automated count Cell Count Center </content>10.86 KCUMM<content styleCode="Ital ics"> (4.4-11.0 KCUMM)</content > Erythrocytes 4.0-5.1 <content Saint [#/volume] in styleCode="Bold [facility] Blood by ">Red Blood Medical Automated count Cell Count Center </content>4.71 MCUMM<content styleCode="Ital ics"> (4.0-5.1 MCUMM)</content > Hematocrit 36.0-46. <content Saint [Volume 0 styleCode="Bold Angela Fraction] of ">Hematocrit Medical Blood by </content>40.2 Center Automated count %<content styleCode="Ital ics"> (36.0-46.0 %)</content> Hemoglobin 12.3-16. <content [facility] [Mass/volume] in 0 styleCode="Bold Angela Blood ">Hemoglobin Medical </content>13.2 Center G/DL<content styleCode="Ital ics"> (12.3-16.0 G/DL)</content> Erythrocyte mean 26.0-34. <content [facility] corpuscular 0 styleCode="Bold Angela hemoglobin ">Mean Medical [Entitic mass] Corposcular Center by Automated Hemoglobin count </content>28.0 PG<content styleCode="Ital ics"> (26.0-34.0 PG)</content> Erythrocyte mean 80.0-100 <content [facility] corpuscular .0 styleCode="Bold Angela volume [Entitic ">Mean Medical volume] by Corpuscular Center Automated count Volume </content>85.4 FL<content styleCode="Ital ics"> (80.0-100.0 FL)</content> Erythrocyte mean 32.0-37. <content [facility] corpuscular 0 styleCode="Bold Angela hemoglobin ">Mean Corpus. Medical concentration Hgb Center [Mass/volume] by Concentration Automated count (MCHC) </content>32.8 G/DL<content styleCode="Ital ics"> (32.0-37.0 G/DL)</content> Platelets 130-400 <content Saint [#/volume] in styleCode="Bold Angela Blood by ">Platelet Medical Automated count Count Center </content>341 KCUMM<content styleCode="Ital ics"> (130-400 KCUMM)</content > Erythrocyte 11.5-14. <content [facility] distribution 5 styleCode="Bold Angela width [Ratio] by ">Red Cell Medical Automated count Distribution Center Width </content>14.4 %<content styleCode="Ital ics"> (11.5-14.5 %)</content> Platelet mean 8.0-11.0 <content [facility] volume [Entitic styleCode="Bold Angela volume] in Blood ">Mean Platelet Medical by Automated Volume Center count </content>9.5 FL<content styleCode="Ital ics"> (8.0-11.0 FL)</content> UNK 0 <content Saint styleCode="Bold Angela ">Nucleated Red Medical Blood Cell Center </content>0.0 /100<content styleCode="Ital ics"> (0 /100)</content> UNK 0.0 <content Saint styleCode="Bold Angela ">Nucleated Red Medical Blood Cell Center Count </content>0.00 KCUMM<content styleCode="Ital ics"> (0.0 KCUMM)</content > ID Date Data Source GFR(Creatinine).[id number] 09/02/2018 03:50:00 PM [facility] 0-0500 Name Value Range Interpretation Code Description Data Mali rce(s) Supporting Document(s ) UNK > 60 <content [facility] styleCode="Bold"> Medical Cent er EGFR </content>96 GFR<content styleCode="Italic s"> (> 60 GFR)</content> ID Date Data Source [facility].[id number] 09/02/2018 03:50:00 PM [facility] Name Value Range Interpretation Description Data Sup porting Code Source(s) Document(s ) Potassium 3.5-5.3 <content [facility] [Moles/volume] in styleCode="Bold"> [facility] banner Serum or Plasma Potassium Medical </content>4.1 Center MEQ/L<content styleCode="Italic s"> (3.5-5.3 MEQ/L)</content> Sodium 137-145 <content [facility] [Moles/volume] in styleCode="Bold"> Jeronimo phs Serum or Plasma Sodium Medical </content>143 Center MEQ/L<content styleCode="Italic s"> (137-145 MEQ/L)</content> Carbon dioxide, 22-30 <content [facility] total styleCode="Bold"> Angela [Moles/volume] in Carbon Dioxide Medical Serum or Plasma </content>23 Center MEQ/L<content styleCode="Italic s"> (22-30 MEQ/L)</content> Glucose 74-106 Above high <content Saint [Mass/volume] in normal styleCode="Bold"> Owen hs Serum or Plasma Glucose Medical </content>109 Center MG/DL H<content styleCode="Italic s"> (74-106 MG/DL)</content> Creatinine 0.5-1.3 <content [facility] [Mass/volume] in styleCode="Bold"> Owen hs Serum or Plasma Creatinine Medical </content>0.7 Center MG/DL<content styleCode="Italic s"> (0.5-1.3 MG/DL)</content> Chloride 98-107 Above high <content [facility] [Moles/volume] in normal styleCode="Bold"> Jeronimo phs Serum or Plasma Chloride Medical </content>110 Center MEQ/L H<content styleCode="Italic s"> (98-107 MEQ/L)</content> UNK 7-17 <content [facility] styleCode="Bold"> Angela BUN </content>11 Medical MG/DL<content Center styleCode="Italic s"> (7-17 MG/DL)</content> UNK > 60 <content [facility] styleCode="Bold"> Angela EGFR </content>96 Medical GFR<content Center styleCode="Italic s"> (> 60 GFR)</content> Calcium 8.4-10. <content [facility] [Mass/volume] in 2 styleCode="Bold"> Owen hs Serum or Plasma Calcium Medical </content>9.9 Center MG/DL<content styleCode="Italic s"> (8.4-10.2 MG/DL)</content> Aspartate 14-36 <content [facility] aminotransferase styleCode="Bold"> Owen hs [Enzymatic Aspartate Medical activity/volume] Aminotransferase Center in Serum or Plasma (AST) </content>33 IU/L<content styleCode="Italic s"> (14-36 IU/L)</content> Alanine 7-30 Above high <content [facility] aminotransferase normal styleCode="Bold"> Owen hs [Enzymatic Alanine Medical activity/volume] Aminotransferase Center in Serum or Plasma (ALT) </content>40 IU/L H<content styleCode="Italic s"> (7-30 IU/L)</content> Albumin 3.5-5.0 <content [facility] [Mass/volume] in styleCode="Bold"> Owen hs Serum or Plasma Albumin Medical </content>4.8 Center G/DL<content styleCode="Italic s"> (3.5-5.0 G/DL)</content> Alkaline 38-126 <content [facility] phosphatase styleCode="Bold"> Angela [Enzymatic Alkaline Medical activity/volume] Phosphatase (ALP) Cente r in Serum or Plasma </content>90 IU/L<content styleCode="Italic s"> (38-126 IU/L)</content> Bilirubin.total 0.2-1.3 <content [facility] [Mass/volume] in styleCode="Bold"> Owen hs Serum or Plasma Bilirubin Total Medical </content>1.0 Center MG/DL<content styleCode="Italic s"> (0.2-1.3 MG/DL)</content> ID Date Data Source Liver Profile 09/02/2018 03:50:00 PM EST [facility] Name Value Range Interpretation Description Data Sup porting Code Source(s) Document(s ) Alkaline 38-126 <content [facility] phosphatase styleCode="Bold"> Angela [Enzymatic Alkaline Medical activity/volume] Phosphatase (ALP) Cente r in Serum or Plasma </content>90 IU/L<content styleCode="Italic s"> (38-126 IU/L)</content> Aspartate 14-36 <content [facility] aminotransferase styleCode="Bold"> Owen hs [Enzymatic Aspartate Medical activity/volume] Aminotransferase Center in Serum or Plasma (AST) </content>33 IU/L<content styleCode="Italic s"> (14-36 IU/L)</content> Alanine 7-30 Above high <content [facility] aminotransferase normal styleCode="Bold"> Owen hs [Enzymatic Alanine Medical activity/volume] Aminotransferase Center in Serum or Plasma (ALT) </content>40 IU/L H<content styleCode="Italic s"> (7-30 IU/L)</content> UNK 0.0-0.3 <content [facility] styleCode="Bold"> Angela Bilirubin, Direct Medical </content>< 0.2 Center MG/DL<content styleCode="Italic s"> (0.0-0.3 MG/DL)</content> Bilirubin.total 0.2-1.3 <content [facility] [Mass/volume] in styleCode="Bold"> Owen hs Serum or Plasma Bilirubin Total Medical </content>1.0 Center MG/DL<content styleCode="Italic s"> (0.2-1.3 MG/DL)</content> Albumin 3.5-5.0 <content [facility] [Mass/volume] in styleCode="Bold"> Owen hs Serum or Plasma Albumin Medical </content>4.8 Center G/DL<content styleCode="Italic s"> (3.5-5.0 G/DL)</content> ID Date Data Source HematologyRou 09/02/2018 03:50:00 PM EST [facility] Name Value Range Interpretation Description Data Sup porting Code Source(s) Document(s ) Leukocytes 4.4-11.0 <content [facility] [#/volume] in styleCode="Bold Angela Blood by ">White Blood Medical Automated count Cell Count Center </content>10.86 KCUMM<content styleCode="Ital ics"> (4.4-11.0 KCUMM)</content > Hematocrit 36.0-46. <content Saint [Volume 0 styleCode="Bold Angela Fraction] of ">Hematocrit Medical Blood by </content>40.2 Center Automated count %<content styleCode="Ital ics"> (36.0-46.0 %)</content> Hemoglobin 12.3-16. <content [facility] [Mass/volume] in 0 styleCode="Bold Angela Blood ">Hemoglobin Medical </content>13.2 Center G/DL<content styleCode="Ital ics"> (12.3-16.0 G/DL)</content> Erythrocytes 4.0-5.1 <content Saint [#/volume] in styleCode="Bold Angela Blood by ">Red Blood Medical Automated count Cell Count Center </content>4.71 MCUMM<content styleCode="Ital ics"> (4.0-5.1 MCUMM)</content > Erythrocyte mean 32.0-37. <content [facility] corpuscular 0 styleCode="Bold Angela hemoglobin ">Mean Corpus. Medical concentration Hgb Center [Mass/volume] by Concentration Automated count (MCHC) </content>32.8 G/DL<content styleCode="Ital ics"> (32.0-37.0 G/DL)</content> Erythrocyte 11.5-14. <content [facility] distribution 5 styleCode="Bold Angela width [Ratio] by ">Red Cell Medical Automated count Distribution Center Width </content>14.4 %<content styleCode="Ital ics"> (11.5-14.5 %)</content> Erythrocyte mean 26.0-34. <content [facility] corpuscular 0 styleCode="Bold Angela hemoglobin ">Mean Medical [Entitic mass] Corposcular Center by Automated Hemoglobin count </content>28.0 PG<content styleCode="Ital ics"> (26.0-34.0 PG)</content> Erythrocyte mean 80.0-100 <content [facility] corpuscular .0 styleCode="Bold Angela volume [Entitic ">Mean Medical volume] by Corpuscular Center Automated count Volume </content>85.4 FL<content styleCode="Ital ics"> (80.0-100.0 FL)</content> Platelet mean 8.0-11.0 <content Saint volume [Entitic styleCode="Bold Angela volume] in Blood ">Mean Platelet Medical by Automated Volume Center count </content>9.5 FL<content styleCode="Ital ics"> (8.0-11.0 FL)</content> UNK 0.0 <content Saint styleCode="Bold Angela ">Nucleated Red Medical Blood Cell Center Count </content>0.00 KCUMM<content styleCode="Ital ics"> (0.0 KCUMM)</content > UNK 0 <content Saint styleCode="Bold Angela ">Nucleated Red Medical Blood Cell Center </content>0.0 /100<content styleCode="Ital ics"> (0 /100)</content> Platelets 130-400 <content Saint [#/volume] in styleCode="Bold [facility] Blood by ">Platelet Medical Automated count Count Center </content>341 KCUMM<content styleCode="Ital ics"> (130-400 KCUMM)</content > ID Date Data Source GFR(Creatinine) 09/02/2018 03:50:00 PM [facility] Name Value Range Interpretation Code Description Data Mali rce(s) Supporting Document(s ) UNK > 60 <content [facility] styleCode="Bold"> Medical Cent er EGFR </content>96 GFR<content styleCode="Italic s"> (> 60 GFR)</content> ID Date Data Source BMP 09/02/2018 03:50:00 PM [facility] Name Value Range Interpretation Description Data Sup porting Code Source(s) Document(s ) Sodium 137-145 <content Saint [Moles/volume] in styleCode="Bold"> [facility] Serum or Plasma Sodium Medical </content>143 Center MEQ/L<content styleCode="Italic s"> (137-145 MEQ/L)</content> Potassium 3.5-5.3 <content Saint [Moles/volume] in styleCode="Bold"> [facility] Serum or Plasma Potassium Medical </content>4.1 Center MEQ/L<content styleCode="Italic s"> (3.5-5.3 MEQ/L)</content> Chloride 98-107 Above high <content Saint [Moles/volume] in normal styleCode="Bold"> [facility] Serum or Plasma Chloride Medical </content>110 Center MEQ/L H<content styleCode="Italic s"> (98-107 MEQ/L)</content> UNK 7-17 <content Saint styleCode="Bold"> Angela BUN </content>11 Medical MG/DL<content Center styleCode="Italic s"> (7-17 MG/DL)</content> Carbon dioxide, 22-30 <content [facility] total styleCode="Bold"> Angela [Moles/volume] in Carbon Dioxide Medical Serum or Plasma </content>23 Center MEQ/L<content styleCode="Italic s"> (22-30 MEQ/L)</content> Creatinine 0.5-1.3 <content [facility] [Mass/volume] in styleCode="Bold"> Owen hs Serum or Plasma Creatinine Medical </content>0.7 Center MG/DL<content styleCode="Italic s"> (0.5-1.3 MG/DL)</content> Glucose 74-106 Above high <content Saint [Mass/volume] in normal styleCode="Bold"> Owen hs Serum or Plasma Glucose Medical </content>109 Center MG/DL H<content styleCode="Italic s"> (74-106 MG/DL)</content> Alanine 7-30 Above high <content [facility] aminotransferase normal styleCode="Bold"> Owen hs [Enzymatic Alanine Medical activity/volume] Aminotransferase Center in Serum or Plasma (ALT) </content>40 IU/L H<content styleCode="Italic s"> (7-30 IU/L)</content> UNK > 60 <content [facility] styleCode="Bold"> Angela EGFR </content>96 Medical GFR<content Center styleCode="Italic s"> (> 60 GFR)</content> Calcium 8.4-10. <content [facility] [Mass/volume] in 2 styleCode="Bold"> Owen hs Serum or Plasma Calcium Medical </content>9.9 Center MG/DL<content styleCode="Italic s"> (8.4-10.2 MG/DL)</content> Aspartate 14-36 <content [facility] aminotransferase styleCode="Bold"> Owen hs [Enzymatic Aspartate Medical activity/volume] Aminotransferase Center in Serum or Plasma (AST) </content>33 IU/L<content styleCode="Italic s"> (14-36 IU/L)</content> Albumin 3.5-5.0 <content [facility] [Mass/volume] in styleCode="Bold"> Owen hs Serum or Plasma Albumin Medical </content>4.8 Center G/DL<content styleCode="Italic s"> (3.5-5.0 G/DL)</content> Bilirubin.total 0.2-1.3 <content [facility] [Mass/volume] in styleCode="Bold"> Owen hs Serum or Plasma Bilirubin Total Medical </content>1.0 Center MG/DL<content styleCode="Italic s"> (0.2-1.3 MG/DL)</content> Alkaline 38-126 <content [facility] phosphatase styleCode="Bold"> Angela [Enzymatic Alkaline Medical activity/volume] Phosphatase (ALP) Cente r in Serum or Plasma </content>90 IU/L<content styleCode="Italic s"> (38-126 IU/L)</content> Procedure Social History Code Duration Value Status Description Data Source(s ) Caffeine Use 06/24/2020 completed NEXTGEN ([facility]ak [facility] Details 12:00:00 AM [facility]) Smoking 06/24/2020 Unknown if ever completed Unknown if ever NEXT GEN ([facility] 12:00:00 AM smoked smoked [facility]) Caffeine Use 05/08/2020 completed NEXTGEN ([facility]ak nt Details 12:00:00 AM [facility]) 04/16/2020 Occasional completed Occasional NEXTGEN ([facility] 12:00:00 AM cigarette smoker cigarette smoker [facility]) Smoking 09/03/2018 Daily Smoker completed Daily Smoker [facility] 01:00:00 PM Medical Cente r EST Smoking 09/02/2018 Daily Smoker completed Daily Smoker [facility] 07:52:00 PM Medical Cente r EST Smoking 09/02/2018 Daily Smoker completed Daily Smoker [facility] 03:12:00 PM Medical Cente r EST Smoking 09/02/2018 Daily Smoker completed Daily Smoker [facility] 02:14:00 PM Medical Cente r EST Smoking 09/02/2018 Daily Smoker completed Daily Smoker [facility] 02:00:00 PM Medical Cente r EST Alcohol Use completed NEXTGEN ([facility]) Smoking Unknown if ever completed Unknown if ever [facility] Smoking Unknown if ever completed Unknown if ever eCW1 ([facility] smoked [facility]) Vital Signs ID Date Data Source UNK Name Value Range Interpretation Code Description Data Source(s) Oxygen saturation 99 % 99 % NEXTGEN ([facility] in Arterial blood Angela Medical by Pulse oximetry Center) Body mass index 38.67 kg/m2 Overweight 38.67 kg/m2 NEXTGEN ([facility] (BMI) [Ratio] [facility]) Respiratory rate 18 /min 18 /min NEXTGEN ([facility]) Body temperature 36.67 Ilana 36.67 Ilana NEXTGEN ([facility]) Heart rate 69 /min 69 /min NEXTGEN ([facility]) Diastolic blood 78 mm[Hg] 78 mm[Hg] NEXTGEN ( [facility] pressure [facility]) Systolic blood 129 mm[Hg] 129 mm[Hg] NEXTGEN (S aint pressure [facility]) Body weight 89.811 kg 89.811 kg [facility]EXTGEN ([facility]) Body height 152.40 cm 152.40 cm NEXTGEN ([facility]) Diastolic blood 66 mm[Hg] 66 mm[Hg] eCW1 ([facility]) Systolic blood 102 mm[Hg] 102 mm[Hg] eCW1 ([facility] pressure [facility]) Deprecated Oxygen 96 % 96 % eCW1 (S aint saturation in [facility] Oximetry Body temperature 98.6 [degF] 98.6 [degF] eCW1 ( [facility]) Respiratory rate 18 /min 18 /min eCW1 ([facility]) Heart rate 70 /min 70 /min eCW1 ([facility]) Body mass index 36.03 kg/m2 36.03 kg/m2 eCW1 (S aint (BMI) [Ratio] [facility] Med ical [facility]) Body weight 197 [lb_av] 197 [lb_av] eCW1 ([facility]) Body height 62 [in_us] 62 [in_us] eCW1 ([facility]) Oxygen saturation 95 % 95 % NEXTGEN ([facility] in Arterial blood [facility] by Pulse oximetry Center) Body mass index 37.77 kg/m2 Overweight 37.77 kg/m2 NEXTGEN ([facility] (BMI) [Ratio] [facility]) Respiratory rate 20 /min 20 /min NEXTGEN ([facility]) Body temperature 36.50 Ilana 36.50 Ilana NEXTGEN ([facility]) Heart rate 69 /min 69 /min NEXTGEN ([facility]) Diastolic blood 72 mm[Hg] 72 mm[Hg] NEXTGEN ( [facility] pressure [facility]) Systolic blood 106 mm[Hg] 106 mm[Hg] NEXTGEN (S aint pressure [facility]) Body weight 87.725 kg 87.725 kg NEXTGEN ([facility]) Body height 152.40 cm 152.40 cm [facility] ([facility]) [facility] 96 % 96 % [facility] in Arterial blood [facility] by Pulse oximetry Center) Body mass index 38.28 kg/m2 Overweight 38.28 kg/m2 NEXTGEN ([facility] (BMI) [Ratio] [facility]) Respiratory rate 18 /min 18 /min [facility] ([facility]) Body temperature 36.78 Ilana 36.78 Ilana [facility]) Heart rate 75 /min 75 /min [facility] ([facility]) Diastolic blood 74 mm[Hg] 74 mm[Hg] [facility] ( [facility] pressure [facility]) Systolic blood 118 mm[Hg] 118 mm[Hg] [facility] (S aint [facility]) Body weight 88.904 kg 88.904 kg [facility] ([facility]) Body height 152.40 cm 152.40 cm [facility]) Body surface area 1.88 m2 1.88 m2 NEXTGEN ([facility] Derived from [facility]) Body mass index 36.13 kg/m2 Overweight 36.13 kg/m2 NEXTGEN ([facility] (BMI) [Ratio] [facility]) Body weight 83.915 kg 83.915 kg [facility]) Body height 152.40 cm 152.40 cm [facility]) Body height 152.40 cm 152.40 cm [facility] ([facility]) Respiratory rate 20 /min 20 /min NEXTGEN ([facility]) Body temperature 36.33 Ilana 36.33 Ilana [facility] ([facility]) Heart rate 86 /min 86 /min NEXTGEN ([facility]) Diastolic blood 86 mm[Hg] 86 mm[Hg] NEXTGEN ( [facility] pressure [facility]) Systolic blood 130 mm[Hg] 130 mm[Hg] NEXTGEN ([facility] pressure [facility]) Body weight 84.277 kg 84.277 kg [facility] ([facility]) Oxygen saturation 96 % 96 % NEXTGEN ([facility] in Arterial blood [facility] Pulse oximetry Center) Body mass index 30.43 kg/m2 Overweight 30.43 kg/m2 [facility] ([facility] (BMI) [Ratio] [facility]) Respiratory rate 18 /min 18 /min [facility] ([facility]) Body temperature 36.39 Ilana 36.39 Ilana [facility]) Heart rate 83 /min 83 /min [facility] ([facility]) Diastolic blood 65 mm[Hg] 65 mm[Hg] [facility] ( [facility] pressure [facility]) Systolic blood 101 mm[Hg] 101 mm[Hg] [facility] (S [facility] pressure [facility]) Body weight 75.478 kg 75.478 kg [facility] ([facility]) Body height 157.48 cm 157.48 cm [facility] ([facility]) Heart rate 84 /min 84 /min [facility] Diastolic blood 64 mm[Hg] 64 mm[Hg] [facility] Systolic blood 107 mm[Hg] 107 mm[Hg] [facility] Body temperature [id number] Ilana [facility] Respiratory rate 18 /min 18 /min [facility] Heart rate 76 /min 76 /min [facility] Diastolic blood 67 mm[Hg] 67 mm[Hg] [facility] Systolic blood 109 mm[Hg] 109 mm[Hg] [facility] Heart rate 84 /min 84 /min [facility] Diastolic blood 69 mm[Hg] 69 mm[Hg] [facility] Systolic blood 105 mm[Hg] 105 mm[Hg] [facility] pressure Medical Center Body weight 71.452880 kg 71.350193 kg [facility] Body temperature 36.433097 36.818472 [facility] Respiratory rate 20 /min 20 /min [facility] Heart rate 81 /min 81 /min [facility] Diastolic blood 63 mm[Hg] 63 mm[Hg] [facility] Center Systolic blood 109 mm[Hg] 109 mm[Hg] [facility] Heart rate 84 /min 84 /min [facility] Diastolic blood 75 mm[Hg] 75 mm[Hg] [facility] Systolic blood 109 mm[Hg] 109 mm[Hg] [facility] Body temperature 36.953609 36.936052 [facility] Respiratory rate 18 /min 18 /min [facility] Body temperature 35.467229 35.615165 [facility] Respiratory rate 20 /min 20 /min [facility] Body temperature 36.951906 36.844392 [facility] Respiratory rate 18 /min 18 /min [facility] Body weight 69.405054 kg 69.860784 kg [facility] Deprecated Oxygen 96 % 96 % [facility] saturation in [facility] Capillary blood by Oximetry Heart rate 121 /min 121 /min [facility] Systolic blood 80 mm[Hg] 80 mm[Hg] [facility] Diastolic blood 120 mm[Hg] 120 mm[Hg] [facility] Center Oxygen saturation 96 % 96 % [facility] in Arterial blood Medical Center by Pulse oximetry Heart rate 116 /min 116 /min [facility] Systolic blood 91 mm[Hg] 91 mm[Hg] [facility] Diastolic blood 131 mm[Hg] 131 mm[Hg] [facility] Body temperature 35.262871 35.909963 [facility] Respiratory rate 17 /min 17 /min [facility] Heart rate 113 /min 113 /min [facility] Systolic blood 66 mm[Hg] 66 mm[Hg] [facility] Diastolic blood 129 mm[Hg] 129 mm[Hg] [facility] Body weight 70.539463 kg 70.690140 kg [facility] [place] Body temperature 36.184577 36.765605 [facility] Respiratory rate 18 /min 18 /min [facility] Heart rate 120 /min 120 /min [facility] Body height 152.520370 152.431286 cm [facility] Systolic blood 68 mm[Hg] 68 mm[Hg] [facility] Diastolic blood 115 mm[Hg] 115 mm[Hg] [facility] Body temperature 37.503344 37.998421 [facility] Respiratory rate 16 /min 16 /min [facility] Deprecated Oxygen 98 % 98 % [facility] saturation in [facility] Capillary blood by Oximetry Heart rate 79 /min 79 /min [facility] Systolic blood 67 mm[Hg] 67 mm[Hg] [facility] Diastolic blood 127 mm[Hg] 127 mm[Hg] [facility] Oxygen saturation 98 % 98 % [facility] in Arterial blood [facility] Center by Pulse oximetry Body temperature 36.020165 36.448351 [facility] Respiratory rate 16 /min 16 /min [facility] Deprecated Oxygen 99 % 99 % [facility] saturation in [facility] Capillary blood by Oximetry Oxygen saturation 99 % 99 % [facility] in Arterial blood [facility] Center by Pulse oximetry Body temperature 36.616666 36.319308 [facility] Respiratory rate 19 /min 19 /min [facility] Deprecated Oxygen 98 % 98 % [facility] saturation in [facility] Capillary blood by Oximetry Oxygen saturation 98 % 98 % [facility] in Arterial blood Medical Center by Pulse oximetry Deprecated Oxygen 98 % 98 % [facility] saturation in [facility] Capillary blood by Oximetry Oxygen saturation 98 % 98 % [facility] in Arterial blood [facility] Center by Pulse oximetry Body weight 74.066722 kg 74.010237 kg [facility] Body height 160.079856 160.320318 cm [facility] Body mass index 29.2 kg/m2 29.2 kg/m2 [facility] eph (BMI) [Ratio] [facility] Body mass index 25.42 kg/m2 Overweight 25.42 kg/m2 NEXTGEN ([facility] (BMI) [Ratio] [facility]) Respiratory rate 16 /min 16 /min NEXT[facility] ([facility]) Body temperature 37.11 Ilana 37.11 Ilana [facility]) Heart rate 83 /min 83 /min [facility]) Diastolic blood 73 mm[Hg] 73 mm[Hg] NEXTGEN ( [facility]) Systolic blood 106 mm[Hg] 106 mm[Hg] [facility]) Body weight 63.049 kg 63.049 kg [facility]) Body height 157.48 cm 157.48 cm [facility] ([facility]) Body mass index 31.46 kg/m2 Overweight 31.46 kg/m2 [facility] ([facility] (BMI) [Ratio] [facility]) Respiratory rate 18 /min 18 /min [facility] ([facility]) Body temperature 36.80 Ilana 36.80 Ilana [facility] ([facility]) Heart rate 83 /min 83 /min [facility] ([facility]) Diastolic blood 78 mm[Hg] 78 mm[Hg] [facility] ( [facility]) Systolic blood 118 mm[Hg] 118 mm[Hg] [facility]) Body weight 78.018 kg 78.018 kg [facility] ([facility]) Body height 157.48 cm 157.48 cm [facility] ([facility]) Patient Treatment Plan of Care Planned Activity Planned Date Details Description Data Source (s) Prazosin 2 MG Oral Capsule 06/19/2020 N EXTGEN ([facility] 12:00:00 AM [facility]) Mirtazapine 15 MG Oral Tablet 06/19/2020 NEXTGEN ([facility] [Remeron] 12:00:00 AM [facility]) Fluoxetine 40 MG Oral Capsule 06/19/2020 NEXTGEN ([facility] [Prozac] 12:00:00 AM [facility]) 24 HR Bupropion Hydrochloride 06/19/2020 NEXTGEN ([facility] 150 MG Extended Release Oral 12:00:00 AM [facility]) Prazosin 2 MG Oral Capsule 06/19/2020 N EXTGEN ([facility] 12:00:00 AM [facility]) Mirtazapine 15 MG Oral Tablet 06/19/2020 NEXTGEN ([facility] [Remeron] 12:00:00 AM [facility]) Fluoxetine 40 MG Oral Capsule 06/19/2020 NEXTGEN ([facility] [Prozac] 12:00:00 AM [facility]) 24 HR Bupropion Hydrochloride 06/19/2020 NEXTGEN ([facility] 150 MG Extended Release Oral 12:00:00 AM [facility]) 24 HR Bupropion Hydrochloride 06/19/2020 NEXTGEN ([facility] 150 MG Extended Release Oral 12:00:00 AM [facility]) Prazosin 2 MG Oral Capsule 06/19/2020 N EXTGEN ([facility] 12:00:00 AM [facility]) 120 ACTUAT Budesonide 0.16 05/31/2020 N EXTGEN ([facility] MG/ACTUAT / formoterol 12:00:00 AM [facility] Medical fumarate 0.0045 MG/ACTUAT Ce nter) Metered Dose Inhaler [Symbicort] Fluoxetine 40 MG Oral Capsule 05/22/2020 NEXTGEN ([facility] [Prozac] 12:00:00 AM [facility]) Prazosin 1 MG Oral Capsule 05/22/2020 N EXTGEN ([facility] 12:00:00 AM [facility]) Mirtazapine 15 MG Oral Tablet 05/22/2020 NEXTGEN ([facility] [Remeron] 12:00:00 AM [facility]) apixaban 5 MG Oral Tablet 05/08/2020 NE XTGEN ([facility] [Eliquis] 12:00:00 AM [facility]) Nicotine 2 MG Oral Lozenge 04/16/2020 N EXTGEN ([facility] [Nicorette] 12:00:00 AM [facility]) 24 HR Nicotine 0.583 MG/HR 04/16/2020 N EXTGEN ([facility] Transdermal Patch [Nicoderm 12:00:00 AM [facility] C-Q] [place]) 24 HR metoprolol succinate 25 04/16/2020 NEXTGEN ([facility] MG Extended Release Oral 12:00:00 AM [facility]) Lisinopril 5 MG Oral Tablet 04/16/2020 NEXTGEN ([facility] 12:00:00 AM [facility]) apixaban 5 MG Oral Tablet 04/11/2020 NE XTGEN ([facility] [Eliquis] 12:00:00 AM [facility]) Prazosin 1 MG Oral Capsule 04/10/2020 N EXTGEN ([facility] 12:00:00 AM [facility]) Fluoxetine 40 MG Oral Capsule 04/10/2020 NEXTGEN ([facility] [Prozac] 12:00:00 AM [facility]) Mirtazapine 15 MG Oral Tablet 04/10/2020 NEXTGEN ([facility] [Remeron] 12:00:00 AM [facility]) Fluoxetine 40 MG Oral Capsule 04/10/2020 NEXTGEN ([facility] [Prozac] 12:00:00 AM [facility]) Mirtazapine 15 MG Oral Tablet 03/13/2020 NEXTGEN ([facility] [Remeron] 12:00:00 AM [facility]) Fluoxetine 20 MG Oral Capsule 03/13/2020 NEXTGEN ([facility] [Prozac] 12:00:00 AM [facility]) Fluoxetine 10 MG Oral Capsule 03/13/2020 NEXTGEN ([facility] [Prozac] 12:00:00 AM [facility]) Prazosin 1 MG Oral Capsule 03/13/2020 N EXTGEN ([facility] 12:00:00 AM [facility]) Lisinopril 5 MG Oral Tablet 02/16/2020 NEXTGEN ([facility] 12:00:00 AM [facility]) Fluoxetine 10 MG Oral Capsule 02/14/2020 NEXTGEN ([facility] [Prozac] 12:00:00 AM [facility]) Fluoxetine 20 MG Oral Capsule 02/14/2020 NEXTGEN ([facility] [Prozac] 12:00:00 AM [facility]) Prazosin 1 MG Oral Capsule 02/14/2020 N EXTGEN ([facility] 12:00:00 AM [facility]) Mirtazapine 15 MG Oral Tablet 02/14/2020 NEXTGEN ([facility] [Remeron] 12:00:00 AM [facility]) Prazosin 1 MG Oral Capsule 01/18/2020 N EXTGEN ([facility] 12:00:00 AM [facility]) Mirtazapine 15 MG Oral Tablet 01/18/2020 NEXTGEN ([facility] [Remeron] 12:00:00 AM [facility]) Fluoxetine 20 MG Oral Capsule 01/18/2020 NEXTGEN ([facility] [Prozac] 12:00:00 AM [facility]) apixaban 5 MG Oral Tablet 01/01/2020 NE XTGEN ([facility] [Eliquis] 12:00:00 AM [facility]) Mirtazapine 15 MG Oral Tablet 12/21/2019 NEXTGEN ([facility] [Remeron] 12:00:00 AM [facility]) Fluoxetine 20 MG Oral Capsule 12/21/2019 NEXTGEN ([facility] [Prozac] 12:00:00 AM [facility]) Prazosin 1 MG Oral Capsule 12/21/2019 N EXTGEN ([facility] 12:00:00 AM [facility]) 200 ACTUAT Albuterol 0.09 11/23/2019 NE XTGEN ([facility] MG/ACTUAT Metered Dose 12:00:00 AM [facility] Inhaler [Ventolin] [place]) atorvastatin 10 MG Oral 11/23/2019 NEXT GEN ([facility] Tablet 12:00:00 AM [facility]) Aspirin 81 MG Chewable Tablet 11/23/2019 NEXTGEN ([facility] 12:00:00 AM [facility]) Prazosin 1 MG Oral Capsule 11/23/2019 N EXTGEN ([facility] 12:00:00 AM [facility]) 24 HR metoprolol succinate 25 11/15/2019 NEXTGEN ([facility] MG Extended Release Oral 12:00:00 AM [facility]) Lisinopril 5 MG Oral Tablet 11/15/2019 NEXTGEN ([facility] 12:00:00 AM [facility]) 24 HR metoprolol succinate 50 11/03/2019 eCW1 ([facility] Extended Release Oral 12:00:00 AM [facility] Medical Practice Tablet ) Clonazepam 1 MG Oral Tablet 10/27/2019 NEXTGEN ([facility] [Klonopin] 12:00:00 AM [facility]) Mirtazapine 15 MG Oral Tablet 10/27/2019 NEXTGEN ([facility] [Remeron] 12:00:00 AM [facility]) 24 HR metoprolol succinate 25 10/18/2019 NEXTGEN ([facility] MG Extended Release Oral 12:00:00 AM [facility]) Lisinopril 5 MG Oral Tablet 10/18/2019 NEXTGEN ([facility] 12:00:00 AM [facility]) pregabalin 75 MG Oral Capsule 10/13/2019 NEXTGEN ([facility] [Lyrica] 12:00:00 AM [facility]) Fluoxetine 20 MG Oral Capsule 10/13/2019 NEXTGEN ([facility] [Prozac] 12:00:00 AM [facility]) Prazosin 1 MG Oral Capsule 10/13/2019 N EXTGEN ([facility] 12:00:00 AM [facility]) Clonazepam 0.5 MG Oral Tablet 10/13/2019 NEXTGEN ([facility] [Klonopin] 12:00:00 AM [facility]) aripiprazole 5 MG Oral Tablet 08/15/2019 NEXTGEN ([facility] [Abilify] 12:00:00 AM [facility]) Hydroxyzine Hydrochloride 50 08/15/2019 NEXTGEN ([facility] MG Oral Tablet 12:00:00 AM [facility]) quetiapine 100 MG Oral Tablet 08/15/2019 NEXTGEN ([facility] [Seroquel] 12:00:00 AM [facility]) Sertraline 50 MG Oral Tablet 08/15/2019 NEXTGEN ([facility] [Zoloft] 12:00:00 AM [facility]) Sertraline 50 MG Oral Tablet 07/12/2019 NEXTGEN ([facility] [Zoloft] 12:00:00 AM [facility]) quetiapine 50 MG Oral Tablet 07/12/2019 NEXTGEN ([facility] [Seroquel] 12:00:00 AM [facility]) Hydroxyzine Hydrochloride 50 07/12/2019 NEXTGEN ([facility] MG Oral Tablet 12:00:00 AM EDT [facility]) aripiprazole 5 MG Oral Tablet 07/12/2019 NEXTGEN ([facility] [Abilify] 12:00:00 AM [facility]) Sertraline 50 MG Oral Tablet 07/05/2019 NEXTGEN ([facility] [Zoloft] 12:00:00 AM [facility]) quetiapine 50 MG Oral Tablet 07/05/2019 NEXTGEN ([facility] [Seroquel] 12:00:00 AM [facility]) Hydroxyzine Hydrochloride 50 07/05/2019 NEXTGEN ([facility] MG Oral Tablet 12:00:[address] [facility]) aripiprazole 5 MG Oral Tablet 07/05/2019 NEXTGEN ([facility] [Abilify] 12:00:00 AM [facility]) 120 ACTUAT Budesonide 0.16 06/23/2019 N EXTGEN ([facility] MG/ACTUAT / formoterol 12:00:00 AM EDT [facility] Medical fumarate 0.0045 MG/ACTUAT Ce nter) Metered Dose Inhaler [Symbicort] apixaban 5 MG Oral Tablet 06/23/2019 NE XTGEN ([facility] [Eliquis] 12:00:00 AM [facility]) atorvastatin 10 MG Oral 06/23/2019 NEXT GEN ([facility] Tablet 12:00:00 AM [facility]) Kapspargo Sprinkle 25 mg 06/23/2019 NEX TGEN ([facility] capsule,extended release 12:00:00 AM [facility]) 200 ACTUAT Albuterol 0.09 06/23/2019 NE XTGEN ([facility] aripiprazole 5 MG Oral Tablet 06/07/2019 NEXTGEN ([facility] [Abilify] 12:00:00 AM [facility]) Hydroxyzine Hydrochloride 50 06/07/2019 NEXTGEN ([facility] MG Oral Tablet 12:00:[address] [facility]) quetiapine 50 MG Oral Tablet 06/07/2019 NEXTGEN ([facility] [Seroquel] 12:00:00 AM [facility]) Sertraline 50 MG Oral Tablet 06/07/2019 NEXTGEN ([facility] [Zoloft] 12:00:00 AM [facility]) aripiprazole 5 MG Oral Tablet 05/08/2019 NEXTGEN ([facility] [Abilify] 12:00:00 AM [facility]) Hydroxyzine Hydrochloride 50 05/08/2019 NEXTGEN ([facility] MG Oral Tablet 12:00:[address] [facility]) quetiapine 50 MG Oral Tablet 05/08/2019 NEXTGEN ([facility] [Seroquel] 12:00:00 AM [facility]) Sertraline 50 MG Oral Tablet 05/08/2019 NEXTGEN ([facility] [Zoloft] 12:00:00 AM [facility]) Hydroxyzine Hydrochloride 50 04/10/2019 NEXTGEN ([facility] MG Oral Tablet 12:00:[address] [facility]) quetiapine 50 MG Oral Tablet 04/10/2019 NEXTGEN ([facility] [Seroquel] 12:00:00 AM [facility]) Sertraline 50 MG Oral Tablet 04/10/2019 NEXTGEN ([facility] [Zoloft] 12:00:00 AM [facility]) Hydroxyzine Hydrochloride 50 12/14/2018 NEXTGEN ([facility] MG Oral Tablet 12:00:[address] [facility]) quetiapine 50 MG Oral Tablet 12/14/2018 NEXTGEN ([facility] [Seroquel] 12:00:00 AM [facility]) Sertraline 50 MG Oral Tablet 12/14/2018 NEXTGEN ([facility] [Zoloft] 12:00:00 AM [facility]) aripiprazole 5 MG Oral Tablet 11/30/2018 NEXTGEN ([facility] [Abilify] 12:00:00 AM [facility]) quetiapine 50 MG Oral Tablet 11/30/2018 NEXTGEN ([facility] [Seroquel] 12:00:00 AM [facility]) Sertraline 50 MG Oral Tablet 11/30/2018 NEXTGEN ([facility] [Zoloft] 12:00:00 AM [facility]) quetiapine 100 MG Oral Tablet 11/30/2018 NEXTGEN ([facility] [Seroquel] 12:00:00 AM [facility]) Hydroxyzine Hydrochloride 50 11/30/2018 NEXTGEN ([facility] MG Oral Tablet 12:00:00 AM [facility]) quetiapine 100 MG Oral Tablet 11/02/2018 NEXTGEN ([facility] [Seroquel] 12:00:00 AM [facility]) Sertraline 50 MG Oral Tablet 11/02/2018 NEXTGEN ([facility] [Zoloft] 12:00:00 AM [facility]) Hydroxyzine Hydrochloride 50 11/02/2018 NEXTGEN ([facility] MG Oral Tablet 12:00:00 AM [facility]) Lisinopril 2.5 MG Oral Tablet 10/25/2018 NEXTGEN ([facility] 12:00:00 AM [facility]) Kapspargo Sprinkle 25 mg 10/25/2018 NEX TGEN ([facility] capsule,extended release 12:00:00 AM [facility]) apixaban 5 MG Oral Tablet 10/25/2018 NE XTGEN ([facility] [Eliquis] 12:00:00 AM [facility]) Aspirin 81 MG Chewable Tablet 09/22/2018 NEXTGEN ([facility] 12:00:00 AM [facility]) atorvastatin 10 MG Oral 09/22/2018 NEXT GEN ([facility] Tablet 12:00:00 AM [facility]) Kapspargo Sprinkle 25 mg 09/22/2018 NEX TGEN ([facility] capsule,extended release 12:00:00 AM [facility]) Hydroxyzine Hydrochloride 50 09/22/2018 NEXTGEN ([facility] MG Oral Tablet 12:00:00 AM [facility]) Escitalopram 20 MG Oral 09/22/2018 NEXT GEN ([facility] Tablet 12:00:00 AM [facility]) quetiapine 100 MG Oral Tablet 09/22/2018 NEXTGEN ([facility] [Seroquel] 12:00:00 AM [facility]) ZTlido 1.8 % topical patch 08/11/2018 N EXTGEN ([facility] 12:00:00 AM [facility]) 120 ACTUAT Budesonide 0.16 08/05/2018 N EXTGEN ([facility] MG/ACTUAT / formoterol 12:00:00 AM [facility] Medical fumarate 0.0045 MG/ACTUAT Ce nter) Metered Dose Inhaler [Symbicort] Famotidine 20 MG Oral Tablet 08/05/2018 NEXTGEN ([facility] 12:00:00 AM [facility]) tramadol hydrochloride 50 MG 08/05/2018 NEXTGEN ([facility] Oral Tablet 12:00:00 AM [facility]) Lisinopril 2.5 MG Oral Tablet 08/05/2018 NEXTGEN ([facility] 12:00:00 AM [facility]) apixaban 5 MG Oral Tablet 08/05/2018 NE XTGEN ([facility] [Eliquis] 12:00:00 AM [facility]) 24 HR venlafaxine 37.5 MG 08/05/2018 NE XTGEN ([facility] Extended Release Oral Capsule 12:00:00 AM [facility]) 24 HR Nicotine 0.875 MG/HR 04/18/2018 N EXTGEN ([facility] Transdermal Patch 12:00:00 AM [facility]) 200 ACTUAT Albuterol 0.09 12/30/2017 NE XTGEN ([facility] MG/ACTUAT Metered Dose 12:00:00 AM [facility] Medical Inhaler [Ventolin] [place]) 24 HR Nicotine 0.875 MG/HR 12/30/2017 N EXTGEN ([facility] Transdermal Patch 12:00:00 AM [facility]) Simvastatin 20 MG Oral Tablet 11/16/2017 NEXTGEN ([facility] 12:00:00 AM [facility]) Aspirin 81 MG Chewable Tablet 11/16/2017 NEXTGEN ([facility] 12:00:00 AM [facility]) 200 ACTUAT Albuterol 0.09 10/05/2017 NE XTGEN ([facility] MG/ACTUAT Metered Dose 12:00:00 AM [facility] Medical Inhaler [Ventolin] [place]) Phenazopyridine hydrochloride 09/08/2017 NEXTGEN ([facility] 100 MG Oral Tablet [Pyridium] 12:00:00 AM [facility]) Sulfamethoxazole 800 MG / 09/08/2017 NE XTGEN ([facility] Trimethoprim 160 MG Oral 12:00:00 AM [facility] Medical Tablet [Bactrim] [place]) Aspirin 81 MG Chewable Tablet 07/29/2017 NEXTGEN ([facility] 12:00:00 AM [facility]) gabapentin 100 MG Oral 07/29/2017 NEXTG EN ([facility] Capsule 12:00:00 AM [facility]) Hydrochlorothiazide 12.5 MG 07/29/2017 NEXTGEN ([facility] Oral Tablet 12:00:00 AM [facility]) Simvastatin 20 MG Oral Tablet 07/29/2017 NEXTGEN ([facility] 12:00:00 AM [facility]) Simvastatin 20 MG Oral Tablet 04/26/2017 NEXTGEN ([facility] 12:00:00 AM [facility]) Hydrochlorothiazide 12.5 MG 04/22/2017 NEXTGEN ([facility] Oral Tablet 12:00:00 AM [facility]) Simvastatin 20 MG Oral Tablet 01/25/2017 NEXTGEN ([facility] 12:00:00 AM [facility]) Hydrochlorothiazide 12.5 MG 01/25/2017 NEXTGEN ([facility] Oral Tablet 12:00:00 AM [facility]) Simvastatin 20 MG Oral Tablet 10/09/2016 NEXTGEN ([facility] 12:00:00 AM [facility]) 200 ACTUAT Albuterol 0.09 10/09/2016 NE XTGEN ([facility] MG/ACTUAT Metered Dose 12:00:00 AM [facility] Medical Inhaler [[facility]] [place]) Hydrochlorothiazide 12.5 MG 10/09/2016 NEXTGEN ([facility] Oral Tablet 12:00:00 AM [facility]) Simvastatin 20 MG Oral Tablet 10/08/2016 NEXTGEN ([facility] 12:00:00 AM [facility]) 200 ACTUAT Albuterol 0.09 10/08/2016 NE XTGEN ([facility] MG/ACTUAT Metered Dose 12:00:00 AM [facility] Inhaler [[facility]] [place]) buspirone hydrochloride 15 MG 01/16/2015 NEXTGEN ([facility] Oral Tablet 12:00:00 AM [facility]) Mirtazapine 30 MG Oral Tablet 01/16/2015 NEXTGEN ([facility] [Remeron] 12:00:00 AM [facility]) quetiapine 25 MG Oral Tablet 01/16/2015 NEXTGEN ([facility] [Seroquel] 12:00:00 AM [facility]) buspirone hydrochloride 15 MG 12/11/2014 NEXTGEN ([facility] Oral Tablet 12:00:00 AM [facility]) Mirtazapine 30 MG Oral Tablet 12/11/2014 NEXTGEN ([facility] [Remeron] 12:00:00 AM [facility]) quetiapine 25 MG Oral Tablet 12/11/2014 NEXTGEN ([facility] [Seroquel] 12:00:00 AM [facility]) Aspirin 81 MG Chewable Tablet 12/11/2014 NEXTGEN ([facility] 12:00:00 AM [facility]) Simvastatin 20 MG Oral Tablet 12/11/2014 NEXTGEN ([facility] 12:00:00 AM [facility]) quetiapine 25 MG Oral Tablet 11/28/2014 NEXTGEN ([facility] [Seroquel] 12:00:00 AM [facility]) Mirtazapine 30 MG Oral Tablet 11/06/2014 NEXTGEN ([facility] [Remeron] 12:00:00 AM [facility]) buspirone hydrochloride 15 MG 09/24/2014 NEXTGEN ([facility] Oral Tablet 12:00:00 AM [facility]) simvastatin 20 mg tablet 08/27/2014 NEX TGEN ([facility] 12:00:00 AM [facility]) quetiapine 25 MG Oral Tablet 08/27/2014 NEXTGEN ([facility] [Seroquel] 12:00:00 AM [facility]) Mirtazapine 30 MG Oral Tablet 08/27/2014 NEXTGEN ([facility] [Remeron] 12:00:00 AM [facility]) Hydrochlorothiazide 12.5 MG 08/27/2014 NEXTGEN ([facility] Oral Tablet 12:00:00 AM [facility]) Aspirin 81 MG Chewable Tablet 08/27/2014 NEXTGEN ([facility] 12:00:00 AM [facility]) buspirone hydrochloride 15 MG 08/27/2014 NEXTGEN ([facility] Oral Tablet 12:00:00 AM [facility]) Hydrochlorothiazide 12.5 MG 05/30/2014 NEXTGEN ([facility] Oral Tablet 12:00:00 AM [facility]) simvastatin 20 mg tablet 05/30/2014 NEX TGEN ([facility] 12:00:00 AM [facility]) Aspirin 81 MG Chewable Tablet 05/30/2014 NEXTGEN ([facility] 12:00:00 AM [facility]) Mirtazapine 30 MG Oral Tablet 03/29/2014 NEXTGEN ([facility] [Remeron] 12:00:00 AM [facility]) quetiapine 25 MG Oral Tablet 03/29/2014 NEXTGEN ([facility] [Seroquel] 12:00:00 AM [facility]) buspirone hydrochloride 15 MG 03/29/2014 NEXTGEN ([facility] Oral Tablet 12:00:00 AM [facility]) Oseltamivir 75 MG Oral 01/30/2014 NEXTG EN ([facility] Capsule [Tamiflu] 12:00:00 AM [facility]) buspirone hydrochloride 7.5 01/25/2014 NEXTGEN ([facility] MG Oral Tablet 12:00:[address] [facility]) gabapentin 100 mg capsule NE XTGEN ([facility]) hydrocodone 10 NEXTGEN (Deejay t mg-acetaminophen 325 mg [facility]) Acetaminophen 325 MG / NEXTG EN ([facility] Hydrocodone Bitartrate 10 MG [facility]) Hydroxyzine Hydrochloride 50 NEXTGEN ([facility] Oral Tablet [facility]) Alprazolam 2 MG Oral Tablet NEXTGEN ([facility] seroquel [facility] xanax [facility] traMADol [facility] famotidine [facility] venlafaxine [facility] Hydroxyzine Hydrochloride 50 [facility] quetiapine 100 MG Oral Tablet [facility] 24 HR metoprolol succinate 25 [facility] MG Extended Release Oral Med [facility] Tablet Lisinopril 2.5 MG Oral Tablet [facility] Escitalopram 20 MG Oral Deejay [facility] 120 ACTUAT Budesonide 0.16 S aint [facility] MG/ACTUAT / formoterol [facility] fumarate 0.0045 MG/ACTUAT Metered Dose Inhaler [Symbicort] Aspirin 81 MG Chewable Tablet [facility] apixaban 5 MG Oral Tablet [facility] [Eliquis] [facility] 200 ACTUAT Albuterol 0.09 Sa brent Miller MG/ACTUAT Metered Dose [facility] Inhaler [Proventil]
[2020-07-08] MEDS ORDERED: ASPIRIN 81 MG CHEWABLE TABLETS PO ONE (00:52)
[2020-07-08] MEDS ORDERED: ACETAMINOPHEN 1000 MG/100 ML VIAL (NON FORMULARY) IVPB ONE ×2 (00:52→10:44)
[2020-07-08] MEDS ORDERED: FAMOTIDINE 20 MG/50 ML IVPB 20 MG/50 ML MG IVPB ONE ×2 (00:55→01:40)
--- NOTE | 2020-07-08 00:56 | PDOC ---
History of Present Illness - General Chief Complaint: Pain Stated Complaint: ABDOMINAL PAIN Time Seen by Provider: 07/08/20 00:54 - History of Present Illness Initial Comments: 07/08/20 06:02 45yo F with PMHx cholecystectomy, CVA, DVT/PE, and COPD presents with epigastric pain that radiates to the chest and ABD. This stated this evening around 1030 while watching TV after eating a dinner of fried taquitos. It is sharp, made wo rse by sitting up, ambulating, and palpation. She hasn't taken anything for the pain. This pain has happened before, when she was found to have cholecystitis. However, she endorses that this is more intense than last time. Denies fevers, diaphoresis, vomiting, diarrhea. 07/08/20 06:19 Past History - Medical History Allergies/Adverse Reactions: Allergies Allergy/AdvReac Type Severity Reaction Status Date / Time No Known Allergies Allergy Verified 06/12/18 23:31 Home Medications: Ambulatory Orders Albuterol Sulfate Inhaler - [Ventolin HFA Inhaler -] 1 - 2 inh PO Q4H 02/01/18 Alprazolam [Xanax] 2 mg PO DAILY 02/01/18 Aspirin 81 mg PO DAILY 02/01/18 Cyclobenzaprine HCl 10 mg PO DAILY 02/01/18 Gabapentin [Neurontin] 600 mg PO ASDIR 02/01/18 Hydroxyzine HCl 50 mg PO DAILY 02/01/18 Nortriptyline HCl [Pamelor -] 25 mg PO DAILY 02/01/18 Omeprazole 40 mg PO DAILY 02/01/18 Quetiapine Fumarate [Seroquel -] 100 mg PO DAILY 02/01/18 Simvastatin [Zocor -] 20 mg PO HS 02/01/18 Amoxicillin/Potassium Clav [Augmentin 875-125 Tablet] 1 each PO BID #20 tablet 02/03/18 Celecoxib 200 mg PO DAILY 02/15/18 Fluconazole 100 mg PO DAILY 02/15/18 Nicotine Patch [Nicoderm Patch -] 1 patch TD DAILY 02/15/18 Quetiapine Fumarate [Seroquel] 100 tab PO HS 02/15/18 Acetaminophen [Tylenol -] 1,000 mg PO Q6H #30 tablet 06/10/18 predniSONE [Deltasone] 20 mg PO DAILY #8 tablet 06/10/18 Cephalexin [Keflex] 250 mg PO QID #39 capsule 06/13/18 Anemia: Yes Asthma: Yes (1year ago) Cancer: (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) Cardiac Disorders: Yes ([place] jul 2017) CVA: Yes ("couple strokes"-weakness left side) COPD: Yes (emphysema) CHF: No Dementia: No Diabetes: No GI Disorders: Yes (reflux) Disorders: No HTN: Yes Hypercholesterolemia: Yes Liver Disease: (stone imbedded in liver?) Psychiatric Problems: Yes (depression, anxiety,bipolar, PTSD) Seizures: No Thyroid Disease: No - Surgical History Abdominal Surgery: No Appendectomy: No Cardiac Surgery: No Cholecystectomy: Yes Lung Surgery: No Neurologic Surgery: No Orthopedic Surgery: No - Reproductive History Is Patient Now?: No - Immunization History Immunization Up to Date: Yes - Psycho-Social/Smoking History Smoking History: Current every day smoker Have you smoked in the past 12 months: No Number of Cigarettes Smoked Daily: 20 Information on smoking cessation initiated: Yes 'Breaking Loose' booklet given: 02/02/18 - Substance Abuse Hx (Audit-C & DAST Scrn) How often the patient has a drink containing alcohol: Monthly or less Score: In Men: 4 or > Positive; In Women: 3 or > Positive: 1 Screen Result (Pos requires Nsg. Audit-10AR): Negative In the last yr the pt used illegal drug/Rx for NonMed reason: Yes Score: Yes response is considered Positive: 1 Screen Result (Positive result requires Nsg. DAST-10): Positive Review of Systems - Review of Systems Able to Perform ROS?: Yes Is the patient limited Italian proficient: No Constitutional: No: Chills, Diaphoresis HEENTM: No: Blurred Vision, Recent change in vision Respiratory: No: Cough, Shortness of Breath, SOB with Exertion, SOB at Rest Cardiac (ROS): Yes: Chest Pain. No: Lightheadedness, Syncope ABD/GI: Yes: Abdominal Distended, Nausea. No: Constipated, Poor Appetite, Poor Fluid Intake, Rectal Bleeding, Vomiting, Tarry Stools : No: Burning, Dysuria Musculoskeletal: No: Symptoms Reported, Gout, Muscle Weakness Integumentary: No: Dryness, Lesions, Rash Neurological: No: Headache, Weakness, Unsteady Gait Endocrine: No: Symptoms Reported Hematologic/Lymphatic: Yes: Other (Left leg swelling after a 3-hour car ride earlier this week.) *Physical Exam - Vital Signs Last Vital Signs Temp Pulse Resp BP Pulse Ox 97.7 F 81 20 126/76 98 07/07/20 23:57 07/07/20 23:57 07/07/20 23:57 07/07/20 23:57 07/07/20 23:57 - Physical Exam General Appearance: Yes: Nourished, Appropriately Dressed, Apparent Distress, Moderate Distress, Obese HEENT: positive: Normal ENT Inspection, Normal Voice. negative: Scleral Icterus (R), Scleral Icterus (L) Neck: positive: Trachea midline, Supple. negative: Tender Respiratory/Chest: positive: Chest Tender, Wheezing (end-expiratory). negative: Respiratory Distress, Accessory Muscle Use Cardiovascular: positive: Regular Rhythm, Regular Rate Gastrointestinal/Abdominal: positive: Normal Bowel Sounds, Guarding (mild, ) Musculoskeletal: positive: Normal Inspection. negative: CVA Tenderness Integumentary: positive: Normal Color, Dry, Warm Neurologic: positive: Fully Oriented, Alert ED Treatment Course - LABORATORY CBC & Chemistry Diagram: 07/08/20 01:37 07/08/20 01:37 Medical Decision Making - Medical Decision Making 07/08/20 06:17 45yo F w/ PMHx HTN, COPD, PE/DVT, and former EtOH abuse w/ severe epigastric pain. DDx includes but is not limited to: ACS, dissection, pancreatitis, cholangiti s/choledoco, gastritis negative trop, normal EKG -> unlikely ACS pt on AC; elevated INR. negative CTA -> unlikely PE US LLE negative -> unlikely DVT pain controlled with 2mg morphine + 20mg bentyl pain returned. pt has elevated AST + leukocytosis -> will do RUQ limited US to look for biliary pathology. Discharge - Discharge Information Problems reviewed: Yes Clinical Impression/Diagnosis: Transaminitis Leukocytosis Qualifiers: Leukocytosis type: bandemia Qualified Code(s): D72.825 - Bandemia - Follow up/Referral - Patient Discharge Instructions - Post Discharge Activity
[2020-07-08] MEDS ORDERED: ASPIRIN 81 MG CHEWABLE TABLETS ONE (01:06)
--- NOTE | 2020-07-08 01:22 | PDOC ---
Attending Attestation - Resident Resident Name: Anil Han - ED Attending Attestation I have performed the following: I have examined & evaluated the patient, The case was reviewed & discussed with the resident, I agree w/resident's findings & plan - HPI HPI: 07/12/20 19:55 45yo F w/ PMHx HTN, COPD, PE/DVT, and former EtOH abuse w/ severe epigastric pain. - Physicial Exam PE: 07/12/20 19:55 Agree with resident exam - Medical Decision Making 07/08/20 05:41 Patient Name: DAVID PRABHAKAR THIS IS A PRELIMINARY REPORT DATE OF SERVICE: 2020-07-08 01:01:25 IMAGES: 21 EXAM: Left lower extremity duplex venous ultrasound HISTORY: Left lower extremity swelling. COMPARISON: None. FINDINGS Negative for left lower extremity deep venous thrombosis. 07/08/20 05:41 DAVID PRABHAKAR Asked about the stomach and whether it was dilated. The stomach is only distended to the point that the patient looks like they ate and drank recently before the scan.. Cannot make a diagnosis of gastric outlet obstruction functional or mechanical based on these images. DDx includes but is not limited to: ACS, dissection, pancreatitis, cholangitis/choledoco, gastritis negative trop, normal EKG -> unlikely ACS pt on AC; elevated INR. negative CTA -> unlikely PE US LLE negative -> unlikely DVT pain controlled with 2mg morphine + 20mg bentyl pain returned. pt has elevated AST + leukocytosis -> will do RUQ limited US to look for biliary pathology. Pt signed out to the day team 07/12/20 19:55 Discharge - Discharge Information Problems reviewed: Yes Clinical Impression/Diagnosis: Transaminitis Leukocytosis Qualifiers: Leukocytosis type: bandemia Qualified Code(s): D72.825 - Bandemia Condition: Guarded Disposition: ELOPED - Follow up/Referral - Patient Discharge Instructions - Post Discharge Activity
[2020-07-08] MEDS ORDERED: ACETAMINOPHEN INJECTION 100 ML IVPB ONE ×2 (01:40→11:11)
[2020-07-08 01:54] LABS: BASO % 0.6 % (0-2.0); EOS % 0.7 % (0-4.5); HEMATOCRIT 33.5 % (32.4-45.2); HEMOGLOBIN 10.8 GM/dL (10.7-15.3); LYMPH % 8.7 % (8-40); MCH 26.4 pg (25.7-33.7); MCHC 32.2 g/dl (32.0-36.0); MEAN CELL VOLUME 81.8 fl (80-96); MEAN PLT VOLUME 7.9 fl (7.5-11.1); MONO % 6.9 % (3.8-10.2); NEUT % 83.1 % (42.8-82.8); PLATELET COUNT 364 K/MM3 (134-434); RBC 4.09 M/mm3 (3.60-5.2); RDW 16.1 % (11.6-15.6); WHITE BLOOD COUNT 16.9 K/mm3 (4.0-10.0)
[2020-07-08] MEDS ORDERED: DICYCLOMINE HCL 20 MG/2 ML AMPUL IM ONE (01:59)
[2020-07-08 02:02] LABS: INR 1.46 (0.83-1.09); PROTHROMBIN TIME (PATIENT) 17.3 SEC (9.7-13.0)
[2020-07-08] MEDS ORDERED: MORPHINE SULFATE 2 MG/ML VIAL IVPUSH ONE (02:02)
[2020-07-08 02:05] LABS: ACTIVATED PTT 30.4 SECONDS (25.2-36.5)
[2020-07-08] MEDS ORDERED: MORPHINE SULFATE 2 MG/ML VIAL ONE ×2 (02:12→05:45)
[2020-07-08 02:19] LABS: ALBUMIN 3.4 g/dl (3.4-5.0); ALK PHOS 173 U/L (45-117); ANION GAP 5 MMOL/L (8-16); BILIRUBIN,TOTAL 0.5 mg/dL (0.2-1); BLOOD UREA NITROGEN 12.7 mg/dL (7-18); CALCIUM 8.5 mg/dL (8.5-10.1); CHLORIDE 105 mmol/L (98-107); CO2 29 mmol/L (21-32); GLUCOSE,RANDOM 122 mg/dL (74-106); LIPASE 273 U/L (73-393); POTASSIUM 3.5 mmol/L (3.5-5.1); SGOT/AST 181 U/L (15-37); SGPT/ALT 57 U/L (13-61); SODIUM 139 mmol/L (136-145); TOT PROT 7.5 g/dl (6.4-8.2)
[2020-07-08] MEDS ORDERED: morphine CARPU-JECT 2 MG/1 ML DISP.SYRIN IVPUSH ONE (05:39)
[2020-07-08 06:19] VITALS: TEMP 97.9
--- NOTE | 2020-07-08 07:17 | PDOC ---
*Physical Exam - Vital Signs Last Vital Signs Temp Pulse Resp BP Pulse Ox 97.9 F 74 21 H 141/77 99 07/08/20 06:18 07/08/20 06:18 07/08/20 06:18 07/08/20 06:18 07/08/20 06:18 - Physical Exam General Appearance: Yes: Nourished, Appropriately Dressed. No: Apparent Distress Respiratory/Chest: positive: Lungs Clear, Normal Breath Sounds. negative: Chest Tender, Respiratory Distress, Accessory Muscle Use, Crackles, Rales, Stridor, W heezing Cardiovascular: positive: Regular Rhythm, Regular Rate. negative: Edema, JVD, Murmur Gastrointestinal/Abdominal: positive: Tender (Epigastric radiating to the chest and lower abdomen), Flat, Soft, Tenderness. negative: Normal Bowel Sounds, Distended, Guarding, Rebound Musculoskeletal: positive: Normal Inspection. negative: CVA Tenderness Extremity: positive: Tender. negative: Pedal Edema, Swelling, Calf Tenderness Integumentary: positive: Normal Color, Dry, Warm Neurologic: positive: Fully Oriented, Alert, Normal Mood/Affect, Normal Response ED Treatment Course - LABORATORY CBC & Chemistry Diagram: 07/08/20 01:37 07/08/20 01:37 - ADDITIONAL ORDERS Additional order review: Laboratory Results 07/08/20 07/08/20 01:37 01:37 PT with INR 17.30 H INR 1.46 H PTT (Actin FS) 30.4 Sodium 139 Potassium 3.5 Chloride 105 Carbon Dioxide 29 Anion Gap 5 L BUN 12.7 Creatinine 1.0 Est GFR (CKD-EPI)AfAm 77.69 Est GFR (CKD-EPI)NonAf 67.04 Random Glucose 122 H Calcium 8.5 Total Bilirubin 0.5 AST 181 H ALT 57 Alkaline Phosphatase 173 H Creatine Kinase 100 Troponin I < 0.02 Total Protein 7.5 Albumin 3.4 Lipase 273 07/08/20 01:37 RBC 4.09 MCV 81.8 MCHC 32.2 RDW 16.1 H MPV 7.9 Neutrophils % 83.1 H Lymphocytes % 8.7 Monocytes % 6.9 Eosinophils % 0.7 D Basophils % 0.6 - Medications Given in the ED: ED Medications Discontinued Medications Generic Name Dose Route Start Last Admin Trade Name Freq PRN Reason Stop Dose Admin Acetaminophen 1,000 mg 07/08/20 00:52 07/08/20 01:48 Ofirmev Injection - IVPB 07/08/20 00:53 1,000 mg ONCE ONE Administration Aspirin 162 mg 07/08/20 00:52 07/08/20 01:24 Asa - PO 07/08/20 00:53 162 mg ONCE ONE Administration Dicyclomine HCl 20 mg 07/08/20 01:59 07/08/20 02:27 Bentyl Injection - IM 07/08/20 02:00 20 mg ONCE ONE Administration Famotidine/Sodium Chloride 20 mg in 50 mls @ 100 mls/hr 07/08/20 00:55 07/08/20 01:49 Pepcid 20 Mg Premixed Ivpb - IVPB 07/08/20 01:24 100 mls/hr ONCE ONE Administration Morphine Sulfate 2 mg 07/08/20 02:02 07/08/20 02:26 Morphine Sulfate IVPUSH 07/08/20 02:03 2 mg ONCE ONE Administration Morphine Sulfate 2 mg 07/08/20 05:39 07/08/20 05:55 Morphine Injection - IVPUSH 07/08/20 05:40 2 mg ONCE ONE Administration Medical Decision Making - Medical Decision Making 07/08/20 07:[address] Han. DDx: Cholangitis, choledocolithiasis, pancreatitis Labs: WBC 16.9, AST 181, Alk Phos 173 CT: surgical material in the gallbladder fossa has not significantly changed compared to prior studies, could represent residual GB tissue. MRI/MRCP recommended. US: Oval shaped fluid filled structure seen within the gallbladder fossasuggestive of either a gallbladder or gallbladder remnant. Vascular: no evidence of DVT EKG: Dispo: Admission 07/08/20 11:14 07/08/20 11:18 07/08/20 18:20 - Patient had left AMA, was spoken to and called to return to ED for IV removal. Discharge - Discharge Information Problems reviewed: Yes Clinical Impression/Diagnosis: Transaminitis Leukocytosis Qualifiers: Leukocytosis type: bandemia Qualified Code(s): D72.825 - Bandemia - Admission Yes - Follow up/Referral - Patient Discharge Instructions - Post Discharge Activity
[2020-07-08 09:34] LABS: URINE APPEARANCE CLEAR; URINE BILIRUBIN NEGATIVE (NEGATIVE); URINE COLOR YELLOW; URINE GLUCOSE (UA) NEGATIVE (NEGATIVE); URINE KETONE TRACE (NEGATIVE)
[2020-07-08 09:35] LABS: URINE LEUK ESTERASE NEGATIVE (NEGATIVE); URINE NITRITE NEGATIVE (NEGATIVE); URINE PROTEIN TRACE (NEGATIVE); URINE RBC 29.6 /uL (0-23.9)
[2020-07-08 09:36] LABS: EPI CELLS 23.5 /uL (0-25.1); HYALINE CASTS 2.82 /uL (0-3.1); URINE BACTERIA 169.1 /uL (0-1359)
--- NOTE | 2020-07-08 12:12 | CON.GI ---
Consult Consult Specialty:: GI Referred by:: Hospitalist Joy Reason for Consultation:: Abd. pain - History of Present Illness Chief Complaint: Upper abdominal pain, lower chest pain History of Present Illness: 45F w/ band-like pain in upper abdomen and chest that started 2 days ago. Pain became progressively more intense yesterday evening after eating, prompting her to come to the ER. No change in bowel habits or rectal bleeding. +nausea. Had ERCP [address] Eliezer Henry that led to the removal of CBD stone. Subsequently had laparoscopic cholecystectomy (empyema of the gallbladder noted.) CTA of the chest failed to reveal PE. The portal system appeared patent. The bile ducts did not appear dilated and there was a fluid filled structure in the GB fossa raising the question of a retained portion of the gallbladder. Lipase was wnl. Pain persists. No abundant vomiting noted. Has never had EGD or colonoscopy. - History Source History Provided By: Patient, Medical Record - Past Medical History Hepatobiliary: Yes: Cholelithiasis, Choledocholithiasis ...LMP: 06/04/20 ...: No Heme/Onc: Yes: Other (DVT/PE) Psych: Yes: Anxiety, Depression Musculoskeletal: Yes: Chronic low back pain - Past Surgical History Past Surgical History: Yes: Cholecystectomy (laparoscopic) Additional Surgical History: ERCP with CBD stone extraction 2014 - Alcohol/Substance Use Hx Alcohol Use: No History of Substance Use: reports: Marijuana - Smoking History Smoking history: Current every day smoker Have you smoked in the past 12 months: No Aproximately how many cigarettes per day: 20 - Social History Usual Living Arrangement: With Spouse Place of : [facility] History of Recent Travel: No Home Medications - Allergies Allergies/Adverse Reactions: Allergies Allergy/AdvReac Type Severity Reaction Status Date / Time No Known Allergies Allergy Verified 06/12/18 23:31 - Home Medications Home Medications: Ambulatory Orders Albuterol Sulfate Inhaler - [Ventolin Hfa Inhaler -] 1 - 2 inh PO Q4H PRN 07/08/20 Apixaban [Eliquis] 5 mg PO BID 07/08/20 Atorvastatin Ca [Lipitor] 10 mg PO HS 07/08/20 Budesonide/Formeterol Fumarate [SYMBICORT 80/4.5mcg -] 2 inh PO DAILY 07/08/20 Bupropion HCl [Wellbutrin Xl -] 150 mg PO DAILY 07/08/20 Fluoxetine HCl [Prozac] 40 mg PO DAILY 07/08/20 Mirtazapine [Remeron -] 15 mg PO HS 07/08/20 Prazosin HCl [Minipress] 2 mg PO HS 07/08/20 Pregabalin 75 mg PO TID 07/08/20 Family Medical History Other Family History: Maternal GF: prostate / rectal cancer Review of Systems - Review of Systems Constitutional: denies: Chills Cardiovascular: reports: Chest Pain Respiratory: reports: Wheezing Gastrointestinal: reports: Abdominal Pain, Nausea. denies: Bloating, Constipation, Diarrhea, Dysphagia Physical Exam-GI Vital Signs: Vital Signs Temperature 97.9 F 07/08/20 06:18 Pulse Rate 74 07/08/20 06:18 Respiratory Rate 21 H 07/08/20 06:18 Blood Pressure 141/77 07/08/20 06:18 O2 Sat by Pulse Oximetry (%) 99 07/08/20 06:18 Constitutional: Yes: Calm Eyes: No: Sclera Icterus Neck: Yes: Supple Cardiovascular: Yes: Regular Rate and Rhythm Respiratory: Yes: Wheezes (b/l exp wheezes) ...Auscultate: Yes: Normoactive Bowel Sounds ...Palpate: Yes: Tenderness (TTP mid upper abd and RUQ) ...Percussion: No: Tympanitic Edema: No (No LE edema) Neurological: Yes: Alert Labs: CBC, BMP 07/08/20 01:37 07/08/20 01:37 INR, PTT INR 1.46 (0.83-1.09) H 07/08/20 01:37 Imaging - Results Cat Scan: Report Reviewed Problem List - Problems (1) Abdominal pain Assessment/Plan: Upper abdominal pain w/ prior h/o choldcocholithiasis and gangrenous cholecystitis ? GB remnant in RUQ Advise: NPO IV Hydration Surgical consultation Monitor LFTs IV Abx for potential biliary tract coverage Pain management per medical team MRCP ordered stat to evaluate biliary tract further. Pending results and trend og LFTs , discussed potential need for ERCP with sylvester martinez. Discussed potential risks of the procedure like but not limited to bleeding, perforationrequiring surgery to repair, infection, sedation medciation effects, pancreatitis, all of which could be potentially life threatening. She was amenable to this if it was felt to be a medicall necessary procedure. Discussed with Biliary endoscopist Dr. Eliezer Henry as well. Discussed plan with ER Resident Code(s): R10.9 - UNSPECIFIED ABDOMINAL PAIN
[2020-07-08 16:24] VITALS: BP 162/79; PULSE 77
[2020-07-08] MEDS ORDERED: ALBUTEROL SO4 HFA INHALER IH PRN (17:31)
[2020-07-08] MEDS ORDERED: HYDROmorphone HCL CARPU-JECT 2 MG/1 ML DISP.SYRIN IVPUSH PRN (17:32)
[2020-07-08] MEDS ORDERED: HEPARIN NA (PORCINE) 5,000 UNITS/ML 1ML VIAL IVPUSH PRN ×2 (17:38)
[2020-07-08] MEDS ORDERED: HEPARIN SOD,PORK IN 0.45% NACL 25,000 UNIT/500 ML INFUS.BAG IVPB SCH (17:45)
[2020-07-08] MEDS ORDERED: D5-1/2NS+20 MEQ KCL - 20 MEQ/1,000 ML INFUS.BAG IV SCH (17:45)
[2020-07-08] MEDS ORDERED: PIPERACILLIN/TAZOB 3.375 GM 3.375 GM in DEXTROSE 5%-WATER - 50 ML IVPB SCH (18:00)
--- OUTSIDE RECORDS SUMMARY | 2020-07-08 18:03 | XMS ---
:1975 Author Organization [facility] Care Team Providers Name Role Phone Ringstad, Faustina Unavailable Unavailable Ringstad, Faustina Unavailable Unavailable Ringstad, Faustina Unavailable Unavailable Ringstad, Faustina Unavailable Unavailable Ringstad, Faustina Unavailable Unavailable Ringstad, Faustina Unavailable Unavailable Ringstad, Faustina Unavailable Unavailable Ringstad, Faustina Unavailable Unavailable Ringstad, Faustina Unavailable Unavailable Ringstad, Faustina Unavailable Unavailable Ringstad, Faustina Unavailable Unavailable Rian Camara MD Unavailable Rian Camara [...] Ringstad, Faustina Unavailable Unavailable Lakhi, Fehmida Unavailable [phone] Lakhi, Fehmida Unavailable [phone] Lakhi, Fehmida Unavailable [phone] JEREMY WOODIG A, KIRT Unavailable Unavailable [place], [...] Carina Pompa MD Unavailable Unavailable Veselinovic Unavailable [phone] Sabrinaelinovic Unavailable [phone] Eulalio GRADING CLERK-R Unavailable Unavailable Sheppard Unavailable [phone] Sheppard Unavailable [phone] Stein Unavailable Unavailable Stein Unavailable Unavailable Stein [...] Unavailable Bradshaw, C Unavailable Unavailable Too Unavailable [phone] PRINCE MAHONEY Unavailable Unavailable Jeremy PHOTO MASK PROCESSOR, PHOTO MASK PROCESSOR Unavailable [phone] Jeremy PHOTO MASK PROCESSOR, PHOTO MASK PROCESSOR Unavailable [phone] Emmanuelle Unavailable Unavailable Unavailable Unavailable Barraza Unavailable [phone] Barraza Unavailable [phone] Barraza Unavailable [phone] Alicia-Marie Unavailable [phone] Alicia-Marie Unavailable [phone] MD Feroz, MPH Unavailable Unavailable MD Feroz, MPH Unavailable Unavailable MD Feroz, MPH Unavailable Unavailable MD Feroz, MPH Unavailable Unavailable MD Feroz, MPH Unavailable Unavailable Ekechukwu Unavailable [phone] Ekechukwu Unavailable [phone] Ubayawardena Unavailable Unavailable Ubayawardena Unavailable Unavailable Ubayawardena Unavailable Unavailable Ubayawardena Unavailable Unavailable Ubayawardena Unavailable Unavailable Arreola Unavailable [phone] Arreola Unavailable [phone] [place] Unavailable [phone] [place] Unavailable [phone] CHRISTOPHER LINDER Unavailable Unavailable Re-disclosure Warning The [...] is protected by Article 27-F of the [facility] Public Health law. If you continue you may haveaccess to information: Regarding HIV / AIDS; Provided by facilities licensed or operated by the [facility] Office of Mental Health; or Provided by the [facility] Office for People With Developmental Disabilities. If such information is present, then the following [facility] mandated warning applies: This information has [...] law may result in a fine or custodial sentence or both. A general authorization for the release of medical or other information is NOT sufficient authorization for further disclosure. Allergies and Adverse Reactions Type Description Substance Reaction Status Data Source(s ) Propensity to Propensity to Propensity to NEXTG EN ([facility] adverse reactions adverse reactions adverse reactions [facility] (disorder) (disorder) (disorder) Center) No Known Allergies No Known Allergies No Known eCW1 ([facility] Allergies [facility]) Family History Family Member Family Member Family Member Date of Description Data Source(s) Name Gender Status Status Unknown Female Problem 10/08/2016 NEXTGEN ([facility] (finding) 12:00:00 AM Angela Medic al [facility]) Encounters Encounter Providers Location Date Indications Data Source(s) Attender: Kayla Family 06/24/20 MALINI Redman MD, MPH [facility] 20 ([facility] 03:43:00 Angela PM EDT - Medical 06/24/20 Center) 20 03:43:00 PM EDT OutpatientOFFICE/OUTPAT Attender: PHOTO MASK PROCESSOR Mental 06/19/20 NEXTREGENCY MERIDIAN IENT VISIT, PEPE Wren NP [facility] ([facility] 10:07:00 Angela AM EDT - Medical 06/19/20 [place]) 20 10:07:00 AM EDT Attender: Mental 06/18/20 [facility] 01:28:00 Angela GRADING CLERK-R PM EDT - Medical 06/18/20 [place]) 20 01:28:00 PM EDT Individual Attender: Allan Mental 06/14/20 NEXTGEN Psychotherapy (30 Min) [facility] 20 ( [facility] 04:50:00 Angela PM EDT - Medical 06/14/20 [place]) 20 04:50:00 PM EDT Individual Attender: [facility] Mental 05/31/20 NEXTGEN Psychotherapy (30 Min) [facility] 20 ( [facility] 04:56:00 Angela PM EDT - Medical 05/31/20 [place]) 20 04:56:00 PM EDT Attender: Madelyn Family 05/31/20 [facility] 20 ([facility] 09:46:00 Angela AM EDT - Medical 05/31/20 [place]) 20 09:46:00 AM EDT OutpatientOFFICE/OUTPAT Attender: PHOTO MASK PROCESSOR Mental 05/22/20 NEXTGEN IENT VISIT, EST Kirt Wren [facility] 20 ([facility] 02:03:00 Angela PM EDT - Medical 05/22/20 [place]) 20 02:03:00 PM EDT Individual Attender: Allan Mental 05/17/20 NEXTGEN Psychotherapy (30 Min) [facility] 20 ( [facility] 02:46:00 Angela PM EDT - Medical 05/17/20 [place]) 20 02:46:00 PM EDT Attender: PHOTO MASK PROCESSOR Mental 05/08/20 [facility] Kirt Wren [facility] 20 ([facility] 11:11:00 Angela AM EDT - Medical 05/08/20 [place]) 20 11:11:00 AM EDT Attender: Meagan Family 05/08/20 [facility] ([facility] 10:41:00 Angela AM EDT - Medical 05/08/20 [place]) 20 10:41:00 AM EDT Individual Attender: Allan Mental 05/03/20 NEXTGEN Psychotherapy (30 Min) [facility] 20 ( [facility] 05:03:00 Angela PM EDT - Medical 05/03/20 [place]) 20 05:03:00 PM EDT Attender: Allan Mental 04/24/20 [facility] 20 ([facility] 02:01:00 Angela PM EDT - Medical 04/24/20 [place]) 20 02:01:00 PM EDT Individual Attender: [facility] Mental 04/16/20 NEXTGEN Psychotherapy (30 Min) [facility] 20 ( [facility] 02:44:00 Angela PM EDT - Medical 04/16/20 [place]) 20 02:44:00 PM EDT Outpatient 04/16/20 [place] [id number] Medical 10:05:00 [place] AM EDT Outpatient Attender: Shala Finn 04/16/20 [facility] VelezAdmitter: Medical Shala 09:59:00 [place] VelezReferrer: AM EDT Shala Stein PHONE E/M BY PHYS 5-10 Attender: Kayla 04/16/20 NEXTGEN DEIDRA Redman MD, MPH [facility] 20 ([facility] 09:59:00 Angela AM EDT - Medical 04/16/20 [place]) 20 09:59:00 AM EDT Outpatient 04/16/20 [place] [id number] Medical 09:48:00 [place] AM EDT Outpatient 04/16/20 [place] [id number] Medical 12:00:00 Center AM EDT Attender: Meagan Cardenas 04/11/20 [facility] ([facility] 09:55:00 Angela AM EDT - Medical 04/11/20 [place]) 20 09:55:00 AM EDT OutpatientOFFICE/OUTPAT Attender: PHOTO MASK PROCESSOR Mental 04/10/20 [facility] IENT VISIT, PEPE Wren [facility] 20 ([facility] 10:28:00 Angela AM EDT - Medical 04/10/20 [place]) 20 10:28:00 AM EDT Individual Attender: [facility] Mental 03/28/20 NEXTGEN Psychotherapy (30 Min) [facility] 20 ( [facility] 01:49:00 Angela PM EDT - Medical 03/28/20 [place]) 20 01:49:00 PM EDT Attender: Allan Mental 03/14/20 [facility] 20 ([facility] 01:54:00 Angela PM EDT - Medical 03/14/20 [place]) 20 01:54:00 PM EDT OutpatientOFFICE/OUTPAT Attender: PHOTO MASK PROCESSOR Mental 03/13/20 NEXTGEN IENT VISIT, PEPE Wren NP [facility] 20 ([facility] 11:45:00 Angela AM EDT - Medical 03/13/20 [place]) 20 11:45:00 AM EDT Individual Attender: Allan Mental 03/06/20 [facility]EXTGEN [facility] (30 Min) [facility] ( [facility] 02:39:00 Angela PM EDT - Medical 03/06/20 [place]) 20 02:39:00 PM EDT Individual Attender: Allan Mental 02/21/20 NEXTGEN Psychotherapy (30 Min) [facility] 20 ( [facility] 09:55:00 Angela AM EDT - Medical 02/21/20 [place]) 20 09:55:00 AM EDT Individual Attender: Allan Mental 02/16/20 NEXTGEN Psychotherapy (30 Min) [facility] 20 ( [facility] 10:57:00 Angela AM EDT - Medical 02/16/20 [place]) 20 10:57:00 AM EDT Attender: Family 02/16/20 NEXTGEN Faustina Beltran [facility] 20 ([facility] 09:16:00 Angela AM EDT - Medical 02/16/20 [place]) 20 09:16:00 AM EDT Attender: Susi Mental 02/14/20 [facility] ([facility] 01:39:00 Angela PM EDT - Medical 02/14/20 [place]) 20 01:39:00 PM EDT OutpatientOFFICE/OUTPAT Attender: PHOTO MASK PROCESSOR Mental 02/14/20 NEXTGEN IENT VISIT, PEPE Wren [facility] 20 ([facility] NPAttender: [facility] 10:09:00 Angela [place] Too AM EDT - Medical 02/14/20 [place]) 20 10:09:00 AM EDT Attender: Kayla Family 02/12/20 MALINI Redman MD, MPH [facility] 20 ([facility] 02:29:00 Angela PM EDT - Medical 02/12/20 [place]) 20 02:29:00 PM EDT Individual Attender: Allan Mental 02/09/20 NEXTGEN [facility] (30 Min) [facility] ( [facility] 01:11:00 Angela PM EDT - Medical 02/09/20 [place]) 20 01:11:00 PM EDT Individual Attender: Allan Mental 01/31/20 NEXTGEN Psychotherapy (30 Min) [facility] 20 ( [facility] 11:26:00 Angela AM EDT - Medical 01/31/20 [place]) 20 11:26:00 AM EDT Attender: Allan Mental 01/23/20 NEXTGEN [facility] 20 ([facility] 12:46:00 Angela PM EDT - Medical 01/23/20 [place]) 20 12:46:00 PM EDT Attender: Susi Mental 01/18/20 [facility] ([facility] 11:02:00 Angela AM EDT - Medical 01/18/20 [place]) 20 11:02:00 AM EDT Attender: [facility]17/20 [facility] ([facility] 05:27:00 Angela PM EDT - Medical 01/17/20 [place]) 20 05:27:00 PM EDT Attender: Kayla Family 01/17/20 MALINI Redman MD, [facility] 20 ([facility] 02:41:00 Angela PM EDT - Medical 01/17/20 [place]) 20 02:41:00 PM EDT Individual Attender: Allan Mental 01/17/20 NEXTGEN Psychotherapy (30 Min) [facility] 20 ( [facility] 11:28:00 Angela AM EDT - Medical 01/17/20 [place]) 20 11:28:00 AM EDT Individual Attender: Allan Mental 01/05/20 NEXTGEN Psychotherapy (30 Min) [facility] 20 ( [facility] 10:37:00 Angela AM EDT - Medical 01/05/20 [place]) 20 10:37:00 AM EDT Attender: Madelyn Family 01/01/20 NEXTGEN Bradshaw [facility] 20 ([facility] 12:33:00 Angela PM EDT - Medical 01/01/20 [place]) 20 12:33:00 PM EDT Individual Attender: Allan Mental 12/21/19 NEXTGEN Psychotherapy (30 Min) [facility] 20 ( [facility] 10:59:00 Angela AM EDT - Medical 12/21/19 [place]) 20 10:59:00 AM EDT Attender: Susi Mental 12/21/19 [facility] ([facility] 09:55:00 Angela AM EDT - Medical 12/21/19 [place]) 20 09:55:00 AM EDT OutpatientOFFICE/OUTPAT Attender: PHOTO MASK PROCESSOR Mental 12/20/19 NEXTGEN IENT VISIT, PEPE Wren [facility] 20 ([facility] NPAttender: [facility] 03:06:00 Angela Ana Rosa Gage PM EDT - Medical 12/20/19 [place]) 20 03:06:00 PM EDT Attender: Kayla 12/18/19 MALINI Redman MD, [facility] 20 ([facility] 01:11:00 Angela PM EDT - Medical 12/18/19 [place]) 20 01:11:00 PM EDT Outpatient Attender: Shala Finn 11/23/19 [facility] VelezAdmitter: Medical Shala 05:06:00 Center VelezReferrer: PM EST Shala Stein OutpatientOFFICE/OUTPAT Attender: Kayla 11/23/19 NEXTGEN IENT VISIT, PEPE Redman MD, [facility] 20 ([facility] 05:06:00 Angela PM EST - Medical 11/23/19 [place]) 20 05:06:00 PM EST Outpatient 11/23/19 [place] [id number] Medical 12:41:00 Center PM EST Outpatient 11/23/19 [place] [id number] Medical 12:00:00 Center AM EST Attender: Kayla Cardenas 11/22/19 MALINI Redman MD, MPH [facility] 20 ([facility] 03:06:00 Angela PM EST - Medical 11/22/19 [place]) 20 03:06:00 PM EST Attender: Kayla Cardenas 11/21/19 MALINI Redman MD, MPH [facility] 20 ([facility] 03:04:00 Angela PM EST - Medical 11/21/19 [place]) 20 03:04:00 PM EST Outpatient 11/16/19 [place] [id number] Medical 03:03:00 Center PM EST Outpatient 11/16/19 [place] [id number] Medical 12:00:00 Center AM EST Attender: Meagan Cardenas 11/15/19 [facility] 20 ([facility] 01:20:00 Angela PM EST - Medical 11/15/19 [place]) 20 01:20:00 PM EST Attender: Family 11/15/19 [facility] Faustina Beltran [facility] 20 ([facility] 12:22:00 Angela PM EST - Medical 11/15/19 [place]) 20 12:22:00 PM EST Attender: Kayla Family 11/15/19 MALINI Redman MD, MPH [facility] 20 ([facility] 09:11:00 Angela AM EST - Medical 11/15/19 [place]) 20 09:11:00 AM EST Attender: Allan Mental 11/13/19 [facility] 20 ([facility] 09:46:00 Angela AM EST - Medical 11/13/19 [place]) 20 09:46:00 AM EST Attender: Susi Mental 11/11/19 [facility] ([facility] 10:17:00 Angela AM EST - Medical 11/11/19 [place]) 20 10:17:00 AM EST Attender: PHOTO MASK PROCESSOR Mental 11/10/19 [facility] ([facility] NPAttender: [facility] 03:40:00 Angela Ana Rosa Gage EST - Medical 11/10/19 [place]) 20 03:40:00 PM EST Attender: Kayla Family 11/07/19 MALINI Redman MD, MPH [facility] 20 ([facility] 06:45:00 Angela PM EST - Medical 11/07/19 [place]) 20 06:45:00 PM EST [facility] 11[facility]06[facility]19 [facility] Psychotherapy (45 Min) [facility] 20 ( [facility] 03:52:00 Angela PM EST - Medical 11/06/19 [place]) 20 03:52:00 PM EST Outpatient 11/03/19 [place] [id number] Medical 03:44:00 Center PM EST Outpatient Attender: JERONIMO Finn 11/03/19 [facility] Jeronimo DECKER Medical MARTINAdmitter: 12:21:00 [place] JERONIMO DECKER PM EST MARTINReferrer: JERONIMO LINDER Attender: Allan 11/03/19 [facility] Ana Rosa Too 20 ([facility] 12:21:00 Angela PM EST - Medical 11/03/19 [place]) 20 12:21:00 PM EST Outpatient 11/03/19 [place] [id number] Medical 12:00:00 Center AM EST [address] 11/03/19 [facility]CW1 [facility] 20 [facility] 12:00:00 Medical AM EST Practice PC) [address] 11/03/19 eCW1 ([facility] [address] [facility] 20 [facility] 12:00:00 Medical AM EST Practice PC) Attender: Susi Mental [facility] ([facility] 02:50:00 Angela PM EST - Medical 10/27/19 [place]) 20 02:50:00 PM EST OutpatientOFFICE/OUTPAT Attender: PHOTO MASK PROCESSOR Mental 10/27/19 NEXTREGENCY MERIDIAN IENT VISIT, EST [facility] 20 ([facility] NPAttender: [facility] 10:50:00 [facility] EST - Medical 10/27/19 [place]) 20 10:50:00 AM EST Outpatient 10/26/19 [place] [id number] Medical 01:08:00 Center PM EST Attender: Allan Mental 10/26/19 [place] [address] ([facility] 11:55:00 Angela AM EST - Medical 10/26/19 [place]) 20 11:55:00 AM EST Outpatient Attender: JERONIMO Finn 10/26/19 [facility] Jeronimo DECKER Medical MARTINAdmitter: 11:03:00 [place] JERONIMO DECKER AM EST MARTINReferrer: JERONIMO LINDER Attender: Allan 10/26/19 [facility] [place] [address] ([facility] 11:03:00 Angela AM EST - Medical 10/26/19 [place]) 20 11:03:00 AM EST Outpatient 10/26/19 [place] [id number] Medical 12:00:00 [place] AM EST Individual Attender: Allan Mental 10/18/19 [facility] Psychotherapy (45 Min) [place] [address] ( [facility] 06:39:00 Angela PM EST - Medical 10/18/19 [place]) 20 06:39:00 PM EST Outpatient 10/18/19 [place] [id number] Medical 02:01:00 [place] PM EST Outpatient Attender: H 10/18/19 [facility] Faustina 20 Medical RingstadAdmitter: 09:27:00 [place] Faustina AM EST RingstadReferrer: Faustina Beltran OutpatientOFFICE/OUTPAT Attender: Kayla Cardenas 10/18/19 NEXTGEN IENT VISIT, PEPE Redman MD, MPH [facility] 20 ([facility] 09:27:00 Angela AM EST - Medical 10/18/19 [place]) 20 09:27:00 AM EST Outpatient 10/18/19 [place] [id number] Medical 12:00:00 Center AM EST Outpatient Attender: KIRT Finn 10/14/19 [place] [address] Medical AAttender: SUSI 03:31:00 [place] [facility] JELENAAdmitter: KIRT JEREMYCHAVEZ MORALEZ A Attender: Susi Mental 10/14/19 [place] [address] ([facility] 03:31:00 Angela PM EST - Medical 10/14/19 [place]) 20 03:31:00 PM EST Attender: Susi Mental 10/13/19 [place] [address] ([facility] 04:35:00 Angela PM EST - Medical 10/13/19 [place]) 20 04:35:00 PM EST Outpatient Attender: KIRT 10/13/19 [place] [address] Medical AAdmitter: KIRT 03:31:00 [facility] PM EST Outpatient Attender: Shala 10/13/19 [facility] VelezAdmitter: 20 Medical Shala 12:57:00 [place] VelezReferrer: PM EST Shala Stein OutpatientOFFICE/OUTPAT Attender: Kayla [facility] 10/13/19 NEXTGEN IENT VISIT, PEPE Redman MD, MPH [facility] 20 ([facility] 12:57:00 Angela PM EST - Medical 10/13/19 [place]) 20 12:57:00 PM EST Outpatient 10/13/19 [place] [id number] Medical 12:22:00 [place] PM EST OutpatientOFFICE/OUTPAT Attender: PHOTO MASK PROCESSOR Mental 10/13/19 NEXTGEN IENT VISIT, EST [place] [address] ([facility] 10:59:00 Angela Ana Rosa Gage AM EST - Medical 10/13/19 [place]) 20 10:59:00 AM EST Outpatient 10/13/19 [place] [id number] Medical 12:00:00 Center AM EST Outpatient Attender: KIRT Finn 10/11/19 [place] [address] Medical AAdmitter: KIRT 03:31:00 [facility] PM EST Individual Attender: Allan Mental 10/11/19 NEXTGEN Psychotherapy (45 Min) [facility] 20 ( [facility] 10:47:00 Angela AM EST - Medical 10/11/19 [place]) 20 10:47:00 AM EST Attender: Allan Mental [facility]18/20 [facility] ([facility] 01:27:00 Angela PM EST - Medical 09/18/20 [place]) 19 01:27:00 PM EST Attender: Allan Mental 08/23/20 [facility] 19 ([facility] 03:58:00 Angela PM EST - Medical 08/23/20 [place]) 19 03:58:00 PM EST Individual Attender: [facility] 08/15/20 NEXTGEN Psychotherapy (45 Min) [facility] 19 ( [facility] 04:48:00 Angela PM EST - Medical 08/15/20 [place]) 19 04:48:00 PM EST OutpatientOFFICE/OUTPAT Attender: Mental 08/15/20 N EXTGEN IENT VISIT, EST [facility] 19 ([facility] 11:17:00 Angela AM EST - Medical 08/15/20 [place]) 19 11:17:00 AM EST Individual Attender: [facility] 08/08/20 NEXTGEN Psychotherapy (45 Min) [facility] 19 ( [facility] 11:47:00 Angela AM EST - Medical 08/08/20 [place]) 19 11:47:00 AM EST Attender: [facility] 08/08/20 [facility] 19 ([facility] 10:05:00 Angela AM EST - Medical 08/08/20 [place]) 19 10:05:00 AM EST Attender: Allan Mental 07/19/20 [facility] 19 ([facility] 01:03:00 Angela PM EDT - Medical 07/19/20 [place]) 19 01:03:00 PM EDT Attender: Madelyn Family 07/17/20 [facility] 19 ([facility] 11:10:00 Angela AM EDT - Medical 07/17/20 [place]) 19 11:10:00 AM EDT OutpatientOFFICE/OUTPAT Attender: Mental 07/12/20 N EXTGEN IENT VISIT, EST [facility] 19 ([facility] 11:06:00 Angela AM EDT - Medical 07/12/20 [place]) 19 11:06:00 AM EDT Attender: Madelyn Family 07/12/20 [facility] 19 ([facility] 10:30:00 Angela AM EDT - Medical 07/12/20 [place]) 19 10:30:00 AM EDT Outpatient 07/11/20 [place] [address] Medical 12:09:00 Center PM EDT Attender: Madelyn [facility] 07/11/20 [facility] 19 ([facility] 11:18:00 Angela AM EDT - Medical 07/11/20 [place]) 19 11:18:00 AM EDT Outpatient 07/11/20 [place] [address] Medical 12:00:00 Center AM EDT Attender: Mental 07/05/20 [facility] 19 ([facility] 02:14:00 Angela PM EDT - Medical 07/05/20 [place]) 19 02:14:00 PM EDT Attender: Allan Mental 06/27/20 [facility] 19 ([facility] 04:44:00 Angela PM EDT - Medical 06/27/20 [place]) 19 04:44:00 PM EDT Attender: Madelyn [facility] 06/27/20 [facility] 19 ([facility] 12:12:00 Angela PM EDT - Medical 06/27/20 [place]) 19 12:12:00 PM EDT Attender: Madelyn [facility] 06/26/20 [place] [address] ([facility] 05:09:00 Angela PM EDT - Medical 06/26/20 [place]) 19 05:09:00 PM EDT Outpatient 06/23/20 [place] [address] Medical 02:07:00 Center PM EDT Attender: Madelyn 06/23/20 [place] [address] ([facility] 10:57:00 Angela AM EDT - Medical 06/23/20 [place]) 19 10:57:00 AM EDT Outpatient Attender: Shala Finn 06/23/20 [facility] sam SteinAdmitter: 19 Medical Shala Stein 09:14:00 Center AM EDT OutpatientWell Visit, Attender: Madelyn Family 06/23/20 NEXTGEN Est,40-64years [facility] 19 ([facility] 09:14:00 Angela AM EDT - Medical 06/23/20 [place]) 19 09:14:00 AM EDT Outpatient 06/23/20 [place] [address] Medical 12:00:00 Center AM EDT - 09/15/20 18 12:00:00 AM EST Individual Attender: Allan Mental 06/19/20 NEXTGEN Psychotherapy (45 Min) [facility] 19 ( [facility] 05:57:00 Angela PM EDT - Medical 06/19/20 [place]) 19 05:57:00 PM EDT Outpatient 06/19/20 [place] [address] Medical 09:27:00 Center AM EDT Outpatient 06/19/20 [place] [address] Medical 12:00:00 Center AM EDT Attender: Allan [facility] ([facility] 05:55:00 Angela PM EDT - Medical 06/14/20 [place]) 19 05:55:00 PM EDT Attender: Mental 06/07/20 NEXTGEN [facility] 19 ([facility] 03:16:00 Angela PM EDT - Medical 06/07/20 [place]) 19 03:16:00 PM EDT Individual Attender: [facility] Mental 06/02/20 NEXTGEN Psychotherapy (45 Min) [facility] 19 ( [facility] 03:22:00 Angela PM EDT - Medical 06/02/20 [place]) 19 03:22:00 PM EDT Individual Attender: Allan Mental 05/26/20 NEXTGEN Psychotherapy (45 Min) [place] [address] ( [facility] 05:04:00 Angela PM EDT - Medical 05/26/20 [place]) 19 05:04:00 PM EDT Outpatient 05/26/20 [place] [address] Medical 12:12:00 Center PM EDT Outpatient 05/26/20 [place] [address] Medical 12:00:00 Center AM EDT Individual Attender: Allan Mental 05/15/20 NEXTGEN Psychotherapy (45 Min) [facility] 19 ( [facility] 05:42:00 Angela PM EDT - Medical 05/15/20 [place]) 19 05:42:00 PM EDT Individual Attender: Allan Mental 05/08/20 NEXTGEN Psychotherapy (45 Min) [place] [address] ( [facility] 05:40:00 Angela PM EDT - Medical 05/08/20 [place]) 19 05:40:00 PM EDT OutpatientOFFICE/OUTPAT Attender: Mental 05/08/20 N EXTGEN IENT VISIT, [facility] 19 ([facility] 01:47:00 Angela PM EDT - Medical 05/08/20 [place]) 19 01:47:00 PM EDT Individual Attender: [facility] Mental 05/02/20 NEXTGEN Psychotherapy (45 Min) [facility] 19 ( [facility] 04:51:00 Angela PM EDT - Medical 05/02/20 [place]) 19 04:51:00 PM EDT Attender: [facility] Mental 04/18/20 [facility] ([facility] 01:34:00 Angela PM EDT - Medical 04/18/20 [place]) 19 01:34:00 PM EDT OutpatientOFFICE/OUTPAT Attender: Mental 04/10/20 N EXTGEN IENT VISIT, [facility] 19 ([facility] 01:42:00 Angela PM EDT - Medical 04/10/20 [place]) 19 01:42:00 PM EDT Individual Attender: [facility] Mental 03/31/20 NEXTGEN Psychotherapy (45 Min) [facility] 19 ( [facility] 05:12:00 Angela PM EDT - Medical 03/31/20 [place]) 19 05:12:00 PM EDT Attender: Family [facility]11[facility] 09:49:00 Angela AM EDT - Medical 03/11/20 [place]) 19 09:49:00 AM EDT Outpatient 03/10/20 [place] [address] Medical 02:08:00 Center PM EDT Outpatient 03/10/20 [facility] 19 Medical 12:00:00 Center AM EDT Outpatient 03/09/20 [facility] 19 Medical 12:15:00 Center PM EDT Outpatient 03/09/20 [facility] 19 Medical 12:00:00 Center AM EDT Outpatient 03/06/20 [facility] 19 Medical 02:10:00 Center PM EDT Outpatient 03/06/20 [place] [address] Medical 12:00:00 Center AM EDT Attender: Devorah Cardenas 02/10/20 APRIL Peña [facility] 19 ([facility] 09:27:00 Angela AM EDT - Medical 02/10/20 Center) 19 09:27:00 AM EDT Attender: Family 01/04/20 APRILGEN [facility] 19 ([facility] 12:10:00 Angela PM EDT - Medical 01/04/20 [place]) 19 12:10:00 PM EDT Attender: Mental 12/28/19 [facility] 19 ([facility] 03:31:00 Angela PM EDT - Medical 12/28/19 [place]) 19 03:31:00 PM EDT Individual Attender: [facility] 12/15/19 NEXTGEN Psychotherapy (45 Min) [facility] 19 ( [facility] 06:14:00 Angela PM EDT - Medical 12/15/19 [place]) 19 06:14:00 PM EDT OutpatientOFFICE/OUTPAT Attender: Mental 12/15/19 N EXTGEN IENT VISIT, EST [facility] 19 ([facility] 03:34:00 Angela PM EDT - Medical 12/15/19 [place]) 19 03:34:00 PM EDT Individual Attender: [facility] 11/30/19 NEXTGEN Psychotherapy (45 Min) [facility] 19 ( [facility] 05:47:00 Angela PM EST - Medical 11/30/19 [place]) 19 05:47:00 PM EST OutpatientOFFICE/OUTPAT Attender: Mental 11/30/19 N EXTGEN IENT VISIT, EST [facility] 19 ([facility] 01:44:00 Agnela PM EST - Medical 11/30/19 [place]) 19 01:44:00 PM EST Individual Attender: [facility] 11/02/19 NEXTGEN Psychotherapy (45 Min) [facility] 19 ( [facility] 04:03:00 Angela PM EST - Medical 11/02/19 [place]) 19 04:03:00 PM EST OutpatientOFFICE/OUTPAT Attender: Mental 11/02/19 N EXTGEN IENT VISIT, EST [facility] 19 ([facility] 12:39:00 Angela PM EST - Medical 11/02/19 [place]) 19 12:39:00 PM EST Attender: Family 10/25/19 [facility] Faustina [facility] 19 ([facility] 10:08:00 Angela AM EST - Medical 10/25/19 [place]) 19 10:08:00 AM EST Individual Attender: [facility] Mental 10/20/19 NEXTGEN Psychotherapy (45 Min) [facility] 19 ( [facility] 05:14:00 Angela PM EST - Medical 10/20/19 [place]) 19 05:14:00 PM EST Attender: Madelyn Family 10/18/19 [facility] 19 ([facility] 02:12:00 Angela PM EST - Medical 10/18/19 [place]) 19 02:12:00 PM EST Attender: [facility] 10/12/19 [facility] 19 ([facility] 02:02:00 Angela PM EST - Medical 10/12/19 [place]) 19 02:02:00 PM EST Individual Attender: [facility] Mental 10/05/19 [facility] Psychotherapy (45 Min) [facility] 19 ( [facility] 04:04:00 Angela PM EST - Medical 10/05/19 [place]) 19 04:04:00 PM EST Outpatient Attender: H 10/05/19 [facility] RACHEL-[address] [place] 10:05:00 [place] RACHELARIANNE AM EST RAdmitter: CLAUDETTE SOTOYL-ARIANNE R Attender: 10/05/19 [facility] Rachel-Arianne ([facility] 10:05:00 Angela AM EST - Medical 10/05/19 [place]) 19 10:05:00 AM EST OutpatientOFFICE/OUTPAT Attender: Family 09/22/20 N EXTGEN IENT VISIT, EST [facility] 18 ([facility] 03:20:00 Angela PM EST - Medical 09/22/20 [place]) 18 03:20:00 PM EST [address] 08/19/20 [email or web address] 12:00:00 Medical AM EST Practice [facility]) 08/18/20 [facility] 18 ([facility] 01:13:00 Angela PM EST - Medical 08/18/20 [place]) 18 01:13:00 PM EST [address] 08/18/20 [email or web address] [facility] 18 [facility] 12:00:00 Medical AM EST Practice [facility]) Attender: Meagan Family 08/12/20 [facility] 18 ([facility] 03:06:00 Angela PM EST - Medical 08/12/20 [place]) 18 03:06:00 PM EST Attender: Family 08/11/20 [place] [address] ([facility] 03:27:00 Angela PM EST - Medical 08/11/20 [place]) 18 03:27:00 PM EST Attender: Family 08/05/20 [place] [address] ([facility] 03:40:00 Angela PM EDT - Medical 08/05/20 [place]) 18 03:40:00 PM EDT Attender: [facility] 04/18/20 [facility] Fa[place] [address] ([facility] 11:47:00 Angela AM EDT - Medical 04/18/20 [place]) 18 11:47:00 AM EDT Outpatient Attender: Shala Finn 12/31/19 [facility] VelezAdmitter: 18 Medical Shala 02:55:00 Center VelezReferrer: PM EDT Shala Stein OutpatientOFFICE/OUTPAT Attender: Linseymaurylaurel [facility] 12/31/19 [facility] [place] [address] ([facility] 02:55:00 Angela PM EDT - Medical 12/31/19 [place]) 18 02:55:00 PM EDT Attender: Resika Family 11/16/19 [facility] Ubayawardena [place] [address] ([facility] 10:08:00 Angela AM EST - Medical 11/16/19 [place]) 18 10:08:00 AM EST Attender: 10/20/19 [facility] Rachel-Arianne 18 ([facility] 10:05:00 Angela AM EST - Medical 10/20/19 [place]) 18 10:05:00 AM EST Attender: Rodika Family 10/05/19 [facility] [place] [address] ([facility] 04:33:00 Angela PM EST - Medical 10/05/19 [place]) 18 04:33:00 PM EST OutpatientOFFICE/OUTPAT Attender: Stephanie [facility] 09/13/20 NEXTGEN IENT VISIT, [place] [address] ([facility] 10:02:00 Angela AM EST - Medical 09/13/20 Center) 17 10:02:00 AM EST OutpatientOFFICE/OUTPAT Attender: Stephanie Family 09/08/20 NEXTGEN IENT VISIT, [facility] 17 ([facility] 02:11:00 Angela PM EST - Medical 09/08/20 [place]) 17 02:11:00 PM EST OutpatientOFFICE/OUTPAT Attender: Rian Family 07/29/20 NEXTGEN IENT VISIT, [facility] 17 ([facility] 06:23:00 Angela PM EDT - Medical 07/29/20 [place]) 17 06:23:00 PM EDT Attender: Mekhiika [facility] 04/26/20 [place] [address] ([facility] 10:13:00 Angela AM EDT - Medical 04/26/20 [place]) 17 10:13:00 AM EDT Attender: Matthew [facility] 04/22/20 [place] [address] ([facility] 08:56:00 Angela AM EDT - Medical 04/22/20 [place]) 17 08:56:00 AM EDT Attender: Matthew [facility] 01/26/20 [place] [address] ([facility] 10:06:00 Angela AM EDT - Medical 01/26/20 [place]) 17 10:06:00 AM EDT Attender: Family 10/09/19 [facility] Faustina [facility] 17 ([facility] 12:24:00 Angela PM EST - Medical 10/09/19 [place]) 17 12:24:00 PM EST OutpatientOFFICE/OUTPAT Attender: Socorro Family 10/08/19 NEXTGEN IENT VISIT, [place] [address] ([facility] 10:17:00 Angela AM EST - Medical 10/08/19 [place]) 17 10:17:00 AM EST [facility]patientExpanded [facility] N EXTGEN History/exam - Low [facility] 15 ([facility] 09:57:00 Owen hs AM EDT - Medical 01/17/20 Center) 15 09:57:00 AM EDT Attender: Allan [facility] 12/12/19 [facility] 15 ([facility] 11:21:00 Angela AM EDT - Medical 12/12/19 [place]) 15 11:21:00 AM EDT Attender: Family 11/28/[address] [facility] 15 ([facility] 10:17:00 Angela AM EST - Medical 11/28/19 [place]) 15 10:17:00 AM EST Attender: Allan Family [facility] ([facility] 08:45:00 Angela AM EST - Medical 11/06/19 [place]) 15 08:45:00 AM EST Attender: Family 09/24/[address] [facility] 14 ([facility] 09:15:00 Angela AM EST - Medical 09/24/20 [place]) 14 09:15:00 AM EST OutpatientOFFICE/OUTPAT Attender: Allan Family 08/27/20 NEXTGEN IENT VISIT, [facility] 14 ([facility] 03:50:00 Angela PM EST - Medical 08/27/20 [place]) 14 03:50:00 PM EST OutpatientOFFICE/OUTPAT Attender: Allan Family 05/30/20 NEXTGEN IENT VISIT, [facility] 14 ([facility] 02:32:00 Angela PM EDT - Medical 05/30/20 [place]) 14 02:32:00 PM EDT Attender: Allan Family [facility]/29/[facility] ([facility] 01:32:00 Angela PM EDT - Medical 03/29/20 [place]) 14 01:32:00 PM EDT OutpatientOFFICE/OUTPAT Attender: Allan Family 02/23/20 NEXTGEN IENT VISIT, [facility] 14 ([facility] 09:24:00 Angela AM EDT - Medical 02/23/20 [place]) 14 09:24:00 AM EDT OutpatientOFFICE/OUTPAT Attender: Allan Family 02/09/20 NEXTGEN IENT VISIT, [facility] 14 ([facility] 10:08:00 Angela AM EDT - Medical 02/09/20 [place]) 14 10:08:00 AM EDT OutpatientOFFICE/OUTPAT Attender: Allan Family 01/31/20 NEXTGEN IENT VISIT, [facility] 14 ([facility] 09:57:00 Angela AM EDT - Medical 01/31/20 Center) 14 09:57:00 AM EDT OutpatientOFFICE/OUTPAT Attender: Allan Cardenas 01/26/20 NEXTGEN IENT VISIT, [facility] 14 ([facility] 09:26:00 Angela AM EDT - Medical 01/26/20 Center) 14 09:26:00 AM EDT OutpatientOFFICE/OUTPAT Attender: Allan [facility] 12/28/19 NEXTGEN IENT VISIT, [facility] 14 ([facility] 10:05:00 Angela AM EDT - Medical 12/28/19 Center) 14 10:05:00 AM EDT OutpatientOFFICE/OUTPAT Attender: Allna [facility] 12/14/19 NEXTGEN IENT VISIT, [facility] 14 ([facility] 09:49:00 Angela AM EDT - Medical 12/14/19 [place]) 14 09:49:00 AM EDT Immunizations Vaccine Date Status Description Data Source(s) Tdap 11/23/2019 12:00:00 AM completed Tdap NEXTG EN ([facility]) Source: New Immunization Record New in 2012. IIV4 08/02/2018 11:01:00 completed Sa int [facility] pneumococcal 08/02/2018 11:01:00 completed [facility] polysaccharide PPV23 [facility] This CVX code has completed Influenza vaccine NEXTG EN ([facility] edical should rarely be used. Cente r) Source: New Immunization Record No Known Immunizations completed [email or web address] ([facility]) Medications Medication Brand Start Product Dose Route Administrative Pharmacy at Indications Reaction Description Data Name Date Form [...] ne NEXTGEN 40 MG Oral 40 mg 2019 {caps 40 MG Oral ( [facility] Capsule capsul 12:00: ule} Capsule Owen hs [Prozac] e 00 AM [Prozac] Medica l Prozac 40 EDT [place]) mg capsule Mirtazapine Remero .00 ORAL active mirtaza pine NEXTGEN 15 MG Oral n 15 2019 {tabl 15 MG Oral (S aint Tablet mg 12:00: et} Tablet Angela [Remeron] tablet 00 AM [Remeron] Me dical Remeron 15 EDT [place]) mg tablet Prazosin 2 prazos ORAL complet take 1 NEXTGEN MG Oral in 2 2019 {caps ed capsule by (Deejay t Capsule mg 12:00: ule} oral route Jeronimo phs prazosin 2 capsul 00 AM every day M edical mg capsule e EDT for [place]) nightmares Medication administered onsite Prazosin 2 prazosin [...] s [Prozac] [Prozac] Medical Prozac 40 mg [place]) capsule Medication administered onsite Prazosin 2 MG prazosin 2 06/19/2020 1 ORAL active take 1 NEXTGEN Oral Capsule mg capsule 12:00:00 AM {capsule} capsule by (Saint prazosin 2 mg EDT oral route Angela capsule every Medical bedtime for [place]) nightmares Mirtazapine Remeron 15 06/19/2020 1.00 ORAL completed mirtazapine NEXTGEN 15 MG Oral mg tablet 12:00:00 AM {tablet} 15 MG Oral (Saint Tablet EDT Tablet Angela [Remeron] [Remeron] Medic al Remeron 15 mg [place] ) tablet Medication administered onsite 120 ACTUAT [...] ap [Prozac] Medical Prozac 40 mg burger [place]) capsule le } Mirtazapine Remeron 15 05/22/2020 1. ORAL completed mirtazapine NEXTGEN 15 MG Oral mg tablet 12:00:00 AM 00 15 MG Oral (Saint Tablet EDT {t Tablet Angela [Remeron] ab [Remeron] Medic al Remeron 15 mg le [place] ) tablet t} Prazosin 1 MG prazosin 1 05/22/2020 1 ORAL completed take 1 NEXTGEN Oral Capsule mg capsule 12:00:00 AM {c capsule by (Saint prazosin 1 mg EDT ap oral route Angela capsule burger every day Medical le [place]) } apixaban 5 MG ELIQUIS 5MG 05/08/2020 [...] {p 0.583 MG/HR Angela Transdermal transdermal at [facility] Patch patch [facility]) [Nicoderm [...] Angela capsule burger every day Medical le [place]) } Mirtazapine Remeron 15 04/10/2020 1. ORAL completed mirtazapine NEXTGEN 15 MG Oral mg tablet 12:00:00 AM 00 15 MG Oral (Saint Tablet EDT {t Tablet Angela [Remeron] ab [Remeron] Medic al Remeron 15 mg le [place] ) tablet t} Fluoxetine 40 Prozac 40 [...] ap [Prozac] Medical Prozac 40 mg burger [place]) capsule le } Medication administered onsite Fluoxetine 20 Prozac 20 03/13/2020 1.00 ORAL completed Fluoxetine NEXTGEN MG Oral mg 12:00:00 AM {capsule} 20 MG Oral (Saint Capsule capsule EDT Capsule Srini s [Prozac] [Prozac] Medical Prozac 20 mg [place]) capsule Prazosin 1 MG prazosin 03/13/2020 1 ORAL completed take 1 NEXTGEN Oral Capsule 1 mg 12:00:00 AM {capsule} capsule by ( prazosin 1 mg capsule EDT oral rou te [place] capsule every day Medical [place]) Mirtazapine Remeron 03/13/2020 1.00 {tbl} ORAL completed Mirtazapine NEXTGEN 15 MG Oral 15 mg 12:00:00 AM 15 MG Oral (Saint Tablet tablet EDT Tablet Anegla [Remeron] [Remeron] Medic al Remeron 15 mg [place] ) tablet Fluoxetine 10 Prozac 10 03/13/2020 1.00 ORAL completed Fluoxetine NEXTGEN MG Oral mg 12:00:00 AM {capsule} 10 MG Oral (Saint Capsule capsule EDT Capsule Srini s [Prozac] [Prozac] Medical Prozac 10 mg [place]) capsule Lisinopril 5 LISINOPRI 02/16/2020 completed TAKE 1 NEXTGEN MG Oral L 5MG 12:00:00 AM TABLET BY (Saint Tablet TABLETS EDT MOUTH EVERY Helio ephs LISINOPRIL DAY Medical 5MG TABLETS [place]) Fluoxetine 20 Prozac 20 02/14/2020 1.00 ORAL completed Fluoxetine NEXTGEN MG Oral mg 12:00:00 AM {capsule} 20 MG Oral (Saint Capsule capsule EDT Capsule Srini s [Prozac] [Prozac] Medical Prozac 20 mg [place]) capsule Mirtazapine Remeron 02/14/2020 1.00 {tbl} ORAL completed Mirtazapine NEXTGEN 15 MG Oral 15 mg 12:00:00 AM 15 MG Oral (Saint Tablet tablet EDT Tablet Angela [Remeron] [Remeron] Medic al Remeron 15 mg [place] ) tablet Prazosin 1 MG prazosin 02/14/2020 1 ORAL completed take 1 NEXTGEN Oral Capsule 1 mg 12:00:00 AM {capsule} capsule by (Saint prazosin 1 mg capsule EDT oral rou te Angela capsule every day Medical [place]) Fluoxetine 10 Prozac 10 02/14/2020 1.00 ORAL completed Fluoxetine NEXTGEN MG Oral mg 12:00:00 AM {capsule} 10 MG Oral (Saint Capsule capsule EDT Capsule Srini s [Prozac] [Prozac] Medical Prozac 10 mg [place]) capsule Prazosin 1 MG prazosin 01/18/2020 1 ORAL completed take 1 NEXTGEN Oral Capsule 1 mg 12:00:00 AM {capsule} capsule by ( prazosin 1 mg capsule EDT oral rou te Angela capsule every day Medical [place]) Fluoxetine 20 Prozac 20 01/18/2020 1.00 ORAL completed Fluoxetine NEXTGEN MG Oral mg 12:00:00 AM {capsule} 20 MG Oral (Saint Capsule capsule EDT Capsule Srini s [Prozac] [Prozac] Medical Prozac 20 mg [place]) capsule Mirtazapine Remeron 01/18/2020 1.00 {tbl} ORAL completed Mirtazapine NEXTGEN 15 MG Oral 15 mg 12:00:00 AM 15 MG Oral (Saint Tablet tablet EDT Tablet Angela [Remeron] [Remeron] Medic al Remeron 15 mg [place] ) tablet apixaban 5 MG ELIQUIS 01/01/2020 completed apixaban 5 NEXTGEN Oral Tablet 5MG 12:00:00 AM MG Ora l (Saint [Eliquis] TABLETS EDT Tablet Owen hs ELIQUIS 5MG [Eliquis] Med ical TABLETS [place]) Mirtazapine Remeron 12/21/2019 1.00 {tbl} ORAL completed Mirtazapine NEXTGEN 15 MG Oral 15 mg 12:00:00 AM 15 MG Oral (Saint Tablet tablet EDT Tablet Angela [Remeron] [Remeron] Medic al Remeron 15 mg [place] ) tablet Fluoxetine 20 Prozac 20 12/21/2019 1.00 ORAL completed Fluoxetine NEXTGEN MG Oral mg 12:00:00 AM {capsule} 20 MG Oral ( Capsule capsule EDT Capsule Srini s [Prozac] [Prozac] Medical Prozac 20 mg [place]) capsule Prazosin 1 MG prazosin 12/21/2019 1 ORAL completed take 1 NEXTGEN Oral Capsule 1 mg 12:00:00 AM {capsule} capsule by ( prazosin 1 mg capsule EDT oral rou te Angela capsule every day Medical [place]) atorvastatin atorvasta 11/23/2019 1.00 ORAL active take 1 NEXTGEN 10 MG Oral tin 10 mg 12:00:00 AM {tablet} tablet by ( Tablet tablet EST oral route Owen hs atorvastatin every day Me dical 10 mg tablet [place]) 200 ACTUAT Ventolin 11/23/2019 active ND [id number] NEXTGEN Albuterol HFA 90 12:00:00 AM 200 AC TUAT (Saint 0.09 mcg/actua EST albuterol Owen hs MG/ACTUAT tion 0.09 Medical Metered Dose aerosol MG/ACTUAT [place]) Inhaler inhaler Metered Dose [Ventolin] Inhaler Ventolin HFA [Ventolin] 90 mcg/actuation aerosol inhaler Prazosin 1 MG prazosin 11/23/2019 1 ORAL completed take 1 NEXTGEN Oral Capsule 1 mg 12:00:00 AM {capsule} capsule by ( prazosin 1 mg capsule EST oral rou te Angela capsule every day Medical [place]) Aspirin 81 MG aspirin 11/23/2019 1.00 ORAL active chew 1 NEXTGEN Chewable 81 mg 12:00:00 AM {tablet} tabl et by (Saint Tablet chewable EST oral route Helio ephs aspirin 81 mg tablet every day Medical chewable [place]) tablet Lisinopril 5 LISINOPRI 11/15/2019 completed TAKE 1 NEXTGEN MG Oral L 5MG 12:00:00 AM TABLET BY ([facility] Tablet TABLETS EST MOUTH EVERY Helio ephs LISINOPRIL DAY Medical 5MG TABLETS [place]) 24 HR METOPROLO 11/15/2019 completed SHARONA E 1 NEXTGEN metoprolol L ER 12:00:00 AM TABLET BY ([facility] succinate 25 SUCCINATE EST MOUTH E VERY Angela MG Extended 25MG TABS DAY Med ical Release Oral [place]) Tablet METOPROLOL ER SUCCINATE 25MG TABS 24 [...] [Klonopin] [Klonopin] Med ical Klonopin 1 mg [place] ) tablet Mirtazapine Remeron 10/27/2019 1.00 {tbl} ORAL completed Mirtazapine NEXTGEN 15 MG Oral 15 mg 12:00:00 AM 15 MG Oral (Saint Tablet tablet EST Tablet Angela [Remeron] [Remeron] Medic al Remeron 15 mg [place] ) tablet 24 HR metoprolo 10/18/2019 1.00 {tbl} ORAL completed take 1 NEXTGEN metoprolol l 12:00:00 AM tablet by ([facility] succinate 25 succinate EST oral ro [facility] [place] Angela MG Extended ER 25 mg every [...] 5 every day Me dical mg tablet [place]) Fluoxetine 20 Prozac 20 10/13/2019 1.00 ORAL completed Fluoxetine NEXTGEN MG Oral mg 12:00:00 AM {capsule} 20 MG Oral ([facility] Capsule capsule EST Capsule Srini s [Prozac] [Prozac] Medical Prozac 20 mg [place]) capsule pregabalin 75 Lyrica 75 10/13/2019 1 ORAL active pregabalin NEXTGEN MG Oral mg 12:00:00 AM {capsule} 75 MG Oral ([facility] Capsule capsule EST Capsule Srini s [Lyrica] [Lyrica] Medical Lyrica 75 mg [place]) capsule Clonazepam Klonopin 10/13/2019 1 {tbl} ORAL completed Clonazepam NEXTGEN 0.5 MG Oral 0.5 mg 12:00:00 AM 0.5 MG Oral (Saint Tablet tablet EST Tablet Angela [Klonopin] [Klonopin] Med ical Klonopin 0.5 [place]) mg tablet Prazosin 1 MG prazosin 10/13/2019 1 ORAL completed take 1 NEXTGEN Oral Capsule 1 mg 12:00:00 AM {capsule} capsule by ([facility] prazosin 1 mg capsule EST oral rou te Angela capsule every day Medical [place]) Sertraline 50 Zoloft 50 08/15/2019 1.00 {tbl} ORAL completed Sertraline NEXTGEN MG Oral mg tablet 12:00:00 AM 50 MG Oral (Saint Tablet EST Tablet Angela [Zoloft] [Zoloft] Medical Zoloft 50 mg [place]) tablet quetiapine Seroquel 08/15/2019 1.00 {tbl} ORAL completed quetiapine NEXTGEN 100 MG Oral 100 mg 12:00:00 AM 100 MG Oral ([facility] Tablet tablet EST Tablet Angela [Seroquel] [Seroquel] Med ical Seroquel 100 [place]) mg tablet Hydroxyzine hydroxyzi 08/15/2019 completed take 1 NEXTGEN Hydrochloride ne HCl 50 12:00:00 AM tablet by ([facility] 50 MG Oral mg tablet EST oral at Angela Tablet night Medical hydroxyzine [place]) HCl 50 mg tablet aripiprazole Abilify 5 08/15/2019 1.00 {tbl} ORAL completed aripiprazole NEXTGEN 5 MG Oral mg tablet 12:00:00 AM 5 M G Oral ([facility] Tablet EST Tablet Angela [Abilify] [Abilify] Medic al Abilify 5 mg [place]) tablet Sertraline 50 Zoloft 50 07/12/2019 1.00 {tbl} ORAL completed Sertraline NEXTGEN MG Oral mg tablet 12:00:00 AM 50 MG Oral ([facility] Tablet EDT Tablet Angela [Zoloft] [Zoloft] Medical Zoloft 50 mg [place]) tablet aripiprazole Abilify 5 07/12/2019 1.00 {tbl} ORAL completed aripiprazole NEXTGEN 5 MG Oral mg tablet 12:00:00 AM 5 M G Oral ([facility] Tablet EDT Tablet Angela [Abilify] [Abilify] Medic al Abilify 5 mg [place]) tablet Hydroxyzine hydroxyzi 07/12/2019 completed take 1 NEXTGEN Hydrochloride ne HCl 50 12:00:00 AM tablet by (Saint 50 MG Oral mg tablet EDT oral at [facility] hydroxyzine [place]) HCl 50 mg tablet quetiapine 50 Seroquel 07/12/2019 1.00 {tbl} ORAL completed quetiapine NEXTGEN MG Oral 50 mg 12:00:00 AM 50 MG Ora l (Saint Tablet tablet EDT Tablet Angela [Seroquel] [Seroquel] Med ical Seroquel 50 [place]) mg tablet Sertraline 50 Zoloft 50 07/05/2019 1.00 {tbl} ORAL completed Sertraline NEXTGEN MG Oral mg tablet 12:00:00 AM 50 MG Oral ([facility] Tablet EDT Tablet Angela [Zoloft] [Zoloft] Medical Zoloft 50 mg [place]) tablet quetiapine 50 Seroquel 07/05/2019 1.00 {tbl} ORAL completed quetiapine NEXTGEN MG Oral 50 mg 12:00:00 AM 50 MG Ora l (Saint Tablet tablet EDT Tablet Angela [Seroquel] [Seroquel] Med ical Seroquel 50 [place]) mg tablet Hydroxyzine hydroxyzi 07/05/2019 completed take 1 NEXTGEN Hydrochloride ne HCl 50 12:00:00 AM tablet by (Saint 50 MG Oral mg tablet EDT oral at [facility] hydroxyzine [place]) HCl 50 mg tablet aripiprazole Abilify 5 07/05/2019 1.00 {tbl} ORAL completed aripiprazole NEXTGEN 5 MG Oral mg tablet 12:00:00 AM 5 M G Oral ([facility] Tablet EDT Tablet Angela [Abilify] [Abilify] Medic al Abilify 5 mg [place]) tablet 120 ACTUAT Symbicort 06/23/2019 2.00 RESPIR completed 120 ACTUAT NEXTGEN Budesonide 160 12:00:00 AM {puff} ATORY bude sonide (Saint 0.16 mcg-4.5 EDT (INHAL 0.16 Angela MG/ACTUAT / mcg/actua ATION) MG/ACT UAT / Medical formoterol tion HFA formoterol [place]) fumarate aerosol fumarate 0.0045 inhaler 0.0045 MG/ACTUAT MG/ACTUAT Metered Dose Metered Dose Inhaler Inhaler [Symbicort] [Symbicort] Symbicort 160 mcg-4.5 mcg/actuation HFA aerosol inhaler apixaban 5 MG Eliquis 5 06/23/2019 1.00 {tbl} ORAL completed apixaban 5 NEXTGEN Oral Tablet mg tablet 12:00:00 AM M G Oral (Saint [Eliquis] EDT Tablet Angela Eliquis 5 mg [Eliquis] Me dical tablet Center) Z79.01 [place]sp[place] 24 HR 06/23/2019 1.00 ORAL [...] ( atorvastatin 10 tablet EDT oral ro [facility] Angela mg tablet every day Medic al Center) 200 ACTUAT Ventolin 06/23/2019 completed [id number] NEXTGEN Albuterol 0.09 HFA 90 12:00:00 AM [...] sephs 50 mg tablet [Zoloft] Med ical Center) aripiprazole 5 MG Abilify 5 06/07/2019 1.00 {tbl} ORAL completed aripiprazole NEXTGEN Oral Tablet mg tablet 12:00:00 AM 5 MG Oral (Saint [Abilify] Abilify EDT Tablet Angela 5 mg tablet [Abilify] [facility] ical [place]) quetiapine 50 MG Seroquel 50 06/07/2019 1.00 {tbl} ORAL completed quetiapine NEXTGEN Oral Tablet mg tablet 12:00:00 AM 5 0 MG Oral (Saint [Seroquel] EDT Tablet Angela Seroquel 50 mg [Seroquel] Medical tablet [place]) Hydroxyzine hydroxyzine 05/08/2019 completed take 1 NEXTGEN Hydrochloride 50 HCl 50 mg 12:00:00 AM tablet by (Saint MG Oral Tablet tablet EDT oral at [facility] hydroxyzine HCl night Med ical 50 mg tablet Center) aripiprazole 5 MG Abilify 5 05/08/2019 1.00 {tbl} ORAL completed aripiprazole NEXTGEN Oral Tablet mg tablet 12:00:00 AM 5 MG Oral ([facility] [Abilify] Abilify EDT Tablet Angela 5 mg tablet [Abilify] Med ical [place]) Sertraline 50 MG Zoloft 50 05/08/2019 1.00 {tbl} ORAL comple ijeoma Sertraline NEXTGEN Oral Tablet mg tablet 12:00:00 AM 5 0 MG Oral (Saint [Zoloft] Zoloft EDT Tablet Yojana sephs 50 mg tablet [Zoloft] Med ical [place]) quetiapine 50 MG Seroquel 50 05/08/2019 1.00 {tbl} ORAL completed quetiapine NEXTGEN Oral Tablet mg tablet 12:00:00 AM 5 0 MG Oral (Saint [Seroquel] EDT Tablet Angela Seroquel 50 mg [Seroquel] Medical tablet [place]) Hydroxyzine hydroxyzine 04/10/2019 completed take 1 NEXTGEN Hydrochloride 50 HCl 50 mg 12:00:00 AM tablet by (Saint MG Oral Tablet tablet EDT oral at [facility] hydroxyzine HCl night Med ical 50 mg tablet Center) quetiapine 50 MG Seroquel 50 04/10/2019 1.00 {tbl} ORAL completed quetiapine NEXTGEN Oral Tablet mg tablet 12:00:00 AM 5 0 MG Oral ([facility] [Seroquel] EDT Tablet Angela Seroquel 50 mg [Seroquel] Medical tablet [place]) Sertraline 50 MG Zoloft 50 04/10/2019 1.00 {tbl} ORAL comple ijeoma Sertraline NEXTGEN Oral Tablet mg tablet 12:00:00 AM 5 0 MG Oral ([facility] [Zoloft] Zoloft EDT Tablet Yojana sephs 50 mg tablet [Zoloft] Med ical [place]) Sertraline 50 MG Zoloft 50 12/14/2018 1.00 {tbl} ORAL comple ijeoma Sertraline NEXTGEN Oral Tablet mg tablet 12:00:00 AM 5 0 MG Oral (Saint [Zoloft] Zoloft EDT Tablet Yojana sephs 50 [facility] Hydroxyzine hydroxyzine 12/14/2018 completed take 1 NEXTGEN Hydrochloride 50 HCl 50 mg 12:00:00 AM tablet by (Saint MG Oral Tablet tablet EDT oral at [facility] hydroxyzine HCl night Med ical 50 mg tablet [place]) quetiapine 50 MG Seroquel 50 12/14/2018 1.00 {tbl} ORAL completed quetiapine NEXTGEN Oral Tablet mg tablet 12:00:00 AM 5 0 MG Oral ([facility] [Seroquel] EDT Tablet Angela Seroquel 50 mg [Seroquel] Medical tablet [place]) quetiapine 50 MG Seroquel 50 11/30/2018 1.00 {tbl} ORAL completed quetiapine NEXTGEN Oral Tablet mg tablet 12:00:00 AM 5 0 MG Oral ([facility] [Seroquel] EST Tablet Angela Seroquel 50 mg [[facility]] Medical tablet [place]) Hydroxyzine hydroxyzine 11/30/2018 completed take 1 NEXTGEN Hydrochloride 50 HCl 50 mg 12:00:00 AM tablet by (Saint MG Oral Tablet tablet EST oral at [facility] hydroxyzine HCl night Med ical 50 mg tablet [place]) Sertraline 50 MG Zoloft 50 11/30/2018 1.00 {tbl} ORAL comple ijeoma Sertraline NEXTGEN Oral Tablet mg tablet 12:00:00 AM 5 0 MG Oral (Saint [Zoloft] Zoloft EST Tablet Yojana sephs 50 mg tablet [Zoloft] Med ical [place]) aripiprazole 5 MG Abilify 5 11/30/2018 1.00 {tbl} ORAL completed aripiprazole NEXTGEN Oral Tablet mg tablet 12:00:00 AM 5 MG Oral (Saint [Abilify] Abilify EST Tablet Angela 5 mg tablet [Abilify] [facility]) quetiapine 100 MG Seroquel 11/30/2018 1.00 {tbl} ORAL comple ijeoma quetiapine NEXTGEN Oral Tablet 100 mg 12:00:00 AM 100 MG Oral (Saint [Seroquel] tablet EST Tablet Owen hs Seroquel 100 mg [Seroque ] Medical tablet [place]) Sertraline 50 MG Zoloft 50 11/02/2018 1.00 {tbl} ORAL comple ijeoma Sertraline NEXTGEN Oral Tablet mg tablet 12:00:00 AM 5 0 MG Oral (Saint [Zoloft] Zoloft EST Tablet Yojana sephs 50 mg tablet [Zoloft] [facility]) quetiapine 100 MG Seroquel 11/02/2018 1.00 {tbl} ORAL comple ijeoma quetiapine NEXTGEN Oral Tablet 100 mg 12:00:00 AM 100 MG Oral (Saint [Seroquel] tablet EST Tablet Owen hs Seroquel 100 mg [facility] Medical tablet [place]) Hydroxyzine hydroxyzine 11/02/2018 completed take 1 NEXTGEN Hydrochloride 50 HCl 50 mg 12:00:00 AM tablet by ([facility] MG Oral Tablet tablet EST oral rou te 3 Angela hydroxyzine HCl times [facility] Medical 50 mg tablet day Center) [place]sp[place] 24 HR 10/25/2018 1.00 ORAL completed 24 HR NEXTGEN Sprinkle 25 mg metoprolol 12:00:00 AM {capsule} metoprolol ( capsule,extended succinate EST suc cinate 25 Angela release 25 MG MG Extended Medi julio Extended Release Oral [facility] ter) Release Capsule Oral [Kapspargo] Capsule apixaban 5 MG Eliquis 5 10/25/2018 1.00 {tbl} ORAL completed apixaban 5 NEXTGEN Oral Tablet mg tablet 12:00:00 AM M G Oral ([facility] [Eliquis] Eliquis EST Tablet Angela 5 mg tablet [Eliquis] [facility]) Z79.01 Lisinopril 2.5 lisinopril 2.5 10/25/2018 1.00 ORAL completed take 1 NEXTGEN MG Oral Tablet mg tablet 12:00:00 AM {tbl} tablet by ([facility] lisinopril 2.5 EST oral Owen hs mg tablet route Medical every day [place]) quetiapine 100 Seroquel 100 09/22/2018 1.00 ORAL completed quetiapin NEXTGEN MG Oral Tablet mg tablet 12:00:00 AM {tbl} e 100 MG ( [Seroquel] EST Oral Angela Seroquel 100 Tablet [...] mg tablet 12:00:00 AM {tbl} tablet by ([facility] Tablet EST oral Angela escitalopram route Medica l 20 mg tablet every day Ce nter) Kapspargo 24 HR 09/22/2018 1.00 ORAL completed 24 HR NEXTGEN Sprinkle 25 mg metoprolol 12:00:00 AM {capsu metoprolo ([facility] capsule,extend succinate 25 EST le} l Angela ed release MG Extended succina te Medical Release Oral 25 MG [place] ) Capsule Extended Release Oral Capsule [Kapsparg o] atorvastatin atorvastatin 09/22/2018 1.00 ORAL completed take 1 NEXTGEN 10 MG Oral 10 mg tablet 12:00:00 AM {tbl} tablet by ([facility] Tablet EST oral Angela atorvastatin route Medica l 10 mg tablet every day Ce nter) Aspirin 81 MG aspirin 81 mg 09/22/2018 1.00 ORAL completed chew 1 NEXTGEN Chewable chewable 12:00:00 AM {tbl} tabl et by ([facility] Tablet aspirin tablet EST oral Helio ephs 81 mg chewable route Medi julio tablet every day [place]) ZTlido 1.8 % Lidocaine 08/11/2018 1.00 TOPICAL completed Lidocaine NEXTGEN topical patch 0.018 MG/MG 12:00:00 AM patch 0.018 ( Medicated EST MG/MG Angela Patch Medicated Medical Patch [place]) [ZTlido] apixaban 5 MG Eliquis 5 mg 08/05/2018 1.00 ORAL completed apixaban NEXTGEN Oral Tablet tablet 12:00:00 AM {tbl} 5 M G Oral ( [Eliquis] EDT Tablet Angela Eliquis 5 mg [Eliquis] Mn dical tablet [place]) tramadol tramadol 50 mg 08/05/2018 1 ORAL [...] BEDTIME 200 ACTUAT Ventolin HFA 12/30/2017 completed [id number] NEXTGEN Albuterol 0.09 90 12:00:00 AM 200 [...] chewable ROUTE Medi julio tablet EVERY DAY [place]) Simvastatin 20 simvastatin 20 11/16/2017 completed TAKE 1 NEXTGEN MG Oral Tablet mg tablet 12:00:00 AM TABLET BY ([facility] simvastatin 20 EST ORAL Owen hs mg tablet ROUTE Medical EVERY DAY [place]) IN THE EVENING 200 ACTUAT Ventolin HFA [...] Oral Trimethop Med ical Tablet rim 160 [place]) [Bactrim] MG Oral Bactrim DS 800 Tablet mg-160 mg [Bactrim] tablet Phenazopyridin Pyridium 100 09/08/2017 1.00 ORAL completed Phenazopy NEXTGEN e mg tablet 12:00:00 AM {tbl} ridine ([facility] hydrochloride EST hydrochlo J osephs 100 MG Oral ride 100 Medi julio Tablet MG Oral Center) [Pyridium] Tablet Pyridium 100 [Pyridium mg tablet ] Simvastatin 20 simvastatin 20 07/29/2017 1.00 ORAL completed take 1 NEXTGEN MG Oral Tablet mg tablet 12:00:00 AM {tbl} tablet by ([facility] simvastatin 20 EDT oral Owen hs mg tablet route Medical every day Center) in the evening Hydrochlorothi hydrochlorothi 07/29/2017 completed TAKE 1 NEXTGEN azide 12.5 MG azide 12.5 mg 12:00:00 AM TABLET (Saint Oral Tablet tablet EDT (12.5MG) Yojana sephs hydrochlorothi BY ORAL Me dical azide 12.5 mg ROUTE Cente r) tablet EVERY DAY Aspirin 81 MG aspirin 81 mg 07/29/2017 1.00 ORAL completed chew 1 NEXTGEN Chewable chewable 12:00:00 AM {tbl} tabl et by ([facility] Tablet aspirin tablet EDT oral Helio ephs 81 mg chewable route Medi julio tablet every day Center) gabapentin 100 gabapentin 100 07/29/2017 1 ORAL completed take 1 NEXTGEN MG Oral mg capsule 12:00:00 AM {capsu ca psule ([facility] Capsule EDT le} by oral Angela gabapentin 100 route 3 Me dical mg capsule times Center) every day Simvastatin 20 simvastatin 20 04/26/2017 1.00 ORAL completed TAKE 1 NEXTGEN MG Oral Tablet mg tablet 12:00:00 AM {tbl} TABLET BY ([facility] simvastatin 20 EDT ORAL Owen hs mg tablet ROUTE Medical EVERY DAY Center) IN THE EVENING Hydrochlorothi hydrochlorothi 04/22/2017 completed TAKE 1 NEXTGEN azide 12.5 MG azide 12.5 mg 12:00:00 AM TABLET ([facility] Oral Tablet tablet EDT (12.5MG) Yojana sephs hydrochlorothi BY ORAL Me dical azide 12.5 [...] mg tablet 12:00:00 AM {tbl} TABLET BY ([facility] simvastatin 20 EDT ORAL Owen hs mg [...] mg tablet 12:00:00 AM {tbl} tablet by ([facility] simvastatin 20 EST oral Owen hs mg [...] mg tablet 12:00:00 AM {tbl} tablet by ([facility] simvastatin 20 EST oral Owen hs mg tablet route Medical every day Center) in the evening quetiapine 25 Seroquel 25 mg 01/16/2015 completed quetiapin NEXTGEN MG Oral Tablet tablet 12:00:00 AM e 25 MG (Saint [Seroquel] EDT Oral Angela Seroquel 25 mg Tablet Med [facility] ] buspirone buspirone 15 01/16/2015 1 ORAL [...] 30 mg Tablet Medi julio tablet [Remeron] [place]) Aspirin 81 MG aspirin 81 mg 12/11/2014 [...] Tablet tablet 12:00:00 AM e 25 MG ( [Seroquel] EDT Oral Angela Seroquel 25 mg Tablet Med ical tablet [facility] ] Mirtazapine 30 Remeron 30 mg 12/11/2014 completed Mirtazapi NEXTGEN MG Oral Tablet tablet 12:00:00 AM n e 30 MG (Saint [Remeron] EDT Oral Angela Remeron 30 mg Tablet Medi julio tablet [Remeron] [place]) buspirone buspirone 15 12/11/2014 1 ORAL completed [...] Seroquel 25 mg Tablet Med ical tablet [[facility]) ] Mirtazapine 30 Remeron 30 mg 11/06/2014 completed Mirtazapi NEXTGEN MG Oral Tablet tablet 12:00:00 AM n e 30 MG (Saint [Remeron] EST Oral Angela Remeron 30 mg Tablet Medi julio tablet [[facility]] [place]) buspirone buspirone 15 09/24/2014 1 ORAL completed [...] chewable route Medi julio tablet every day [place]) Mirtazapine 30 Remeron 30 mg 08/27/2014 completed Mirtazapi NEXTGEN MG Oral Tablet tablet 12:00:00 AM n e 30 MG (Saint [Remeron] EST Oral Angela Remeron 30 mg Tablet Medi julio tablet [[facility]] [place]) buspirone buspirone 15 08/27/2014 1 ORAL completed [...] Seroquel 25 mg Tablet Med ical tablet [[facility]) ] simvastatin 20 Simvastatin 20 08/27/2014 1.00 ORAL completed take 1 NEXTGEN mg tablet MG Oral Tablet 12:00:00 AM {tbl} tablet by ([facility] EST oral [facility] Medical every day [place]) in the evening Hydrochlorothi hydrochlorothi 05/30/2014 completed take 1 NEXTGEN azide 12.5 MG azide 12.5 mg 12:00:00 AM tablet ([facility] Oral Tablet tablet EDT (12.5MG) Yojana sephs hydrochlorothi by oral Me dical azide 12.5 mg route Cente r) tablet every day simvastatin 20 Simvastatin 20 05/30/2014 1.00 ORAL completed take 1 NEXTGEN mg tablet MG Oral Tablet 12:00:00 AM {tbl} [facility] Medical every day [place]) in the evening Aspirin 81 MG aspirin 81 mg 05/30/2014 1.00 ORAL completed chew 1 NEXTGEN Chewable chewable 12:00:00 AM {tbl} tabl et by ([facility] Tablet aspirin tablet EDT oral Helio ephs 81 mg chewable route Medi julio tablet every day Center) quetiapine 25 Seroquel 25 mg 03/29/2014 1 ORAL completed quetiapin NEXTGEN MG Oral Tablet tablet 12:00:00 AM {tbl} e 25 MG ([facility] [Seroquel] EDT Oral Angela Seroquel 25 mg Tablet Med ical tablet [Seroquel [place]) ] Mirtazapine 30 Remeron 30 mg 03/29/2014 1.00 ORAL completed Mirtazapi NEXTGEN MG Oral Tablet tablet 12:00:00 AM {tbl} ne 30 MG ([facility] [Remeron] EDT Oral [facility] Remeron 30 mg Tablet Medi julio tablet [Remeron] [place]) buspirone buspirone 15 03/29/2014 1 ORAL completed take 1 NEXTGEN hydrochloride mg tablet 12:00:00 AM {tbl} tablet ([facility] 15 MG Oral EDT (15MG) Angela Tablet by oral Medical buspirone 15 route 3 Cent er) mg tablet times every day Oseltamivir 75 Tamiflu 75 mg 01/30/2014 1.00 ORAL completed Oseltamiv NEXTGEN MG Oral capsule 12:00:00 AM {capsu ir 75 MG ([facility] Capsule EDT le} Oral Angela [Tamiflu] Capsule [...] MG active 1 capsule eCW1 MG Oral ([facility] Capsule Angela [Prozac] Medical Prozac 20 MG [facility]) Aspirin 81 MG Aspirin 81 MG active 1 tablet eCW1 Delayed (Saint Release Oral Angela Tablet Medical Practice ) pregabalin 75 Lyrica 75 MG active 1 capsule eCW1 MG Oral ([facility] Capsule Angela [Lyrica] Medical Lyrica 75 MG [facility]) Alprazolam 2 Xanax 2 mg 1.00 ORAL completed A lprazola NEXTGEN MG Oral Tablet tablet {tbl} m 2 MG ([facility] [Xanax] Xanax Oral Srini s 2 mg [facility] [place]) gabapentin 100 gabapentin 100 3.00 ORAL completed take 3 NEXTGEN mg capsule MG Oral {capsu capsule ( Saint Capsule le} (300MG) Angela by oral Medical route [address] [place] [address]) times every day Lisinopril 5 Lisinopril 5 active 1 TABLET eCW1 MG Oral Tablet MG ONCE A ( Angela ORALLY 90 Medical DAYS Located within [facility]) 24 HR metoprolol 1 completed Jak nt [...] Angela QUEtiapine 100 Ordered By: Medical mg TabletShabbire r Ordered By: Shabbir Saleem MDDirections: Cross, 1 tablet twice MDDirections: a day and at 1 tablet twice bedtime oral 1 a day and at tablet twice a bedtime oral 1 day and at tablet twice a bedtime day and at bedtime 200 ACTUAT albuterol 2 completed [facility] Albuterol 0.09 sulfate HFA Yojana sephs MG/ACTUAT [...] Angela [Eliquis] Tablet, Medical apixaban Ordered By: Jimmy er (Eliquis) 5 mg [place] Tablet, Cross, Ordered By: MDDirections: [place] 1 tablet oral [place], twice a day MDDirections: 1 tablet oral twice a day Escitalopram escitalopram 1 completed Saint 20 MG Oral oxalate 20 mg Angela Tablet Tablet, Medical escitalopram Ordered By: [place] oxalate 20 mg [place] Tablet, Cross, Ordered By: MDDirections: [place] 1 tablet oral Cross, daily MDDirections: 1 tablet oral daily Lisinopril 2.5 lisinopril 2.5 1 completed [facility] MG Oral Tablet mg Tablet, Angela lisinopril 2.5 Ordered By: Medical mg Tablet, [place] Cente r Ordered By: Amish Saleemuijoaquín MDDirections: Cross, 1 tablet oral MDDirections: daily 1 tablet oral daily Aspirin 81 MG aspirin 81 mg 1 completed Chewable tablet,chewalfredo J osephs Tablet aspirin e, Ordered By: Medical 81 mg [place] Center tablet,chewabl Stiven, e, Ordered By: MDDirections: [place] 1 tablet oral Cross, daily MDDirections: 1 tablet oral daily 120 ACTUAT budesonide-for 1 completed Symbicort Budesonide moterol Srini bolton 0.16 MG/ACTUAT (Symbicort) Medical / formoterol 160 mcg-4.5 [place] fumarate mcg/Actuation 0.0045 HFA Aerosol MG/ACTUAT Inhaler, [...] by (Saint 50 MG Oral tablet oral [facility] Tablet route Medical hydroxyzine every [place]) HCl 50 mg bedtime tablet as needed Hydroxyzine hydrOXYzine 1 completed [facility] Hydrochloride HCl 50 mg J osephs 50 MG Oral Tablet, Medica l Tablet Ordered By: [place] hydrOXYzine [place] HCl 50 mg Cross, Tablet, MDDirections: Ordered By: 1 tablet oral [place] three times a Cross, day PRN MDDirections: anxiety 1 tablet oral three times a day PRN anxiety venlafaxine drug or completed [facility] traMADol drug or completed [facility] famotidine drug or completed [facility] 200 ACTUAT Ventolin HFA active 2 pu ffs eCW1 Albuterol 0.09 108 (90 Base) a s needed (Saint MG/ACTUAT MCG/ACT [facility] Metered Dose Medical Inhaler Practice [Ventolin] ) Ventolin HFA 108 (90 Base) MCG/ACT seroquel drug or completed [facility] xanax drug or completed [facility] atorvastatin Atorvastatin active 1 tablet eCW1 10 MG Oral Calcium 10 MG ([facility] Atorvastatin Medical Calcium 10 MG Practi ce ) hydrocodone 10 HYDROCODONE/AC 1.00 ORAL completed take 1 NEXTGEN mg-acetaminoph ETAMINOPHEN {tbl} ta blet by ([facility] en 325 mg oral [facility] tablet route Medical every 4 - Center) 6 hours as needed for pain Clonazepam 0.5 Klonopin 0.5 active 1 tablet eCW1 MG Oral Tablet MG at (Deejay t [Klonopin] bedtime [facility] Klonopin 0.5 Medical MG Practice [facility]) Prazosin 1 MG Prazosin HCl 1 active 1 capsule eCW1 Oral Capsule MG at ( Prazosin HCl 1 bedtime Yojana sephs MG [facility]) 120 ACTUAT Symbicort active 2 puffs eCW1 Budesonide 160-4.5 (Saint 0.16 MG/ACTUAT MCG/ACT Yojana sephs / formoterol Medical fumarate Practice 0.0045 ) MG/ACTUAT Metered Dose Inhaler [Symbicort] Symbicort 160-4.5 MCG/ACT apixaban 5 MG Eliquis 5 MG active o ne eCW1 Oral Tablet tablet ( [Eliquis] Angela Eliquis 5 MG [facility] Practice [facility]) Acetaminophen hydrocodone 10 1.00 ORAL completed take 1 NEXTGEN 325 MG / mg-acetaminoph {tbl} table t by ( Hydrocodone en 325 mg oral Helio ephs Bitartrate 10 tablet route Med ical MG Oral Tablet every 4 - Center) hydrocodone 10 6 hours mg-acetaminoph as needed en 325 mg for pain tablet Insurance Providers Payer name Policy type Policy ID Covered Covered green party's Policy P gladis / Coverage green party ID relationship to Morales Inf ormation type morales [employer]IG[employer] [id number] S [id number] HEALTHCARE O C I G N A H [id number] self [id number] M O C I G N A H O [id number] 01 [id number] M O AFFINITY [id number] SP [id number] MEDICAID [id number] SP [id number] O CIGNA PSY HMO [id number] self [id number] CIGNA PSY HMO O [id number] 01 [id number] O [id number] CIGNA [id number] HEALTHCARE HMO C I G N A H O [id number] 01 [id number] M O AFFINITY O [id number] HEALTH PLAN Problems, Conditions, and Diagnoses Code Display Name Description Problem Type Effective Data Dates Source(s) I42.9 [id number] Cardiomyopathy, Problem 11/03/2019 eCW1 (Jak nt unspecified type 12:00:00 AM [facility]) [id number] Fear of going out Fear of going out Problem 12/14/2018 NEXTGEN 12:00:00 AM ([facility]) [id number] 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 NEXTGEN stress disorder, stress disorder, 12:00:00 AM ( [facility] delayed onset delayed onset [facility]) I50.22 [id number] Chronic systolic Problem 08/18/2018 eCW1 (Sa int congestive heart 12:00:00 AM [facility] failure [facility]) [id number] Left ventricular Left ventricular Problem 08/11/2018 NE XTGEN cardiac cardiac 12:00:00 AM ([facility]) [id number] Tobacco dependence Tobacco dependence Problem 4 NEXTGEN syndrome syndrome 12:00:00 AM ([facility]) [id number] Benign essential Benign essential Problem 05/30/2014 NE XTGEN hypertension hypertension 12:00:00 AM ([facility]) [id number] Transient cerebral Transient cerebral Problem 4 NEXTGEN ischemia ischemia 12:00:00 AM ([facility]) [id number] Depressive Depressive Problem 01/30/2014 NEXTGEN disorder disorder 12:00:00 AM ([facility]) [id number] Backache Backache Problem 12/13/2013 NEXTGEN 12:00:00 AM ([facility]) [id number] Bipolar disorder Bipolar disorder Problem NE XTGEN ([facility]) Z71.89 Other specified OTHER SPECIFIED Diagnosis 04/16/2020 [...] general adult ADULT MEDICAL EXAM 05:06:00 PM Me dical medical W/O ABNORMAL EST Center examination FINDINGS without abnormal findings I26.93 SINGLE SINGLE Diagnosis 11/03/2019 [facility] SUBSEGMENTAL SUBSEGMENTAL 12:21:00 PM Medical PULMON EMBLSM W/O PULMON EMBLSM W/O EST Center ACUTE COR ACUTE COR PULMONALE PULMONALE I42.9 Cardiomyopathy, CARDIOMYOPATHY, Diagnosis 11/03/2019 [facility] [place] unspecified UNSPECIFIED 12:21:00 PM Medical EST Center F32.9 Major depressive MAJOR DEPRESSIVE Diagnosis 10/18/2019 int Angela disorder, single DISORDER, SINGLE 09:27:00 AM M edical episode, EPISODE, EST Center unspecified UNSPECIFIED F41.1 Generalized GENERALIZED Diagnosis 10/14/2019 [facility] anxiety disorder ANXIETY DISORDER 03:31:00 PM edical EST Center F31.32 Bipolar disorder, BIPOLAR DISORDER, Diagnosis 10/14/2019 Angela current episode CURRENT EPISODE 03:31:00 PM Med ical depressed, DEPRESSED, EST Center moderate MODERATE Z13.9 Encounter for ENCOUNTER FOR Diagnosis 06/23/2019 [facility] Yojana sephs screening, SCREENING, 09:14:00 AM Medical unspecified UNSPECIFIED EDT Center Z12.4 Encounter for ENCOUNTER FOR Diagnosis 06/23/2019 [facility] Yojana sephs screening for SCREENING FOR 09:14:00 AM Medical malignant neoplasm MALIGNANT NEOPLASM EDT Center of cervix OF CERVIX R10.2 Pelvic and PELVIC AND Diagnosis 06/23/2019 [facility] perineal pain PERINEAL PAIN 09:14:00 AM Medical EDT Center Diagnosis NEXTGEN ([facility]) Diagnosis NEXTGEN ([facility]) Diagnosis NEXTGEN ([facility]) Diagnosis NEXTGEN ([facility]) Diagnosis NEXTGEN ([facility]) Diagnosis [facility] ([facility]) Diagnosis [facility] ([facility]) [facility] Diagnosis [facility] Diagnosis [facility]) Surgeries/Procedures Procedure Description Date Indications Data Source(s) OFFICE/OUTPATIENT VISIT, 06/19/2020 NEX TGEN ([facility] EST 12:00:00 AM EDT [facility] Medi julio - 06/19/2020 Center) 12:00:00 AM EDT Individual Psychotherapy 06/14/2020 NEX TGEN ([facility] (30 Min) 12:00:00 AM EDT [facility] - 06/14/2020 [place]) 12:00:00 AM EDT Individual Psychotherapy 05/31/2020 NEX TGEN ([facility] (30 Min) 12:00:00 AM EDT [facility] 05/31/2020 [place]) 12:00:00 AM EDT OFFICE/OUTPATIENT VISIT, 05/22/2020 NEX TGEN ([facility] EST 12:00:00 AM EDT [facility] 05/22/2020 [place]) 12:00:00 AM EDT Individual Psychotherapy 05/17/2020 NEX TGEN ([facility] (30 Min) 12:00:00 AM EDT [facility] 05/17/2020 [place]) 12:00:00 AM EDT Individual Psychotherapy 05/03/2020 NEX TGEN ([facility] (30 Min) 12:00:00 AM EDT [facility] 05/03/2020 [place]) 12:00:00 AM EDT PHONE E/M BY PHYS 5-10 MIN 04/16/2020 N EXTGEN ([facility] 12:00:00 AM EDT [facility] 04/16/2020 [place]) 12:00:00 AM EDT Individual Psychotherapy 04/16/2020 NEX TGEN ([facility] (30 Min) 12:00:00 AM EDT [facility] 04/16/2020 [place]) 12:00:00 AM EDT OFFICE/OUTPATIENT VISIT, 04/10/2020 NEX TGEN ([facility] EST 12:00:00 AM EDT [facility] 04/10/2020 [place]) 12:00:00 AM EDT Individual Psychotherapy 03/28/2020 NEX TGEN ([facility] (30 Min) 12:00:00 AM EDT [facility] 03/28/2020 [place]) 12:00:00 AM EDT Psychotherapy (30 Mins) W/ 03/13/2020 N EXTGEN ([facility] E&M 12:00:00 AM EDT [facility] 03/13/2020 [place]) 12:00:00 AM EDT OFFICE/OUTPATIENT VISIT, 03/13/2020 NEX TGEN ([facility] EST 12:00:00 AM EDT [facility] 03/13/2020 [place]) 12:00:00 AM EDT Individual Psychotherapy 03/06/2020 NEX TGEN ([facility] (30 Min) 12:00:00 AM EDT [facility] - 03/06/2020 [place]) 12:00:00 AM EDT Individual Psychotherapy 02/21/2020 NEX TGEN ([facility] (30 Min) 12:00:00 AM EDT [facility] 02/21/2020 [place]) 12:00:00 AM EDT Individual Psychotherapy 02/16/2020 NEX TGEN ([facility] (30 Min) 12:00:00 AM EDT [facility] 02/16/2020 [place]) 12:00:00 AM EDT Psychotherapy (30 Mins) W02/14/2020 N EXTGEN ([facility] E&M 12:00:00 AM EDT [facility] 02/14/2020 [place]) 12:00:00 AM EDT OFFICE/OUTPATIENT VISIT, 02/14/2020 NEX TGEN ([facility] EST 12:00:00 AM EDT [facility] 02/14/2020 [place]) 12:00:00 AM EDT Individual Psychotherapy 02/09/2020 NEX TGEN ([facility] (30 Min) 12:00:00 AM EDT [facility] 02/09/2020 [place]) 12:00:00 AM EDT Individual Psychotherapy 01/31/2020 NEX TGEN ([facility] (30 Min) 12:00:00 AM EDT [facility] 01/31/2020 [place]) 12:00:00 AM EDT Individual Psychotherapy 01/17/2020 NEX TGEN ([facility] (30 Min) 12:00:00 AM EDT [facility] 01/17/2020 [place]) 12:00:00 AM EDT Individual Psychotherapy 01/05/2020 NEX TGEN ([facility] (30 Min) 12:00:00 AM EDT [facility] 01/05/2020 [place]) 12:00:00 AM EDT Individual Psychotherapy 12/21/2019 NEX TGEN ([facility] (30 Min) 12:00:00 AM EDT [facility] 12/21/2019 [place]) 12:00:00 AM EDT Psychotherapy (30 Mins) W12/20/2019 N EXTGEN ([facility] E&M 12:00:00 AM EDT [facility] 12/20/2019 [place]) 12:00:00 AM EDT OFFICE/OUTPATIENT VISIT, 12/20/2019 NEX TGEN ([facility] EST 12:00:00 AM EDT [facility] - 12/20/2019 [place]) 12:00:00 AM EDT TDAP VACCINE >7 IM 11/23/2019 NEXTGEN ( [facility] 12:00:00 AM [facility] 11/23/2019 [place]) 12:00:00 AM EST Immunization 11/23/2019 NEXTGEN ([facility] Administration 12:00:00 AM EST [facility] dical - 11/23/2019 [place]) 12:00:00 AM EST OFFICE/OUTPATIENT VISIT, 11/23/2019 NEX TGEN ([facility] EST 12:00:00 AM [facility] - 11/23/2019 [place]) 12:00:00 AM EST Individual Psychotherapy 11/06/2019 NEX TGEN ( (45 Min) 12:00:00 AM [facility] 11/06/2019 [place]) 12:00:00 AM EST ECG ROUTINE ECG W/LEAST 12 11/03/2019 e CW1 ([facility] I&R ONLY 12:00:00 AM EST Medical [facility] OFFICE/OUTPATIENT VISIT, 10/27/2019 NEX TGEN ([facility] EST 12:00:00 AM [facility] 10/27/2019 [place]) 12:00:00 AM EST OFFICE/OUTPATIENT VISIT, 10/18/2019 NEX TGEN ([facility] 12:00:00 AM [facility] 10/18/2019 [place]) 12:00:00 AM EST Individual Psychotherapy 10/18/2019 NEX TGEN ( (45 Min) 12:00:00 AM [facility] 10/18/2019 [place]) 12:00:00 AM EST Psychotherapy (30 Mins) W/ 10/13/2019 N EXTGEN ([facility] E&M 12:00:00 AM [facility] 10/13/2019 [place]) 12:00:00 AM EST OFFICE/OUTPATIENT VISIT, 10/13/2019 NEX TGEN ([facility] EST 12:00:00 AM [facility] 10/13/2019 [place]) 12:00:00 AM EST OFFICE/OUTPATIENT VISIT, 10/13/2019 NEX TGEN ([facility] EST 12:00:00 AM [facility] 10/13/2019 [place]) 12:00:00 AM EST Individual Psychotherapy 10/11/2019 NEX TGEN ( (45 Min) 12:00:00 AM EST [facility] - 10/11/2019 [place]) 12:00:00 AM EST OFFICE/OUTPATIENT VISIT, 08/15/2019 NEX TGEN ([facility] EST 12:00:00 AM EST [facility] 08/15/2019 [place]) 12:00:00 AM EST Individual Psychotherapy 08/15/2019 NEX TGEN ([facility] (45 Min) 12:00:00 AM EST [facility] 08/15/2019 [place]) 12:00:00 AM EST Individual Psychotherapy 08/08/2019 NEX TGEN ([facility] (45 Min) 12:00:00 AM EST [facility] 08/08/2019 [place]) 12:00:00 AM EST OFFICE/OUTPATIENT VISIT, 07/12/2019 NEX TGEN ([facility] EST 12:00:00 AM EDT [facility] 07/12/2019 [place]) 12:00:00 AM EDT Well Visit, Est,40-64years 06/23/2019 N EXTGEN ([facility] 12:00:00 AM EDT [facility] 06/23/2019 [place]) 12:00:00 AM EDT SPECIMEN HANDLING 06/23/2019 NEXTGEN (S aint 12:00:00 AM EDT [facility] 06/23/2019 [place]) 12:00:00 AM EDT Individual Psychotherapy 06/19/2019 NEX TGEN ([facility] (45 Min) 12:00:00 AM EDT [facility] 06/19/2019 [place]) 12:00:00 AM EDT Individual Psychotherapy 06/02/2019 NEX TGEN ([facility] (45 Min) 12:00:00 AM EDT [facility] 06/02/2019 [place]) 12:00:00 AM EDT Individual Psychotherapy 05/26/2019 NEX TGEN ([facility] (45 Min) 12:00:00 AM EDT [facility] 05/26/2019 [place]) 12:00:00 AM EDT Individual Psychotherapy 05/15/2019 NEX TGEN ([facility] (45 Min) 12:00:00 AM EDT [facility] 05/15/2019 [place]) 12:00:00 AM EDT Psychotherapy (30 Mins) W/ 05/08/2019 N EXTGEN ([facility] E&M 12:00:00 AM EDT [facility] 05/08/2019 [place]) 12:00:00 AM EDT OFFICE/OUTPATIENT VISIT, 05/08/2019 NEX TGEN ([facility] EST 12:00:00 AM EDT [facility] - 05/08/2019 [place]) 12:00:00 AM EDT Individual Psychotherapy 05/08/2019 NEX TGEN ([facility] (45 Min) 12:00:00 AM EDT [facility] - 05/08/2019 [place]) 12:00:00 AM EDT Individual Psychotherapy 05/02/2019 NEX TGEN ([facility] (45 Min) 12:00:00 AM EDT [facility] - 05/02/2019 Center) 12:00:00 AM EDT OFFICE/OUTPATIENT VISIT, 04/10/2019 NEX TGEN ([facility] EST 12:00:00 AM EDT [facility] - 04/10/2019 [place]) 12:00:00 AM EDT Individual Psychotherapy 03/31/2019 NEX TGEN ([facility] (45 Min) 12:00:00 AM EDT [facility] 03/31/2019 [place]) 12:00:00 AM EDT OFFICE/OUTPATIENT VISIT, 12/14/2018 NEX TGEN ([facility] EST 12:00:00 AM EDT [facility] 12/14/2018 [place]) 12:00:00 AM EDT Individual Psychotherapy 12/14/2018 NEX TGEN ([facility] (45 Min) 12:00:00 AM EDT [facility] 12/14/2018 [place]) 12:00:00 AM EDT OFFICE/OUTPATIENT VISIT, 11/30/2018 NEX TGEN ([facility] EST 12:00:00 AM EST [facility] 11/30/2018 [place]) 12:00:00 AM EST Individual Psychotherapy 11/30/2018 NEX TGEN ([facility] (45 Min) 12:00:00 AM EST [facility] 11/30/2018 [place]) 12:00:00 AM EST Psychotherapy (30 Mins) W/ 11/02/2018 N EXTGEN ([facility] E&M 12:00:00 AM EST [facility] 11/02/2018 [place]) 12:00:00 AM EST OFFICE/OUTPATIENT VISIT, 11/02/2018 NEX TGEN ([facility] EST 12:00:00 AM EST [facility] 11/02/2018 [place]) 12:00:00 AM EST Individual Psychotherapy 11/02/2018 NEX TGEN ([facility] (45 Min) 12:00:00 AM EST [facility] - 11/02/2018 Center) 12:00:00 AM EST Individual Psychotherapy 10/20/2018 NEX TGEN ([facility] (45 Min) 12:00:00 AM EST [facility] - 10/20/2018 Center) 12:00:00 AM EST Individual Psychotherapy 10/05/2018 NEX TGEN ([facility] (45 Min) 12:00:00 AM EST [facility] - 10/05/2018 Center) 12:00:00 AM EST OFFICE/OUTPATIENT VISIT, 09/22/2018 NEX TGEN ([facility] EST 12:00:00 AM EST [facility] - 09/22/2018 Center) 12:00:00 AM EST OFFICE/OUTPATIENT VISIT, 12/30/2017 NEX TGEN ([facility] EST 12:00:00 AM EDT [facility] - 12/30/2017 Center) 12:00:00 AM EDT OFFICE/OUTPATIENT VISIT, 09/13/2017 NEX TGEN ([facility] EST 12:00:00 AM EST [facility] - 09/13/2017 Center) 12:00:00 AM EST OFFICE/OUTPATIENT VISIT, 09/08/2017 NEX TGEN ([facility] EST 12:00:00 AM EST [facility] - 09/08/2017 Center) 12:00:00 AM EST OFFICE/OUTPATIENT VISIT, 07/29/2017 NEX TGEN ([facility] EST 12:00:00 AM EDT [facility] - 07/29/2017 Center) 12:00:00 AM EDT OFFICE/OUTPATIENT VISIT, 10/08/2016 NEX TGEN ([facility] EST 12:00:00 AM [facility] - 10/08/2016 Center) 12:00:00 AM EST Expanded History/exam - 01/16/2015 NEXT GEN ([facility] Low Complexity Decision 12:00:00 AM EDT [facility] Medical - 01/16/2015 Center) 12:00:00 AM EDT OFFICE/OUTPATIENT VISIT, 08/27/2014 NEX TGEN ([facility] EST 12:00:00 AM EST [facility] - 08/27/2014 Center) 12:00:00 AM EST OFFICE/OUTPATIENT VISIT, 05/30/2014 NEX TGEN ([facility] EST 12:00:00 AM EDT [facility] - 05/30/2014 Center) 12:00:00 AM EDT OFFICE/OUTPATIENT VISIT, 02/22/2014 NEX TGEN ([facility] EST 12:00:00 AM EDT [facility] - 02/22/2014 Center) 12:00:00 AM EDT OFFICE/OUTPATIENT VISIT, 02/08/2014 NEX TGEN ([facility] EST 12:00:00 AM EDT [facility] - 02/08/2014 Center) 12:00:00 AM EDT OFFICE/OUTPATIENT VISIT, 01/30/2014 NEX TGEN ([facility] EST 12:00:00 AM EDT [facility] - 01/30/2014 Center) 12:00:00 AM EDT OFFICE/OUTPATIENT VISIT, 01/25/2014 NEX TGEN ([facility] EST 12:00:00 AM EDT [facility] - 01/25/2014 Center) 12:00:00 AM EDT OFFICE/OUTPATIENT VISIT, 12/27/2013 NEX TGEN ([facility] EST 12:00:00 AM EDT [facility] - 12/27/2013 [place]) 12:00:00 AM EDT OFFICE/OUTPATIENT VISIT, 12/13/2013 NEX TGEN ([facility] EST 12:00:00 AM EDT [facility] - 12/13/2013 [place]) 12:00:00 AM EDT Results ID Date Data Source [id number] 06/23/2019 10:57:00 AM EDT [facility] 0 Name Value Range Interpretation Description [...] normal <content [facility] gravity of 5 styleCode="[facility] Urine by Test d">Urine Medical strip Specific Center [place] </content>1.01 0 L<content styleCode="Xiomara lics"> (1.015-1.025 )</content> [...] Data Source Liver 06/23/2019 10:57:[address] [facility] Profile.[id number] Name Value Range Interpretation Description Data Sup [...] s"> (14-36 IU/L)</content> ID Date Data Source [id number] 06/23/2019 10:57:00 AM EDT [facility] Name Value Range Interpretation Description Data Sup porting Code Source(s) Document(s ) Triglyceride < 150 Above high normal <content [facility] [Mass/volume] in styleCode="Sindhu Angela Serum or Plasma d">Triglycerid [facility] </content>192 MG/DL H<content styleCode="Xiomara lics"> (< 150 MG/DL)</conten t> Cholesterol -<200 Above high normal <content [facility] [Mass/volume] in styleCode="Sindhu Angela Serum or Plasma d">Cholesterol Medical </content>219 Center MG/DL H<content styleCode="Xiomara lics"> (-<200 MG/DL)</conten t> UNK < 100 Above high normal <content [facility] styleCode="Sindhu Angela d">LDL-Cholest [facility] </content>122 MG/DL H<content styleCode="Xiomara lics"> (< 100 MG/DL)</conten t> UNK > 60 Below low normal <content [facility] styleCode="Sindhu Angela d">HDL- [facility] Cholesterol [place] </content>59 MG/DL L<content styleCode="Xiomara lics"> (> 60 MG/DL)</conten t> ID Date Data Source [id number] 06/23/2019 10:57:00 AM EDT [facility] Name Value Range Interpretation Description Data Sup porting Code Source(s) Document(s ) Thyrotropin 0.465-4. <content [facility] [Units/volume] 68 styleCode="Sindhu Angela in Serum or d">Thyroid Medical Plasma by Stimulating Center Detection Hormone limit <= 0.05 </content>1.22 mIU/L MIU/L<content styleCode="Xiomara lics"> (0.465-4.68 MIU/L)</conten t> ID Date Data Source HematologyRou.[id number] 06/23/2019 10:57:00 AM EDT [facility] 0400 Name Value Range Interpretation Description Data Sup porting Code Source(s) Document(s ) Leukocytes 4.4-11.0 Above high <content [facility] [#/volume] in normal styleCode="Bold Angela Blood by ">White Blood Medical [...] (< 1 %)</content> ID Date Data Source GFR(Creatinine).[id number] 06/23/2019 10:57:00 AM EDT [facility] 0-0400 Name Value Range Interpretation Code Description Data Mali rce(s) Supporting Document(s ) UNK > 60 <content [facility] styleCode="Bold"> Medical Cent er EGFR </content>96 GFR<content styleCode="Italic s"> (> 60 GFR)</content> ID Date Data Source MROUTINECCDA.[id number] 06/23/2019 10:57:00 AM EDT [facility] -0400 Name Value Range Interpretation Description Data Sup porting Code Source(s) Document(s ) UNK 2.3-3.5 <content [facility] styleCode="Bold Medical ">Globulin Center </content>3.5 G/DL<content styleCode="Ital ics"> (2.3-3.5 G/DL)</content> UNK 4.2-5.8 <content [facility] styleCode="Bold Medical ">Hemoglobin Center A1C </content>5.7 %<content styleCode="Ital ics"> (4.2-5.8 %)</content> Protein 6.3-8.2 <content [facility] [Mass/volum styleCode="Bold Medical e] in Serum ">Total Protein Center or Plasma </content>7.8 G/DL<content styleCode="Ital ics"> (6.3-8.2 G/DL)</content> UNK >= 1.0 <content [facility] Angela styleCode="Bold Medical ">AG Ratio Center </content>1.2 <content styleCode="Ital ics"> (>= 1.0 )</content> ID Date Data Source [id number] 06/23/2019 10:57:00 AM EDT [facility] Name Value Range Interpretation Description Data Sup porting Code Source(s) Document(s ) Carbon dioxide, 22-30 <content [facility] total styleCode="Bold"> Angela [Moles/volume] in Carbon Dioxide Medical Serum or Plasma </content>27 Center MEQ/L<content styleCode="Italic s"> (22-30 MEQ/L)</content> Sodium 137-145 <content [facility] [Moles/volume] in styleCode="Bold"> [facility] Serum or Plasma Sodium Medical </content>141 Center MEQ/L<content styleCode="Italic s"> (137-145 MEQ/L)</content> Chloride 98-107 <content [facility] [Moles/volume] in styleCode="Bold"> [facility] Serum or Plasma Chloride Medical </content>105 Center MEQ/L<content styleCode="Italic s"> (98-107 MEQ/L)</content> Potassium 3.5-5.3 <content [facility] [Moles/volume] in styleCode="Bold"> [facility] Serum or Plasma Potassium Medical </content>4.6 Center [...] MG/DL)</content> Alkaline 38-126 <content [facility] phosphatase styleCode="Bold"> [facility] [Enzymatic Alkaline Medical activity/volume] Phosphatase (ALP) [...] s"> (3.5-5.0 G/DL)</content> ID Date Data Source [id number] 06/23/2019 10:57:00 AM EDT NEXTG EN ([facility] [id number] Center) Name Value Range Interpretation Code Description Data Mali rce(s) Supporting Document(s ) 11.40 4.4-11.0 Above high normal WBC NEXTGEN ([facility] nt [facility]) 39.5 % 36.0-46.0 HCT NEXTGEN ([facility]) 12.7 G/DL 12.3-16.0 HGB [facility]) 4.69 MCUMM 4.0-5.1 RBC NEXTGEN ([facility]) 27.1 PG 26.0-34.0 MCH NEXTGEN ([facility]) 32.2 G/DL 32.0-37.0 MCHC [facility]REGENCY [facility] ([facility]) 84.2 FL 80.0-100.0 MCV [facility] ([facility]) 385 KCUMM 130-400 PLT [facility] ([facility]) 9.7 FL 8.0-11.0 MPV [facility] ([facility]) 15.8 % 11.5-14.5 Above high normal RDW [facility] ([facility]) 0.0 /100 0 NRBC% [facility] ([facility]) New parameters included in the report o f automated CBCNRBC(%/#) Is a direct count of Nucleated Red Blood cell, and will bereported with every CBC count. WBC will automatically be corrected withthe presence of NRBC. 30.7 % 24.0-44.0 LYMPHOCYTE % [facility] ([facility]) 55.5 % 36-66 NEUTROPHIL % [facility] ([facility]) 0.00 KCUMM 0.0 NRBC ABS# NEXTGEN ([facility]) 3.1 % 0-5.0 EOSINOPHIL % [facility] ([facility]) 9.3 % 3.0-10.0 MONOCYTE % [facility] ([facility]) 1.1 % 0.0-1.0 Above high normal BASOPHIL % NEXTGEN ([facility]) 0.35 KCUMM 0.0-0.6 EOSINOPHIL ABS# NEXTGEN ([facility]) 1.06 KCUMM 0.2-0.9 Above high normal MONOCYTE ABS# NEXTGEN ([facility]) 3.50 [facility] 1.0-4.8 LYMPHOCYTE ABS# [facility]Y [facility] ([facility]) 6.33 [facility] 1.6-7.3 NEUTROPHIL ABS# [facility] ([facility]) 0.3 % < 1 IG% [facility]REGENCY [facility] ([facility]) 0.03 KCUMM 0-0.1 IG ABS# [facility] ([facility]) New parameters included in the report o f automated CBC/DIFF.IG:(%/#) Immature Granulocytes ,includes the presence of (Metamyelocyte,Myelocyte,and Promyelocyte) 0.13 KCUMM 0.0-0.3 BASOPHIL ABS# [facility] ([facility]) ID Date Data Source [id number] 06/23/2019 10:57:00 AM EDT DAVID EN ([facility] [id number] [place]) Name Value Range Interpretation Code Description Data Supporting Source(s) Document(s ) 4.6 MEQ/L 3.5-5.3 POTASSIUM [facility]) 141 MEQ/L 137-145 SODIUM [facility]) 27 MEQ/L 22-30 CARBON DIOXIDE [facility]) 7.8 G/DL 6.3-8.2 TOTAL PROTEIN [facility]) 105 MEQ/L 98-107 CHLORIDE [facility]) 4.3 G/DL 3.5-5.0 ALBUMIN [facility]) 1.2 >= 1.0 AG RATIO [facility]) 3.5 G/DL 2.3-3.5 GLOBULIN [facility]) 81 IU/L 38-126 ALP [facility]) 12 IU/L 7-30 ALT [facility]) 18 IU/L 14-36 AST (GOT) [facility]) 96 GFR > 60 eGFR [facility]) Estimated GFR is calculated using the Mo [...] nutritional status. 14 MG/DL 7-17 BUN NEXTGEN ([facility]) 9.5 MG/DL 8.4-10.2 CALCIUM NEXTGEN ([facility]) 87 MG/DL 74-106 GLUCOSE NEXTGEN ([facility]) 0.7 MG/DL 0.5-1.3 CREATININE NEXTGEN ([facility]) 0.2 MG/DL 0.2-1.3 BILI, TOTAL NEXTGEN ([facility]) ID Date Data Source [id number] 06/23/2019 10:57:00 AM EDT NEXTG EN ([facility] [id number] [place]) Name Value Range Interpretation Code Description Data Mali rce(s) Supporting Document(s ) 192 MG/DL < 150 Above high normal TRIGLYCERIDES [facility] ([facility]) 122 MG/DL < 100 Above high normal LDL- CALC NEXTGEN ([facility]) 219 MG/DL <200 Above high normal [facility]LE[facility] 59 MG/DL > 60 Below low normal HDL- [facility]OL [facility]) ID Date Data Source [id number] 06/23/2019 10:57:00 AM EDT NEXTG EN ([facility] [id number] [place]) Name Value Range Interpretation Description Data Sup porting Code Source(s) Document(s ) CLEAR CLEAR U CL[facility]ITY [facility] [facility]) YELLOW [facility]LLOW [facility] NEGATIVE NEGATIVE U GLUCOSE [facility] ([facility]) NEGATIVE NEGATIVE U BILIRUBIN [facility] ([facility]) NEGATIVE NEGATIVE U BLOOD [facility] ([facility]) 1.010 1.015-1.025 Below low normal U SP.GRAVITY [facility]EXTREGENCY [facility] ([facility]) NEGATIVE NEGATIVE U KETONE [facility] ([facility]) 6.5 4.5-8.0 U PH NEXTGEN ([facility]) 0.2 MG/DL 0.2-1.0 U UROBILINOGEN [facility] ([facility]) NEGATIVE NEGATIVE U PROTEIN NEXTGEN ([facility]) NEGATIVE NEGATIVE U NITRITE [facility] ([facility]) NEGATIVE NEGATIVE U. LEUKOCYTE [facility] ([facility]) ID Date Data Source [id number] 06/23/2019 10:57:00 AM EDT NEXTG EN ([facility] [id number] [place]) Name Value Range Interpretation Code Description Data Mali rce(s) Supporting Document(s ) NON-REACTI NON-REACTI HIV 1+2 AB [facility] ([facility]) This test was run using the [employer] 5600 immunodiagnostic System. Theresults of the Vitros [...] to HIV infection. ID Date Data Source [id number] 06/23/2019 10:57:00 AM EDT NEXTG EN ([facility] [id number] [place]) Name Value Range Interpretation Code Description Data Mali rce(s) Supporting Document(s ) 5.7 % 4.2-5.8 HB A1C [facility] ([facility]) For the purpose of screening for the pre sence of diabetes:< 5.8 % Consistent with the absence of diabetes5 .8 - 6.4 % Consistent with increased risk for diabetes(prediabetes)> or = 6.5 % Consistent with diabetesCurrently, no consensus exists for use of hemoglobin A 1cfor diagnosis of diabetes in children.According to [place] Diabetes Association (ADA) guidelines.Hemoglobin A1c <7.0% represents optimal control in non- diabetic patients. Different metrics may apply tospecific patient populations . Standards of medical Care inDiabetes (ADA).

ID Date Data Source [id number] 06/23/2019 10:57:00 AM EDT NEXTG EN ([facility] [id number] [place]) Name Value Range Interpretation Code Description Data Mali rce(s) Supporting Document(s ) 1.22 MIU/L 0.465-4.68 TSH [facility] ([facility]) ID Date Data Source [id number] 06/23/2019 10:57:00 AM EDT NEXTG EN ([facility] [id number] [place]) Name Value Range Interpretation Code Description Data Mali rce(s) Supporting Document(s ) NEGATIVE NEGATIVE HCVAb [facility]) ID Date Data Source [id number] 06/23/2019 10:57:00 AM EDT NEXTG EN ([facility] [id number] [place]) Name Value Range Interpretation Code Description Data Mali rce(s) Supporting Document(s ) 1:16 NON-REACTIV RPR [facility] ([facility]) The Macro-Megan RPR (Rapid Plasma Reagin) 18mm [place] Card Test is anontreponemal testing procedure for the serologic detection of syphilis.Results successfully called to and READ BACK from CHIKIS Gandhi RN on06/23/2019 at 15:49 by DAVID FINK Technologist. ID Date Data Source [id number] 06/23/2019 10:57:00 AM EDT NEXTG EN ([facility] [id number] [place]) Name Value Range Interpretation Code Description Data Mali rce(s) Supporting Document(s ) 1:16 NON-REACTIV RPR [facility] ([facility]) The Macro-Megan RPR (Rapid Plasma Reagin) 18mm [place] Card Test is anontreponemal testing procedure for the serologic detection of syphilis. ID Date Data Source [id number] 06/23/2019 10:57:00 AM EDT NEXTG EN ([facility] [id number] [place]) Name Value Range Interpretation Description Data Sup porting Code Source(s) Document(s ) Not Detected Not CHLAMYDIA NEXTGEN Detected URINE ([facility]) This test was performed using the APTIMA COMBO2(R) Assay(GEN-PROBE(R)).For additional information, please refer [email or web address] MediQuip/faq/KVA941(This link is being provided for informational/educationalpurposes only) ID Date Data Source [id number] 06/23/2019 10:57:00 AM EDT NEXTG EN ([facility] [id number] [place]) Name Value Range Interpretation Description Data Sup porting Code Source(s) Document(s ) Not Detected Not N.GONORRHOEAE NEXTGEN Detected RNA, TMA ([facility]) This test was performed using the APTIMA COMBO2(R) Assay(GEN-PROBE(R)).For additional information, please refer [email or web address]/[email or web address](This link is being provided for informational/educationalpurposes only) ID Date Data Source [id number] 06/23/2019 09:40:00 AM EDT NEXTG EN ([facility] [id number] [place]) Name Value Range Interpretation Code Description Data Supporting Source(s) Document(s ) FINAL REPORT STATUS NEXTGEN ([facility]) SEE NOTE ThinPrep NEXTGEN INTERPRETATION ([facility]) Negative for intraepithelial lesion or m alignancy. SEE NOTE DRAFTER TOOL DESIGN NEXTREGENCY MERIDIAN ([facility]) CCS, CT(ASCP)CT screening location: [facility] [place], [place] [address]Explanatory Note:The Pap is a screening test for cervical cancer. It is not adiagnostic test and is subject to fals e negative and false positiveresults. It is most reliable when a satisfactory sample, regularlyobtained, is submitted with relevant clinical findings and history,and when the Pap result is evaluated claude ng with historic and currentclinical inf ormation. SEE NOTE STATEMENT OF ADEQUACY NEXTGEN ([facility]) Satisfactory for evaluation.Endocervical /transformation zone componentpresent.Age and/or menstrual status not provided ID Date Data Source [id number] 06/23/2019 09:40:00 AM EDT NEXTG EN ([facility] [id number] [place]) Name Value Range Interpretation Code Description Data Mali rce(s) Supporting Document(s ) FINAL REPORT STATUS NEXTGEN ([facility]) SEE NOTE STATEMENT OF NEXTGEN ([facility]) Satisfactory for evaluation.Endocervical /transformation zone componentpresent.Age and/or menstrual status not provided SEE NOTE ThinPrep INTERPRETATION NEXTGE N ([facility]) Negative for intraepithelial lesion or m alignancy. SEE NOTE DRAFTER TOOL DESIGN NEXTREGENCY MERIDIAN ([facility]) CCS, CT(ASCP)CT screening location: [place], [place] [address]Explanatory Note:The Pap is a screening test for cervical cancer. It is not adiagnostic test and is subject to fals e negative and false positiveresults. It is most reliable when a satisfactory sample, regularlyobtained, is submitted with relevant clinical findings and history,and when the Pap result is evaluated claude ng with historic and currentclinical inf ormation. ID Date Data Source CHMROUTINECCDA.[id number] 10/05/2018 02:35:00 PM EST [facility] -0500 Name Value Range Interpretation Description Data Sup porting Code Source(s) Document(s ) Cannabinoids <content Saint [Presence] in styleCode="[facility] Urine by Screen d">Cannabinoid Medical method >50 ng/mL [facility] </content>NEGA TIVE NG/ML (Reference Range: not available)<br/ > ID Date Data Source LIPID.[id number] 09/09/2018 07:16:00 AM EST [facility] Name Value Range Interpretation Description Data Sup porting Code Source(s) Document(s ) Triglyceride < 150 <content Saint [Mass/volume] in styleCode="[facility] Serum or Plasma d">Triglycerid Medical Center [...] 100 MG/DL)</conten t> ID Date Data Source CHMROUTINECCDA.[id number] 09/09/2018 07:16:00 AM [facility] -0500 Name Value Range Interpretation Code Description Data Mali rce(s) Supporting Document(s ) UNK 4.2-5.8 <content [facility] styleCode="Bold" Medical Cente r >Hemoglobin A1C </content>5.7 %<content styleCode="Itali cs"> (4.2-5.8 %)</content> ID Date Data Source LIPID 09/09/2018 07:16:[address] [facility] Name Value Range Interpretation Description Data [...] 60 MG/DL)</conten t> ID Date Data Source [employer].[id number] 09/08/2018 07:47:00 AM [facility] -0500 Name Value Range Interpretation Description [...] (0-0.034 NG/ML)</content > ID Date Data Source [facility] 09/08/2018 07:47:[address] [facility] Name Value Range Interpretation Description Data [...] (0-0.034 NG/ML)</content > ID Date Data Source [employer].[id number] 09/07/2018 07:35:00 AM [facility] -0500 Name Value Range Interpretation Description Data Sup porting Code Source(s) Document(s ) Troponin 0-0.034 <content Saint I.cardiac styleCode="Roger Miller [Mass/volume ">Troponin I Medical ] in Serum </content>< Center or Plasma 0.012 NG/ML<content styleCode="Ital ics"> (0-0.034 NG/ML)</content > ID Date Data Source Urinalysis.[id number] 09/02/2018 06:05:00 PM EST Jak nt [facility] 0 Name Value Range Interpretation Description Data Sup porting Code Source(s) Document(s ) Color of Urine YELLOW <content Saint styleCode="Sindhu Milligans d">Color, Medical Urine Center </content>YELL OW <content styleCode="Xiomara lics"> (YELLOW )</content> Glucose NEGATIVE <content Saint [Mass/volume] styleCode="Sinhdu Miller in Urine by d">Urine Medical Test strip Glucose Center </content>NEGA TIVE MG/DL<content styleCode="Xiomara lics"> (NEGATIVE MG/DL)</conten t> UNK CLEAR <content Saint styleCode="Sindhu Milligans d">Urine Medical Clarity Center </content>SAUL R <content styleCode="Xiomara lics"> (CLEAR )</content> Specific 1.015-1.02 <content Saint gravity of 5 styleCode="Sindhu Miller Urine by Test d">Urine Medical strip Specific Center [place] </content>1.02 5 NM<content styleCode="Xiomara lics"> (1.015-1.025 NM)</content> Ketones NEGATIVE <content Saint [Mass/volume] styleCode="Sindhu Milligans in Urine by d">Urine Medical Test strip Ketone Center </content>15 MG/DL<content styleCode="Xiomara lics"> (NEGATIVE MG/DL)</conten t> UNK NEGATIVE <content Saint styleCode="Sindhu Milligans d">Urine Medical Bilirubin Center </content>SMAL L <content [...] (NEGATIVE HPF)</content> UNK <content Saint styleCode="Sindhu Miller d">Epithelial Medical Cell Center </content>> 50 LPF (Reference Range: not available)<br/ > ID Date Data Source Microbiology.[id number] 09/02/2018 06:05:00 PM EST Jak [facility] 500 Name Value Range Interpretation Code Description Data Mali rce(s) Supporting Document(s ) UNK <item><content [facility] styleCode="Bold">Cu Medical Ce nter lture Report </content>
<tab le><tbody><tr><td>S pecimen Number:</td><td>[id number]</td></tr><tr ><td>Sample Collection Date/Time: </td><td>09/02/2018 6:05 PM</td></tr><tr><td >Specimen [...] lture Status </content>
<tab le><tbody><tr><td>S pecimen Number:</td><td>[id number]</td></tr><tr ><td>Sample Collection Date/Time: </td><td>09/02/2018 6:05 PM</td></tr><tr><td >Specimen [...] <td></td><td></td>< /tr></tbody></table ></item> ID Date Data Source CHMROUTINECCDA.[id number] 09/02/2018 06:05:00 PM [facility] -0500 Name Value Range Interpretation Description Data Sup porting Code Source(s) Document(s ) Cannabinoids <content Saint [Presence] in styleCode="[facility] Urine by Screen d">Cannabinoid Medical method >50 ng/mL s Center </content>PRES UMPTIVE POSITIVE NG/ML (Reference Range: not available)<br/ > ID Date Data Source Urinalysis 09/02/2018 06:05:[address] [facility] Name Value Range Interpretation Description Data [...] by Test d">Urine Medical strip Specific Center [place] </content>1.02 5 NM<content styleCode="Xiomara lics"> (1.015-1.025 NM)</content> [...] available)<br/ > UNK NEGATIVE <content Saint styleCode="Sindhu Angela d">Urine Medical Bacteria Center </content>MANY HPF<content styleCode="Xiomara lics"> (NEGATIVE HPF)</content> ID Date Data Source CHMROUTINECCDA 09/02/2018 06:05:[address] [facility] Name Value Range Interpretation Description Data Sup porting Code Source(s) Document(s ) Cannabinoids <content Saint [Presence] in styleCode="Sindhu Miller Urine by Screen d">Cannabinoid Medical method >50 s Center ng/mL </content>NEGA TIVE NG/ML (Reference Range: not available)<br/ > UNK 4.2-5.8 <content Saint styleCode="Sindhu Angela d">Hemoglobin Medical A1C Center </content>5.7 %<content styleCode="Xiomara lics"> (4.2-5.8 %)</content> Cannabinoids <content Saint [Presence] in styleCode="Sindhu [facility] Urine by Screen d">Cannabinoid Medical method >50 s Center ng/mL </content>PRES UMPTIVE POSITIVE NG/ML (Reference Range: not available)<br/ > ID Date Data Source Microbiology 09/02/2018 06:05:[address] [facility] Name Value Range Interpretation Code Description Data Mali rce(s) Supporting Document(s ) UNK <item><content [facility] styleCode="Bold">Cu Medical Ce nter lture Report </content>
<tab le><tbody><tr><td>S pecimen Number:</td><td>[id number]</td></tr><tr ><td>Sample Collection Date/Time: </td><td>09/02/2018 6:05 PM</td></tr><tr><td >Specimen [...] lture Status </content>
<tab le><tbody><tr><td>S pecimen Number:</td><td>[id number]</td></tr><tr ><td>Sample Collection Date/Time: </td><td>09/02/2018 6:05 PM</td></tr><tr><td >Specimen [...] Data Source Liver 09/02/2018 03:50:[address] [facility] Profile.[id number] Name Value Range Interpretation Description Data Sup porting Code Source(s) Document(s ) Aspartate 14-36 <content [facility] aminotransferase styleCode="Bold"> Owen hs [Enzymatic Aspartate Medical activity/volume] Aminotransferase Center in Serum or Plasma (AST) </content>33 IU/L<content styleCode="Italic s"> (14-36 IU/L)</content> Alkaline 38-126 <content [facility] phosphatase styleCode="Bold"> Angela [Enzymatic Alkaline Medical activity/volume] Phosphatase (ALP) Cente r in Serum or Plasma </content>90 IU/L<content styleCode="Italic s"> (38-126 IU/L)</content> UNK 0.0-0.3 <content Saint styleCode="Bold"> [facility] Bilirubin, Direct Medical </content>< 0.2 Center [...] s"> (3.5-5.0 G/DL)</content> ID Date Data Source HematologyRou.[id number] 09/02/2018 03:50:00 PM PEPE [facility] 0500 Name Value Range Interpretation Description Data Sup porting Code Source(s) Document(s ) Leukocytes 4.4-11.0 <content Saint [#/volume] in styleCode="Bold [facility] Blood by ">White Blood Medical Automated count Cell Count Center </content>10.86 KCUMM<content styleCode="Ital ics"> (4.4-11.0 KCUMM)</content > Erythrocytes 4.0-5.1 <content Saint [#/volume] in styleCode="Bold [facility] Blood by ">Red Blood Medical Automated [...] (0.0 KCUMM)</content > ID Date Data Source GFR(Creatinine).[id number] 09/02/2018 03:50:00 PM [facility] 0-0500 Name Value Range Interpretation Code Description Data Mali rce(s) Supporting Document(s ) UNK > 60 <content [facility] styleCode="Bold"> Medical Cent er EGFR </content>96 GFR<content styleCode="Italic s"> (> 60 GFR)</content> ID Date Data Source [facility].[id number] 09/02/2018 03:50:00 PM EST [facility] Name Value Range Interpretation Description Data Sup porting Code Source(s) Document(s ) Potassium 3.5-5.3 <content Saint [Moles/volume] in styleCode="Bold"> [facility]on[facility] Serum or Plasma Potassium Medical </content>4.1 Center MEQ/L<content styleCode="Italic s"> (3.5-5.3 MEQ/L)</content> Sodium 137-145 <content Saint [Moles/volume] in styleCode="Bold"> [facility] Serum or Plasma Sodium Medical </content>143 Center [...] Source Liver Profile 09/02/2018 03:50:[address] [facility] Name Value Range Interpretation Description Data [...] Data Source HematologyRou 09/02/2018 03:50:[address] [facility] Name Value Range Interpretation Description Data [...] Platelets 130-400 <content Saint [#/volume] in styleCode="Bold [facility] Blood by ">Platelet Medical Automated count Count Center </content>341 KCUMM<content styleCode="Ital ics"> (130-400 KCUMM)</content > ID Date Data Source GFR(Creatinine) 09/02/2018 03:50:[address] [facility] Name Value Range Interpretation Code Description Data Mali rce(s) Supporting Document(s ) UNK > 60 <content [facility] styleCode="Bold"> Medical Cent er EGFR </content>96 GFR<content styleCode="Italic s"> (> 60 GFR)</content> ID Date Data Source BMP 09/02/2018 03:50:[address] [facility] Name Value Range Interpretation Description Data Sup porting Code Source(s) Document(s ) Sodium 137-145 <content Saint [Moles/volume] in styleCode="Bold"> [facility] Serum or Plasma Sodium Medical </content>143 Center MEQ/L<content styleCode="Italic s"> (137-145 MEQ/L)</content> Potassium 3.5-5.3 <content Saint [Moles/volume] in styleCode="Bold"> [facility] Serum or Plasma Potassium Medical </content>4.1 Center MEQ/L<content styleCode="Italic s"> (3.5-5.3 MEQ/L)</content> Chloride 98-107 Above high <content Saint [Moles/volume] in normal styleCode="Bold"> [facility] Serum or Plasma Chloride Medical </content>110 [...] completed NEXTGEN (Jak nt Details 12:00:00 AM [facility]) Smoking 06/24/2020 Unknown if ever completed Unknown if ever NEXT GEN ([facility] 12:00:00 AM smoked smoked [facility]) Caffeine Use 05/08/2020 completed NEXTGEN (Jak nt Details 12:00:00 AM [facility]) 04/16/2020 Occasional completed Occasional NEXTGEN ([facility] 12:00:00 AM cigarette smoker cigarette smoker [facility]) Smoking 09/03/2018 Daily Smoker completed Daily Smoker [facility] 01:00:00 PM Medical Cente r EST Smoking 09/02/2018 Daily Smoker completed Daily Smoker [facility] 07:52:00 PM Medical Cente r EST Smoking 09/02/2018 Daily Smoker completed Daily Smoker [facility] 03:12:00 PM Medical Cente r EST Smoking 09/02/2018 Daily Smoker completed Daily Smoker [facility] 02:14:00 PM Medical Cente r EST Smoking 09/02/2018 Daily Smoker completed Daily Smoker [facility] 02:00:00 PM Medical Cente r EST Alcohol Use completed NEXTGEN ([facility]) Smoking Unknown if ever completed Unknown if ever [facility] Smoking Unknown if ever completed Unknown if ever eCW1 ([facility] smoked smoked [facility]) Vital Signs ID Date Data Source UNK Name Value Range Interpretation Code Description Data Source(s) Oxygen saturation 99 % 99 % NEXTGEN ([facility] in Arterial blood [facility] by Pulse oximetry Center) Body mass index 38.67 kg/m2 Overweight 38.67 kg/m2 NEXTGEN ([facility] (BMI) [Ratio] [facility]) Respiratory rate 18 /min 18 /min NEXTGEN ([facility]) Body temperature 36.67 Ilana 36.67 Ilana NEXTGEN ([facility]) Heart rate 69 /min 69 /min NEXTGEN ([facility]) Diastolic blood 78 mm[Hg] 78 mm[Hg] NEXTGEN ( [facility] pressure [facility]) Systolic blood 129 mm[Hg] 129 mm[Hg] NEXTGEN ([facility]) Body weight 89.811 kg 89.811 kg [facility]GEN ([facility]) Body height 152.40 cm 152.40 cm NEXTGEN ([facility]) Diastolic blood 66 mm[Hg] 66 mm[Hg] eCW1 ([facility] pressure [facility]) Systolic blood 102 mm[Hg] 102 mm[Hg] eCW1 ([facility] pressure [facility]) Deprecated Oxygen 96 % 96 % eCW1 (S aint saturation in [facility] Capillary [facility] Oximetry Body temperature 98.6 [degF] 98.6 [degF] eCW1 ( [facility]) Respiratory rate 18 /min 18 /min eCW1 ([facility]) Heart rate 70 /min 70 /min eCW1 ([facility]) Body mass index 36.03 kg/m2 36.03 kg/m2 eCW1 (S aint (BMI) [Ratio] [facility] Med ical Located within [facility]) Body weight 197 [lb_av] 197 [lb_av] eCW1 ([facility] Body height 62 [in_us] 62 [in_us] eCW1 ([facility]) Oxygen saturation 95 % 95 % NEXTGEN ([facility] in Arterial blood [facility] by Pulse oximetry Center) Body mass index 37.77 kg/m2 Overweight 37.77 kg/m2 NEXTGEN ([facility] (BMI) [Ratio] [facility]) Respiratory rate 20 /min 20 /min NEXTGEN ([facility]) Body temperature 36.50 Ilana 36.50 Ilana NEXTGEN ([facility]) Heart rate 69 /min 69 /min NEXTGEN ([facility]) Diastolic blood 72 mm[Hg] 72 mm[Hg] NEXTGEN ( [facility] pressure [facility]) Systolic blood 106 mm[Hg] 106 mm[Hg] NEXTGEN (S aint pressure [facility]) Body weight 87.725 kg 87.725 kg NEXTGEN ([facility]) Body height 152.40 cm 152.40 cm [facility] ([facility]) Oxygen saturation 96 % 96 % NEXTREGENCY MERIDIAN ([facility] in Arterial blood [facility] by Pulse oximetry Center) Body mass index 38.28 kg/m2 Overweight 38.28 kg/m2 NEXTGEN ([facility] (BMI) [Ratio] [facility]) Respiratory rate 18 /min 18 /min NEXTREGENCY MERIDIAN ([facility]) Body temperature 36.78 Ilana 36.78 Ilana NEXTREGENCY MERIDIAN ([facility]) Heart rate 75 /min 75 /min [facility] ([facility]) Diastolic blood 74 mm[Hg] 74 mm[Hg] NEXTGEN ( [facility] pressure [facility]) Systolic blood 118 mm[Hg] 118 mm[Hg] NEXTREGENCY MERIDIAN (S aint [facility]) Body weight 88.904 kg 88.904 kg NEXTREGENCY MERIDIAN ([facility]) Body height 152.40 cm 152.40 cm NEXTREGENCY MERIDIAN ([facility]) Body surface area 1.88 m2 1.88 m2 NEXTGEN ([facility]) Body mass index 36.13 kg/m2 Overweight 36.13 kg/m2 NEXTGEN ([facility] (BMI) [Ratio] [facility]) Body weight 83.915 kg 83.915 kg NEXTREGENCY MERIDIAN ([facility]) Body height 152.40 cm 152.40 cm NEXTGEN ([facility]) Body height 152.40 cm 152.40 cm NEXTGEN ([facility]) Respiratory rate 20 /min 20 /min NEXTGEN ([facility]) Body temperature 36.33 Ilana 36.33 Ilana NEXTREGENCY MERIDIAN ([facility]) Heart rate 86 /min 86 /min NEXTGEN ([facility]) Diastolic blood 86 mm[Hg] 86 mm[Hg] NEXTGEN ( [facility]) Systolic blood 130 mm[Hg] 130 mm[Hg] NEXTGEN ([facility] pressure [facility]) Body weight 84.277 kg 84.277 kg NEXTREGENCY MERIDIAN ([facility]) Oxygen saturation 96 % 96 % NEXTGEN ([facility] in Arterial blood [facility]) Body mass index 30.43 kg/m2 Overweight 30.43 kg/m2 NEXTGEN ([facility] (BMI) [Ratio] [facility]) Respiratory rate 18 /min 18 /min [facility] ([facility]) Body temperature 36.39 Ilana 36.39 Ilana NEXTREGENCY MERIDIAN ([facility]) Heart rate 83 /min 83 /min [facility] ([facility]) Diastolic blood 65 mm[Hg] 65 mm[Hg] NEXTREGENCY MERIDIAN ( [facility]) Systolic blood 101 mm[Hg] 101 mm[Hg] [facility] (S [facility]) Body weight 75.478 kg 75.478 kg NEXTREGENCY MERIDIAN ([facility]) Body height 157.48 cm 157.48 cm [facility] ([facility]) Heart rate 84 /min 84 /min [facility] Diastolic blood 64 mm[Hg] 64 mm[Hg] [facility] Systolic blood 107 mm[Hg] 107 mm[Hg] [facility] Body temperature 36.680365 36.120834 Ilana [facility] Respiratory rate 18 /min 18 /min [facility] Heart rate 76 /min 76 /min [facility] Diastolic blood 67 mm[Hg] 67 mm[Hg] [facility] Systolic blood 109 mm[Hg] 109 mm[Hg] [facility] Heart rate 84 /min 84 /min [facility] Diastolic blood 69 mm[Hg] 69 mm[Hg] [facility] pressure Medical Center Systolic blood 105 mm[Hg] 105 mm[Hg] [facility] pressure [facility] Center Body weight 71.977109 kg 71.915683 kg [facility] Measured [facility] Center Body temperature 36.467304 36.454979 [facility] Respiratory rate 20 /min 20 /min [facility] Heart rate 81 /min 81 /min [facility] Diastolic blood 63 mm[Hg] 63 mm[Hg] [facility] pressure Medical Center Systolic blood 109 mm[Hg] 109 mm[Hg] [facility] Heart rate 84 /min 84 /min [facility] Diastolic blood 75 mm[Hg] 75 mm[Hg] [facility] pressure Medical Center Systolic blood 109 mm[Hg] 109 mm[Hg] [facility] Body temperature 36.889166 36.561055 [facility] Respiratory rate 18 /min 18 /min [facility] Body temperature 35.011647 35.101502 [facility] Respiratory rate 20 /min 20 /min [facility] Body temperature 36.290874 36.424882 [facility] Respiratory rate 18 /min 18 /min [facility] Body weight 69.531873 kg 69.315563 kg [facility] Measured [facility] Center Deprecated Oxygen 96 % 96 % [facility] saturation in [facility] Capillary blood by Oximetry Heart rate 121 /min 121 /min [facility] Systolic blood 80 mm[Hg] 80 mm[Hg] [facility] Diastolic blood 120 mm[Hg] 120 mm[Hg] [facility] pressure Medical Center Oxygen saturation 96 % 96 % [facility] in Arterial blood [facility] Center by Pulse oximetry Heart rate 116 /min 116 /min [facility] Systolic blood 91 mm[Hg] 91 mm[Hg] [facility] Diastolic blood 131 mm[Hg] 131 mm[Hg] [facility] pressure Medical Center Body temperature 35.543618 35.730212 [facility] Respiratory rate 17 /min 17 /min [facility] Heart rate 113 /min 113 /min [facility] Systolic blood 66 mm[Hg] 66 mm[Hg] [facility] Diastolic blood 129 mm[Hg] 129 mm[Hg] [facility] Body weight 70.087377 kg 70.850828 kg [facility] Medical [place] Body temperature 36.640407 36.736657 [facility] Respiratory rate 18 /min 18 /min [facility] Heart rate 120 /min 120 /min [facility] Body height 152.961292 152.673338 cm [facility] Systolic blood 68 mm[Hg] 68 mm[Hg] [facility] Diastolic blood 115 mm[Hg] 115 mm[Hg] [facility] Body temperature 37.646965 37.741938 [facility] Respiratory rate 16 /min 16 /min [facility] Deprecated Oxygen 98 % 98 % [facility] saturation in [facility] Capillary blood by Oximetry Heart rate 79 /min 79 /min [facility] Systolic blood 67 mm[Hg] 67 mm[Hg] [facility] [place] Diastolic blood 127 mm[Hg] 127 mm[Hg] [facility] Oxygen saturation 98 % 98 % [facility] in Arterial blood [facility] Center by Pulse oximetry Body temperature 36.655162 36.982717 [facility] Respiratory rate 16 /min 16 /min [facility] Deprecated Oxygen 99 % 99 % [facility] saturation in [facility] Capillary blood by Oximetry Oxygen saturation 99 % 99 % [facility] in Arterial blood [facility] Center by Pulse oximetry Body temperature 36.695151 36.453447 [facility] Respiratory rate 19 /min 19 /min [facility] Deprecated Oxygen 98 % 98 % [facility] saturation in [facility] Capillary blood by Oximetry Oxygen saturation 98 % 98 % [facility] in Arterial blood [facility] Center by Pulse oximetry Deprecated Oxygen 98 % 98 % [facility] saturation in [facility] Capillary blood by Oximetry Oxygen saturation 98 % 98 % [facility] in Arterial blood Medical Center by Pulse oximetry Body weight 74.458259 kg 74.710345 kg [facility] Measured Medical Center Body height 160.633453 160.345270 cm [facility] Body mass index 29.2 kg/m2 29.2 kg/m2 [facility] (BMI) [Ratio] [facility] Body mass index 25.42 kg/m2 Overweight 25.42 kg/m2 NEXTGEN ([facility] (BMI) [Ratio] [facility]) Respiratory rate 16 /min 16 /min NEXTGEN ([facility]) Body temperature 37.11 Ilana 37.11 Ilana NEXTGEN ([facility]) Heart rate 83 /min 83 /min NEXTREGENCY MERIDIAN ([facility]) Diastolic blood 73 mm[Hg] 73 mm[Hg] NEXTGEN ( [facility]) Systolic blood 106 mm[Hg] 106 mm[Hg] NEXTREGENCY MERIDIAN ([facility]) Body weight 63.049 kg 63.049 kg NEXTREGENCY MERIDIAN ([facility]) Body height 157.48 cm 157.48 cm [facility] ([facility]) Body mass index 31.46 kg/m2 Overweight 31.46 kg/m2 NEXTREGENCY MERIDIAN ([facility] (BMI) [Ratio] [facility]) Respiratory rate 18 /min 18 /min NEXTREGENCY MERIDIAN ([facility]) Body temperature 36.80 Ilana 36.80 Ilana NEXTREGENCY MERIDIAN ([facility]) Heart rate 83 /min 83 /min [facility] ([facility]) Diastolic blood 78 mm[Hg] 78 mm[Hg] NEXTREGENCY MERIDIAN ( [facility]) Systolic blood 118 mm[Hg] 118 mm[Hg] NEXTREGENCY MERIDIAN ([facility]) Body weight 78.018 kg 78.018 kg NEXTREGENCY MERIDIAN ([facility]) Body height 157.48 cm 157.48 cm [facility] ([facility]) Patient Treatment Plan of Care Planned Activity Planned Date Details Description Data Source (s) Prazosin 2 MG Oral Capsule 06/19/2020 N EXTGEN ([facility] 12:00:00 AM [facility]) Mirtazapine 15 MG Oral Tablet 06/19/2020 NEXTGEN ([facility] [Remeron] 12:00:00 AM [facility]) Fluoxetine 40 MG Oral Capsule 06/19/2020 NEXTGEN ([facility] [Prozac] 12:00:00 AM [facility]) 24 HR Bupropion Hydrochloride 06/19/2020 NEXTGEN ([facility] 150 MG Extended Release Oral 12:00:00 AM [facility]) Prazosin 2 MG Oral Capsule 06/19/2020 N EXTGEN ([facility] 12:00:00 AM [facility]) Mirtazapine 15 MG Oral Tablet 06/19/2020 NEXTGEN ([facility] [Remeron] 12:00:00 AM [facility]) Fluoxetine 40 MG Oral Capsule 06/19/2020 NEXTGEN ([facility] [Prozac] 12:00:00 AM [facility]) 24 HR Bupropion Hydrochloride 06/19/2020 NEXTGEN ([facility] 150 MG Extended Release Oral 12:00:00 AM [facility]) 24 HR Bupropion Hydrochloride 06/19/2020 NEXTGEN ([facility] 150 MG Extended Release Oral 12:00:00 AM [facility]) Prazosin 2 MG Oral Capsule 06/19/2020 N EXTGEN ([facility] 12:00:00 AM [facility]) 120 ACTUAT Budesonide 0.16 05/31/2020 N EXTGEN ([facility] MG/ACTUAT / formoterol 12:00:00 AM [facility] Medical fumarate 0.0045 MG/ACTUAT Ce nter) Metered Dose Inhaler [Symbicort] Fluoxetine 40 MG Oral Capsule 05/22/2020 NEXTGEN ([facility] [Prozac] 12:00:00 AM [facility]) Prazosin 1 MG Oral Capsule 05/22/2020 N EXTGEN ([facility] 12:00:00 AM [facility]) Mirtazapine 15 MG Oral Tablet 05/22/2020 NEXTGEN ([facility] [Remeron] 12:00:00 AM [facility]) apixaban 5 MG Oral Tablet 05/08/2020 NE XTGEN ([facility] [Eliquis] 12:00:00 AM [facility]) Nicotine 2 MG Oral Lozenge 04/16/2020 N EXTGEN ([facility] [Nicorette] 12:00:00 AM [facility]) 24 HR Nicotine 0.583 MG/HR 04/16/2020 N EXTGEN ([facility] Transdermal Patch [Nicoderm 12:00:00 AM [facility] C-Q] [place]) 24 HR metoprolol succinate 25 04/16/2020 NEXTGEN ([facility] MG Extended Release Oral 12:00:00 AM [facility]) Lisinopril 5 MG Oral Tablet 04/16/2020 NEXTGEN ([facility] 12:00:00 AM [facility]) apixaban 5 MG Oral Tablet 04/11/2020 NE XTGEN ([facility] [Eliquis] 12:00:00 AM [facility]) Prazosin 1 MG Oral Capsule 04/10/2020 N EXTGEN ([facility] 12:00:00 AM [facility]) Fluoxetine 40 MG Oral Capsule 04/10/2020 NEXTGEN ([facility] [Prozac] 12:00:00 AM [facility]) Mirtazapine 15 MG Oral Tablet 04/10/2020 NEXTGEN ([facility] [Remeron] 12:00:00 AM [facility]) Fluoxetine 40 MG Oral Capsule 04/10/2020 NEXTGEN ([facility] [Prozac] 12:00:00 AM [facility]) Mirtazapine 15 MG Oral Tablet 03/13/2020 NEXTGEN ([facility] [Remeron] 12:00:00 AM [facility]) Fluoxetine 20 MG Oral Capsule 03/13/2020 NEXTGEN ([facility] [Prozac] 12:00:00 AM [facility]) Fluoxetine 10 MG Oral Capsule 03/13/2020 NEXTGEN ([facility] [Prozac] 12:00:00 AM [facility]) Prazosin 1 MG Oral Capsule 03/13/2020 N EXTGEN ([facility] 12:00:00 AM [facility]) Lisinopril 5 MG Oral Tablet 02/16/2020 NEXTGEN ([facility] 12:00:00 AM [facility]) Fluoxetine 10 MG Oral Capsule 02/14/2020 NEXTGEN ([facility] [Prozac] 12:00:00 AM [facility]) Fluoxetine 20 MG Oral Capsule 02/14/2020 NEXTGEN ([facility] [Prozac] 12:00:00 AM [facility]) Prazosin 1 MG Oral Capsule 02/14/2020 N EXTGEN ([facility] 12:00:00 AM [facility]) Mirtazapine 15 MG Oral Tablet 02/14/2020 NEXTGEN ([facility] [Remeron] 12:00:00 AM [facility]) Prazosin 1 MG Oral Capsule 01/18/2020 N EXTGEN ([facility] 12:00:00 AM [facility]) Mirtazapine 15 MG Oral Tablet 01/18/2020 NEXTGEN ([facility] [Remeron] 12:00:00 AM [facility]) Fluoxetine 20 MG Oral Capsule 01/18/2020 NEXTGEN ([facility] [Prozac] 12:00:00 AM [facility]) apixaban 5 MG Oral Tablet 01/01/2020 NE XTGEN ([facility] [Eliquis] 12:00:00 AM [facility]) Mirtazapine 15 MG Oral Tablet 12/21/2019 NEXTGEN ([facility] [Remeron] 12:00:00 AM [facility]) Fluoxetine 20 MG Oral Capsule 12/21/2019 NEXTGEN ([facility] [Prozac] 12:00:00 AM [facility]) Prazosin 1 MG Oral Capsule 12/21/2019 N EXTGEN ([facility] 12:00:00 AM [facility]) 200 ACTUAT Albuterol 0.09 11/23/2019 NE XTGEN ([facility] MG/ACTUAT Metered Dose 12:00:00 AM [facility] Medical Inhaler [Ventolin] [place]) atorvastatin 10 MG Oral 11/23/2019 NEXT GEN ([facility] Tablet 12:00:00 AM [facility]) Aspirin 81 MG Chewable Tablet 11/23/2019 NEXTGEN ([facility] 12:00:00 AM [facility]) Prazosin 1 MG Oral Capsule 11/23/2019 N EXTGEN ([facility] 12:00:00 AM [facility]) 24 HR metoprolol succinate 25 11/15/2019 NEXTGEN ([facility] MG Extended Release Oral 12:00:[address] [facility]) Lisinopril 5 MG Oral Tablet 11/15/2019 NEXTGEN (Saint 12:00:00 AM [facility]) 24 HR metoprolol succinate 50 11/03/2019 eCW1 ([facility] MG Extended Release Oral 12:00:00 AM [facility] Tablet ) Clonazepam 1 MG Oral Tablet 10/27/2019 NEXTGEN ([facility] [Klonopin] 12:00:00 AM [facility]) Mirtazapine 15 MG Oral Tablet 10/27/2019 NEXTGEN ([facility] [Remeron] 12:00:00 AM [facility]) 24 HR metoprolol succinate 25 10/18/2019 NEXTGEN ([facility] MG Extended Release Oral 12:00:[address] [facility]) Lisinopril 5 MG Oral Tablet 10/18/2019 NEXTGEN ([facility] 12:00:00 AM [facility]) pregabalin 75 MG Oral Capsule 10/13/2019 NEXTGEN ([facility] [Lyrica] 12:00:00 AM [facility]) Fluoxetine 20 MG Oral Capsule 10/13/2019 NEXTGEN ([facility] [Prozac] 12:00:00 AM [facility]) Prazosin 1 MG Oral Capsule 10/13/2019 N EXTGEN ([facility] 12:00:00 AM [facility]) Clonazepam 0.5 MG Oral Tablet 10/13/2019 NEXTGEN ([facility] [Klonopin] 12:00:00 AM [facility]) aripiprazole 5 MG Oral Tablet 08/15/2019 NEXTGEN ([facility] [Abilify] 12:00:00 AM [facility]) Hydroxyzine Hydrochloride 50 08/15/2019 NEXTGEN ([facility] MG Oral Tablet 12:00:00 AM [facility]) quetiapine 100 MG Oral Tablet 08/15/2019 NEXTGEN ([facility] [Seroquel] 12:00:00 AM [facility]) Sertraline 50 MG Oral Tablet 08/15/2019 NEXTGEN ([facility] [Zoloft] 12:00:00 AM [facility]) Sertraline 50 MG Oral Tablet 07/12/2019 NEXTGEN ([facility] [Zoloft] 12:00:00 AM [facility]) quetiapine 50 MG Oral Tablet 07/12/2019 NEXTGEN ([facility] [Seroquel] 12:00:00 AM [facility]) Hydroxyzine Hydrochloride 50 07/12/2019 NEXTGEN ([facility] MG Oral Tablet 12:00:00 AM EDT [facility]) aripiprazole 5 MG Oral Tablet 07/12/2019 NEXTGEN ([facility] [Abilify] 12:00:00 AM T [facility]) Sertraline 50 MG Oral Tablet 07/05/2019 NEXTGEN ([facility] [Zoloft] 12:00:00 AM [facility]) quetiapine 50 MG Oral Tablet 07/05/2019 NEXTGEN ([facility] [Seroquel] 12:00:00 AM [facility]) Hydroxyzine Hydrochloride 50 07/05/2019 NEXTGEN ([facility] MG Oral Tablet 12:00:00 AM T [facility]) aripiprazole 5 MG Oral Tablet 07/05/2019 NEXTGEN ([facility] [Abilify] 12:00:00 AM EDT [facility]) 120 ACTUAT Budesonide 0.16 06/23/2019 N EXTGEN ([facility] MG/ACTUAT / formoterol 12:00:00 AM EDT [facility] Medical fumarate 0.0045 MG/ACTUAT Ce nter) Metered Dose Inhaler [Symbicort] apixaban 5 MG Oral Tablet 06/23/2019 NE XTGEN ([facility] [Eliquis] 12:00:00 AM [facility]) atorvastatin 10 MG Oral 06/23/2019 NEXT GEN ([facility] Tablet 12:00:00 AM [facility]) Kapspargo Sprinkle 25 mg 06/23/2019 NEX TGEN ([facility] capsule,extended release 12:00:00 AM [facility]) 200 ACTUAT Albuterol 0.09 06/23/2019 NE XTGEN ([facility] MG/ACTUAT Metered Dose 12:00:00 AM EDT [facility] Medical Inhaler [Ventolin] Center) aripiprazole 5 MG Oral Tablet 06/07/2019 NEXTGEN ([facility] [Abilify] 12:00:00 AM [facility]) Hydroxyzine Hydrochloride 50 06/07/2019 NEXTGEN ([facility] MG Oral Tablet 12:00:00 AM [facility]) quetiapine 50 MG Oral Tablet 06/07/2019 NEXTGEN ([facility] [Seroquel] 12:00:00 AM [facility]) Sertraline 50 MG Oral Tablet 06/07/2019 NEXTGEN ([facility] [Zoloft] 12:00:00 AM [facility]) aripiprazole 5 MG Oral Tablet 05/08/2019 NEXTGEN ([facility] [Abilify] 12:00:00 AM [facility]) Hydroxyzine Hydrochloride 50 05/08/2019 NEXTGEN ([facility] MG Oral Tablet 12:00:00 AM [facility]) quetiapine 50 MG Oral Tablet 05/08/2019 NEXTGEN ([facility] [Seroquel] 12:00:00 AM [facility]) Sertraline 50 MG Oral Tablet 05/08/2019 NEXTGEN ([facility] [Zoloft] 12:00:00 AM [facility]) Hydroxyzine Hydrochloride 50 04/10/2019 NEXTGEN ([facility] MG Oral Tablet 12:00:00 AM [facility]) quetiapine 50 MG Oral Tablet 04/10/2019 NEXTGEN ([facility] [Seroquel] 12:00:00 AM [facility]) Sertraline 50 MG Oral Tablet 04/10/2019 NEXTGEN ([facility] [Zoloft] 12:00:00 AM [facility]) Hydroxyzine Hydrochloride 50 12/14/2018 NEXTGEN ([facility] MG Oral Tablet 12:00:00 AM [facility]) quetiapine 50 MG Oral Tablet 12/14/2018 NEXTGEN ([facility] [Seroquel] 12:00:00 AM [facility]) Sertraline 50 MG Oral Tablet 12/14/2018 NEXTGEN ([facility] [Zoloft] 12:00:00 AM [facility]) aripiprazole 5 MG Oral Tablet 11/30/2018 NEXTGEN ([facility] [Abilify] 12:00:00 AM [facility]) quetiapine 50 MG Oral Tablet 11/30/2018 NEXTGEN ([facility] [Seroquel] 12:00:00 AM [facility]) Sertraline 50 MG Oral Tablet 11/30/2018 NEXTGEN ([facility] [Zoloft] 12:00:00 AM [facility]) quetiapine 100 MG Oral Tablet 11/30/2018 NEXTGEN ([facility] [Seroquel] 12:00:00 AM [facility]) Hydroxyzine Hydrochloride 50 11/30/2018 NEXTGEN ([facility] MG Oral Tablet 12:00:00 AM [facility]) quetiapine 100 MG Oral Tablet 11/02/2018 NEXTGEN ([facility] [Seroquel] 12:00:00 AM [facility]) Sertraline 50 MG Oral Tablet 11/02/2018 NEXTGEN ([facility] [Zoloft] 12:00:00 AM [facility]) Hydroxyzine Hydrochloride 50 11/02/2018 NEXTGEN ([facility] MG Oral Tablet 12:00:00 AM [facility]) Lisinopril 2.5 MG Oral Tablet 10/25/2018 NEXTGEN ([facility] 12:00:00 AM [facility]) Kapspargo Sprinkle 25 mg 10/25/2018 NEX TGEN ([facility] capsule,extended release 12:00:00 AM [facility]) apixaban 5 MG Oral Tablet 10/25/2018 NE XTGEN ([facility] [Eliquis] 12:00:00 AM [facility]) Aspirin 81 MG Chewable Tablet 09/22/2018 NEXTGEN ([facility] 12:00:00 AM [facility]) atorvastatin 10 MG Oral 09/22/2018 NEXT GEN ([facility] Tablet 12:00:00 AM [facility]) Kapspargo Sprinkle 25 mg 09/22/2018 NEX TGEN ([facility] capsule,extended release 12:00:00 AM [facility]) Hydroxyzine Hydrochloride 50 09/22/2018 NEXTGEN ([facility] MG Oral Tablet 12:00:00 AM [facility]) Escitalopram 20 MG Oral 09/22/2018 NEXT GEN ([facility] Tablet 12:00:00 AM [facility]) quetiapine 100 MG Oral Tablet 09/22/2018 NEXTGEN ([facility] [Seroquel] 12:00:00 AM [facility]) ZTlido 1.8 % topical patch 08/11/2018 N EXTGEN ([facility] 12:00:00 AM [facility]) 120 ACTUAT Budesonide 0.16 08/05/2018 N EXTGEN ([facility] MG/ACTUAT / formoterol 12:00:00 AM [facility] Medical fumarate 0.0045 MG/ACTUAT Ce nter) Metered Dose Inhaler [Symbicort] Famotidine 20 MG Oral Tablet 08/05/2018 NEXTGEN ([facility] 12:00:00 AM [facility]) tramadol hydrochloride 50 MG 08/05/2018 NEXTGEN ([facility] Oral Tablet 12:00:00 AM [facility]) Lisinopril 2.5 MG Oral Tablet 08/05/2018 NEXTGEN ([facility] 12:00:00 AM [facility]) apixaban 5 MG Oral Tablet 08/05/2018 NE XTGEN ([facility] [Eliquis] 12:00:00 AM [facility]) 24 HR venlafaxine 37.5 MG 08/05/2018 NE XTGEN ([facility] Extended Release Oral Capsule 12:00:00 AM [facility]) 24 HR Nicotine 0.875 MG/HR 04/18/2018 N EXTGEN ([facility] Transdermal Patch 12:00:00 AM [facility]) 200 ACTUAT Albuterol 0.09 12/30/2017 NE XTGEN ([facility] MG/ACTUAT Metered Dose 12:00:00 AM [facility] Medical Inhaler [Ventolin] [place]) 24 HR Nicotine 0.875 MG/HR 12/30/2017 N EXTGEN ([facility] Transdermal Patch 12:00:00 AM [facility]) Simvastatin 20 MG Oral Tablet 11/16/2017 NEXTGEN ([facility] 12:00:00 AM [facility]) Aspirin 81 MG Chewable Tablet 11/16/2017 NEXTGEN ([facility] 12:00:00 AM [facility]) 200 ACTUAT Albuterol 0.09 10/05/2017 NE XTGEN ([facility] MG/ACTUAT Metered Dose 12:00:00 AM [facility] [employer] Medical Inhaler [Ventolin] [place]) Phenazopyridine hydrochloride 09/08/2017 NEXTGEN ([facility] 100 MG Oral Tablet [Pyridium] 12:00:00 AM [facility]) Sulfamethoxazole 800 MG / 09/08/2017 NE XTGEN ([facility] Trimethoprim 160 MG Oral 12:00:00 AM [facility] Medical Tablet [Bactrim] [place]) Aspirin 81 MG Chewable Tablet 07/29/2017 NEXTGEN ([facility] 12:00:00 AM [facility]) gabapentin 100 MG Oral 07/29/2017 NEXTG EN ([facility] Capsule 12:00:00 AM [facility]) Hydrochlorothiazide 12.5 MG 07/29/2017 NEXTGEN ([facility] Oral Tablet 12:00:00 AM [facility]) Simvastatin 20 MG Oral Tablet 07/29/2017 NEXTGEN ([facility] 12:00:00 AM [facility]) Simvastatin 20 MG Oral Tablet 04/26/2017 NEXTGEN ([facility] 12:00:00 AM [facility]) Hydrochlorothiazide 12.5 MG 04/22/2017 NEXTGEN ([facility] Oral Tablet 12:00:00 AM [facility]) Simvastatin 20 MG Oral Tablet 01/25/2017 NEXTGEN ([facility] 12:00:00 AM [facility]) Hydrochlorothiazide 12.5 MG 01/25/2017 NEXTGEN ([facility] Oral Tablet 12:00:00 AM [facility]) Simvastatin 20 MG Oral Tablet 10/09/2016 NEXTGEN ([facility] 12:00:00 AM [facility]) 200 ACTUAT Albuterol 0.09 10/09/2016 NE XTGEN ([facility] MG/ACTUAT Metered Dose 12:00:00 AM [facility] Medical Inhaler [[facility]] [place]) Hydrochlorothiazide 12.5 MG 10/09/2016 NEXTGEN ([facility] Oral Tablet 12:00:00 AM [facility]) Simvastatin 20 MG Oral Tablet 10/08/2016 NEXTGEN ([facility] 12:00:00 AM [facility]) 200 ACTUAT Albuterol 0.09 10/08/2016 NE XTGEN ([facility] MG/ACTUAT Metered Dose 12:00:00 AM [facility] sephs Medical Inhaler [[facility]] [place]) buspirone hydrochloride 15 MG 01/16/2015 NEXTGEN ([facility] Oral Tablet 12:00:00 AM [facility]) Mirtazapine 30 MG Oral Tablet 01/16/2015 NEXTGEN ([facility] [Remeron] 12:00:00 AM [facility]) quetiapine 25 MG Oral Tablet 01/16/2015 NEXTGEN ([facility] [Seroquel] 12:00:00 AM [facility]) buspirone hydrochloride 15 MG 12/11/2014 NEXTGEN ([facility] Oral Tablet 12:00:00 AM [facility]) Mirtazapine 30 MG Oral Tablet 12/11/2014 NEXTGEN ([facility] [Remeron] 12:00:00 AM [facility]) quetiapine 25 MG Oral Tablet 12/11/2014 NEXTGEN ([facility] [Seroquel] 12:00:00 AM [facility]) Aspirin 81 MG Chewable Tablet 12/11/2014 NEXTGEN ([facility] 12:00:00 AM [facility]) Simvastatin 20 MG Oral Tablet 12/11/2014 NEXTGEN ([facility] 12:00:00 AM [facility]) quetiapine 25 MG Oral Tablet 11/28/2014 NEXTGEN ([facility] [Seroquel] 12:00:00 AM [facility]) Mirtazapine 30 MG Oral Tablet 11/06/2014 NEXTGEN ([facility] [Remeron] 12:00:00 AM [facility]) buspirone hydrochloride 15 MG 09/24/2014 NEXTGEN ([facility] Oral Tablet 12:00:00 AM [facility]) simvastatin 20 mg tablet 08/27/2014 NEX TGEN ([facility] 12:00:00 AM [facility]) quetiapine 25 MG Oral Tablet 08/27/2014 NEXTGEN ([facility] [Seroquel] 12:00:00 AM [facility]) Mirtazapine 30 MG Oral Tablet 08/27/2014 NEXTGEN ([facility] [Remeron] 12:00:00 AM [facility]) Hydrochlorothiazide 12.5 MG 08/27/2014 NEXTGEN ([facility] Oral Tablet 12:00:00 AM [facility]) Aspirin 81 MG Chewable Tablet 08/27/2014 NEXTGEN ([facility] 12:00:00 AM [facility]) buspirone hydrochloride 15 MG 08/27/2014 NEXTGEN ([facility] Oral Tablet 12:00:00 AM [facility]) Hydrochlorothiazide 12.5 MG 05/30/2014 NEXTGEN ([facility] Oral Tablet 12:00:00 AM [facility]) simvastatin 20 mg tablet 05/30/2014 NEX TGEN ([facility] 12:00:00 AM [facility]) Aspirin 81 MG Chewable Tablet 05/30/2014 NEXTGEN ([facility] 12:00:00 AM [facility]) Mirtazapine 30 MG Oral Tablet 03/29/2014 NEXTGEN ([facility] [Remeron] 12:00:00 AM [facility]) quetiapine 25 MG Oral Tablet 03/29/2014 NEXTGEN ([facility] [Seroquel] 12:00:00 AM [facility]) buspirone hydrochloride 15 MG 03/29/2014 NEXTGEN ([facility] Oral Tablet 12:00:00 AM [facility]) Oseltamivir 75 MG Oral 01/30/2014 NEXTG EN ([facility] Capsule [Tamiflu] 12:00:00 AM [facility]) buspirone hydrochloride 7.5 01/25/2014 NEXTGEN ([facility] MG Oral Tablet 12:00:[address] [facility] gabapentin 100 mg capsule NE XTGEN ([facility]) hydrocodone 10 NEXTGEN (Deejay t mg-acetaminophen 325 mg [facility]) Acetaminophen 325 MG / NEXTG EN ([facility] Hydrocodone Bitartrate 10 MG [facility]) Hydroxyzine Hydrochloride 50 NEXTGEN ([facility] MG Oral Tablet [facility]) Alprazolam 2 MG Oral Tablet NEXTGEN [facility] seroquel [facility] xanax [facility] traMADol [facility] famotidine [facility] venlafaxine [facility] Hydroxyzine Hydrochloride 50 Camps MG [facility] quetiapine [address] [facility] 24 HR metoprolol succinate 25 Camps MG Extended Release [facility] Lisinopril 2.[address] [facility] Escitalopram 20 MG Oral Deejay t [facility] 120 ACTUAT Budesonide 0.16 S aint [facility] MG/ACTUAT / formoterol [facility] fumarate 0.0045 MG/ACTUAT Metered Dose Inhaler [Symbicort] Aspirin [address] [facility] apixaban 5 MG Oral Tablet [facility] [Eliquis] [facility] 200 ACTUAT Albuterol 0.09 Sa brent Miller MG/ACTUAT Metered Dose Medic [facility] Inhaler [Proventil]
[2020-07-08] MEDS ORDERED: ATORVASTATIN CA 10 MG TABLET (FP) PO SCH (22:00)
[2020-07-09] MEDS ORDERED: BUDESONIDE/FORMETEROL FUMARATE 80/4.5 mcg INHALER IH SCH (10:00)
== END 2020-07-08 16:35 | disposition left against medical advice (07) | DRG 392 ==
LOC: JER 23:17 → JERBED 07-08 11:05
PROVIDERS: ADMIT Family Medicine; ATTEND Family Medicine
DX: R10.11 Right upper quadrant pain (principal); R74.01 Elevation of levels of liver transaminase levels; R07.9 Chest pain, unspecified; E66.9 Obesity, unspecified; Z68.39 Body mass index [BMI] 39.0-39.9, adult
CPT/HCPCS: 36415; 71275-TC; 74176-TC; 76705-TC; 80053; 81003; 82550; 83690; 84484; 85025; 85610; 85730; 93971-TC; 99285-25; J0131

== ENCOUNTER 2021-01-29 07:30 | Inpatient (IN) | payer OTHER ==
[2021-02-04 09:40] VITALS: BMI 40.6
[2021-02-05] MEDS ORDERED: methylPREDNISolone ACET (DEPO) 40 MG/1 ML VIAL ONE (07:40)
[2021-02-05] MEDS ORDERED: BUPIVACAINE HCL/PF 0.5% (5MG/ML) 10 ML VIAL ONE (07:40)
[2021-02-05] MEDS ORDERED: THROMBIN (BOVINE) 5,000 UNIT VIAL TP ONE ×2 (07:41→08:48)
[2021-02-05] MEDS ORDERED: BACITRACIN 15 GM TUBE TOPICAL OINTMENT ONE (08:09)
[2021-02-05] MEDS ORDERED: ceFAZolin 2 GRAM PREMIX BAG IVPB ONE (08:28)
[2021-02-05] MEDS ORDERED: ceFAZolin SODIUM 1 GM VIAL IVPB ONE (08:28)
[2021-02-05] MEDS ORDERED: BACITRACIN 50,000 UNITS VIAL TP ONE (08:48)
[2021-02-05] MEDS ORDERED: ONDANSETRON 4 MG/2 ML VIAL IVPUSH PRN ×2 (11:54→12:26)
[2021-02-05] MEDS ORDERED: BACITRACIN 15 GM TUBE TOPICAL OINTMENT TP ONE ×2 (12:03)
[2021-02-05] MEDS ORDERED: ALBUTEROL SO4 HFA INHALER IH PRN (12:06)
[2021-02-05] MEDS ORDERED: HYDROmorphone *PCA* 10MG/50ML DISP.SYRIN ONE ×2 (12:23→12:35)
[2021-02-05] MEDS ORDERED: LACTATED RINGERS SOLUTION 1,000 ML IV SCH (12:30)
[2021-02-05] MEDS ORDERED: HYDROmorphone *PCA* 10MG/50ML DISP.SYRIN PCA SCH (12:30)
[2021-02-05] MEDS ORDERED: diazePAM 5 MG TABLET ONE (13:49)
[2021-02-05] MEDS: diazePAM 5 MG TABLET PO SCH ×2 (13:52→21:35)
[2021-02-05] MEDS: DOCUSATE SODIUM 100 MG CAPSULE (FP) PO SCH ×2 (14:46→21:35)
[2021-02-05] MEDS: D5-1/2NS+20 MEQ KCL - 20 MEQ/1,000 ML INFUS.BAG IV SCH (14:46)
[2021-02-05] MEDS: hydrOXYzine PAMOATE 50 MG CAPSULE (FP) PO SCH ×2 (14:47→22:19)
[2021-02-05] MEDS ORDERED: DEXTROSE 5%-WATER - 50 ML IVPB ONE (17:50)
[2021-02-05] MEDS ORDERED: ceFAZolin SODIUM 1 GM VIAL ONE ×2 (17:50→23:48)
[2021-02-05] MEDS: oxyCODONE HCL 5 MG TABLET PO PRN (17:55)
[2021-02-05] MEDS: CEFAZOLIN 1 GM in DEXTROSE 5%-WATER - 50 ML IVPB SCH (17:56)
[2021-02-05] MEDS ORDERED: CEFAZOLIN 1 GM/D5W 1 GM/50 ML BAG IVPB SCH (18:00)
[2021-02-05] MEDS: MONTELUKAST NA 10 MG TABLET PO SCH (21:35)
[2021-02-05] MEDS: PANTOPRAZOLE 20 MG TABLET PO SCH (21:35)
[2021-02-05] MEDS: ATORVASTATIN CA 10 MG TABLET (FP) PO SCH (21:35)
[2021-02-05] MEDS ORDERED: PT OWN MED DRAWER 7, Y5N ONE (21:38)
[2021-02-05] MEDS ORDERED: PRAZOSIN HCL 2 MG CAPSULE PO SCH (22:00)
[2021-02-05] MEDS ORDERED: PRAZOSIN HCL 1 MG CAPSULE PO SCH (23:54)
[2021-02-06] MEDS: PRAZOSIN HCL 1 MG CAPSULE PO SCH ×2 (00:01→22:35)
[2021-02-06] MEDS: CEFAZOLIN 1 GM in DEXTROSE 5%-WATER - 50 ML IVPB SCH (01:01)
[2021-02-06] MEDS: D5-1/2NS+20 MEQ KCL - 20 MEQ/1,000 ML INFUS.BAG IV SCH ×3 (01:03→13:35)
[2021-02-06] MEDS: oxyCODONE HCL 5 MG TABLET PO PRN (01:10)
[2021-02-06] MEDS ORDERED: PT OWN MED DRAWER 7, Y5N ONE ×5 (03:54→22:27)
[2021-02-06] MEDS: diazePAM 5 MG TABLET PO SCH ×3 (03:55→22:33)
[2021-02-06] MEDS: DOCUSATE SODIUM 100 MG CAPSULE (FP) PO SCH ×3 (05:15→22:33)
[2021-02-06] MEDS: hydrOXYzine PAMOATE 50 MG CAPSULE (FP) PO SCH ×3 (05:15→22:34)
[2021-02-06] MEDS: LISINOPRIL 5 MG TABLET PO SCH (09:30)
[2021-02-06] MEDS: FLUoxetine HCL 20 MG CAPSULE PO SCH (09:30)
[2021-02-06] MEDS: metoPROLOL SUCCINATE 25 MG TAB.SR.24H (FP) PO SCH (09:30)
[2021-02-06] MEDS ORDERED: BUDESONIDE/FORMETEROL FUMARATE 80/4.5 mcg INHALER IH SCH (10:00)
[2021-02-06] MEDS: TIOTROPIUM BROMIDE 2.5 MCG (SPIRIVA) RESPIMAT INHALER IH SCH (10:46)
[2021-02-06 11:33] LABS: BASO % 0.2 % (0-2.0); EOS % 0.1 % (0-4.5); HEMATOCRIT 27.7 % (32.4-45.2); HEMOGLOBIN 8.9 GM/dL (10.7-15.3); LYMPH % 14.5 % (8-40); MCH 25.1 pg (25.7-33.7); MCHC 32.1 g/dl (32.0-36.0); MEAN CELL VOLUME 78.2 fl (80-96); MEAN PLT VOLUME 7.6 fl (7.5-11.1); MONO % 12.2 % (3.8-10.2); PLATELET COUNT 418 K/MM3 (134-434); RBC 3.54 M/mm3 (3.60-5.2); RDW 17.4 % (11.6-15.6); WHITE BLOOD COUNT 16.1 K/mm3 (4.0-10.0)
[2021-02-06 11:57] LABS: ALBUMIN 3.4 g/dl (3.4-5.0); BLOOD UREA NITROGEN 5.3 mg/dL (7-18); CALCIUM 8.1 mg/dL (8.5-10.1)
[2021-02-06 12:01] LABS: CREATININE 0.9 mg/dL (0.55-1.3)
[2021-02-06 12:02] LABS: BILIRUBIN,TOTAL 0.3 mg/dL (0.2-1); TOT PROT 6.9 g/dl (6.4-8.2)
[2021-02-06] MEDS ORDERED: ACETAMINOPHEN 325 MG TABLET (FP) PO PRN ×2 (13:30)
[2021-02-06] MEDS: HYDROmorphone *PCA* 10MG/50ML DISP.SYRIN PCA SCH ×2 (13:33→23:58)
[2021-02-06] MEDS: ATORVASTATIN CA 10 MG TABLET (FP) PO SCH (22:33)
[2021-02-06] MEDS: MONTELUKAST NA 10 MG TABLET PO SCH (22:33)
[2021-02-06] MEDS: PANTOPRAZOLE 20 MG TABLET PO SCH (22:33)
[2021-02-06] MEDS: BUDESONIDE/FORMETEROL FUMARATE 80/4.5 mcg INHALER IH SCH (22:37)
[2021-02-07] MEDS: hydrOXYzine PAMOATE 50 MG CAPSULE (FP) PO SCH ×3 (06:22→21:28)
[2021-02-07] MEDS: DOCUSATE SODIUM 100 MG CAPSULE (FP) PO SCH ×3 (06:22→21:27)
[2021-02-07] MEDS: diazePAM 5 MG TABLET PO SCH ×2 (06:22→12:53)
[2021-02-07] MEDS ORDERED: DEXAMETHASONE SOD PHOSPHATE 4 MG/1 ML VIAL IVPUSH ONE (08:28)
[2021-02-07] MEDS ORDERED: D5-1/2NS+20 MEQ KCL - 20 MEQ/1,000 ML INFUS.BAG IV SCH (08:33)
[2021-02-07] MEDS: BUDESONIDE/FORMETEROL FUMARATE 80/4.5 mcg INHALER IH SCH ×2 (09:11→21:28)
[2021-02-07] MEDS: TIOTROPIUM BROMIDE 2.5 MCG (SPIRIVA) RESPIMAT INHALER IH SCH (09:11)
[2021-02-07] MEDS ORDERED: PT OWN MED DRAWER 7, Y5N ONE ×3 (09:15→21:26)
[2021-02-07] MEDS: FLUoxetine HCL 20 MG CAPSULE PO SCH (09:19)
[2021-02-07] MEDS: metoPROLOL SUCCINATE 25 MG TAB.SR.24H (FP) PO SCH (09:19)
[2021-02-07] MEDS: LISINOPRIL 5 MG TABLET PO SCH (09:19)
[2021-02-07] MEDS: HYDROmorphone *PCA* 10MG/50ML DISP.SYRIN PCA SCH (12:37)
[2021-02-07] MEDS ORDERED: PNEUMOCOCCAL 23 VACCINE 0.5 ML VIAL IM ONE (16:00)
[2021-02-07] MEDS ORDERED: oxyCODONE HCL 5 MG TABLET PO PRN (16:53)
[2021-02-07] MEDS ORDERED: PNEUMOC 13-VAL CONJ-DIP CRM/PF 0.5 ML DISP.SYRIN IM ONE (17:00)
[2021-02-07] MEDS ORDERED: MAGNESIUM CITRATE 300 ML BOTTLE PO ONE (19:45)
[2021-02-07] MEDS: oxyCODONE HCL 5 MG TABLET PO PRN (20:31)
[2021-02-07] MEDS ORDERED: MAGNESIUM CITRATE 300 ML BOTTLE PO PRN (21:00)
[2021-02-07] MEDS: MONTELUKAST NA 10 MG TABLET PO SCH (21:27)
[2021-02-07] MEDS: PRAZOSIN HCL 1 MG CAPSULE PO SCH (21:27)
[2021-02-07] MEDS: PANTOPRAZOLE 20 MG TABLET PO SCH (21:27)
[2021-02-07] MEDS: ATORVASTATIN CA 10 MG TABLET (FP) PO SCH (21:27)
[2021-02-07] MEDS: diazePAM 2 MG TABLET PO SCH (22:59)
[2021-02-08] MEDS ORDERED: PT OWN MED DRAWER 7, Y5N ONE (05:27)
[2021-02-08] MEDS: DOCUSATE SODIUM 100 MG CAPSULE (FP) PO SCH ×2 (06:03→14:11)
[2021-02-08] MEDS: diazePAM 2 MG TABLET PO SCH ×2 (06:04→14:11)
[2021-02-08] MEDS: hydrOXYzine PAMOATE 50 MG CAPSULE (FP) PO SCH ×2 (06:04→14:11)
[2021-02-08] MEDS: metoPROLOL SUCCINATE 25 MG TAB.SR.24H (FP) PO SCH (09:47)
[2021-02-08] MEDS: LISINOPRIL 5 MG TABLET PO SCH (09:47)
[2021-02-08] MEDS: FLUoxetine HCL 20 MG CAPSULE PO SCH (09:47)
[2021-02-08] MEDS: BUDESONIDE/FORMETEROL FUMARATE 80/4.5 mcg INHALER IH SCH (09:48)
[2021-02-08] MEDS: TIOTROPIUM BROMIDE 2.5 MCG (SPIRIVA) RESPIMAT INHALER IH SCH (09:48)
[2021-02-08] MEDS ORDERED: APIXABAN 5 MG TABLET PO SCH (10:30)
[2021-02-08] MEDS: oxyCODONE HCL 5 MG TABLET PO PRN (12:38)
[2021-02-08 14:45] VITALS: BP 155/84; PULSE 74; TEMP 98.8
== END 2021-02-08 16:17 | disposition home health service (06) | DRG 519 ==
LOC: J2C 02-05 04:14 → J8W 02-05 14:32
PROVIDERS: ADMIT Neurological Surgery; ATTEND Neurological Surgery
PROC: 01N10ZZ Release Cervical Nerve, Open Approach (ICD-10-PCS; 2021-02-05)
PROC: 0PH304Z Insertion of Internal Fixation Device into Cervical Vertebra, Open Approach (ICD-10-PCS; 2021-02-05)
PROC: 4A11X4G Monitoring of Peripheral Nervous Electrical Activity, Intraoperative, External Approach (ICD-10-PCS; 2021-02-05)
PROC: 0RB30ZZ Excision of Cervical Vertebral Disc, Open Approach (ICD-10-PCS; principal; 2021-02-05 07:30)
DX: M50.123 Cervical disc disorder at C6-C7 level with radiculopathy (principal); J95.89 Other postprocedural complications and disorders of respiratory system, not elsewhere classified; J98.11 Atelectasis; E66.2 Morbid (severe) obesity with alveolar hypoventilation; Z68.41 Body mass index [BMI] 40.0-44.9, adult; M50.223 Other cervical disc displacement at C6-C7 level; M43.12 Spondylolisthesis, cervical region; M85.80 Other specified disorders of bone density and structure, unspecified site; E66.9 Obesity, unspecified; I10 Essential (primary) hypertension; Z86.711 Personal history of pulmonary embolism; Z79.01 Long term (current) use of anticoagulants; J44.9 Chronic obstructive pulmonary disease, unspecified; F32.9 Major depressive disorder, single episode, unspecified; F41.9 Anxiety disorder, unspecified; R09.02 Hypoxemia; F12.10 Cannabis abuse, uncomplicated; F14.10 Cocaine abuse, uncomplicated; Z86.718 Personal history of other venous thrombosis and embolism; Y83.8 Other surgical procedures as the cause of abnormal reaction of the patient, or of later complication, without mention of misadventure at the time of the procedure; M85.88 Other specified disorders of bone density and structure, other site; M47.22 Other spondylosis with radiculopathy, cervical region
CPT/HCPCS: 36415; 71045-TC-FY; 72050-TC-FY; 80053; 81025; 85025; 86850; 86900; 86901; 90732; 94010; 94760; 94761; 97116-GP; 97161-GP; G0009